=== PATIENT | female | born 1945 | race Caucasian/White ===

== ENCOUNTER 2017-09-23 11:38 | Emergency (ER) | payer MEDICARE, SELFPAY ==
[2017-09-23] MEDS ORDERED: Lisinopril 10 MG Tab PO ONE (14:01)
--- NOTE | 2017-09-23 14:01 | EDM.PDOC ---
ED HPI GENERAL MEDICAL PROBLEM - General Chief Complaint: Respiratory Problem Stated Complaint: POSSIBLE CARBON MONOXIDE POISIONING Time Seen by Provider: 09/23/17 13:54 Source of Information: Reports: Patient, Old Records History Limitations: Reports: No Limitations - History of Present Illness INITIAL COMMENTS - FREE TEXT/NARRATIVE: Not feeling well lately. Had her furnace tested and it was found to be faulty and putting out excess CO. Some leg swelling and orthopnea as well. Has a mild NOBLE and dizziness. No fever. No hx of CHF. Onset: Gradual Duration: Day(s):, Getting Worse Location: Reports: Chest Quality: Reports: Ache Severity: Mild Improves with: Reports: Rest Worsens with: Reports: Movement (or lying flat) Context: Reports: Other (? bad furnace) Associated Symptoms: Reports: Chest Pain, Headaches, Shortness of Breath. 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: Reports: Other (see below) (none) Other Treatments CLOTH CUTTING MACHINE OPERATOR: none - Related Data Allergies Allergy/AdvReac Type Severity Reaction Status Date / Time Penicillins Allergy Respiratory Verified 08/25/16 20:09 Depression Home Meds: Home Meds Furosemide [Lasix] 40 mg PO ASDIRECTED PRN 12/29/13 [History] Insulin Aspart [NovoLOG] 1 unit SQ ASDIRECTED 12/29/13 [History] Insulin Glarg,Human.Rec.Analog [Lantus] 14 units SQ BID 12/29/13 [History] Lisinopril 20 mg PO DAILY #30 tablet 09/23/17 [Rx] Past Medical History HEENT History: Reports: Impaired Vision, Other (See Below) Other HEENT History: diabetic retinopahy r ear pain Cardiovascular History: Reports: Hypertension Genitourinary History: Reports: UTI, Recurrent Musculoskeletal History: Reports: Fracture Other Musculoskeletal History: l shoulder fx l leg Endocrine/Metabolic History: Reports: Diabetes, Type II, Obesity/BMI 30+ Dermatologic History: Reports: Other (See Below) Other Dermatologic History: Skin rash - Infectious Disease History Infectious Disease History: Reports: Chicken Pox, Measles, Other (See Below) Other Infectious Disease History: polio - Past Surgical History HEENT Surgical History: Reports: Cataract Surgery Female Surgical History: Reports: Salpingo-Oophorectomy Musculoskeletal Surgical History: Reports: Other (See Below) Social & Family History - Tobacco Use Smoking Status *Q: Never Smoker Second Hand Smoke Exposure: No - Caffeine Use Caffeine Use: Reports: Soda - Recreational Drug Use Recreational Drug Use: No - Living Situation & Occupation Living situation: Reports: Occupation: Retired ED ROS GENERAL - Review of Systems Review Of Systems: See Below Constitutional: Reports: Malaise HEENT: Reports: No Symptoms Respiratory: Reports: Shortness of Breath. Denies: Wheezing, Pleuritic Chest Pain, Cough, Sputum, Hemoptysis Cardiovascular: Reports: Chest Pain (mild, intermittent) GI/Abdominal: Reports: No Symptoms : Reports: No Symptoms Musculoskeletal: Reports: No Symptoms Skin: Reports: No Symptoms Neurological: Reports: Dizziness, Headache. Denies: Numbness, Seizure, Syncope , Tingling Psychiatric: Reports: No Symptoms ED EXAM, GENERAL - Physical Exam Exam: See Below Exam Limited By: No Limitations General Appearance: Alert, WD/WN, No Apparent Distress, Obese Eye Exam: Bilateral Eye: Normal Inspection Ears: Normal External Exam, Normal Canal, Hearing Grossly Normal, Normal TMs Ear Exam: Bilateral Ear: Auricle Normal, Canal Normal, TM normal Nose: Normal Inspection, Normal Mucosa, No Blood Throat/Mouth: Normal Inspection, Normal Lips, Normal Teeth, Normal Oropharynx, Normal Voice, No Airway Compromise Head: Atraumatic, Normocephalic Neck: Normal Inspection, Supple Respiratory/Chest: No Respiratory Distress, Lungs Clear, No Accessory Muscle Use , Decreased Breath Sounds Cardiovascular: Regular Rate, Rhythm, No Edema GI/Abdominal: Soft Back Exam: Normal Inspection. No: CVA Tenderness (R), CVA Tenderness (L) Extremities: Normal Inspection, Non-Tender Neurological: Alert, Oriented, CN II-XII Intact, Normal Cognition, No Motor/ Sensory Deficits Psychiatric: Normal Affect, Normal Mood Skin Exam: Warm, Dry, Intact, Normal Color, No Rash Lymphatic: No Adenopathy Course - Vital Signs Text/Narrative:: Discussed dx and plan with patient. She preferred outpatient tx and preferred to wait until she gets home to start the diuretic. Last Recorded V/S: Last Vital Signs Temp 36.6 C 09/23/17 14:31 Pulse 100 09/23/17 14:53 Resp 18 09/23/17 14:53 BP 116/75 09/23/17 14:53 Pulse Ox 95 09/23/17 14:53 - Orders/Labs/Meds Orders: Active Orders 24 hr Category Date Time Status Oxygen Therapy Adult [Oxygen Therapy] [RC] ASDIRECTED Care 09/23/17 13:52 Active UA W/MICROSCOPIC [URIN] Stat Lab 09/23/17 14:39 Uncollected Saline Lock Insert [OM.PC] Routine Oth 09/23/17 15:08 Ordered Labs: Laboratory Tests 09/23/17 09/23/17 09/23/17 Range/Units 13:52 13:59 13:59 WBC 13.9 H (4.5-11.0) K/uL RBC 5.71 H (3.30-5.50) M/uL Hgb 14.7 (12.0-15.0) g/dL Hct 45.3 (36.0-48.0) % MCV 79 L (80-98) fL MCH 26 L (27-31) pg MCHC 33 (32-36) % Plt Count 265 (150-400) K/uL ABG Carboxyhemoglobin 2.4 H (0.0-1.6) % Sodium 140 (140-148) mmol/L Potassium 4.0 (3.6-5.2) mmol/L Chloride 104 (100-108) mmol/L Carbon Dioxide 30 (21-32) mmol/L Anion Gap 6.3 (5.0-14.0) mmol/L BUN 13 (7-18) mg/dL Creatinine 0.7 (0.6-1.0) mg/dL Est Cr Clr Drug Dosing 66.88 mL/min Estimated GFR (MDRD) > 60 (>60) Glucose 203 H (74-106) mg/dL Calcium 9.6 (8.5-10.1) mg/dL Troponin I < 0.017 (0.000-0.056) ng/mL NT-Pro-B Natriuret Pep 2195 H (5-125) pg/mL Meds: Medications Discontinued Medications Generic Name Dose Route Start Last Admin Trade Name Freq PRN Reason Stop Dose Admin Furosemide 40 mg 09/23/17 15:08 Lasix IVPUSH 09/23/17 15:09 ONETIME ONE Lisinopril 20 mg 09/23/17 14:01 09/23/17 14:12 Prinivil PO 09/23/17 14:02 20 mg ONETIME ONE Administration Sodium Chloride 10 ml 09/23/17 15:08 Saline Flush FLUSH ASDIRECTED PRN Keep Vein Open - Radiology Interpretation Free Text/Narrative:: CXR-R pleural effusion, bilat interstitial edema Departure - Departure Time of Disposition: 15:25 Disposition: Home, Self-Care 01 Condition: Fair Clinical Impression: Pleural effusion CHF (congestive heart failure) Qualifiers: Congestive heart failure type: systolic Congestive heart failure chronicity: acute on chronic Qualified Code(s): I50.23 - Acute on chronic systolic ( congestive) heart failure Clinical Impression: (Ruled Out): Pleural effusion associated with hepatic disorder - Discharge Information Prescriptions: Lisinopril 20 mg PO DAILY #30 tablet Referrals: Kiran Paul MD [Primary Care Provider] - Forms: ED Department Discharge Additional Instructions: Avoid salt. Take lisinopril 20 mg every morning starting tomorrow. Take furosemide 40 mg every morning through the time of your clinic appt. Call today to schedule clinic follow up for early next week. Return as needed. Return for outpatient Echocardiogram. - My Orders Last 24 Hours: My Active Orders 09/23/17 13:52 Oxygen Therapy Adult [Oxygen Therapy] [] ASDIRECTED 09/23/17 14:39 UA W/MICROSCOPIC [URIN] Stat 09/23/17 15:08 Saline Lock Insert [OM.PC] Routine - Assessment/Plan Last 24 Hours: My Active Orders 09/23/17 13:52 Oxygen Therapy Adult [Oxygen Therapy] [RC] ASDIRECTED 09/23/17 14:39 UA W/MICROSCOPIC [URIN] Stat 09/23/17 15:08 Saline Lock Insert [OM.PC] Routine
--- NOTE | 2017-09-23 14:46 | CR ---
Chest 2V INDICATION: orthopnea FINDINGS: Comparison 11/23/2010. Left central line has been removed. Interval enlargement of a now mode rate right pleural effusion. Atelectasis right lung base. Mild pulmonary venous hypertension. [place] of a lower thoracic vertebral body.
[2017-09-23 14:53] VITALS: BP 116/75
[2017-09-23] MEDS ORDERED: Sodium Chloride 0.9% 10 ML Syringe FLUSH PRN (15:08)
[2017-09-23] MEDS ORDERED: Furosemide 40 MG/4 ML VIAL IVPUSH ONE (15:08)
== END 2017-09-23 15:45 | disposition home or self-care (01) ==
LOC: JP.ED 11:38
DX: I11.0 Hypertensive heart disease with heart failure (principal); I50.23 Acute on chronic systolic (congestive) heart failure; J90 Pleural effusion, not elsewhere classified; E11.9 Type 2 diabetes mellitus without complications; Z79.4 Long term (current) use of insulin; Z88.0 Allergy status to penicillin
CPT/HCPCS: 36415; 71020; 80048; 82375; 83880; 84484; 85027; 99284; A9270

== ENCOUNTER 2017-10-01 15:11 | Emergency (ER) | payer MEDICARE, SELFPAY ==
[2017-10-01 15:24] VITALS: BP 165/80
--- NOTE | 2017-10-01 16:17 | EDM.PDOC ---
ED HPI GENERAL MEDICAL PROBLEM - General Chief Complaint: Diabetic Complaint Stated Complaint: WEAKNESS VIA [place] Time Seen by Provider: 10/01/17 16:07 Source of Information: Reports: Patient, RN Notes Reviewed History Limitations: Reports: No Limitations - History of Present Illness INITIAL COMMENTS - FREE TEXT/NARRATIVE: 71-year-old female presents emergency department day complaint of weakness arrived via EMS services she has had some difficulty over the last week or so with new onset congestive heart failure as well as carbon monoxide poisoning. She states over the last 24-48 hours she has been progressively more weak and unable to get up and move around also has had difficulty with her blood sugar - Related Data Allergies Allergy/AdvReac Type Severity Reaction Status Date / Time Penicillins Allergy Respiratory Verified 10/01/17 15:24 Depression Home Meds: Home Meds Furosemide [Lasix] 40 mg PO ASDIRECTED PRN 12/29/13 [History] Insulin Aspart [NovoLOG] 1 unit SQ ASDIRECTED 12/29/13 [History] Insulin Glarg,Human.Rec.Analog [Lantus] 14 units SQ BID 12/29/13 [History] Lisinopril 20 mg PO DAILY #30 tablet 09/23/17 [Rx] Aspirin [Halfprin] 81 mg PO DAILY 10/01/17 [History] Levofloxacin 750 mg PO DAILY 10/01/17 [History] Ondansetron [Zofran] 4 mg PO Q6H PRN 10/01/17 [History] Potassium Chloride [Klor-Con 10] 10 meq PO DAILY 10/01/17 [History] atorvaSTATin [Lipitor] 40 mg PO ONETIME 10/01/17 [History] tiZANidine HCl [Zanaflex] 4 mg PO Q8HR PRN 10/01/17 [History] Past Medical History HEENT History: Reports: Cataract, Impaired Vision, Other (See Below) Other HEENT History: diabetic retinopahy r ear pain Cardiovascular History: Reports: Hypertension Gastrointestinal History: Reports: Cholelithiasis Genitourinary History: Reports: UTI, Recurrent 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 Musculoskeletal History: Reports: Fracture Other Musculoskeletal History: l shoulder fx l leg Neurological History: Reports: Concussion Endocrine/Metabolic History: Reports: Diabetes, Type II, Obesity/BMI 30+ Dermatologic History: Reports: Other (See Below) Other Dermatologic History: Skin rash - Infectious Disease History Infectious Disease History: Reports: Chicken Pox, Measles Other Infectious Disease History: polio - Past Surgical History HEENT Surgical History: Reports: Cataract Surgery GI Surgical History: Reports: Cholecystectomy Female Surgical History: Reports: Salpingo-Oophorectomy Musculoskeletal Surgical History: Reports: Other (See Below) Social & Family History - Tobacco Use Smoking Status *Q: Never Smoker Second Hand Smoke Exposure: No - Caffeine Use Caffeine Use: Reports: Tea - Recreational Drug Use Recreational Drug Use: No - Living Situation & Occupation Living situation: Reports: Occupation: Retired ED ROS GENERAL - Review of Systems Review Of Systems: See Below Constitutional: Reports: Fever, Chills, Weakness HEENT: Reports: No Symptoms Respiratory: Reports: No Symptoms Cardiovascular: Reports: No Symptoms GI/Abdominal: Reports: No Symptoms : Reports: No Symptoms Musculoskeletal: Reports: No Symptoms Skin: Reports: No Symptoms Neurological: Reports: No Symptoms ED EXAM GENERAL NO PERIP PULSE - Physical Exam Exam: See Below Text/Narrative:: General: Female, not in any distress, alert and oriented x3 HEENT: head is atraumatic normocephalic, eyes pupils equal round reactive to light, sclera clear no conjunctivitis appreciated. Ears tympanic membranes clear and webber landmarks and light reflex are present bilaterally canals are clear. Nose no septal deviation, nares are clear, no blood present. Mouth mucosa is moist and pink no erythema or exudate noted in soft palate, tongue is midline uvula is midline, dentition is intact. Neck: Supple no thyromegaly no tracheal deviation. Nodes: Cervical nodes subclavicular nodes nontender no palpable lymphadenopathy noted. Lungs: clear to auscultation bilaterally with symmetrical respirations, no adventitious noise appreciated. CV: Regular rate and rhythm S1 and S2 appreciated grade 2/6 systolic ejection murmur, no rubs or gallops noted. Abdomen: Soft, obese, nontender, no palpable masses or organomegaly appreciated , no distention no guarding bowel sounds are present, . Neuro: Cranial nerves II through XII grossly intact Skin: Warm and dry, intact Extremities: +2 pitting edema bilaterally with chronic venous stasis dermatitis Course - Vital Signs Last Recorded V/S: Last Vital Signs Temp 98.4 F 10/01/17 15:19 Pulse 96 10/01/17 15:19 Resp 16 10/01/17 15:19 BP 165/80 H 11/11/17 15:19 Pulse Ox 98 10/01/17 15:19 - Orders/Labs/Meds Orders: Active Orders 24 hr Category Date Time Status CULTURE URINE [RM] Urgent Lab 10/01/17 17:00 Received Labs: Laboratory Tests 10/01/17 10/01/17 10/01/17 Range/Units 16:30 16:30 16:30 WBC 12.3 H (4.5-11.0) K/uL RBC 5.45 (3.30-5.50) M/uL Hgb 14.1 (12.0-15.0) g/dL Hct 43.5 (36.0-48.0) % MCV 80 (80-98) fL MCH 26 L (27-31) pg MCHC 32 (32-36) % Plt Count 248 (150-400) K/uL Neut % (Auto) 78 H (36-66) % Lymph % (Auto) 14 L (24-44) % [place] % (Auto) 7 H (2-6) % Eos % (Auto) 1 L (2-4) % Baso % (Auto) 0 (0-1) % Sodium 141 (140-148) mmol/L Potassium 3.4 L (3.6-5.2) mmol/L Chloride 102 (100-108) mmol/L Carbon Dioxide 31 (21-32) mmol/L Anion Gap 11.4 (5.0-14.0) mmol/L BUN 13 (7-18) mg/dL Creatinine 0.7 (0.6-1.0) mg/dL Est Cr Clr Drug Dosing 65.50 mL/min Estimated GFR (MDRD) > 60 (>60) Glucose 211 H (74-106) mg/dL Lactic Acid 1.3 (0.4-2.0) mmol/L Calcium 9.2 (8.5-10.1) mg/dL Total Bilirubin 0.6 (0.2-1.0) mg/dL AST 28 D (15-37) U/L ALT 26 (12-78) U/L Alkaline Phosphatase 76 (46-116) U/L Total Protein 7.3 (6.4-8.2) g/dL Albumin 3.2 L (3.4-5.0) g/dL Globulin 4.1 H (2.3-3.5) g/dL Albumin/Globulin Ratio 0.8 L (1.2-2.2) Urine Color Urine Appearance Urine pH (4.5-8.0) Ur Specific [place] (1.008-1.030) Urine Protein (NEGATIVE) mg/dL Urine Glucose (UA) (NEGATIVE) mg/dL Urine Ketones (NEGATIVE) mg/dL Urine Occult Blood (NEGATIVE) Urine Nitrite (NEGATIVE) Urine Bilirubin (NEGATIVE) Urine Urobilinogen (NORMAL) mg/dL Ur Leukocyte Esterase (NEGATIVE) Urine RBC (0-5) Urine WBC (0-5) Ur Epithelial Cells Amorphous Sediment Urine Bacteria Urine Mucus Urine Other 10/01/17 Range/Units 16:35 WBC (4.5-11.0) K/uL RBC (3.30-5.50) M/uL Hgb (12.0-15.0) g/dL Hct (36.0-48.0) % MCV (80-98) fL MCH (27-31) pg MCHC (32-36) % Plt Count (150-400) K/uL Neut % (Auto) (36-66) % Lymph % (Auto) (24-44) % [place] % (Auto) (2-6) % Eos % (Auto) (2-4) % Baso % (Auto) (0-1) % Sodium (140-148) mmol/L Potassium (3.6-5.2) mmol/L Chloride (100-108) mmol/L Carbon Dioxide (21-32) mmol/L Anion Gap (5.0-14.0) mmol/L BUN (7-18) mg/dL Creatinine (0.6-1.0) mg/dL Est Cr Clr Drug Dosing mL/min Estimated GFR (MDRD) (>60) Glucose (74-106) mg/dL Lactic Acid (0.4-2.0) mmol/L Calcium (8.5-10.1) mg/dL Total Bilirubin (0.2-1.0) mg/dL AST (15-37) U/L ALT (12-78) U/L Alkaline Phosphatase (46-116) U/L Total Protein (6.4-8.2) g/dL Albumin (3.4-5.0) g/dL Globulin (2.3-3.5) g/dL Albumin/Globulin Ratio (1.2-2.2) Urine Color Yellow Urine Appearance Clear Urine pH 6.5 (4.5-8.0) Ur Specific [place] 1.015 (1.008-1.030) Urine Protein 100 H (NEGATIVE) mg/dL Urine Glucose (UA) Normal (NEGATIVE) mg/dL Urine Ketones Negative (NEGATIVE) mg/dL Urine Occult Blood Large (NEGATIVE) Urine Nitrite Negative (NEGATIVE) Urine Bilirubin Negative (NEGATIVE) Urine Urobilinogen Normal (NORMAL) mg/dL Ur Leukocyte Esterase Negative (NEGATIVE) Urine RBC 20-30 H (0-5) Urine WBC 0-5 (0-5) Ur Epithelial Cells Few Amorphous Sediment Few Urine Bacteria Moderate Urine Mucus Few Urine Other Departure - Departure Time of Disposition: 17:40 Disposition: Home, Self-Care 01 Condition: Fair Clinical Impression: Weakness - Discharge Information Referrals: Kiran Paul MD [Primary Care Provider] - Forms: ED Department Discharge Additional Instructions: Continue your regular medications, Please followup with your primary care provider in [days] days if not better, please call return to the emergency department with worsening of symptoms. - My Orders Last 24 Hours: My Active Orders 10/01/17 17:00 CULTURE URINE [RM] Urgent - Assessment/Plan Last 24 Hours: My Active Orders 10/01/17 17:00 CULTURE URINE [RM] Urgent Plan: Assessment Acuity = acute Site and laterality = weakness, again the patient known history of diabetes mellitus type 2 as well as head injury and recent carbon monoxide poisoning Etiology = unclear etiology Manifestations = none Location of injury = Home Lab values = WBC elevated 12.3 consistent leukocytosis, potassium low at 3.4 consistent with hypokalemia glucose elevated at 211 consistent hyperglycemia lactic acid normal at 1.3 albumin low at 3.2 consistent hypoalbuminemia urinalysis reveals 20-30 WBCs consistent with pyuria EKG reveals a sinus rhythm with a right bundle branch block Plan I did talk to her about hospital admission which she declined she preferred to go home follow-up with her primary care in the next couple of days the only treatment provided was Zofran in route via EMS Patient was in agreement with the plan all questions were answered, they were instructed to return to the emergency department or call for worsening symptoms. This note was dictated using [employer] voice recognition software please call with any questions.
== END 2017-10-01 18:31 | disposition home or self-care (01) ==
LOC: JP.ED 15:11
DX: R53.1 Weakness (principal); Z88.0 Allergy status to penicillin; Z88.8 Allergy status to other drugs, medicaments and biological substances; Z79.82 Long term (current) use of aspirin; Z79.899 Other long term (current) drug therapy; E11.9 Type 2 diabetes mellitus without complications; I10 Essential (primary) hypertension; Z79.4 Long term (current) use of insulin
CPT/HCPCS: 36415; 80053; 81001; 83605; 85025; 87086; 99284; 99285

== ENCOUNTER 2018-02-27 22:34 | Emergency (ER) | payer MEDICARE, OTHER, SELFPAY ==
[2018-02-27] MEDS ORDERED: Sodium Chloride 0.9% 10 ML Syringe FLUSH PRN (22:52)
[2018-02-27] MEDS: Nitroglycerin 0.4 MG Tab.SL SL PRN (23:31)
--- NOTE | 2018-02-27 23:40 | EDM.PDOC ---
ED HPI GENERAL MEDICAL PROBLEM - General Chief Complaint: Chest Pain Stated Complaint: MEDICAL VIA TRI Time Seen by Provider: 02/27/18 23:34 Source of Information: Reports: Patient History Limitations: Reports: No Limitations - History of Present Illness INITIAL COMMENTS - FREE TEXT/NARRATIVE: pt was sitting and watching tv and he developed pain in the left chest and in the left arm. She was given asa in the ambulance and she was given nitro. She got 3 nitros which reduced the pain from a 9 to a 1. She states when she got the chest pain she did not get sweaty of vomit. She usually gets the pain wjhen she is active but tonight it was at rest. The pain was persistent so she did call 911. Onset: Today, Sudden, Other ( This occurred at rest. ) Duration: Minutes: Location: Reports: Chest Associated Symptoms: Reports: Chest Pain, Shortness of Breath Middle Back Pain Score (Numeric/FACES): 3 - Related Data Allergies Allergy/AdvReac Type Severity Reaction Status Date / Time chocolate flavor Allergy Itching Verified 02/27/18 22:52 Penicillins Allergy Respiratory Verified 02/27/18 23:30 Depression Home Meds: Home Meds Furosemide [Lasix] 40 mg PO ASDIRECTED PRN 12/29/13 [History] Insulin Aspart [NovoLOG] 1 unit SQ ASDIRECTED 12/29/13 [History] Insulin Glarg,Human.Rec.Analog [Lantus] 14 units SQ BID 12/29/13 [History] Lisinopril 20 mg PO DAILY #30 tablet 09/23/17 [Rx] Aspirin [Halfprin] 81 mg PO DAILY 10/01/17 [History] Levofloxacin 750 mg PO DAILY 10/01/17 [History] Ondansetron [Zofran] 4 mg PO Q6H PRN 10/01/17 [History] Potassium Chloride [Klor-Con 10] 10 meq PO DAILY 10/01/17 [History] atorvaSTATin [Lipitor] 40 mg PO ONETIME 10/01/17 [History] tiZANidine HCl [Zanaflex] 4 mg PO Q8HR PRN 10/01/17 [History] Past Medical History HEENT History: Reports: Cataract, Impaired Vision, Other (See Below) Other HEENT History: diabetic retinopahy r ear pain Cardiovascular History: Reports: Hypertension Gastrointestinal History: Reports: Cholelithiasis Genitourinary History: Reports: UTI, 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 Musculoskeletal History: Reports: Fracture Other Musculoskeletal History: l shoulder fx l leg Neurological History: Reports: Concussion Endocrine/Metabolic History: Reports: Diabetes, Type II, Obesity/BMI 30+ Dermatologic History: Reports: Other (See Below) Other Dermatologic History: Skin rash - Infectious Disease History Infectious Disease History: Reports: Chicken Pox, Measles Other Infectious Disease History: polio - Past Surgical History HEENT Surgical History: Reports: Cataract Surgery GI Surgical History: Reports: Cholecystectomy Female Surgical History: Reports: Salpingo-Oophorectomy Musculoskeletal Surgical History: Reports: Other (See Below) Social & Family History - Tobacco Use Smoking Status *Q: Never Smoker Second Hand Smoke Exposure: No - Caffeine Use Caffeine Use: Reports: Soda - Recreational Drug Use Recreational Drug Use: No - Living Situation & Occupation Living situation: Reports: Occupation: Retired ED ROS GENERAL - Review of Systems Review Of Systems: See Below Constitutional: Reports: No Symptoms HEENT: Reports: No Symptoms Respiratory: Reports: No Symptoms, Other (pt did not have marked sob with the chest pain. ) Cardiovascular: Reports: Chest Pain Endocrine: Reports: Other (bs has been all over the place. ) GI/Abdominal: Reports: No Symptoms, Other (pt was not nauseated. ) : Reports: No Symptoms Musculoskeletal: Reports: No Symptoms Skin: Reports: No Symptoms ED EXAM, GENERAL - Physical Exam Exam: See Below Free Text/Narrative:: pt arrived with a history of chest pain at rest and pain in the left arm. Exam Limited By: No Limitations General Appearance: Alert, Anxious, Mild Distress, Other (pt states after the nitro her pain is down to a 2. ) Ears: Normal TMs Nose: Normal Inspection Throat/Mouth: Normal Inspection Head: Atraumatic Neck: Normal Inspection Respiratory/Chest: No Respiratory Distress Cardiovascular: Regular Rate, Rhythm GI/Abdominal: Soft, Non-Tender (Female) Exam: Deferred Rectal (Female) Exam: Deferred Back Exam: Normal Inspection Extremities: Normal Inspection Neurological: Alert, Oriented, Normal Cognition Psychiatric: Normal Affect Course - Vital Signs Last Recorded V/S: Last Vital Signs Temp 36.7 C 02/27/18 23:10 Pulse 93 02/28/18 00:21 Resp 12 02/27/18 23:33 BP 176/63 H 02/28/18 00:21 Pulse Ox 97 02/27/18 23:33 - Orders/Labs/Meds Orders: Active Orders 24 hr Category Date Time Status EKG Documentation Completion [RC] ASDIRECTED Care 02/27/18 22:50 Active Chest 1V Frontal [CR] Stat Exams 02/27/18 23:23 Taken UA W/MICROSCOPIC [URIN] Urgent Lab 02/27/18 22:50 Ordered Heparin Sodium/D5W [Heparin 25,000 Units in D5W 500 ML] Med 02/28/18 00:07 Active 25,000 units in 500 ml IV TITRATE Nitroglycerin [Nitrostat] Med 02/27/18 22:52 Active 0.4 mg SL Q5M PRN Sodium Chloride 0.9% [Saline Flush] Med 02/27/18 22:52 Active 10 ml FLUSH ASDIRECTED PRN Saline Lock Insert [OM.PC] Routine Oth 02/27/18 22:52 Ordered EKG 12 Lead [EK] Routine Ther 02/27/18 22:50 Ordered Medication Orders Heparin Sodium/Dextrose (Heparin 25,000 Units In D5w 500 Ml) 25,000 units in 500 mls @ 20 mls/hr IV TITRATE BRITNEY Nitroglycerin (Nitrostat) 0.4 mg SL Q5M PRN PRN Reason: Chest Pain Last Admin: 02/27/18 23:31 Dose: 0.4 mg Sodium Chloride (Saline Flush) 10 ml FLUSH ASDIRECTED PRN PRN Reason: Keep Vein Open Labs: Laboratory Tests 02/27/18 02/27/18 02/27/18 Range/Units 22:50 22:50 22:50 WBC 14.0 H (4.5-11.0) K/uL RBC 4.64 (3.30-5.50) M/uL Hgb 12.8 (12.0-15.0) g/dL Hct 38.2 (36.0-48.0) % MCV 82 (80-98) fL MCH 28 (27-31) pg MCHC 34 (32-36) % Plt Count 267 (150-400) K/uL Neut % (Auto) 73 H (36-66) % Lymph % (Auto) 17 L (24-44) % [place] % (Auto) 8 H (2-6) % Eos % (Auto) 2 (2-4) % Baso % (Auto) 0 (0-1) % APTT (27.0-36.0) sec Sodium (140-148) mmol/L Potassium (3.6-5.2) mmol/L Chloride (100-108) mmol/L Carbon Dioxide (21-32) mmol/L Anion Gap (5.0-14.0) mmol/L BUN (7-18) mg/dL Creatinine (0.6-1.0) mg/dL Est Cr Clr Drug Dosing mL/min Estimated GFR (MDRD) (>60) Glucose (74-106) mg/dL Calcium (8.5-10.1) mg/dL Total Bilirubin (0.2-1.0) mg/dL AST (15-37) U/L ALT (12-78) U/L Alkaline Phosphatase (46-116) U/L Creatine Kinase (26-192) U/L Troponin I < 0.017 (0.000-0.056) ng/mL NT-Pro-B Natriuret Pep (5-125) pg/mL Total Protein (6.4-8.2) g/dL Albumin (3.4-5.0) g/dL Globulin (2.3-3.5) g/dL Albumin/Globulin Ratio (1.2-2.2) Urine Color Yellow Urine Appearance Clear Urine pH 5.0 (4.5-8.0) Ur Specific [place] 1.010 (1.008-1.030) Urine Protein Negative (NEGATIVE) mg/dL Urine Glucose (UA) 1000 H (NEGATIVE) mg/dL Urine Ketones Negative (NEGATIVE) mg/dL Urine Occult Blood Negative (NEGATIVE) Urine Nitrite Negative (NEGATIVE) Urine Bilirubin Negative (NEGATIVE) Urine Urobilinogen Normal (NORMAL) mg/dL Ur Leukocyte Esterase Negative (NEGATIVE) Urine RBC 0-5 (0-5) Urine WBC Not seen (0-5) Ur Epithelial Cells Few Amorphous Sediment Few Urine Bacteria Not seen Urine Mucus Not seen 02/27/18 02/27/18 02/28/18 Range/Units 22:50 23:00 00:02 WBC (4.5-11.0) K/uL RBC (3.30-5.50) M/uL Hgb (12.0-15.0) g/dL Hct (36.0-48.0) % MCV (80-98) fL MCH (27-31) pg MCHC (32-36) % Plt Count (150-400) K/uL Neut % (Auto) (36-66) % Lymph % (Auto) (24-44) % [place] % (Auto) (2-6) % Eos % (Auto) (2-4) % Baso % (Auto) (0-1) % APTT 25.0 L (27.0-36.0) sec Sodium 134 L (140-148) mmol/L Potassium 3.8 (3.6-5.2) mmol/L Chloride 95 L (100-108) mmol/L Carbon Dioxide 32 (21-32) mmol/L Anion Gap 10.8 (5.0-14.0) mmol/L BUN 29 H D (7-18) mg/dL Creatinine 1.2 H D (0.6-1.0) mg/dL Est Cr Clr Drug Dosing 39.25 mL/min Estimated GFR (MDRD) 44 L (>60) Glucose 361 H (74-106) mg/dL Calcium 9.0 (8.5-10.1) mg/dL Total Bilirubin 0.3 (0.2-1.0) mg/dL AST 19 (15-37) U/L ALT 26 (12-78) U/L Alkaline Phosphatase 179 H D (46-116) U/L Creatine Kinase 159 (26-192) U/L Troponin I (0.000-0.056) ng/mL NT-Pro-B Natriuret Pep 950 H (5-125) pg/mL Total Protein 7.3 (6.4-8.2) g/dL Albumin 3.3 L (3.4-5.0) g/dL Globulin 4.0 H (2.3-3.5) g/dL Albumin/Globulin Ratio 0.8 L (1.2-2.2) Urine Color Urine Appearance Urine pH (4.5-8.0) Ur Specific [place] (1.008-1.030) Urine Protein (NEGATIVE) mg/dL Urine Glucose (UA) (NEGATIVE) mg/dL Urine Ketones (NEGATIVE) mg/dL Urine Occult Blood (NEGATIVE) Urine Nitrite (NEGATIVE) Urine Bilirubin (NEGATIVE) Urine Urobilinogen (NORMAL) mg/dL Ur Leukocyte Esterase (NEGATIVE) Urine RBC (0-5) Urine WBC (0-5) Ur Epithelial Cells Amorphous Sediment Urine Bacteria Urine Mucus Meds: Medications Generic Name Dose Route Start Last Admin Trade Name Freq PRN Reason Stop Dose Admin Heparin Sodium/Dextrose 25,000 units in 500 mls @ 20 mls/hr 02/28/18 00:07 Heparin 25,000 Units In D5w 500 Ml IV TITRATE BRITNEY 1,000 UNITS/HR Nitroglycerin 0.4 mg 02/27/18 22:52 02/27/18 23:31 Nitrostat SL 0.4 mg Q5M PRN Administration Chest Pain Sodium Chloride 10 ml 02/27/18 22:52 Saline Flush FLUSH ASDIRECTED PRN Keep Vein Open Discontinued Medications Generic Name Dose Route Start Last Admin Trade Name Freq PRN Reason Stop Dose Admin Heparin Sodium (Porcine) 4,000 units 02/28/18 00:02 Heparin Sodium IVPUSH 02/28/18 00:03 ONETIME ONE Nitroglycerin/Dextrose 25 mg in 250 mls @ 6 mls/hr 02/27/18 23:45 Nitroglycerin 25 Mg/D5w 250 Ml IV TITRATE BRITNEY Protocol 10 MCG/MIN Metoprolol Tartrate 25 mg 02/27/18 23:59 02/28/18 00:21 Lopressor PO 02/28/18 00:00 25 mg ONETIME ONE Administration - Re-Assessments/Exams Free Text/Narrative Re-Assessment/Exam: 02/28/18 00:11 pt has a ejection fraction that is low. -- at 30 %. She has known valvular heart disease. Her trop was normal. She has a bs of 396. Her ekg shows a rt bundle which is not new. Departure - Departure Time of Disposition: 00:14 Disposition: DC/Tfer to Acute Hospital 02 Condition: Fair Clinical Impression: Unstable angina, Valvular heart disease Referrals: Kiran Paul MD [Primary Care Provider] - Forms: ED Department Discharge Care Plan Goals: transfer to [facility] - My Orders Last 24 Hours: My Active Orders 02/27/18 22:50 EKG Documentation Completion [RC] ASDIRECTED UA W/MICROSCOPIC [URIN] Urgent EKG 12 Lead [EK] Routine 02/27/18 22:52 Nitroglycerin [Nitrostat] 0.4 mg SL Q5M PRN Sodium Chloride 0.9% [Saline Flush] 10 ml FLUSH ASDIRECTED PRN Saline Lock Insert [OM.PC] Routine 02/27/18 23:23 Chest 1V Frontal [CR] Stat 02/28/18 00:07 Heparin Sodium/D5W [Heparin 25,000 Units in D5W 500 ML] 25,000 units in 500 ml IV TITRATE - Assessment/Plan Last 24 Hours: My Active Orders 02/27/18 22:50 EKG Documentation Completion [RC] ASDIRECTED UA W/MICROSCOPIC [URIN] Urgent EKG 12 Lead [EK] Routine 02/27/18 22:52 Nitroglycerin [Nitrostat] 0.4 mg SL Q5M PRN Sodium Chloride 0.9% [Saline Flush] 10 ml FLUSH ASDIRECTED PRN Saline Lock Insert [OM.PC] Routine 02/27/18 23:23 Chest 1V Frontal [CR] Stat 02/28/18 00:07 Heparin Sodium/D5W [Heparin 25,000 Units in D5W 500 ML] 25,000 units in 500 ml IV TITRATE
[2018-02-27] MEDS ORDERED: Nitroglycerin/D5W 25 MG/250 ML BOTTLE IV SCH (23:45)
[2018-02-27] MEDS ORDERED: Metoprolol Tartrate 25 MG Tab PO ONE (23:59)
[2018-02-28] MEDS ORDERED: Heparin Sodium 5,000 Units/ML Vial IVPUSH ONE (00:02)
[2018-02-28] MEDS ORDERED: Heparin Sodium/D5W 25,000 UNITS/500 ML BAG IV SCH (00:07)
[2018-02-28] MEDS: Nitroglycerin 0.4 MG Tab.SL SL PRN (00:55)
[2018-02-28 00:56] VITALS: BP 146/47
--- NOTE | 2018-02-28 08:42 | CR ---
Chest 1V Frontal INDICATION: sob FINDINGS: Comparison 09/23/2017. Interval resolution of the right pleural effusion. No focal consolida tion. Heart size within normal limits allowing for AP technique. Patient rotation to the right. Exam otherwise unremarkable.
== END 2018-02-28 01:15 ==
LOC: JP.ED 22:34
DX: I20.0 Unstable angina (principal); I38 Endocarditis, valve unspecified; I10 Essential (primary) hypertension; E11.319 Type 2 diabetes mellitus with unspecified diabetic retinopathy without macular edema; Z88.0 Allergy status to penicillin; Z91.018 Allergy to other foods; Z79.899 Other long term (current) drug therapy; Z79.4 Long term (current) use of insulin; Z79.82 Long term (current) use of aspirin
CPT/HCPCS: 36415; 71045; 80053; 81001; 82550; 82962; 83880; 84484; 85025; 85730; 93005; 96365; 96375; 96376; 99285; A9270; J1644; J7050

== ENCOUNTER 2018-04-27 15:05 | Emergency (ER) | payer MEDICARE ==
--- NOTE | 2018-04-27 15:20 | EDM.PDOC ---
ED HPI GENERAL MEDICAL PROBLEM - General Chief Complaint: Chest Pain Stated Complaint: CHEST PAIN FROM CLINIC Time Seen by Provider: 04/27/18 15:19 Source of Information: Reports: Patient, Old Records, RN History Limitations: Reports: No Limitations - History of Present Illness INITIAL COMMENTS - FREE TEXT/NARRATIVE: 72 yo female with known CAD, an EF of 30%, and valvular dz presents with chest pain. Normally walks and gets chest pain in her back that is relieved with rest. Today she was coming in to the hospital to see pulmonary rehab and in attempting to get there got a stabbing pain in her back that did not relent with rest. She has taken all her meds today. Her BP is usually well controlled. No nausea, radiation, diaphoresis or SOB. Has NTG at home, but did not take it or have it along with her. Recently saw cardiology regarding her valve and was told it could not be replaced until her foot ulcer was fully healed. Has AODM and her BS this morning was about 240. Pain almost gone shortly after arrival in the ED, duration from onset about 40 minutes. Did have her aspirin today. Plavix was stopped a few weeks ago for recurrent nose bleeds. Onset: Today Onset Date: 04/27/18 Onset Time: 14:50 Duration: Minutes:, Improving Location: Reports: Chest, Back Quality: Reports: Stabbing Severity: Moderate (at its worst, now nearly gone) Improves with: Reports: Rest Worsens with: Reports: Other (exertion.) Context: Reports: Other (known CAD) Associated Symptoms: Reports: No Other Symptoms Treatments PRODUCTION LINE: Reports: Other (see below) (none) Back Pain Score (Numeric/FACES): 5 - Related Data Allergies Allergy/AdvReac Type Severity Reaction Status Date / Time chocolate flavor Allergy Itching Verified 02/27/18 22:52 Penicillins Allergy Respiratory Verified 02/27/18 23:30 Depression sulfamethoxazole Allergy Hives Verified 04/27/18 15:47 [From Bactrim] trimethoprim [From Bactrim] Allergy Hives Verified 04/27/18 15:47 Home Meds: Home Meds Insulin Aspart [NovoLOG] 1 unit SQ ASDIRECTED 12/29/13 [History] Insulin Glarg,Human.Rec.Analog [Lantus] 15 units SQ BID 12/29/13 [History] Aspirin [Halfprin] 81 mg PO DAILY 11/11/17 [History] Ondansetron [Zofran] 4 mg PO Q6H PRN 10/01/17 [History] atorvaSTATin [Lipitor] 40 mg PO ONETIME 10/01/17 [History] tiZANidine HCl [Zanaflex] 4 mg PO Q8HR PRN 10/01/17 [History] Aspirin [Lo-Dose Aspirin EC] 81 mg PO DAILY 04/27/18 [History] B-Complex with Vitamin C [Super B Complex-Vitamin C] 1 each PO DAILY 04/27/18 [ History] Furosemide [Lasix] 60 mg PO DAILY 04/27/18 [History] Lisinopril 5 mg PO DAILY 04/27/18 [History] Metolazone [Zaroxolyn] 5 mg PO ASDIRECTED 04/27/18 [History] Metoprolol Succinate [Toprol XL] 25 mg PO DAILY 04/27/18 [History] Past Medical History HEENT History: Reports: Cataract, Impaired Vision, Other (See Below) Other HEENT History: diabetic retinopahy r ear pain Cardiovascular History: Reports: Hypertension Gastrointestinal History: Reports: Cholelithiasis Genitourinary History: Reports: UTI, Recurrent 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 Musculoskeletal History: Reports: Fracture Other Musculoskeletal History: l shoulder fx l leg Neurological History: Reports: Concussion Endocrine/Metabolic History: Reports: Diabetes, Type II, Obesity/BMI 30+ Dermatologic History: Reports: Other (See Below) Other Dermatologic History: Skin rash - Infectious Disease History Infectious Disease History: Reports: Chicken Pox, Measles Other Infectious Disease History: polio - Past Surgical History HEENT Surgical History: Reports: Cataract Surgery GI Surgical History: Reports: Cholecystectomy Female Surgical History: Reports: Salpingo-Oophorectomy Musculoskeletal Surgical History: Reports: Other (See Below) Social & Family History - Caffeine Use Caffeine Use: Reports: Soda - Living Situation & Occupation Living situation: Reports: Occupation: Retired ED ROS GENERAL - Review of Systems Review Of Systems: See Below Constitutional: Reports: No Symptoms HEENT: Reports: No Symptoms Respiratory: Reports: No Symptoms Cardiovascular: Reports: Chest Pain (mostly perceived in the mid back.) GI/Abdominal: Reports: No Symptoms : Reports: No Symptoms Musculoskeletal: Reports: No Symptoms Skin: Reports: No Symptoms Neurological: Reports: No Symptoms Psychiatric: Reports: No Symptoms ED EXAM, GENERAL - Physical Exam Exam: See Below Exam Limited By: No Limitations General Appearance: Alert, WD/WN, No Apparent Distress Eye Exam: Bilateral Eye: Normal Inspection Ears: Normal External Exam, Normal Canal, Hearing Grossly Normal Ear Exam: Bilateral Ear: Auricle Normal, Canal Normal Nose: Normal Inspection, Normal Mucosa, No Blood Throat/Mouth: Normal Inspection, Normal Lips, Normal Oropharynx, Normal Voice, No Airway Compromise Head: Atraumatic, Normocephalic Neck: Normal Inspection Respiratory/Chest: No Respiratory Distress, Lungs Clear, Normal Breath Sounds, No Accessory Muscle Use Cardiovascular: Regular Rate, Rhythm, Tachycardia GI/Abdominal: Normal Bowel Sounds, Soft, Non-Tender, No Distention Back Exam: Normal Inspection Extremities: Pedal Edema (Trace to both LE's below the knees.). No: Kai's Sign, Limited Range of Motion, Increased Warmth, Mottled, Pallor, Redness Neurological: Alert, Oriented, CN II-XII Intact, Normal Cognition, No Motor/ Sensory Deficits Psychiatric: Normal Affect, Normal Mood Skin Exam: Warm, Dry, Intact, Normal Color, No Rash Lymphatic: No Adenopathy EKG INTERPRETATION EKG Date: 04/27/18 Time: 15:10 Rhythm: NSR Rate (Beats/Min): 100 [place]: Normal P-Wave: Present QRS: RBBB ST-T: Depressed QT: Normal Comparison: Change From Previous EKG (slight increase in ST depression inf/ lateral leads.) Course - Vital Signs Text/Narrative:: NTG was ordered to be given sublingually, but resolved before it could be administered so the patient declined taking it. Case discussed with [facility] @ 1634h, Dr. Padilla declined admitting her here. Dr. Hassan, [facility] Hospitalist, accepts at 1610h. Last Recorded V/S: Last Vital Signs Temp 36.6 C 04/27/18 17:55 Pulse 73 04/27/18 17:55 Resp 14 04/27/18 17:55 BP 163/50 H 04/27/18 17:55 Pulse Ox 100 04/27/18 17:55 - Orders/Labs/Meds Orders: Active Orders 24 hr Category Date Time Status Cardiac Monitoring [RC] .As Directed Care 04/27/18 15:26 Active EKG Documentation Completion [RC] ASDIRECTED Care 04/27/18 15:26 Active Nitroglycerin [Nitrostat] Med 04/27/18 15:25 Active 0.4 mg SL Q5M PRN Sodium Chloride 0.9% [Saline Flush] Med 04/27/18 15:26 Active 10 ml FLUSH ASDIRECTED PRN Saline Lock Insert [OM.PC] Routine Oth 04/27/18 15:26 Ordered EKG 12 Lead [EK] Routine Ther 04/27/18 15:26 Ordered Medication Orders Nitroglycerin (Nitrostat) 0.4 mg SL Q5M PRN PRN Reason: Chest Pain Sodium Chloride (Saline Flush) 10 ml FLUSH ASDIRECTED PRN PRN Reason: Keep Vein Open Last Admin: 04/27/18 16:44 Dose: 10 ml Labs: Laboratory Tests 04/27/18 04/27/18 04/27/18 Range/Units 15:30 15:30 16:31 WBC 15.2 H (4.5-11.0) K/uL RBC 4.78 (3.30-5.50) M/uL Hgb 13.4 (12.0-15.0) g/dL Hct 39.4 (36.0-48.0) % MCV 82 (80-98) fL MCH 28 (27-31) pg MCHC 34 (32-36) % Plt Count 256 (150-400) K/uL D-Dimer, Quantitative 117 (0.0-400.0) ng/mL Sodium 133 L (140-148) mmol/L Potassium 3.7 (3.6-5.2) mmol/L Chloride 95 L (100-108) mmol/L Carbon Dioxide 30 (21-32) mmol/L Anion Gap 11.7 (5.0-14.0) mmol/L BUN 25 H (7-18) mg/dL Creatinine 1.0 (0.6-1.0) mg/dL Est Cr Clr Drug Dosing 47.10 mL/min Estimated GFR (MDRD) 55 L (>60) Glucose 267 H (74-106) mg/dL Calcium 8.8 (8.5-10.1) mg/dL Troponin I 0.047 (0.000-0.056) ng/mL 04/27/18 Range/Units 17:15 WBC (4.5-11.0) K/uL RBC (3.30-5.50) M/uL Hgb (12.0-15.0) g/dL Hct (36.0-48.0) % MCV (80-98) fL MCH (27-31) pg MCHC (32-36) % Plt Count (150-400) K/uL D-Dimer, Quantitative (0.0-400.0) ng/mL Sodium (140-148) mmol/L Potassium (3.6-5.2) mmol/L Chloride (100-108) mmol/L Carbon Dioxide (21-32) mmol/L Anion Gap (5.0-14.0) mmol/L BUN (7-18) mg/dL Creatinine (0.6-1.0) mg/dL Est Cr Clr Drug Dosing mL/min Estimated GFR (MDRD) (>60) Glucose (74-106) mg/dL Calcium (8.5-10.1) mg/dL Troponin I 0.070 H* (0.000-0.056) ng/mL Meds: Medications Generic Name Dose Route Start Last Admin Trade Name Freq PRN Reason Stop Dose Admin Nitroglycerin 0.4 mg 04/27/18 15:25 Nitrostat SL Q5M PRN Chest Pain Sodium Chloride 10 ml 04/27/18 15:26 04/27/18 16:44 Saline Flush FLUSH 10 ml ASDIRECTED PRN Administration Keep Vein Open Discontinued Medications Generic Name Dose Route Start Last Admin Trade Name Freq PRN Reason Stop Dose Admin Metoprolol Tartrate 25 mg 04/27/18 15:32 04/27/18 15:41 Lopressor PO 04/27/18 15:33 25 mg ONETIME ONE Administration Departure - Departure Time of Disposition: 18:30 Disposition: DC/Tfer to Acute Hospital 02 Reason for Transfer *Q: Other Condition: Fair Clinical Impression: Elevated troponin I level, Unstable angina Referrals: PCP,None [Primary Care Provider] - Forms: ED Department Discharge - My Orders Last 24 Hours: My Active Orders 04/27/18 15:25 Nitroglycerin [Nitrostat] 0.4 mg SL Q5M PRN 04/27/18 15:26 Cardiac Monitoring [RC] .As Directed EKG Documentation Completion [RC] ASDIRECTED Sodium Chloride 0.9% [Saline Flush] 10 ml FLUSH ASDIRECTED PRN Saline Lock Insert [OM.PC] Routine EKG 12 Lead [EK] Routine - Assessment/Plan Last 24 Hours: My Active Orders 04/27/18 15:25 Nitroglycerin [Nitrostat] 0.4 mg SL Q5M PRN 04/27/18 15:26 Cardiac Monitoring [RC] .As Directed EKG Documentation Completion [RC] ASDIRECTED Sodium Chloride 0.9% [Saline Flush] 10 ml FLUSH ASDIRECTED PRN Saline Lock Insert [OM.PC] Routine EKG 12 Lead [EK] Routine
[2018-04-27] MEDS ORDERED: Nitroglycerin 0.4 MG Tab.SL SL PRN (15:25)
[2018-04-27] MEDS ORDERED: Sodium Chloride 0.9% 10 ML Syringe FLUSH PRN (15:26)
[2018-04-27] MEDS ORDERED: Metoprolol Tartrate 25 MG Tab PO ONE (15:32)
[2018-04-27] MEDS ORDERED: Insulin Aspart 100 Units/ML 3 ML Pen SUBCUT ONE (18:36)
[2018-04-27] MEDS ORDERED: Insulin Regular, Human 100 Units/ML 10 ML Vial SUBCUT ONE (18:41)
[2018-04-27 19:03] VITALS: BP 153/34
== END 2018-04-27 19:11 ==
LOC: JP.ED 15:05
DX: I20.0 Unstable angina (principal); R79.89 Other specified abnormal findings of blood chemistry; E11.319 Type 2 diabetes mellitus with unspecified diabetic retinopathy without macular edema; E66.9 Obesity, unspecified; Z88.0 Allergy status to penicillin; Z88.2 Allergy status to sulfonamides; Z88.8 Allergy status to other drugs, medicaments and biological substances; Z91.018 Allergy to other foods; Z79.82 Long term (current) use of aspirin; Z79.899 Other long term (current) drug therapy
CPT/HCPCS: 36415; 80048; 82962; 84484; 85027; 85379; 93005; 99285; A9270; J7050

== ENCOUNTER 2018-05-16 12:12 | Emergency (ER) | payer MEDICARE ==
[2018-05-16] MEDS ORDERED: Sodium Chloride 0.9% 10 ML Syringe FLUSH PRN (12:36)
--- NOTE | 2018-05-16 12:44 | EDM.PDOC ---
ED HPI GENERAL MEDICAL PROBLEM - General Chief Complaint: Respiratory Problem Stated Complaint: [facility] Time Seen by Provider: 05/16/18 12:35 Source of Information: Reports: Patient, EMS, Old Records, RN History Limitations: Reports: No Limitations - History of Present Illness INITIAL COMMENTS - FREE TEXT/NARRATIVE: 72 yo female with recent CABG and valvular replacement presents with progressive SOB over the past day or so requiring oxygen initiation. Also legs more swollen than normal. No fever. Is more orthopneic than normal. Gradual progression of sx's. Has known CHF. No recent CP. Onset: Gradual Onset Date: 05/14/18 Duration: Day(s):, Getting Worse Location: Reports: Chest, Lower Extremity, Left, Lower Extremity, Right Quality: Reports: Other (no new pain) Severity: Moderate Improves with: Reports: Rest, Other (oxygen) Worsens with: Reports: Movement (lying flat, or taking oxygen away.) Context: Reports: Other (Recent CABG, known CHF) Associated Symptoms: Reports: Shortness of Breath. Denies: Chest Pain, Fever/ Chills Treatments FLOOR RENOVATOR: Reports: Oxygen Anterior Chest Pain Score (Numeric/FACES): 2 - Related Data Allergies Allergy/AdvReac Type Severity Reaction Status Date / Time chocolate flavor Allergy Itching Verified 05/16/18 12:48 Penicillins Allergy Respiratory Verified 05/16/18 12:48 Depression sulfamethoxazole Allergy Hives Verified 05/16/18 12:48 [From Bactrim] trimethoprim [From Bactrim] Allergy Hives Verified 05/16/18 12:48 Home Meds: Home Meds Insulin Aspart [NovoLOG] 1 unit SQ ASDIRECTED 12/29/13 [History] Insulin Glarg,Human.Rec.Analog [Lantus] 15 units SQ BID 12/29/13 [History] Aspirin [Halfprin] 81 mg PO DAILY 10/01/17 [History] Ondansetron [Zofran] 4 mg PO Q6H PRN 10/01/17 [History] atorvaSTATin [Lipitor] 40 mg PO ONETIME 10/01/17 [History] tiZANidine HCl [Zanaflex] 4 mg PO Q8HR PRN 10/01/17 [History] Aspirin [Lo-Dose Aspirin EC] 81 mg PO DAILY 04/27/18 [History] B-Complex with Vitamin C [Super B Complex-Vitamin C] 1 each PO DAILY 04/27/18 [ History] Furosemide [Lasix] 60 mg PO DAILY 04/27/18 [History] Lisinopril 5 mg PO DAILY 04/27/18 [History] Metolazone [Zaroxolyn] 5 mg PO ASDIRECTED 04/27/18 [History] Metoprolol Succinate [Toprol XL] 25 mg PO DAILY 04/27/18 [History] Past Medical History HEENT History: Reports: Cataract, Impaired Vision, Other (See Below) Other HEENT History: diabetic retinopahy r ear pain Cardiovascular History: Reports: Hypertension Gastrointestinal History: Reports: Cholelithiasis Genitourinary History: Reports: UTI, Recurrent [employer] History: Reports: None Musculoskeletal History: Reports: Fracture Other Musculoskeletal History: l shoulder fx l leg Neurological History: Reports: Concussion Endocrine/Metabolic History: Reports: Diabetes, Type II, Obesity/BMI 30+ Dermatologic History: Reports: Other (See Below) Other Dermatologic History: Skin rash - Infectious Disease History Infectious Disease History: Reports: Chicken Pox, Measles Other Infectious Disease History: polio - Past Surgical History HEENT Surgical History: Reports: Cataract Surgery GI Surgical History: Reports: Cholecystectomy Female Surgical History: Reports: Salpingo-Oophorectomy Musculoskeletal Surgical History: Reports: Other (See Below) Social & Family History - Caffeine Use Caffeine Use: Reports: Soda - Living Situation & Occupation Living situation: Reports: Occupation: Retired ED ROS GENERAL - Review of Systems Review Of Systems: See Below Constitutional: Reports: No Symptoms HEENT: Reports: No Symptoms Respiratory: Reports: Shortness of Breath. Denies: Wheezing, Pleuritic Chest Pain, Cough, Sputum, Hemoptysis Cardiovascular: Reports: Edema (legs bilat), Orthopnea GI/Abdominal: Reports: Constipation : Reports: No Symptoms Musculoskeletal: Reports: No Symptoms Skin: Reports: Other (legs weeping since yesterday.) Neurological: Reports: No Symptoms Psychiatric: Reports: No Symptoms ED EXAM, GENERAL - Physical Exam Exam: See Below Exam Limited By: No Limitations General Appearance: Alert, WD/WN, Mild Distress, Obese Eye Exam: Bilateral Eye: PERRL, Other (pale conjunctivas) Ears: Normal External Exam, Normal Canal, Hearing Grossly Normal Ear Exam: Bilateral Ear: Auricle Normal, Canal Normal Nose: Normal Inspection, Normal Mucosa, No Blood Throat/Mouth: Normal Inspection, Normal Lips, Normal Oropharynx, Normal Voice, No Airway Compromise Head: Atraumatic, Normocephalic Neck: Normal Inspection Respiratory/Chest: No Respiratory Distress, No Accessory Muscle Use, Decreased Breath Sounds (on left) Cardiovascular: Regular Rate, Rhythm, Other (3+ pitting edema of both LE's) GI/Abdominal: Normal Bowel Sounds, Soft, Non-Tender, No Distention Back Exam: Normal Inspection. No: CVA Tenderness (R), CVA Tenderness (L) Extremities: Non-Tender, Pedal Edema Neurological: Alert, Oriented, CN II-XII Intact, Normal Cognition, No Motor/ Sensory Deficits Psychiatric: Normal Affect, Normal Mood Skin Exam: Warm, Pallor Lymphatic: No Adenopathy EKG INTERPRETATION EKG Date: 05/16/18 Time: 12:35 Rhythm: NSR Rate (Beats/Min): 74 [place]: Normal P-Wave: Present QRS: Other (LAFB) ST-T: Normal QT: Normal Comparison: No Change Course - Vital Signs Last Recorded V/S: Last Vital Signs Temp 37.1 C 05/16/18 14:09 Pulse 70 05/16/18 14:09 Resp 13 05/16/18 14:09 BP 92/32 L 05/16/18 14:09 Pulse Ox 98 05/16/18 14:09 - Orders/Labs/Meds Orders: Active Orders 24 hr Category Date Time Status Cardiac Monitoring [RC] .As Directed Care 05/16/18 12:41 Active EKG Documentation Completion [RC] ASDIRECTED Care 05/16/18 12:41 Active Barber Catheter Insertion [Insert Urinary Catheter] [OM. Care 05/16/18 13:45 Ordered PC] Q24H Urinary Catheter Assessment [RC] ASDIRECTED Care 05/16/18 13:36 Active BASIC METABOLIC PANEL,BMP [CHEM] Stat Lab 05/16/18 12:35 Ordered CBC W/O DIFF,HEMOGRAM [HEME] Stat Lab 05/16/18 12:35 Ordered D Dimer [D-DIMER QUANTITATIVE] [COAG] Stat Lab 05/16/18 12:35 Ordered PRO B-TYPE NATRIUR PEPT,BNPPRO [CHEM] Stat Lab 05/16/18 12:35 Ordered TROPONIN I [CHEM] Stat Lab 05/16/18 12:35 Ordered Sodium Chloride 0.9% [Saline Flush] Med 05/16/18 12:36 Active 10 ml FLUSH ASDIRECTED PRN Saline Lock Insert [OM.PC] Routine Oth 05/16/18 12:36 Ordered EKG 12 Lead [EK] Routine Ther 05/16/18 12:41 Ordered Medication Orders Sodium Chloride (Saline Flush) 10 ml FLUSH ASDIRECTED PRN PRN Reason: Keep Vein Open Meds: Medications Generic Name Dose Route Start Last Admin Trade Name Freq PRN Reason Stop Dose Admin Sodium Chloride 10 ml 05/16/18 12:36 Saline Flush FLUSH ASDIRECTED PRN Keep Vein Open Discontinued Medications Generic Name Dose Route Start Last Admin Trade Name Freq PRN Reason Stop Dose Admin Furosemide 80 mg 05/16/18 12:57 05/16/18 13:57 Lasix IM 05/16/18 12:58 80 mg ONETIME ONE Administration Hydromorphone HCl 1 mg 05/16/18 13:41 05/16/18 13:58 Dilaudid IM 05/16/18 13:42 1 mg ONETIME ONE Administration Ondansetron HCl 4 mg 05/16/18 13:40 05/16/18 13:56 Zofran Odt PO 05/16/18 13:41 4 mg ONETIME ONE Administration - Radiology Interpretation Free Text/Narrative:: CXR-large L pleural effusion Departure - Departure Time of Disposition: 14:45 Disposition: DC/Tfer to Acute Hospital 02 Reason for Transfer *Q: Other Condition: Fair Clinical Impression: Pleural effusion on left, Hypoxemia Referrals: PCP,None [Primary Care Provider] - Forms: ED Department Discharge - My Orders Last 24 Hours: My Active Orders 05/16/18 12:35 BASIC METABOLIC PANEL,BMP [CHEM] Stat CBC W/O DIFF,HEMOGRAM [HEME] Stat D Dimer [D-DIMER QUANTITATIVE] [COAG] Stat PRO B-TYPE NATRIUR PEPT,BNPPRO [CHEM] Stat TROPONIN I [CHEM] Stat 05/16/18 12:36 Sodium Chloride 0.9% [Saline Flush] 10 ml FLUSH ASDIRECTED PRN Saline Lock Insert [OM.PC] Routine 05/16/18 12:41 Cardiac Monitoring [RC] .As Directed EKG Documentation Completion [RC] ASDIRECTED EKG 12 Lead [EK] Routine 05/16/18 13:36 Urinary Catheter Assessment [RC] ASDIRECTED 05/16/18 13:45 Barber Catheter Insertion [Insert Urinary Catheter] [OM.PC] Q24H - Assessment/Plan Last 24 Hours: My Active Orders 05/16/18 12:35 BASIC METABOLIC PANEL,BMP [CHEM] Stat CBC W/O DIFF,HEMOGRAM [HEME] Stat D Dimer [D-DIMER QUANTITATIVE] [COAG] Stat PRO B-TYPE NATRIUR PEPT,BNPPRO [CHEM] Stat TROPONIN I [CHEM] Stat 05/16/18 12:36 Sodium Chloride 0.9% [Saline Flush] 10 ml FLUSH ASDIRECTED PRN Saline Lock Insert [OM.PC] Routine 05/16/18 12:41 Cardiac Monitoring [RC] .As Directed EKG Documentation Completion [RC] ASDIRECTED EKG 12 Lead [EK] Routine 05/16/18 13:36 Urinary Catheter Assessment [RC] ASDIRECTED 05/16/18 13:45 Barber Catheter Insertion [Insert Urinary Catheter] [OM.PC] Q24H
[2018-05-16 12:46] VITALS: BP 92/32
[2018-05-16] MEDS ORDERED: Furosemide 40 MG/4 ML VIAL IM ONE (12:57)
[2018-05-16] MEDS ORDERED: Ondansetron 4 MG Tab.DIS PO ONE (13:40)
[2018-05-16] MEDS ORDERED: HYDROmorphone 1 MG/ML Syringe IM ONE (13:41)
--- NOTE | 2018-05-16 14:15 | CR ---
CHEST: Portable CLINICAL HISTORY:Hypoxia COMPARISON:02/27/2018 FINDINGS: Patient has significant opacification of the left lower hemithorax due to pleural effusion and underlying airspace disease. Patient has had the interval sternotomy since February. There is a per manent cardiac pacer in place. IMPRESSION: Large left pleural effusion with underlying airspace disease. Previous sternotomy Permanent cardiac pacer
== END 2018-05-16 15:45 ==
LOC: JP.ED 12:12
DX: J90 Pleural effusion, not elsewhere classified (principal); R09.02 Hypoxemia; I10 Essential (primary) hypertension; Z87.442 Personal history of urinary calculi; E11.9 Type 2 diabetes mellitus without complications; E66.9 Obesity, unspecified; Z88.0 Allergy status to penicillin; Z88.1 Allergy status to other antibiotic agents; Z79.82 Long term (current) use of aspirin; Z79.899 Other long term (current) drug therapy; Z68.41 Body mass index [BMI] 40.0-44.9, adult
CPT/HCPCS: 51702; 71045; 93005; 96372; 99284; 99285; A9270; J1170; J1940

== ENCOUNTER 2018-12-12 10:50 | Inpatient (IN) | payer MEDICARE ==
--- NOTE | 2018-12-12 12:00 | EDM.PDOC ---
<Karolyn Ann N - Last Filed: 12/12/18 12:16> ED HPI GENERAL MEDICAL PROBLEM - General Chief Complaint: Gastrointestinal Problem Stated Complaint: LOW HEMOGLOBIN Time Seen by Provider: 12/12/18 11:20 Source of Information: Reports: Patient History Limitations: Reports: No Limitations - History of Present Illness INITIAL COMMENTS - FREE TEXT/NARRATIVE: Morenita is a 73-year-old female who presents to the ER with complaints of a low hemoglobin. She reports that she has had two bloody stools in the past two days. Due to a left [id number] amputation, her mobility is severely limited and she uses the Ang lift and bedpan for toileting. Her bowel movements are unobserved and she is uncertain where the blood is coming from or what color it is. She has a past history of type 2 DM, pacemaker insertion, FL with stent placement x2, and valve replacement within the past year. She has had nosebleeds the past several mornings as well. She does report some burning with urination, and reports that she uses urinary catheters when going to [place] for appointments as toileting is too difficult during these rides. She reports tiredness and easy fatiguability, but denies weakness, dizziness, or other generalized symptoms. She denies any family history of colon cancer, or personal history of PUD. She has had no previous colonoscopies, but has had blood transfusions multiple times in the past. She does take Coumadin, with her INR 3.46 today. Onset: Gradual Onset Date: 12/10/18 - Related Data Allergies Allergy/AdvReac Type Severity Reaction Status Date / Time chocolate flavor Allergy Itching Verified 12/12/18 11:15 Penicillins Allergy Respiratory Verified 12/12/18 11:15 Depression sulfamethoxazole Allergy Hives Verified 12/12/18 11:15 [From Bactrim] trimethoprim [From Bactrim] Allergy Hives Verified 12/12/18 11:15 Home Meds: Home Meds Insulin Aspart [NovoLOG] 5 unit SQ TID 12/29/13 [History] Insulin Glarg,Human.Rec.Analog [Lantus] 25 units SQ DAILY 12/29/13 [History] Ondansetron [Zofran] 4 mg PO Q4H PRN 10/01/17 [History] atorvaSTATin [Lipitor] 40 mg PO BEDTIME 10/01/17 [History] Metoprolol Succinate [Toprol XL] 50 mg PO DAILY 04/27/18 [History] Clopidogrel Bisulfate [Plavix] 75 mg PO DAILY 05/16/18 [History] Potassium Chloride [Klor-Con M20] 20 meq PO BID 05/16/18 [History] ALPRAZolam [Alprazolam] 1 tab PO BID PRN 12/12/18 [History] ALPRAZolam [Alprazolam] 1 tab PO DAILY PRN 12/12/18 [History] Acetaminophen/HYDROcodone [Lincoln 325-5 MG] 1 tab PO Q4H PRN 12/12/18 [History] Albuterol/Ipratropium [DuoNeb 3.0-0.5 MG/3 ML] 1 dose INH Q4H PRN 12/12/18 [ History] Bisacodyl [Biscolax] 1 supp RECTAL Q24H PRN 12/12/18 [History] Bumetanide 1 mg PO DAILY 12/12/18 [History] Gabapentin [Neurontin] 900 mg PO TID 12/12/18 [History] Lisinopril [Prinivil] 10 mg PO DAILY 12/12/18 [History] Omeprazole 1 tab PO BID 12/12/18 [History] Pentoxifylline [TRENtal] 400 mg PO TID 12/12/18 [History] Sertraline [Zoloft] 75 mg PO DAILY 12/12/18 [History] Trolamine Salicylate/Aloe Vera [Aspercreme 10%] 1 applic TOP ASDIRECTED PRN [History] Warfarin [Coumadin] 5 mg PO BEDTIME 12/12/18 [History] Warfarin [Coumadin] 7.5 mg PO BEDTIME 12/12/18 [History] Past Medical History HEENT History: Reports: Cataract, Impaired Vision, Other (See Below) Other HEENT History: diabetic retinopahy r ear pain Cardiovascular History: Reports: Hypertension, FL, Pacemaker, Stents Respiratory History: Reports: Other (See Below) Other Respiratory History: CHF Gastrointestinal History: Reports: Cholelithiasis Genitourinary History: Reports: UTI, Recurrent [employer]ER History: Reports: None Musculoskeletal History: Reports: Amputation, Fracture Other Musculoskeletal History: l shoulder fx l leg, BKA left 2018, 1 toe amputated on right foot Neurological History: Reports: Concussion Psychiatric History: Reports: Anxiety, Depression Endocrine/Metabolic History: Reports: Diabetes, Type II, Obesity/BMI 30+ Hematologic History: Reports: Blood Transfusion(s) Dermatologic History: Reports: Other (See Below) Other Dermatologic History: Skin rash - Infectious Disease History Infectious Disease History: Reports: Chicken Pox, Other (See Below) Other Infectious Disease History: polio - Past Surgical History Head Surgeries/Procedures: Reports: None HEENT Surgical History: Reports: Cataract Surgery Cardiovascular Surgical History: Reports: Vascular Surgery Respiratory Surgical History: Reports: None GI Surgical History: Reports: Cholecystectomy Female Surgical History: Reports: Salpingo-Oophorectomy Endocrine Surgical History: Reports: None Neurological Surgical History: Reports: None Musculoskeletal Surgical History: Reports: Amputation, Other (See Below) Dermatological Surgical History: Reports: None Social & Family History - Tobacco Use Smoking Status *Q: Never Smoker - Caffeine Use Caffeine Use: Reports: Soda - Recreational Drug Use Recreational Drug Use: No - Living Situation & Occupation Living situation: Reports: Occupation: Retired ED ROS GENERAL - Review of Systems Review Of Systems: See Below Constitutional: Reports: Fatigue, Night Sweats, Decreased Appetite. Denies: Fever, Chills, Malaise, Weakness, Weight Loss HEENT: Reports: Glasses, Hearing Loss (Bilaterally), Nosebleed, Vision Change ( Right eye changes; follows with a retinologist). Denies: Ear Pain, Rhinitis, Throat Pain Respiratory: Reports: Cough, Sputum. Denies: Shortness of Breath, Pleuritic Chest Pain Cardiovascular: Reports: No Symptoms. Denies: Chest Pain, Dyspnea on Exertion, Lightheadedness, Palpitations Endocrine: Reports: Fatigue GI/Abdominal: Reports: Bloody Stool, Decreased Appetite. Denies: Abdominal Pain , Constipation, Diarrhea, Hematemesis, Nausea, Vomiting : Reports: Dysuria. Denies: Frequency, Irregular Menses, Urgency Musculoskeletal: Reports: No Symptoms Skin: Reports: Bruising Neurological: Reports: No Symptoms. Denies: Dizziness, Headache, Weakness Psychiatric: Reports: No Symptoms Hematologic/Lymphatic: Denies: Easy Bleeding Immunologic: Reports: No Symptoms ED EXAM, GI/ABD - Physical Exam Exam: See Below Exam Limited By: No Limitations General Appearance: Alert, WD/WN, No Apparent Distress Eyes: Bilateral: Normal Appearance, Abnormal EOM (Poor EOM in left visual musa ), Nystagmus Ears: Normal External Exam, Normal Canal, Hearing Grossly Normal, Normal TMs Nose: Normal Inspection, Normal Mucosa, No Blood Throat/Mouth: Normal Inspection, Normal Gums, Normal Oropharynx, Normal Voice, No Airway Compromise Head: Atraumatic, Normocephalic Neck: Normal Inspection, Supple, Non-Tender Respiratory/Chest: No Respiratory Distress, Lungs Clear, Normal Breath Sounds Cardiovascular: Regular Rate, Rhythm, No Edema, No Gallop, No Rub, Systolic Murmur GI/Abdominal Exam: Normal Bowel Sounds, Soft, Non-Tender, No Organomegaly, No Distention, No Mass Rectal (Female) Exam: Normal Rectal Tone, Black Stool, Tenderness. No: Hemorrhoids Extremities: Other (Dressing in place over stump of left BKA; Right lower extremity rubor) Neurological: Alert, Oriented, Normal Cognition, No Motor/Sensory Deficits Psychiatric: Normal Affect, Normal Mood Skin Exam: Warm, Dry, Intact, Ecchymosis (Scattered over both arms), Pallor Lymphatic: No Adenopathy Course - Vital Signs Last Recorded V/S: Last Vital Signs Temp 97.6 F 12/13/18 06:00 Pulse 69 12/12/18 19:42 Resp 11 L 12/13/18 06:00 BP 144/24 H 12/13/18 06:00 Pulse Ox 100 12/13/18 06:00 - Orders/Labs/Meds Orders: Active Orders 24 hr Category Date Time Status FRESH FROZEN PLASMA [BBK] Stat Lab 12/12/18 12:50 Results RED BLOOD CELLS LP [BBK] Stat Lab 12/12/18 12:50 Results TYPE AND SCREEN [BBK] Stat Lab 12/12/18 12:50 Results Medication Orders Acetaminophen (Tylenol) 650 mg PO Q4H PRN PRN Reason: Pain (Mild 1-3)/fever Hydrocodone Bitart/Acetaminophen (Lincoln 325-5 Mg) 1 tab PO Q4H PRN PRN Reason: Pain (moderate 4-6) Last Admin: 12/12/18 21:34 Dose: 1 tab Admin: 12/12/18 17:22 Dose: 1 tab Albuterol (Proventil Neb Soln) 2.5 mg NEB Q4H PRN PRN Reason: Shortness Of Breath/wheezing Albuterol/Ipratropium (Duoneb 3.0-0.5 Mg/3 Ml) 3 ml INH Q4H PRN PRN Reason: Wheezing Alprazolam (Xanax) 0.25 mg PO BID PRN PRN Reason: Anxiety Atorvastatin Calcium (Lipitor) 40 mg PO BEDTIME [facility] Clopidogrel Bisulfate (Plavix) 75 mg PO DAILY [facility] Dextrose (Glutose 15) 15 gm PO ONETIME PRN PRN Reason: Hypoglycemia Dextrose/Water (Dextrose 50% In Water) 50 ml IV ONETIME PRN PRN Reason: Hypoglycemia Gabapentin (Neurontin) 900 mg PO TID [facility] Last Admin: 12/12/18 21:34 Dose: 900 mg Admin: 12/12/18 16:32 Dose: 900 mg Pantoprazole Sodium 80 mg/ (Sodium Chloride) 100 mls @ 10 mls/hr IV .Q10H [facility] Last Admin: 12/13/18 01:01 Dose: 10 mls/hr Infusion: 12/13/18 01:01 Dose: 10 mls/hr Admin: 12/12/18 15:39 Dose: 10 mls/hr Sodium Chloride (Normal Saline) 1,000 mls @ 125 mls/hr IV ASDIRECTED [facility] Last Admin: 12/12/18 15:39 Dose: 125 mls/hr Insulin Glargine (Lantus Solostar) 25 units SUBCUT DAILY [facility] Insulin Human Lispro (Humalog) 0 unit SUBCUT QIDACANDBED [facility]; Protocol Last Admin: 12/12/18 21:57 Dose: Not Given Admin: 12/12/18 16:54 Dose: Not Given Lisinopril (Prinivil) 10 mg PO DAILY [facility] Metoprolol Succinate (Toprol Xl) 50 mg PO DAILY [facility] Ondansetron HCl (Zofran) 4 mg IV Q4H PRN PRN Reason: Nausea/Vomiting Potassium Chloride (Klor-Con M20) 20 meq PO BID [facility] Last Admin: 12/12/18 21:35 Dose: 20 meq Sertraline HCl (Zoloft) 75 mg PO DAILY [facility] Sodium Chloride (Saline Flush) 10 ml FLUSH ASDIRECTED PRN PRN Reason: Keep Vein Open Labs: Laboratory Tests 12/12/18 12/12/18 Range/Units 12:50 12:50 Sodium 140 (140-148) mmol/L Potassium 4.8 (3.6-5.2) mmol/L Chloride 104 (100-108) mmol/L Carbon Dioxide 29 (21-32) mmol/L Anion Gap 6.6 (5.0-14.0) mmol/L BUN 56 H D (7-18) mg/dL Creatinine 0.9 (0.6-1.0) mg/dL Est Cr Clr Drug Dosing 51.59 mL/min Estimated GFR (MDRD) > 60 (>60) Glucose 132 H (74-106) mg/dL Calcium 9.0 (8.5-10.1) mg/dL Total Bilirubin 0.1 L (0.2-1.0) mg/dL AST 13 L (15-37) U/L ALT 18 D (12-78) U/L Alkaline Phosphatase 88 (46-116) U/L Total Protein 6.1 L (6.4-8.2) g/dL Albumin 2.5 L (3.4-5.0) g/dL Globulin 3.6 H (2.3-3.5) g/dL Albumin/Globulin Ratio 0.7 L (1.2-2.2) Blood Type O POSITIVE Gel Antibody Screen Negative Crossmatch See Detail Meds: Medications Generic Name Dose Route Start Last Admin Trade Name Freq PRN Reason Stop Dose Admin Acetaminophen 650 mg 12/12/18 14:11 Tylenol PO Q4H PRN Pain (Mild 1-3)/fever Hydrocodone Bitart/Acetaminophen 1 tab 12/12/18 14:11 12/12/18 21:34 Lincoln 325-5 Mg PO 1 tab Q4H PRN Administration Pain (moderate 4-6) Albuterol 2.5 mg 12/12/18 14:11 Proventil Neb Soln NEB Q4H PRN Shortness Of Breath/wheezing Albuterol/Ipratropium 3 ml 12/12/18 14:11 Duoneb 3.0-0.5 Mg/3 Ml INH Q4H PRN Wheezing Alprazolam 0.25 mg 12/12/18 14:11 Xanax PO BID PRN Anxiety Atorvastatin Calcium 40 mg 12/13/18 21:00 Lipitor PO BEDTIME [facility] Clopidogrel Bisulfate 75 mg 12/13/18 09:00 Plavix PO DAILY [facility] Dextrose 15 gm 12/12/18 14:11 Glutose 15 PO ONETIME PRN Hypoglycemia Dextrose/Water 50 ml 12/12/18 14:11 Dextrose 50% In Water IV ONETIME PRN Hypoglycemia Gabapentin 900 mg 12/12/18 14:11 12/12/18 21:34 Neurontin PO 900 mg TID [facility] Administration Pantoprazole Sodium 80 mg/ 100 mls @ 10 mls/hr 12/12/18 15:00 12/13/18 01:01 Sodium Chloride IV 10 mls/hr .Q10H [facility] Administration Sodium Chloride 1,000 mls @ 125 mls/hr 12/12/18 14:11 12/12/18 15:39 Normal Saline IV 125 mls/hr ASDIRECTED [facility] Administration Insulin Glargine 25 units 12/13/18 09:00 Lantus Solostar SUBCUT DAILY [facility] Insulin Human Lispro 0 unit 12/12/18 17:00 12/12/18 21:57 Humalog SUBCUT Not Given QIDACANDBED [facility] Protocol Lisinopril 10 mg 12/13/18 09:00 Prinivil PO DAILY [facility] Metoprolol Succinate 50 mg 12/13/18 09:00 Toprol Xl PO DAILY [facility] Ondansetron HCl 4 mg 12/12/18 14:11 Zofran IV Q4H PRN Nausea/Vomiting Potassium Chloride 20 meq 12/12/18 21:00 12/12/18 21:35 Klor-Con M20 PO 20 meq BID [facility] Administration Sertraline HCl 75 mg 12/13/18 09:00 Zoloft PO DAILY [facility] Sodium Chloride 10 ml 12/12/18 14:11 Saline Flush FLUSH ASDIRECTED PRN Keep Vein Open Discontinued Medications Generic Name Dose Route Start Last Admin Trade Name Freq PRN Reason Stop Dose Admin Pantoprazole Sodium 80 mg/ 100 mls @ 10 mls/hr 12/12/18 12:45 12/12/18 22:03 Sodium Chloride IV Not Given .Q10H [facility] Pantoprazole Sodium 80 mg 12/12/18 12:45 Protonix Iv IVPUSH .BOLUS [facility] Warfarin Sodium 5 mg 12/12/18 21:00 Coumadin PO BEDTIME [facility] Departure - Departure Disposition: Admitted As Inpatient 68 Clinical Impression: Blood loss anemia GI bleed Qualifiers: GI bleed type/associated pathology: melena Qualified Code(s): K92.1 - Melena - Discharge Information - My Orders Last 24 Hours: My Active Orders 12/12/18 12:50 FRESH FROZEN PLASMA [BBK] Stat - Assessment/Plan Last 24 Hours: My Active Orders 12/12/18 12:50 FRESH FROZEN PLASMA [BBK] Stat <Cayden Askew - Last Filed: 12/13/18 07:05> ED HPI GENERAL MEDICAL PROBLEM Generalized Pain Score (Numeric/FACES): 2 Course - Orders/Labs/Meds Labs: Laboratory Tests 12/12/18 12/12/18 Range/Units 12:50 12:50 Sodium 140 (140-148) mmol/L Potassium 4.8 (3.6-5.2) mmol/L Chloride 104 (100-108) mmol/L Carbon Dioxide 29 (21-32) mmol/L Anion Gap 6.6 (5.0-14.0) mmol/L BUN 56 H D (7-18) mg/dL Creatinine 0.9 (0.6-1.0) mg/dL Est Cr Clr Drug Dosing 51.59 mL/min Estimated GFR (MDRD) > 60 (>60) Glucose 132 H (74-106) mg/dL Calcium 9.0 (8.5-10.1) mg/dL Total Bilirubin 0.1 L (0.2-1.0) mg/dL AST 13 L (15-37) U/L ALT 18 D (12-78) U/L Alkaline Phosphatase 88 (46-116) U/L Total Protein 6.1 L (6.4-8.2) g/dL Albumin 2.5 L (3.4-5.0) g/dL Globulin 3.6 H (2.3-3.5) g/dL Albumin/Globulin Ratio 0.7 L (1.2-2.2) Blood Type O POSITIVE Gel Antibody Screen Negative Crossmatch See Detail Meds: Medications Generic Name Dose Route Start Last Admin Trade Name Freq PRN Reason Stop Dose Admin Acetaminophen 650 mg 12/12/18 14:11 Tylenol PO Q4H PRN Pain (Mild 1-3)/fever Hydrocodone Bitart/Acetaminophen 1 tab 12/12/18 14:11 12/12/18 21:34 Lincoln 325-5 Mg PO 1 tab Q4H PRN Administration Pain (moderate 4-6) Albuterol 2.5 mg 12/12/18 14:11 Proventil Neb Soln NEB Q4H PRN Shortness Of Breath/wheezing Albuterol/Ipratropium 3 ml 12/12/18 14:11 Duoneb 3.0-0.5 Mg/3 Ml INH Q4H PRN Wheezing Alprazolam 0.25 mg 12/12/18 14:11 Xanax PO BID PRN Anxiety Atorvastatin Calcium 40 mg 12/13/18 21:00 Lipitor PO BEDTIME [facility] Clopidogrel Bisulfate 75 mg 12/13/18 09:00 Plavix PO DAILY [facility] Dextrose 15 gm 12/12/18 14:11 Glutose 15 PO ONETIME PRN Hypoglycemia Dextrose/Water 50 ml 12/12/18 14:11 Dextrose 50% In Water IV ONETIME PRN Hypoglycemia Gabapentin 900 mg 12/12/18 14:11 12/12/18 21:34 Neurontin PO 900 mg TID [facility] Administration Pantoprazole Sodium 80 mg/ 100 mls @ 10 mls/hr 12/12/18 15:00 12/13/18 01:01 Sodium Chloride IV 10 mls/hr .Q10H [facility] Administration Sodium Chloride 1,000 mls @ 125 mls/hr 12/12/18 14:11 12/12/18 15:39 Normal Saline IV 125 mls/hr ASDIRECTED [facility] Administration Insulin Glargine 25 units 12/13/18 09:00 Lantus Solostar SUBCUT DAILY [facility] Insulin Human Lispro 0 unit 12/12/18 17:00 12/12/18 21:57 Humalog SUBCUT Not Given QIDACANDBED [facility] Protocol Lisinopril 10 mg 12/13/18 09:00 Prinivil PO DAILY [facility] Metoprolol Succinate 50 mg 12/13/18 09:00 Toprol Xl PO DAILY [facility] Ondansetron HCl 4 mg 12/12/18 14:11 Zofran IV Q4H PRN Nausea/Vomiting Potassium Chloride 20 meq 12/12/18 21:00 12/12/18 21:35 Klor-Con M20 PO 20 meq BID [facility] Administration Sertraline HCl 75 mg 12/13/18 09:00 Zoloft PO DAILY [facility] Sodium Chloride 10 ml 12/12/18 14:11 Saline Flush FLUSH ASDIRECTED PRN Keep Vein Open Discontinued Medications Generic Name Dose Route Start Last Admin Trade Name Endy PRN Reason Stop Dose Admin Pantoprazole Sodium 80 mg/ 100 mls @ 10 mls/hr 12/12/18 12:45 12/12/18 22:03 Sodium Chloride IV Not Given .Q10H [facility] Pantoprazole Sodium 80 mg 12/12/18 12:45 Protonix Iv IVPUSH .BOLUS [facility] Warfarin Sodium 5 mg 12/12/18 21:00 Coumadin PO BEDTIME [facility] - Re-Assessments/Exams Free Text/Narrative Re-Assessment/Exam: 12/12/18 12:55 Rectal exam did confirm maroon bloody stool. Discussed with Leopoldo Leavitt of the hospitalist service, plan is to admit. She'll be given 1 unit of fresh frozen plasma, a bolus of 80 mg of Protonix and started on a Protonix drip. She'll be admitted to the hospitalist service for evaluation and treatment of a GI bleed. Departure - Departure Time of Disposition: 14:43 Condition: Fair
[2018-12-12] MEDS ORDERED: Sodium Chloride 0.9% 100 ML with Pantoprazole 80 MG IV SCH ×2 (12:45)
[2018-12-12] MEDS ORDERED: Pantoprazole 40 MG Vial IVPUSH SCH (12:45)
[2018-12-12] MEDS ORDERED: Sodium Chloride 0.9% 10 ML Syringe FLUSH PRN (14:11)
[2018-12-12] MEDS ORDERED: Ondansetron 4 MG/2 ML SDV IV PRN (14:11)
[2018-12-12] MEDS ORDERED: Glucose Gel 15 GM in 37.5 GM Tube PO PRN (14:11)
[2018-12-12] MEDS ORDERED: 50% Dextrose in Water 50 ML Syringe IV PRN (14:11)
[2018-12-12] MEDS ORDERED: ALPRAZolam 0.25 MG Tab PO PRN (14:11)
[2018-12-12] MEDS ORDERED: Acetaminophen 325 MG Tab PO PRN (14:11)
[2018-12-12] MEDS ORDERED: Albuterol 0.083% 2.5 MG/3 ML Neb Soln NEB PRN (14:11)
[2018-12-12] MEDS ORDERED: Albuterol/Ipratropium 3.0-0.5 MG/3 ML Neb Soln INH PRN (14:11)
[2018-12-12] MEDS: Sodium Chloride 0.9% 100 ML with Pantoprazole 80 MG IV SCH ×2 (15:39)
[2018-12-12] MEDS: Sodium Chloride 0.9% 1,000 ML IV SCH (15:39)
--- NOTE | 2018-12-12 15:50 | PCM.HP ---
H&P History of Present Illness - General Date of Service: 12/12/18 Admit Problem/Dx: Admission Diagnosis/Problem Admission Diagnosis/Problem Bleeding Source of Information: Patient, Provider, RN Notes Reviewed History Limitations: Reports: No Limitations - History of Present Illness Initial Comments - Free Text/Narative: Ms. Padilla is a 73-year-old woman who is admitted through the emergency department with symptoms of increased shortness of breath and weakness secondary to an acute GI bleed and acute blood loss anemia. She has had a fairly extensive medical history over the past 12 months. 9 months ago underwent cardiac angioplasty with stent placement. This was followed by aortic valve replacement surgery 6 months ago. 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 She had been at the group home to recover from her recent surgery and was doing well up until the past few days. Over the last 48 hours staff at the group home have noted melenic/maroon stool. During that period of time patient is noted increased shortness of breath with progressive weakness. Hemoglobins were monitored at the group home and today her hemoglobin was down to 7.3 so she was sent to the emergency department for further evaluation. She is on long-term oral anticoagulation with warfarin because of her prosthetic aortic valve and is currently taking Plavix because of the angioplasty performed last February. - Related Data Allergies/Adverse Reactions: Allergies Allergy/AdvReac Type Severity Reaction Status Date / Time chocolate flavor Allergy Itching Verified 12/12/18 11:15 Penicillins Allergy Respiratory Verified 12/12/18 11:15 Depression sulfamethoxazole Allergy Hives Verified 12/12/18 11:15 [From Bactrim] trimethoprim [From Bactrim] Allergy Hives Verified 12/12/18 11:15 Home Medications: Home Meds Insulin Aspart [NovoLOG] 5 unit SQ TID 12/29/13 [History] Insulin Glarg,Human.Rec.Analog [Lantus] 25 units SQ DAILY 12/29/13 [History] Ondansetron [Zofran] 4 mg PO Q4H PRN 10/01/17 [History] atorvaSTATin [Lipitor] 40 mg PO BEDTIME 10/01/17 [History] Metoprolol Succinate [Toprol XL] 50 mg PO DAILY 04/27/18 [History] Clopidogrel Bisulfate [Plavix] 75 mg PO DAILY 05/16/18 [History] Potassium Chloride [Klor-Con M20] 20 meq PO BID 05/16/18 [History] ALPRAZolam [Alprazolam] 1 tab PO BID PRN 12/12/18 [History] ALPRAZolam [Alprazolam] 1 tab PO DAILY PRN 12/12/18 [History] Acetaminophen/HYDROcodone [Pemberton 325-5 MG] 1 tab PO Q4H PRN 12/12/18 [History] Albuterol/Ipratropium [DuoNeb 3.0-0.5 MG/3 ML] 1 dose INH Q4H PRN 12/12/18 [ History] Bisacodyl [Biscolax] 1 supp RECTAL Q24H PRN 12/12/18 [History] Bumetanide 1 mg PO DAILY 12/12/18 [History] Gabapentin [Neurontin] 900 mg PO TID 12/12/18 [History] Lisinopril [Prinivil] 10 mg PO DAILY 12/12/18 [History] Omeprazole 1 tab PO BID 12/12/18 [History] Pentoxifylline [TRENtal] 400 mg PO TID 12/12/18 [History] Sertraline [Zoloft] 75 mg PO DAILY 12/12/18 [History] Trolamine Salicylate/Aloe Vera [Aspercreme 10%] 1 applic TOP ASDIRECTED PRN [History] Warfarin [Coumadin] 5 mg PO BEDTIME 12/12/18 [History] Warfarin [Coumadin] 7.5 mg PO BEDTIME 12/12/18 [History] Past Medical History HEENT History: Reports: Cataract, Impaired Vision, Other (See Below) Other HEENT History: diabetic retinopahy r ear pain Cardiovascular History: Reports: Hypertension, ND, Pacemaker, Stents Respiratory History: Reports: Other (See Below) Other Respiratory History: CHF Gastrointestinal History: Reports: Cholelithiasis, GI Bleed Genitourinary History: Reports: UTI, Recurrent [employer] History: Reports: None Musculoskeletal History: Reports: Amputation, Fracture Other Musculoskeletal History: l shoulder fx l leg, BKA left 2018, 1 toe amputated on right foot Neurological History: Reports: Concussion Psychiatric History: Reports: Anxiety, Depression Endocrine/Metabolic History: Reports: Diabetes, Type II, Obesity/BMI 30+ Hematologic History: Reports: Blood Transfusion(s) Dermatologic History: Reports: Other (See Below) Other Dermatologic History: Skin rash. wound on right foot - Infectious Disease History Infectious Disease History: Reports: Chicken Pox, Other (See Below) Other Infectious Disease History: polio - Past Surgical History HEENT Surgical History: Reports: Cataract Surgery Cardiovascular Surgical History: Reports: Vascular Surgery GI Surgical History: Reports: Cholecystectomy Female Surgical History: Reports: Salpingo-Oophorectomy Neurological Surgical History: Reports: None Musculoskeletal Surgical History: Reports: Amputation, Other (See Below) Social & Family History - Tobacco Use Smoking Status *Q: Never Smoker - Caffeine Use Caffeine Use: Reports: Soda - Recreational Drug Use Recreational Drug Use: No - Living Situation & Occupation Living situation: Reports: Occupation: Retired H&P Review of Systems - Review of Systems: Review Of Systems: See Below General: Reports: Malaise, Weakness. Denies: Fever, Chills HEENT: Reports: No Symptoms Pulmonary: Reports: No Symptoms Cardiovascular: Reports: No Symptoms Gastrointestinal: Reports: Melena. Denies: Abdominal Pain, Difficulty Swallowing, Distension, Nausea, Vomiting Genitourinary: Reports: No Symptoms Musculoskeletal: Reports: No Symptoms Skin: Reports: No Symptoms Psychiatric: Reports: No Symptoms Neurological: Reports: No Symptoms Hematologic/Lymphatic: Reports: No Symptoms Immunologic: Reports: No Symptoms Exam - Exam Exam: See Below - Vital Signs Vital Signs: Last Vital Signs Temp 99.5 F 12/12/18 14:52 Pulse 60 12/12/18 14:52 Resp 11 L 12/12/18 14:52 BP 153/20 H 12/12/18 14:52 Pulse Ox 98 12/12/18 14:52 Weight: 222 lb - Exam Quality Assessment: DVT Prophylaxis General: Alert, Oriented, Cooperative, Mild Distress HEENT: Conjunctiva Clear, Hearing Intact, Mucosa Moist & [place], Normal Nasal Septum, Posterior Pharynx Clear, Pupils Equal Neck: Supple, Trachea Midline, +2 Carotid Pulse wo Bruit Lungs: Clear to Auscultation, Normal Respiratory Effort Cardiovascular: Regular Rate, Regular Rhythm, Normal S1, Normal S2, Systolic Murmur. No: Diastolic Murmur GI/Abdominal Exam: Soft, Non-Tender, No Organomegaly, No Distention Extremities: Non-Tender, No Pedal Edema, Other (Status post left BKA) Skin: Warm, Dry Neurological: Cranial Nerves Intact, Strength Equal Bilateral, Normal Speech, Normal Tone, Sensation Intact. No: Focal Deficit Neuro Extensive - Mental Status: Alert, Oriented x3, Normal Mood/Affect, Normal Cognition, Memory Intact - Patient Data Lab Results Last 24 hrs: Laboratory Results - last 24 hr 12/12/18 12/12/18 Range/Units 12:50 12:50 Sodium 140 (140-148) mmol/L Potassium 4.8 (3.6-5.2) mmol/L Chloride 104 (100-108) mmol/L Carbon Dioxide 29 (21-32) mmol/L Anion Gap 6.6 (5.0-14.0) mmol/L BUN 56 H D (7-18) mg/dL Creatinine 0.9 (0.6-1.0) mg/dL Est Cr Clr Drug Dosing 51.59 mL/min Estimated GFR (MDRD) > 60 (>60) Glucose 132 H (74-106) mg/dL Calcium 9.0 (8.5-10.1) mg/dL Total Bilirubin 0.1 L (0.2-1.0) mg/dL AST 13 L (15-37) U/L ALT 18 D (12-78) U/L Alkaline Phosphatase 88 (46-116) U/L Total Protein 6.1 L (6.4-8.2) g/dL Albumin 2.5 L (3.4-5.0) g/dL Globulin 3.6 H (2.3-3.5) g/dL Albumin/Globulin Ratio 0.7 L (1.2-2.2) Blood Type O POSITIVE Gel Antibody Screen Negative Crossmatch See Detail Result Diagrams: 12/12/18 16:57 12/12/18 12:50 *Q Meaningful Use (ADM) - VTE *Q VTE Pharmacological Contraindications *Q: Active Hemorrhage - VTE Risk Assess *Q Each Risk Factor Represents 1 Point: Obesity ( BMI > 25 kg/m2) Total Score 1 Point Risk Factors: 1 Each Risk Factor Represents 2 Points: Age 60 - 74 Years Total Score 2 Point Risk Factors: 2 Each Risk Factor Represents 3 Points: None Total Score 3 Point Risk Factors: 0 Each Risk Factor Represents 5 Points: None Total Score 5 Point Risk Factors: 0 Venous Thromboembolism Risk Factor Score *Q: 3 Problem List Initiated/Reviewed/Updated: Yes Orders Last 24hrs: Active Orders 24 hr Category Date Time Status Patient Status [ADT] Routine ADT 12/12/18 14:11 Active Blood Glucose Check, Bedside [RC] QIDACANDBED Care 12/12/18 14:11 Active Cardiac Monitoring [RC] .As Directed Care 12/12/18 14:11 Active Communication Order [RC] STAT Care 12/12/18 14:11 Active Diabetes Education [RC] Click to Edit Care 12/12/18 14:11 Active Height and Weight [RC] DAILY Care 12/12/18 14:11 Active Intake and Output [RC] QSHIFT Care 12/12/18 14:11 Active Notify Provider Consults [RC] ASDIRECTED Care 12/12/18 14:11 Active Notify Provider Vital Signs [RC] ASDIRECTED Care 12/12/18 14:11 Active Notify Provider [RC] PRN Care 12/12/18 14:11 Active Oxygen Therapy [RC] PRN Care 12/12/18 14:11 Active Peripheral IV Care [RC] . DIRECTED Care 12/12/18 14:11 Active RT Aerosol Therapy [RC] ASDIRECTED Care 12/12/18 14:11 Active Up With Assistance [RC] ASDIRECTED Care 12/12/18 14:11 Active Up to Chair [RC] QID Care 12/12/18 14:11 Active VTE/DVT Education [RC] Per Unit Routine Care 12/12/18 14:11 Active Vital Signs [RC] Q2H Care 12/12/18 14:11 Active Consult to Physician [CONS] Routine Cons 12/12/18 14:11 Ordered Nothing per Oral Now Diet [DIET] Diet 12/12/18 Lunch Active BASIC METABOLIC PANEL,BMP [CHEM] AM Lab 12/13/18 05:11 Ordered CBC WITH AUTO DIFF [HEME] AM Lab 12/13/18 05:11 Ordered FRESH FROZEN PLASMA [BBK] Stat Lab 12/12/18 12:50 Results GLUCOSE POC LAB TO COLLECT [POC] QIDACANDBED Lab 12/13/18 07:30 Ordered GLUCOSE POC LAB TO COLLECT [POC] QIDACANDBED Lab 12/13/18 11:30 Ordered GLUCOSE POC LAB TO COLLECT [POC] QIDACANDBED Lab 12/13/18 16:30 Ordered GLUCOSE POC LAB TO COLLECT [POC] QIDACANDBED Lab 12/13/18 21:00 Ordered GLUCOSE POC LAB TO COLLECT [POC] QIDACANDBED Lab 12/14/18 07:30 Ordered GLUCOSE POC LAB TO COLLECT [POC] QIDACANDBED Lab 12/14/18 11:30 Ordered GLUCOSE POC LAB TO COLLECT [POC] QIDACANDBED Lab 12/14/18 16:30 Ordered GLUCOSE POC LAB TO COLLECT [POC] QIDACANDBED Lab 12/14/18 21:00 Ordered GLUCOSE POC LAB TO COLLECT [POC] QIDACANDBED Lab 12/15/18 07:30 Ordered GLUCOSE POC LAB TO COLLECT [POC] QIDACANDBED Lab 12/15/18 11:30 Ordered GLUCOSE POC LAB TO COLLECT [POC] QIDACANDBED Lab 12/15/18 16:30 Ordered GLUCOSE POC LAB TO COLLECT [POC] QIDACANDBED Lab 12/15/18 21:00 Ordered GLUCOSE POC LAB TO COLLECT [POC] QIDACANDBED Lab 12/16/18 07:30 Ordered GLUCOSE POC LAB TO COLLECT [POC] QIDACANDBED Lab 12/16/18 11:30 Ordered GLUCOSE POC LAB TO COLLECT [POC] QIDACANDBED Lab 12/16/18 16:30 Ordered GLUCOSE POC LAB TO COLLECT [POC] QIDACANDBED Lab 12/16/18 21:00 Ordered GLUCOSE POC LAB TO COLLECT [POC] QIDACANDBED Lab 12/17/18 07:30 Ordered GLUCOSE POC LAB TO COLLECT [POC] QIDACANDBED Lab 12/17/18 11:30 Ordered HGB [HEMOGLOBIN] [HEME] Stat Lab 12/12/18 17:00 Ordered HGB [HEMOGLOBIN] [HEME] Stat Lab 12/12/18 23:00 Ordered INR,PT,PROTHROMBIN TIME [COAG] AM Lab 12/13/18 05:11 Ordered RED BLOOD CELLS LP [BBK] Stat Lab 12/12/18 12:50 Results TYPE AND SCREEN [BBK] Stat Lab 12/12/18 12:50 Results ALPRAZolam [Xanax] Med 12/12/18 14:11 Active 0.25 mg PO BID PRN Acetaminophen [Tylenol] Med 12/12/18 14:11 Active 650 mg PO Q4H PRN Acetaminophen/HYDROcodone [Pemberton 325-5 MG] Med 12/12/18 14:11 Active 1 tab PO Q4H PRN Albuterol [Proventil Neb Soln] Med 12/12/18 14:11 Active 2.5 mg NEB Q4H PRN Albuterol/Ipratropium [DuoNeb 3.0-0.5 MG/3 ML] Med 12/12/18 14:11 Active 3 ml INH Q4H PRN Clopidogrel [Plavix] Med 12/13/18 09:00 Active 75 mg PO DAILY Dextrose 50% in Water Med 12/12/18 14:11 Active 50 ml IV ONETIME PRN Dextrose [Glutose 15] Med 12/12/18 14:11 Active 15 gm PO ONETIME PRN Gabapentin [Neurontin] Med 12/12/18 14:11 Active 900 mg PO TID Insulin Glarg,Human.Rec.Analog [LantUS Solostar] Med 12/13/18 09:00 Active 25 units SUBCUT DAILY Insulin Lispro [HumaLOG] Med 12/12/18 17:00 Active See Protocol SUBCUT QIDACANDBED Lisinopril [Prinivil] Med 12/13/18 09:00 Active 10 mg PO DAILY Metoprolol Succinate [Toprol XL] Med 12/13/18 09:00 Active 50 mg PO DAILY Ondansetron [Zofran] Med 12/12/18 14:11 Active 4 mg IV Q4H PRN Potassium Chloride [Klor-Con M20] Med 12/12/18 21:00 Active 20 meq PO BID Sertraline [Zoloft] Med 12/13/18 09:00 Active 75 mg PO DAILY Sodium Chloride 0.9% [Normal Saline] 1,000 ml Med 12/12/18 14:11 Active IV ASDIRECTED Sodium Chloride 0.9% [Normal Saline] 100 ml Med 12/12/18 15:00 Active Pantoprazole [ProTONIX IV] 80 mg IV 10 mls/hr Sodium Chloride 0.9% [Saline Flush] Med 12/12/18 14:11 Active 10 ml FLUSH ASDIRECTED PRN atorvaSTATin [Lipitor] Med 12/13/18 21:00 Active 40 mg PO BEDTIME Peripheral IV Insertion Adult [OM.PC] Routine Oth 12/12/18 14:11 Ordered Sequential Compression Device [OM.PC] Per Unit Routine Oth 12/12/18 14:11 Ordered VTE Pharmacological Contraindications [AST] Per Unit Oth 12/12/18 14:11 Ordered Routine Resuscitation Status Routine Resus Stat 12/12/18 13:38 Ordered Medication Orders Acetaminophen (Tylenol) 650 mg PO Q4H PRN PRN Reason: Pain (Mild 1-3)/fever Hydrocodone Bitart/Acetaminophen ([place] 325-5 Mg) 1 tab PO Q4H PRN PRN Reason: Pain (moderate 4-6) Albuterol (Proventil Neb Soln) 2.5 mg NEB Q4H PRN PRN Reason: Shortness Of Breath/wheezing Albuterol/Ipratropium (Duoneb 3.0-0.5 Mg/3 Ml) 3 ml INH Q4H PRN PRN Reason: Wheezing Alprazolam (Xanax) 0.25 mg PO BID PRN PRN Reason: Anxiety Atorvastatin Calcium (Lipitor) 40 mg PO BEDTIME [facility] Clopidogrel Bisulfate (Plavix) 75 mg PO DAILY [facility] Dextrose (Glutose 15) 15 gm PO ONETIME PRN PRN Reason: Hypoglycemia Dextrose/Water (Dextrose 50% In Water) 50 ml IV ONETIME PRN PRN Reason: Hypoglycemia Gabapentin (Neurontin) 900 mg PO TID [facility] Pantoprazole Sodium 80 mg/ (Sodium Chloride) 100 mls @ 10 mls/hr IV .Q10H [facility] Last Admin: 12/12/18 15:39 Dose: 10 mls/hr Sodium Chloride (Normal Saline) 1,000 mls @ 125 mls/hr IV ASDIRECTED [facility] Last Admin: 12/12/18 15:39 Dose: 125 mls/hr Insulin Glargine (Lantus Solostar) 25 units SUBCUT DAILY [facility] Insulin Human Lispro (Humalog) 0 unit SUBCUT QIDACANDBED [facility]; Protocol Lisinopril (Prinivil) 10 mg PO DAILY [facility] Metoprolol Succinate (Toprol Xl) 50 mg PO DAILY [facility] Ondansetron HCl (Zofran) 4 mg IV Q4H PRN PRN Reason: Nausea/Vomiting Potassium Chloride (Klor-Con M20) 20 meq PO BID [facility] Sertraline HCl (Zoloft) 75 mg PO DAILY [facility] Sodium Chloride (Saline Flush) 10 ml FLUSH ASDIRECTED PRN PRN Reason: Keep Vein Open Assessment/Plan Comment:: ASSESSMENT AND PLAN ACUTE GI BLEED-symptoms of weakness with drop in hemoglobin noted over the past 48 hours, associated with melenic/maroon stool. No previous history of GI bleeding or ulcer disease. -Nothing by mouth -Maintain 2 IV sites -2 units of red blood cells on hold -Transfuse one unit of red blood cells -Serial hemoglobin levels -IV fluids for hydration -Protonix 80 mg IV given in emergency department -Continuous infusion of Protonix at 8 mg per hour -Consult Dr. Zheng for EGD in a.m. ACUTE BLOOD LOSS ANEMIA-secondary to current GI bleed TYPE 2 DIABETES MELLITUS -4 times a day glucometers -Continue usual dose of long-acting insulin -Low-dose sliding scale Humalog CORONARY ARTERY DISEASE-early asymptomatic, status post stent placement 9 months ago -Continue Plavix -Continue other outpatient cardiac medications STATUS POST AORTIC VALVE REPLACEMENT -Continue anticoagulation MAINTENANCE ISSUES -DVT prophylaxis; current therapy with warfarin should provide adequate DVT prophylaxis -GI prophylaxis; Protonix as above -Barber catheter; not indicated -Nutrition; nothing by mouth -Nicotine dependence; not required CODE STATUS-FULL CODE ADMISSION STATUS-patient will be admitted to inpatient status, expect at least a 2 night hospital stay for evaluation and management of problems as outlined above. At the time of this admission I do not reasonably expected evaluation and management of this problem will require more than a 96 hour hospital stay. DISPOSITION-anticipate discharge to home after the hospital stay. PRIMARY CARE PROVIDER-Dr. [email or web address]
[2018-12-12] MEDS: Gabapentin 300 MG Cap PO SCH ×2 (16:32→21:34)
[2018-12-12] MEDS: Insulin Lispro 100 Unit/ML 3 ML KwikPen SUBCUT SCH ×2 (16:54→21:57)
[2018-12-12] MEDS: Acetaminophen/HYDROcodone 325-5 MG Tab PO PRN ×2 (17:22→21:34)
[2018-12-12] MEDS ORDERED: Warfarin 5 MG Tab PO SCH (21:00)
[2018-12-12] MEDS: Potassium Chloride 20 MEQ Tab.ER PO SCH (21:35)
[2018-12-13] MEDS: Sodium Chloride 0.9% 100 ML with Pantoprazole 80 MG IV SCH ×2 (01:01)
[2018-12-13] MEDS ORDERED: Propofol 200 MG/20 ML SDV ONE (06:59)
[2018-12-13] MEDS ORDERED: fentaNYL 100 MCG/2 ML SDV ONE (06:59)
[2018-12-13] MEDS: Insulin Lispro 100 Unit/ML 3 ML KwikPen SUBCUT SCH ×4 (08:14→20:32)
[2018-12-13] MEDS: Potassium Chloride 20 MEQ Tab.ER PO SCH ×2 (08:23→20:30)
[2018-12-13] MEDS: Gabapentin 300 MG Cap PO SCH ×3 (08:23→20:30)
[2018-12-13] MEDS: Metoprolol Succinate 50 MG Tab.ER PO SCH (08:24)
[2018-12-13] MEDS: Lisinopril 10 MG Tab PO SCH (08:24)
[2018-12-13] MEDS: Sertraline 25 MG Tab PO SCH (08:24)
[2018-12-13] MEDS: Clopidogrel 75 MG Tab PO SCH (08:24)
[2018-12-13] MEDS: Insulin Glargine,Human Rec. Analog 100 Units/ML 3 ML Pen SUBCUT SCH (08:25)
[2018-12-13] MEDS: Sodium Chloride 0.9% 1,000 ML IV SCH (08:46)
[2018-12-13] MEDS ORDERED: Bisacodyl 5 MG Tab PO ONE ×2 (09:00→20:00)
[2018-12-13] MEDS: Enoxaparin 100 MG/1 ML Syringe SUBCUT SCH ×2 (10:31→22:45)
--- NOTE | 2018-12-13 10:43 | PCM.PN ---
- General Info Date of Service: 12/13/18 Subjective Update: Ms. Padilla has remained stable since admission, status post transfusion of 2 units of red blood cells. Denies significant abdominal pain, energy level seems to be modestly improved. EGD performed this morning by Dr. Zheng showed no obvious source of bleeding. Functional Status: Reports: Tolerating Diet, Urinating - Review of Systems General: Reports: Weakness. Denies: Fever, Chills Pulmonary: Reports: No Symptoms Cardiovascular: Reports: No Symptoms Gastrointestinal: Reports: No Symptoms - Patient Data Vitals - Most Recent: Last Vital Signs Temp 98.7 F 12/13/18 08:00 Pulse 69 12/13/18 08:24 Resp 13 12/13/18 08:00 BP 143/32 H 12/13/18 08:24 Pulse Ox 100 12/13/18 08:00 Weight - Most Recent: 226 lb 10.163 oz I&O - Last 24 Hours: Intake & Output 12/12/18 12/13/18 12/13/18 22:59 06:59 14:59 Intake Total 692 1507 Output Total 200 Balance 492 1507 Lab Results Last 24 Hours: Laboratory Results - last 24 hr 12/12/18 12/12/18 12/12/18 Range/Units 12:50 12:50 16:57 WBC (4.5-11.0) K/uL RBC (3.30-5.50) M/uL Hgb 7.2 L (12.0-15.0) g/dL Hct (36.0-48.0) % MCV (80-98) fL MCH (27-31) pg MCHC (32-36) % Plt Count (150-400) K/uL Neut % (Auto) (36-66) % Lymph % (Auto) (24-44) % [place] % (Auto) (2-6) % Eos % (Auto) (2-4) % Baso % (Auto) (0-1) % PT (9.5-12.0) sec INR (0.80-1.20) Sodium 140 (140-148) mmol/L Potassium 4.8 (3.6-5.2) mmol/L Chloride 104 (100-108) mmol/L Carbon Dioxide 29 (21-32) mmol/L Anion Gap 6.6 (5.0-14.0) mmol/L BUN 56 H D (7-18) mg/dL Creatinine 0.9 (0.6-1.0) mg/dL Est Cr Clr Drug Dosing 51.59 mL/min Estimated GFR (MDRD) > 60 (>60) Glucose 132 H (74-106) mg/dL Calcium 9.0 (8.5-10.1) mg/dL Total Bilirubin 0.1 L (0.2-1.0) mg/dL AST 13 L (15-37) U/L ALT 18 D (12-78) U/L Alkaline Phosphatase 88 (46-116) U/L Total Protein 6.1 L (6.4-8.2) g/dL Albumin 2.5 L (3.4-5.0) g/dL Globulin 3.6 H (2.3-3.5) g/dL Albumin/Globulin Ratio 0.7 L (1.2-2.2) Blood Type O POSITIVE Gel Antibody Screen Negative Crossmatch See Detail 12/12/18 12/13/18 12/13/18 Range/Units 23:00 05:52 05:52 WBC 9.7 (4.5-11.0) K/uL RBC 3.18 L (3.30-5.50) M/uL Hgb 7.5 L 8.8 L (12.0-15.0) g/dL Hct 27.6 L (36.0-48.0) % MCV 87 (80-98) fL MCH 28 (27-31) pg MCHC 32 (32-36) % Plt Count 211 (150-400) K/uL Neut % (Auto) 66 (36-66) % Lymph % (Auto) 18 L (24-44) % [place] % (Auto) 10 H (2-6) % Eos % (Auto) 6 H (2-4) % Baso % (Auto) 0 (0-1) % PT 20.1 H (9.5-12.0) sec INR 1.89 H (0.80-1.20) Sodium (140-148) mmol/L Potassium (3.6-5.2) mmol/L Chloride (100-108) mmol/L Carbon Dioxide (21-32) mmol/L Anion Gap (5.0-14.0) mmol/L BUN (7-18) mg/dL Creatinine (0.6-1.0) mg/dL Est Cr Clr Drug Dosing mL/min Estimated GFR (MDRD) (>60) Glucose (74-106) mg/dL Calcium (8.5-10.1) mg/dL Total Bilirubin (0.2-1.0) mg/dL AST (15-37) U/L ALT (12-78) U/L Alkaline Phosphatase (46-116) U/L Total Protein (6.4-8.2) g/dL Albumin (3.4-5.0) g/dL Globulin (2.3-3.5) g/dL Albumin/Globulin Ratio (1.2-2.2) Blood Type Gel Antibody Screen Crossmatch 12/13/18 Range/Units 05:52 WBC (4.5-11.0) K/uL RBC (3.30-5.50) M/uL Hgb (12.0-15.0) g/dL Hct (36.0-48.0) % MCV (80-98) fL MCH (27-31) pg MCHC (32-36) % Plt Count (150-400) K/uL Neut % (Auto) (36-66) % Lymph % (Auto) (24-44) % [place] % (Auto) (2-6) % Eos % (Auto) (2-4) % Baso % (Auto) (0-1) % PT (9.5-12.0) sec INR (0.80-1.20) Sodium 144 (140-148) mmol/L Potassium 4.4 (3.6-5.2) mmol/L Chloride 109 H (100-108) mmol/L Carbon Dioxide 27 (21-32) mmol/L Anion Gap 12.4 (5.0-14.0) mmol/L BUN 49 H (7-18) mg/dL Creatinine 0.8 (0.6-1.0) mg/dL Est Cr Clr Drug Dosing TNP mL/min Estimated GFR (MDRD) > 60 (>60) Glucose 92 (74-106) mg/dL Calcium 9.1 (8.5-10.1) mg/dL Total Bilirubin (0.2-1.0) mg/dL AST (15-37) U/L ALT (12-78) U/L Alkaline Phosphatase (46-116) U/L Total Protein (6.4-8.2) g/dL Albumin (3.4-5.0) g/dL Globulin (2.3-3.5) g/dL Albumin/Globulin Ratio (1.2-2.2) Blood Type Gel Antibody Screen Crossmatch Med Orders - Current: Current Medications Acetaminophen (Tylenol) 650 mg PO Q4H PRN PRN Reason: Pain (Mild 1-3)/fever Hydrocodone Bitart/Acetaminophen ([place] 325-5 Mg) 1 tab PO Q4H PRN PRN Reason: Pain (moderate 4-6) Last Admin: 12/12/18 21:34 Dose: 1 tab Albuterol (Proventil Neb Soln) 2.5 mg NEB Q4H PRN PRN Reason: Shortness Of Breath/wheezing Albuterol/Ipratropium (Duoneb 3.0-0.5 Mg/3 Ml) 3 ml INH Q4H PRN PRN Reason: Wheezing Alprazolam (Xanax) 0.25 mg PO BID PRN PRN Reason: Anxiety Atorvastatin Calcium (Lipitor) 40 mg PO BEDTIME BRITNEY Bisacodyl (Dulcolax) 10 mg PO ONETIME ONE Stop: 12/13/18 20:01 Clopidogrel Bisulfate (Plavix) 75 mg PO DAILY [facility] Last Admin: 12/13/18 08:24 Dose: 75 mg Dextrose (Glutose 15) 15 gm PO ONETIME PRN PRN Reason: Hypoglycemia Dextrose/Water (Dextrose 50% In Water) 50 ml IV ONETIME PRN PRN Reason: Hypoglycemia Enoxaparin Sodium (Lovenox) 100 mg SUBCUT Q12H [facility] Stop: 12/13/18 22:31 Gabapentin (Neurontin) 900 mg PO TID [facility] Last Admin: 12/13/18 08:23 Dose: 900 mg Pantoprazole Sodium 80 mg/ (Sodium Chloride) 100 mls @ 10 mls/hr IV .Q10H [facility] Last Admin: 12/13/18 01:01 Dose: 10 mls/hr Sodium Chloride (Normal Saline) 1,000 mls @ 125 mls/hr IV ASDIRECTED [facility] Last Admin: 12/13/18 08:46 Dose: 125 mls/hr Phytonadione 5 mg/ Sodium (Chloride) 50.5 mls @ 100 mls/hr IV NOW ONE Stop: 12/13/18 10:53 Insulin Glargine (Lantus Solostar) 25 units SUBCUT DAILY [facility] Last Admin: 12/13/18 08:25 Dose: 25 units Insulin Human Lispro (Humalog) 0 unit SUBCUT QIDACANDBED [facility]; Protocol Last Admin: 12/13/18 08:14 Dose: Not Given Lisinopril (Prinivil) 10 mg PO DAILY [facility] Last Admin: 12/13/18 08:24 Dose: 10 mg Metoprolol Succinate (Toprol Xl) 50 mg PO DAILY [facility] Last Admin: 12/13/18 08:24 Dose: 50 mg Ondansetron HCl (Zofran) 4 mg IV Q4H PRN PRN Reason: Nausea/Vomiting Polyethylene Glycol (Miralax) 238 gm PO ONETIME ONE Stop: 12/13/18 17:01 Potassium Chloride (Klor-Con M20) 20 meq PO BID [facility] Last Admin: 12/13/18 08:23 Dose: 20 meq Sertraline HCl (Zoloft) 75 mg PO DAILY [facility] Last Admin: 12/13/18 08:24 Dose: 75 mg Sodium Chloride (Saline Flush) 10 ml FLUSH ASDIRECTED PRN PRN Reason: Keep Vein Open Discontinued Medications Bisacodyl (Dulcolax) 10 mg PO ONETIME ONE Stop: 12/13/18 09:01 Fentanyl (Sublimaze) Confirm Administered Dose 100 mcg .ROUTE .STK-MED ONE Stop: 12/13/18 07:00 Pantoprazole Sodium 80 mg/ (Sodium Chloride) 100 mls @ 10 mls/hr IV .Q10H [facility] Last Admin: 12/12/18 22:03 Dose: Not Given Pantoprazole Sodium (Protonix Iv) 80 mg IVPUSH .BOLUS [facility] Propofol (Diprivan 20 Ml) Confirm Administered Dose 200 mg .ROUTE .STK-MED ONE Stop: 12/13/18 07:00 Warfarin Sodium (Coumadin) 5 mg PO BEDTIME [facility] - Exam Quality Assessment: DVT Prophylaxis General: Alert, Oriented, Cooperative, No Acute Distress Lungs: Clear to Auscultation, Normal Respiratory Effort Cardiovascular: Regular Rate, Regular Rhythm, No Murmurs GI/Abdominal Exam: Soft, Non-Tender, No Organomegaly, No Distention Extremities: Non-Tender, No Pedal Edema Skin: Warm, Dry - Problem List Review Problem List Initiated/Reviewed/Updated: Yes - My Orders Last 24 Hours: My Active Orders 12/12/18 13:38 Resuscitation Status Routine 12/12/18 14:11 Patient Status [ADT] Routine Blood Glucose Check, Bedside [RC] QIDACANDBED Cardiac Monitoring [RC] Q6H Communication Order [RC] STAT Diabetes Education [RC] Click to Edit Height and Weight [RC] DAILY Intake and Output [RC] QSHIFT Notify Provider Consults [RC] ASDIRECTED Notify Provider Vital Signs [RC] ASDIRECTED Notify Provider [RC] PRN Oxygen Therapy [RC] PRN Peripheral IV Care [RC] . DIRECTED RT Aerosol Therapy [RC] ASDIRECTED Up With Assistance [RC] ASDIRECTED Up to Chair [RC] QID VTE/DVT Education [RC] Per Unit Routine Vital Signs [RC] Q2H Consult to Physician [CONS] Routine ALPRAZolam [Xanax] 0.25 mg PO BID PRN Acetaminophen [Tylenol] 650 mg PO Q4H PRN Acetaminophen/HYDROcodone [[place] 325-5 MG] 1 tab PO Q4H PRN Albuterol [Proventil Neb Soln] 2.5 mg NEB Q4H PRN Albuterol/Ipratropium [DuoNeb 3.0-0.5 MG/3 ML] 3 ml INH Q4H PRN Dextrose 50% in Water 50 ml IV ONETIME PRN Dextrose [Glutose 15] 15 gm PO ONETIME PRN Gabapentin [Neurontin] 900 mg PO TID Ondansetron [Zofran] 4 mg IV Q4H PRN Sodium Chloride 0.9% [Normal Saline] 1,000 ml IV ASDIRECTED Sodium Chloride 0.9% [Saline Flush] 10 ml FLUSH ASDIRECTED PRN Peripheral IV Insertion Adult [OM.PC] Routine Sequential Compression Device [OM.PC] Per Unit Routine VTE Pharmacological Contraindications [AST] Per Unit Routine 12/12/18 15:00 Sodium Chloride 0.9% [Normal Saline] 100 ml Pantoprazole [ProTONIX IV] 80 mg IV 10 mls/hr 12/12/18 17:00 Insulin Lispro [HumaLOG] See Protocol SUBCUT QIDACANDBED 12/12/18 21:00 Potassium Chloride [Klor-Con M20] 20 meq PO BID 12/12/18 23:38 Transfuse Red Blood Cells [COMM] Routine 12/13/18 09:00 Clopidogrel [Plavix] 75 mg PO DAILY Insulin Glarg,Human.Rec.Analog [LantUS Solostar] 25 units SUBCUT DAILY Lisinopril [Prinivil] 10 mg PO DAILY Metoprolol Succinate [Toprol XL] 50 mg PO DAILY Sertraline [Zoloft] 75 mg PO DAILY 12/13/18 10:23 Phytonadione [AquaMephyton] 5 mg Sodium Chloride 0.9% [Normal Saline] 50 ml IV NOW 12/13/18 10:30 Enoxaparin [Lovenox] 100 mg SUBCUT Q12H 12/13/18 11:00 HGB [HEMOGLOBIN] [HEME] Stat 12/13/18 17:00 HGB [HEMOGLOBIN] [HEME] Stat 12/13/18 21:00 atorvaSTATin [Lipitor] 40 mg PO BEDTIME 12/13/18 23:00 HGB [HEMOGLOBIN] [HEME] Stat 12/14/18 05:00 BASIC METABOLIC PANEL,BMP [CHEM] Timed CBC WITH AUTO DIFF [HEME] Timed INR,PT,PROTHROMBIN TIME [COAG] Timed 12/14/18 07:30 GLUCOSE POC LAB TO COLLECT [POC] QIDACANDBED 12/14/18 11:30 GLUCOSE POC LAB TO COLLECT [POC] QIDACANDBED 12/14/18 16:30 GLUCOSE POC LAB TO COLLECT [POC] QIDACANDBED 12/14/18 21:00 GLUCOSE POC LAB TO COLLECT [POC] QIDACANDBED 12/15/18 07:30 GLUCOSE POC LAB TO COLLECT [POC] QIDACANDBED 12/15/18 11:30 GLUCOSE POC LAB TO COLLECT [POC] QIDACANDBED 12/15/18 16:30 GLUCOSE POC LAB TO COLLECT [POC] QIDACANDBED 12/15/18 21:00 GLUCOSE POC LAB TO COLLECT [POC] QIDACANDBED 12/16/18 07:30 GLUCOSE POC LAB TO COLLECT [POC] QIDACANDBED 12/16/18 11:30 GLUCOSE POC LAB TO COLLECT [POC] QIDACANDBED 12/16/18 16:30 GLUCOSE POC LAB TO COLLECT [POC] QIDACANDBED 12/16/18 21:00 GLUCOSE POC LAB TO COLLECT [POC] QIDACANDBED 12/17/18 07:30 GLUCOSE POC LAB TO COLLECT [POC] QIDACANDBED 12/17/18 11:30 GLUCOSE POC LAB TO COLLECT [POC] QIDACANDBED - Plan Plan:: ASSESSMENT AND PLAN ACUTE GI BLEED-stable since admission, hemoglobin now 8.8 following transfusion of 2 units of red blood cells. No obvious source of bleeding identified on EGD today -Clear liquid diet, nothing by mouth after midnight -Maintain 2 IV sites -2 units of red blood cells on hold -Serial hemoglobin levels -saline lock, resume fluids at midnight -Protonix 40 mg IV daily -Surgical follow-up per Dr. Zheng, colonoscopy in the a.m. ACUTE BLOOD LOSS ANEMIA-secondary to current GI bleed TYPE 2 DIABETES MELLITUS -4 times a day glucometers -Continue usual dose of long-acting insulin -Low-dose sliding scale Humalog CORONARY ARTERY DISEASE-currently asymptomatic, status post stent placement 9 months ago -Continue Plavix -Continue other outpatient cardiac medications STATUS POST AORTIC VALVE REPLACEMENT -Continue anticoagulation MAINTENANCE ISSUES -DVT prophylaxis; current therapy with warfarin should provide adequate DVT prophylaxis -GI prophylaxis; Protonix as above -Barber catheter; not indicated -Nutrition; nothing by mouth -Nicotine dependence; not required CODE STATUS-FULL CODE ADMISSION STATUS-patient will be admitted to inpatient status, expect at least a 2 night hospital stay for evaluation and management of problems as outlined above. At the time of this admission I do not reasonably expected evaluation and management of this problem will require more than a 96 hour hospital stay. DISPOSITION-anticipate discharge to home after the hospital stay. PRIMARY CARE PROVIDER-Dr. Randall
[2018-12-13] MEDS ORDERED: Phytonadione 5 MG in Sodium Chloride 0.9% 50 ML IV ONE (10:45)
--- NOTE | 2018-12-13 11:37 | OR ---
DATE OF PROCEDURE: 12/13/2018 PREOPERATIVE DIAGNOSIS: Gastrointestinal bleeding. POSTOPERATIVE DIAGNOSIS: Upper gastrointestinal endoscopy showing mild patchy antral gastritis (no other gastrointestinal bleeding source identified). OPERATIVE PROCEDURES: Esophagogastroduodenoscopy with antral biopsies for CLOtest. ANESTHESIA: IV sedation. INDICATION FOR PROCEDURE: This is a 73-year-old presenting with some rectal bleeding. The patient had significantly elevated prothrombin time and given this, at this point we will proceed with upper GI endoscopy. Potential risks of the procedure including bleeding, infection, perforation, and such were reviewed, and the patient wishes to proceed. DETAILS OF PROCEDURE: The patient was taken to the operating room and placed in a left lateral decubitus position. IV sedation was administered after which the upper GI endoscope was passed orally through the length of the esophagus and into the stomach with retroflexion view of the fundus and from there through the pyloric channel and into the junction of the third and fourth portions of the duodenum. FINDINGS: Included normal hypopharynx, larynx, upper esophageal sphincter, and esophageal body. At the EG junction, there was slight hiatal hernia, but without significant inflammation or stricturing. Within the stomach, there was a small amount of retained bile. Proximal stomach was entirely unremarkable. There were some patchy streaks of gastritis in the antrum, but without erosions or ulcers. The pyloric channel and duodenum were unremarkable. Biopsies were then obtained from the antrum and sent for CLOtest for H. pylori. Minimal bleeding from the biopsy site was seen. The scope was withdrawn and the procedure then concluded. There were no evident complications. The plan will be to proceed with a bowel prep today and a colonoscopy tomorrow. We will ask Dr. Leavitt to manage the anticoagulation issue. She will likely need to be corrected somewhat further from prothrombin time status and likely receive bridging IV heparin while her prothrombin time is subtherapeutic given the recent cardiac valve replacement. Oscar Zheng MD Job #: [id number]
[2018-12-13] MEDS: Trolamine Salicylate/Aloe Vera 10% Crm 85 GM Tube TOP PRN (16:37)
[2018-12-13] MEDS ORDERED: Polyethylene Glycol 3350 Powder 238 GM Bot PO ONE (17:00)
[2018-12-13] MEDS: Acetaminophen/HYDROcodone 325-5 MG Tab PO PRN (19:27)
[2018-12-13] MEDS: atorvaSTATin 20 MG Tab PO SCH (20:31)
[2018-12-14] MEDS: Sodium Chloride 0.9% 1,000 ML IV SCH (00:30)
[2018-12-14] MEDS: Potassium Chloride 20 MEQ Tab.ER PO SCH ×3 (08:30→21:29)
[2018-12-14] MEDS: Insulin Lispro 100 Unit/ML 3 ML KwikPen SUBCUT SCH ×4 (08:30→21:24)
[2018-12-14] MEDS: Gabapentin 300 MG Cap PO SCH ×4 (08:31→21:30)
[2018-12-14] MEDS: Clopidogrel 75 MG Tab PO SCH ×2 (08:32→13:57)
[2018-12-14] MEDS: Lisinopril 10 MG Tab PO SCH ×2 (08:33→13:57)
[2018-12-14] MEDS: Metoprolol Succinate 50 MG Tab.ER PO SCH ×2 (08:35→13:58)
[2018-12-14] MEDS: Sertraline 25 MG Tab PO SCH ×2 (08:36→13:58)
[2018-12-14] MEDS: Pantoprazole 40 MG Vial IVPUSH SCH (09:00)
--- NOTE | 2018-12-14 10:56 | PCM.PN ---
- General Info Date of Service: 12/14/18 Subjective Update: Ms. Padilla is completed a bowel prep and is awaiting colonoscopy this morning. Hemoglobin levels have been relatively stable following transfusion of 2 units of red blood cells. She otherwise denies significant discomfort other than her long-standing leg pain. Functional Status: Reports: Urinating - Review of Systems General: Denies: Fever, Chills Pulmonary: Reports: No Symptoms Cardiovascular: Reports: No Symptoms Gastrointestinal: Reports: Hematochezia, Melena. Denies: Abdominal Pain, Difficulty Swallowing, Nausea, Vomiting - Patient Data Vitals - Most Recent: Last Vital Signs Temp 97.4 F 12/14/18 02:20 Pulse 71 12/14/18 06:00 Resp 7 L 12/14/18 06:00 BP 140/27 L 12/14/18 06:00 Pulse Ox 97 12/14/18 06:00 Weight - Most Recent: 226 lb 10.163 oz I&O - Last 24 Hours: Intake & Output 12/13/18 12/14/18 12/14/18 22:59 06:59 14:59 Intake Total 731 Balance 731 Lab Results Last 24 Hours: Laboratory Results - last 24 hr 12/12/18 12/13/18 12/13/18 Range/Units 12:50 11:00 17:00 WBC (4.5-11.0) K/uL RBC (3.30-5.50) M/uL Hgb 9.1 L 8.9 L (12.0-15.0) g/dL Hct (36.0-48.0) % MCV (80-98) fL MCH (27-31) pg MCHC (32-36) % Plt Count (150-400) K/uL Neut % (Auto) (36-66) % Lymph % (Auto) (24-44) % [place] % (Auto) (2-6) % Eos % (Auto) (2-4) % Baso % (Auto) (0-1) % PT (9.5-12.0) sec INR (0.80-1.20) Sodium (140-148) mmol/L Potassium (3.6-5.2) mmol/L Chloride (100-108) mmol/L Carbon Dioxide (21-32) mmol/L Anion Gap (5.0-14.0) mmol/L BUN (7-18) mg/dL Creatinine (0.6-1.0) mg/dL Est Cr Clr Drug Dosing mL/min Estimated GFR (MDRD) (>60) Glucose (74-106) mg/dL Calcium (8.5-10.1) mg/dL Blood Type O POSITIVE Gel Antibody Screen Negative Crossmatch See Detail 12/13/18 12/14/18 12/14/18 Range/Units 23:00 04:50 04:50 WBC 11.1 H (4.5-11.0) K/uL RBC 3.34 (3.30-5.50) M/uL Hgb 8.3 L 9.4 L (12.0-15.0) g/dL Hct 29.0 L (36.0-48.0) % MCV 87 (80-98) fL MCH 28 (27-31) pg MCHC 32 (32-36) % Plt Count 212 (150-400) K/uL Neut % (Auto) 64 (36-66) % Lymph % (Auto) 20 L (24-44) % [place] % (Auto) 11 H (2-6) % Eos % (Auto) 5 H (2-4) % Baso % (Auto) 0 (0-1) % PT 12.6 H (9.5-12.0) sec INR 1.15 (0.80-1.20) Sodium (140-148) mmol/L Potassium (3.6-5.2) mmol/L Chloride (100-108) mmol/L Carbon Dioxide (21-32) mmol/L Anion Gap (5.0-14.0) mmol/L BUN (7-18) mg/dL Creatinine (0.6-1.0) mg/dL Est Cr Clr Drug Dosing mL/min Estimated GFR (MDRD) (>60) Glucose (74-106) mg/dL Calcium (8.5-10.1) mg/dL Blood Type Gel Antibody Screen Crossmatch 12/14/18 Range/Units 04:50 WBC (4.5-11.0) K/uL RBC (3.30-5.50) M/uL Hgb (12.0-15.0) g/dL Hct (36.0-48.0) % MCV (80-98) fL MCH (27-31) pg MCHC (32-36) % Plt Count (150-400) K/uL Neut % (Auto) (36-66) % Lymph % (Auto) (24-44) % [place] % (Auto) (2-6) % Eos % (Auto) (2-4) % Baso % (Auto) (0-1) % PT (9.5-12.0) sec INR (0.80-1.20) Sodium 143 (140-148) mmol/L Potassium 3.6 (3.6-5.2) mmol/L Chloride 109 H (100-108) mmol/L Carbon Dioxide 24 (21-32) mmol/L Anion Gap 13.6 (5.0-14.0) mmol/L BUN 32 H (7-18) mg/dL Creatinine 0.7 (0.6-1.0) mg/dL Est Cr Clr Drug Dosing 66.22 mL/min Estimated GFR (MDRD) > 60 (>60) Glucose 99 (74-106) mg/dL Calcium 8.7 (8.5-10.1) mg/dL Blood Type Gel Antibody Screen Crossmatch [place]o Results Last 24 Hours: Microbiology 12/13/18 12:01 CLOtest - Final Stomach NEGATIVE CLOTEST Med Orders - Current: Current Medications Acetaminophen (Tylenol) 650 mg PO Q4H PRN PRN Reason: Pain (Mild 1-3)/fever Hydrocodone Bitart/Acetaminophen ([place] 325-5 Mg) 1 tab PO Q4H PRN PRN Reason: Pain (moderate 4-6) Last Admin: 12/13/18 19:27 Dose: 1 tab Albuterol (Proventil Neb Soln) 2.5 mg NEB Q4H PRN PRN Reason: Shortness Of Breath/wheezing Albuterol/Ipratropium (Duoneb 3.0-0.5 Mg/3 Ml) 3 ml INH Q4H PRN PRN Reason: Wheezing Alprazolam (Xanax) 0.25 mg PO BID PRN PRN Reason: Anxiety Atorvastatin Calcium (Lipitor) 40 mg PO BEDTIME [facility] Last Admin: 12/13/18 20:31 Dose: 40 mg Clopidogrel Bisulfate (Plavix) 75 mg PO DAILY [facility] Last Admin: 12/13/18 08:24 Dose: 75 mg Dextrose (Glutose 15) 15 gm PO ONETIME PRN PRN Reason: Hypoglycemia Dextrose/Water (Dextrose 50% In Water) 50 ml IV ONETIME PRN PRN Reason: Hypoglycemia Gabapentin (Neurontin) 900 mg PO TID [facility] Last Admin: 12/13/18 20:30 Dose: 900 mg Sodium Chloride (Normal Saline) 1,000 mls @ 75 mls/hr IV ASDIRECTED [facility] Last Admin: 12/14/18 00:30 Dose: 75 mls/hr Insulin Glargine (Lantus Solostar) 25 units SUBCUT DAILY [facility] Last Admin: 12/13/18 08:25 Dose: 25 units Insulin Human Lispro (Humalog) 0 unit SUBCUT QIDACANDBED [facility]; Protocol Last Admin: 12/14/18 08:30 Dose: Not Given Lisinopril (Prinivil) 10 mg PO DAILY [facility] Last Admin: 12/13/18 08:24 Dose: 10 mg Metoprolol Succinate (Toprol Xl) 50 mg PO DAILY [facility] Last Admin: 12/13/18 08:24 Dose: 50 mg Ondansetron HCl (Zofran) 4 mg IV Q4H PRN PRN Reason: Nausea/Vomiting Last Admin: 12/13/18 20:20 Dose: 4 mg Pantoprazole Sodium (Protonix Iv) 40 mg IVPUSH DAILY [facility] Potassium Chloride (Klor-Con M20) 20 meq PO BID [facility] Last Admin: 12/13/18 20:30 Dose: 20 meq Sertraline HCl (Zoloft) 75 mg PO DAILY [facility] Last Admin: 12/13/18 08:24 Dose: 75 mg Sodium Chloride (Saline Flush) 10 ml FLUSH ASDIRECTED PRN PRN Reason: Keep Vein Open Last Admin: 12/13/18 20:21 Dose: 10 ml Trolamine Salicylate (Aspercreme 10%) 0 gm TOP Q1H PRN PRN Reason: Pain (mild 1-3) Last Admin: 12/13/18 16:37 Dose: 1 applic Discontinued Medications Bisacodyl (Dulcolax) 10 mg PO ONETIME ONE Stop: 12/13/18 09:01 Last Admin: 12/13/18 10:34 Dose: 10 mg Bisacodyl (Dulcolax) 10 mg PO ONETIME ONE Stop: 12/13/18 20:01 Last Admin: 12/13/18 20:31 Dose: 10 mg Enoxaparin Sodium (Lovenox) 100 mg SUBCUT Q12H [facility] Stop: 12/13/18 22:31 Last Admin: 12/13/18 22:45 Dose: 100 mg Fentanyl (Sublimaze) Confirm Administered Dose 100 mcg .ROUTE .STK-MED ONE Stop: 12/13/18 07:00 Pantoprazole Sodium 80 mg/ (Sodium Chloride) 100 mls @ 10 mls/hr IV .Q10H [facility] Last Admin: 12/12/18 22:03 Dose: Not Given Pantoprazole Sodium 80 mg/ (Sodium Chloride) 100 mls @ 10 mls/hr IV .Q10H [facility] Last Admin: 12/13/18 01:01 Dose: 10 mls/hr Sodium Chloride (Normal Saline) 1,000 mls @ 125 mls/hr IV ASDIRECTED [facility] Last Admin: 12/13/18 08:46 Dose: 125 mls/hr Phytonadione 5 mg/ Sodium (Chloride) 50.5 mls @ 100 mls/hr IV ONETIME ONE Stop: 12/13/18 11:15 Last Admin: 12/13/18 11:04 Dose: 100 mls/hr Pantoprazole Sodium (Protonix Iv) 80 mg IVPUSH .BOLUS [facility] Polyethylene Glycol (Miralax) 238 gm PO ONETIME ONE Stop: 12/13/18 17:01 Last Admin: 12/13/18 17:12 Dose: 238 gm Propofol (Diprivan 20 Ml) Confirm Administered Dose 200 mg .ROUTE .STK-MED ONE Stop: 12/13/18 07:00 Warfarin Sodium (Coumadin) 5 mg PO BEDTIME [facility] - Exam Quality Assessment: DVT Prophylaxis General: Alert, Oriented, Cooperative, Mild Distress Lungs: Clear to Auscultation, Normal Respiratory Effort Cardiovascular: Regular Rate, Regular Rhythm, No Murmurs GI/Abdominal Exam: Soft, Non-Tender, No Organomegaly, No Distention Extremities: No Pedal Edema - Problem List Review Problem List Initiated/Reviewed/Updated: Yes - My Orders Last 24 Hours: My Active Orders 12/13/18 10:44 Convert IV to Saline Lock [OM.PC] Routine 12/13/18 16:30 Trolamine Salicylate/Aloe Vera [Aspercreme 10%] 0 gm TOP Q1H PRN 12/13/18 21:00 atorvaSTATin [Lipitor] 40 mg PO BEDTIME 12/14/18 00:01 Sodium Chloride 0.9% [Normal Saline] 1,000 ml IV ASDIRECTED 12/14/18 00:02 Transfuse Red Blood Cells [COMM] Routine 12/14/18 09:00 Pantoprazole [ProTONIX IV] 40 mg IVPUSH DAILY 12/14/18 17:00 HGB [HEMOGLOBIN] [HEME] Stat 12/15/18 05:00 BASIC METABOLIC PANEL,BMP [CHEM] Timed CBC WITH AUTO DIFF [HEME] Timed MAGNESIUM [CHEM] Timed 12/15/18 07:30 GLUCOSE POC LAB TO COLLECT [POC] QIDACANDBED 12/15/18 11:30 GLUCOSE POC LAB TO COLLECT [POC] QIDACANDBED 12/15/18 16:30 GLUCOSE POC LAB TO COLLECT [POC] QIDACANDBED 12/15/18 21:00 GLUCOSE POC LAB TO COLLECT [POC] QIDACANDBED 12/16/18 07:30 GLUCOSE POC LAB TO COLLECT [POC] QIDACANDBED 12/16/18 11:30 GLUCOSE POC LAB TO COLLECT [POC] QIDACANDBED 12/16/18 16:30 GLUCOSE POC LAB TO COLLECT [POC] QIDACANDBED 12/16/18 21:00 GLUCOSE POC LAB TO COLLECT [POC] QIDACANDBED 12/17/18 07:30 GLUCOSE POC LAB TO COLLECT [POC] QIDACANDBED 12/17/18 11:30 GLUCOSE POC LAB TO COLLECT [POC] QIDACANDBED - Plan Plan:: ASSESSMENT AND PLAN ACUTE GI BLEED-stable since admission, hemoglobin stable over the past 24 hours. -nothing by mouth pending colonoscopy -Maintain 2 IV sites -2 units of red blood cells on hold -Serial hemoglobin levels -saline lock, resume fluids at midnight -Protonix 40 mg IV daily -Surgical follow-up per Dr. Zheng, colonoscopy today -Warfarin on hold -Resume therapeutic Lovenox following colonoscopy ACUTE BLOOD LOSS ANEMIA-secondary to current GI bleed TYPE 2 DIABETES MELLITUS -4 times a day glucometers -Continue usual dose of long-acting insulin -Low-dose sliding scale Humalog CORONARY ARTERY DISEASE-currently asymptomatic, status post stent placement 9 months ago -Continue Plavix -Continue other outpatient cardiac medications STATUS POST AORTIC VALVE REPLACEMENT -Anticoagulation management as above MAINTENANCE ISSUES -DVT prophylaxis; current therapy with warfarin should provide adequate DVT prophylaxis -GI prophylaxis; Protonix as above -Barber catheter; not indicated -Nutrition; nothing by mouth -Nicotine dependence; not required CODE STATUS-FULL CODE ADMISSION STATUS-patient will be admitted to inpatient status, expect at least a 2 night hospital stay for evaluation and management of problems as outlined above. At the time of this admission I do not reasonably expected evaluation and management of this problem will require more than a 96 hour hospital stay. DISPOSITION-anticipate discharge to home after the hospital stay. PRIMARY CARE PROVIDER-Dr. Randall
[2018-12-14] MEDS ORDERED: Propofol 200 MG/20 ML SDV ONE (12:41)
[2018-12-14] MEDS ORDERED: fentaNYL 100 MCG/2 ML SDV ONE (12:41)
[2018-12-14] MEDS ORDERED: Lactated Ringers 1,000 ML ONE (12:53)
[2018-12-14] MEDS: Insulin Glargine,Human Rec. Analog 100 Units/ML 3 ML Pen SUBCUT SCH (13:50)
[2018-12-14] MEDS: Enoxaparin 100 MG/1 ML Syringe SUBCUT SCH (16:51)
[2018-12-14] MEDS: atorvaSTATin 20 MG Tab PO SCH (21:30)
[2018-12-14] MEDS: Acetaminophen/HYDROcodone 325-5 MG Tab PO PRN (21:34)
[2018-12-14] MEDS ORDERED: ALPRAZolam 0.5 MG Tab ONE (22:38)
[2018-12-15] MEDS: Sodium Chloride 0.9% 1,000 ML IV SCH (00:07)
[2018-12-15] MEDS: Enoxaparin 100 MG/1 ML Syringe SUBCUT SCH ×2 (05:03→16:11)
[2018-12-15] MEDS: Insulin Lispro 100 Unit/ML 3 ML KwikPen SUBCUT SCH ×4 (08:44→23:59)
[2018-12-15] MEDS: Potassium Chloride 20 MEQ Tab.ER PO SCH ×2 (08:45→20:52)
[2018-12-15] MEDS: Metoprolol Succinate 50 MG Tab.ER PO SCH (08:46)
[2018-12-15] MEDS: Lisinopril 10 MG Tab PO SCH (08:47)
[2018-12-15] MEDS: Sertraline 25 MG Tab PO SCH (08:48)
[2018-12-15] MEDS: Gabapentin 300 MG Cap PO SCH ×3 (08:48→20:52)
[2018-12-15] MEDS: Clopidogrel 75 MG Tab PO SCH (08:49)
[2018-12-15] MEDS: Pantoprazole 40 MG Vial IVPUSH SCH (08:50)
[2018-12-15] MEDS: Insulin Glargine,Human Rec. Analog 100 Units/ML 3 ML Pen SUBCUT SCH (08:51)
[2018-12-15] MEDS ORDERED: Magnesium Sulfate/Water 2 GM in Premix Bag 1 BAG IV ONE (10:00)
--- NOTE | 2018-12-15 12:47 | PCM.PN ---
- General Info Date of Service: 12/15/18 Subjective Update: Ms. Padilla has been fairly stable with no further hematochezia or melena. Hemoglobin did drop on a.m. lab and she is been transfused one additional unit of red blood cells. She has some chest wall pain in her right upper chest this morning it is easily reproduced with palpation. She otherwise has been hemodynamically stable and has remained afebrile. Functional Status: Reports: Tolerating Diet, Urinating - Review of Systems General: Reports: Weakness. Denies: Fever, Chills Pulmonary: Reports: No Symptoms Cardiovascular: Reports: No Symptoms Gastrointestinal: Denies: Abdominal Pain, Diarrhea, Difficulty Swallowing, Hematochezia, Melena, Nausea, Vomiting - Patient Data Vitals - Most Recent: Last Vital Signs Temp 98.2 F 12/15/18 09:15 Pulse 65 12/15/18 09:15 Resp 15 12/15/18 09:15 BP 157/43 H 12/15/18 09:15 Pulse Ox 95 12/15/18 09:00 Weight - Most Recent: 226 lb 10.163 oz I&O - Last 24 Hours: Intake & Output 12/14/18 12/15/18 12/15/18 22:59 06:59 14:59 Intake Total 720 1188 40 Output Total 125 Balance 720 1063 40 Lab Results Last 24 Hours: Laboratory Results - last 24 hr 12/12/18 12/14/18 12/15/18 Range/Units 12:50 17:00 05:00 WBC 9.8 (4.5-11.0) K/uL RBC 3.11 L (3.30-5.50) M/uL Hgb 9.8 L 8.8 L (12.0-15.0) g/dL Hct 27.5 L (36.0-48.0) % MCV 88 (80-98) fL MCH 28 (27-31) pg MCHC 32 (32-36) % Plt Count 196 (150-400) K/uL Neut % (Auto) 61 (36-66) % Lymph % (Auto) 23 L (24-44) % [place] % (Auto) 12 H (2-6) % Eos % (Auto) 5 H (2-4) % Baso % (Auto) 0 (0-1) % Sodium (140-148) mmol/L Potassium (3.6-5.2) mmol/L Chloride (100-108) mmol/L Carbon Dioxide (21-32) mmol/L Anion Gap (5.0-14.0) mmol/L BUN (7-18) mg/dL Creatinine (0.6-1.0) mg/dL Est Cr Clr Drug Dosing mL/min Estimated GFR (MDRD) (>60) Glucose (74-106) mg/dL Calcium (8.5-10.1) mg/dL Magnesium (1.8-2.4) mg/dL Blood Type O POSITIVE Gel Antibody Screen Negative Crossmatch See Detail 12/15/18 Range/Units 05:00 WBC (4.5-11.0) K/uL RBC (3.30-5.50) M/uL Hgb (12.0-15.0) g/dL Hct (36.0-48.0) % MCV (80-98) fL MCH (27-31) pg MCHC (32-36) % Plt Count (150-400) K/uL Neut % (Auto) (36-66) % Lymph % (Auto) (24-44) % [place] % (Auto) (2-6) % Eos % (Auto) (2-4) % Baso % (Auto) (0-1) % Sodium 143 (140-148) mmol/L Potassium 3.9 (3.6-5.2) mmol/L Chloride 110 H (100-108) mmol/L Carbon Dioxide 24 (21-32) mmol/L Anion Gap 12.9 (5.0-14.0) mmol/L BUN 21 H (7-18) mg/dL Creatinine 0.7 (0.6-1.0) mg/dL Est Cr Clr Drug Dosing 66.22 mL/min Estimated GFR (MDRD) > 60 (>60) Glucose 106 (74-106) mg/dL Calcium 8.6 (8.5-10.1) mg/dL Magnesium 1.6 L (1.8-2.4) mg/dL Blood Type Gel Antibody Screen Crossmatch [facility] Results Last 24 Hours: Microbiology 12/13/18 12:01 CLOtest - Final Stomach NEGATIVE CLOTEST Med Orders - Current: Current Medications Acetaminophen (Tylenol) 650 mg PO Q4H PRN PRN Reason: Pain (Mild 1-3)/fever Hydrocodone Bitart/Acetaminophen ([place] 325-5 Mg) 1 tab PO Q4H PRN PRN Reason: Pain (moderate 4-6) Last Admin: 12/14/18 21:34 Dose: 1 tab Albuterol (Proventil Neb Soln) 2.5 mg NEB Q4H PRN PRN Reason: Shortness Of Breath/wheezing Albuterol/Ipratropium (Duoneb 3.0-0.5 Mg/3 Ml) 3 ml INH Q4H PRN PRN Reason: Wheezing Alprazolam (Xanax) 0.25 mg PO BID PRN PRN Reason: Anxiety Last Admin: 12/14/18 22:42 Dose: 0.25 mg Atorvastatin Calcium (Lipitor) 40 mg PO BEDTIME [facility] Last Admin: 12/14/18 21:30 Dose: 40 mg Clopidogrel Bisulfate (Plavix) 75 mg PO DAILY [facility] Last Admin: 12/15/18 08:49 Dose: 75 mg Dextrose (Glutose 15) 15 gm PO ONETIME PRN PRN Reason: Hypoglycemia Dextrose/Water (Dextrose 50% In Water) 50 ml IV ONETIME PRN PRN Reason: Hypoglycemia Enoxaparin Sodium (Lovenox) 100 mg SUBCUT Q12H [facility] Last Admin: 12/15/18 05:03 Dose: 100 mg Gabapentin (Neurontin) 900 mg PO TID [facility] Last Admin: 12/15/18 08:48 Dose: 900 mg Insulin Glargine (Lantus Solostar) 25 units SUBCUT DAILY [facility] Last Admin: 12/15/18 08:51 Dose: 25 units Insulin Human Lispro (Humalog) 0 unit SUBCUT QIDACANDBED [facility]; Protocol Last Admin: 12/15/18 08:44 Dose: Not Given Lisinopril (Prinivil) 10 mg PO DAILY [facility] Last Admin: 12/15/18 08:47 Dose: 10 mg Metoprolol Succinate (Toprol Xl) 50 mg PO DAILY [facility] Last Admin: 12/15/18 08:46 Dose: 50 mg Ondansetron HCl (Zofran) 4 mg IV Q4H PRN PRN Reason: Nausea/Vomiting Last Admin: 12/13/18 20:20 Dose: 4 mg Pantoprazole Sodium (Protonix Iv) 40 mg IVPUSH DAILY [facility] Last Admin: 12/15/18 08:50 Dose: 40 mg Potassium Chloride (Klor-Con M20) 20 meq PO BID [facility] Last Admin: 12/15/18 08:45 Dose: 20 meq Sertraline HCl (Zoloft) 75 mg PO DAILY [facility] Last Admin: 12/15/18 08:48 Dose: 75 mg Sodium Chloride (Saline Flush) 10 ml FLUSH ASDIRECTED PRN PRN Reason: Keep Vein Open Last Admin: 12/13/18 20:21 Dose: 10 ml Trolamine Salicylate (Aspercreme 10%) 0 gm TOP Q1H PRN PRN Reason: Pain (mild 1-3) Last Admin: 12/13/18 16:37 Dose: 1 applic Discontinued Medications Alprazolam (Xanax) Confirm Administered Dose 0.5 mg .ROUTE .STK-MED ONE Stop: 12/14/18 22:39 Bisacodyl (Dulcolax) 10 mg PO ONETIME ONE Stop: 12/13/18 09:01 Last Admin: 12/13/18 10:34 Dose: 10 mg Bisacodyl (Dulcolax) 10 mg PO ONETIME ONE Stop: 12/13/18 20:01 Last Admin: 12/13/18 20:31 Dose: 10 mg Enoxaparin Sodium (Lovenox) 100 mg SUBCUT Q12H [facility] Stop: 12/13/18 22:31 Last Admin: 12/13/18 22:45 Dose: 100 mg Fentanyl (Sublimaze) Confirm Administered Dose 100 mcg .ROUTE .STK-MED ONE Stop: 12/13/18 07:00 Fentanyl (Sublimaze) Confirm Administered Dose 100 mcg .ROUTE .STK-MED ONE Stop: 12/14/18 12:42 Pantoprazole Sodium 80 mg/ (Sodium Chloride) 100 mls @ 10 mls/hr IV .Q10H [facility] Last Admin: 12/12/18 22:03 Dose: Not Given Pantoprazole Sodium 80 mg/ (Sodium Chloride) 100 mls @ 10 mls/hr IV .Q10H [facility] Last Admin: 12/13/18 01:01 Dose: 10 mls/hr Sodium Chloride (Normal Saline) 1,000 mls @ 125 mls/hr IV ASDIRECTED [facility] Last Admin: 12/13/18 08:46 Dose: 125 mls/hr Phytonadione 5 mg/ Sodium (Chloride) 50.5 mls @ 100 mls/hr IV ONETIME ONE Stop: 12/13/18 11:15 Last Admin: 12/13/18 11:04 Dose: 100 mls/hr Sodium Chloride (Normal Saline) 1,000 mls @ 75 mls/hr IV ASDIRECTED [facility] Last Admin: 12/15/18 00:07 Dose: 75 mls/hr Lactated Ringer's (Ringers, Lactated) Confirm Administered Dose 1,000 mls @ as directed .ROUTE .STK-MED ONE Stop: 12/14/18 12:54 Magnesium Sulfate 2 gm/ Premix 50 mls @ 25 mls/hr IV ONETIME ONE Stop: 12/15/18 11:59 Last Admin: 12/15/18 11:07 Dose: 25 mls/hr Pantoprazole Sodium (Protonix Iv) 80 mg IVPUSH .BOLUS [facility] Polyethylene Glycol (Miralax) 238 gm PO ONETIME ONE Stop: 12/13/18 17:01 Last Admin: 12/13/18 17:12 Dose: 238 gm Propofol (Diprivan 20 Ml) Confirm Administered Dose 200 mg .ROUTE .STK-MED ONE Stop: 12/13/18 07:00 Propofol (Diprivan 20 Ml) Confirm Administered Dose 200 mg .ROUTE .STK-MED ONE Stop: 12/14/18 12:42 Warfarin Sodium (Coumadin) 5 mg PO BEDTIME [facility] - Exam Quality Assessment: DVT Prophylaxis General: Alert, Oriented, Cooperative, No Acute Distress Lungs: Clear to Auscultation, Normal Respiratory Effort Cardiovascular: Regular Rate, Regular Rhythm, No Murmurs GI/Abdominal Exam: Soft, Non-Tender, No Organomegaly, No Distention Extremities: Non-Tender, No Pedal Edema - Problem List Review Problem List Initiated/Reviewed/Updated: Yes - My Orders Last 24 Hours: My Active Orders 12/14/18 16:00 Enoxaparin [Lovenox] 100 mg SUBCUT Q12H 12/15/18 06:07 Transfuse Red Blood Cells [COMM] Routine 12/15/18 12:04 Convert IV to Saline Lock [OM.PC] Routine 12/15/18 17:00 HGB [HEMOGLOBIN] [HEME] Stat 12/15/18 Lunch GI Soft Low Fiber [Soft Diet] [DIET] 12/16/18 05:00 BASIC METABOLIC PANEL,BMP [CHEM] Timed CBC WITH AUTO DIFF [HEME] Timed INR,PT,PROTHROMBIN TIME [COAG] Timed MAGNESIUM [CHEM] Timed 12/16/18 07:30 GLUCOSE POC LAB TO COLLECT [POC] QIDACANDBED 12/16/18 11:30 GLUCOSE POC LAB TO COLLECT [POC] QIDACANDBED 12/16/18 16:30 GLUCOSE POC LAB TO COLLECT [POC] QIDACANDBED 12/16/18 21:00 GLUCOSE POC LAB TO COLLECT [POC] QIDACANDBED 12/17/18 07:30 GLUCOSE POC LAB TO COLLECT [POC] QIDACANDBED 12/17/18 11:30 GLUCOSE POC LAB TO COLLECT [POC] QIDACANDBED - Plan Plan:: ASSESSMENT AND PLAN ACUTE GI BLEED-stable since admission, hemoglobin did drop this morning and because of her underlying significant cardiac disease we did transfuse one additional unit of red blood cells. Otherwise there has been no evidence of active bleeding, no melena or hematochezia. -Soft low residue diet -Maintain 2 IV sites -2 units of red blood cells on hold -Serial hemoglobin levels -saline lock, resume fluids at midnight -Protonix 40 mg IV daily -Surgical follow-up per Dr. Zheng -Warfarin on hold, plan to restart tomorrow if stable -Continue therapeutic Lovenox ACUTE BLOOD LOSS ANEMIA-secondary to current GI bleed TYPE 2 DIABETES MELLITUS -4 times a day glucometers -Continue usual dose of long-acting insulin -Low-dose sliding scale Humalog CORONARY ARTERY DISEASE-currently asymptomatic, status post stent placement 9 months ago -Continue Plavix -Continue other outpatient cardiac medications STATUS POST AORTIC VALVE REPLACEMENT -Anticoagulation management as above MAINTENANCE ISSUES -DVT prophylaxis; current therapy with warfarin should provide adequate DVT prophylaxis -GI prophylaxis; Protonix as above -Barber catheter; not indicated -Nutrition; soft low residue diet -Nicotine dependence; not required CODE STATUS-FULL CODE ADMISSION STATUS-patient will be admitted to inpatient status, expect at least a 2 night hospital stay for evaluation and management of problems as outlined above. At the time of this admission I do not reasonably expected evaluation and management of this problem will require more than a 96 hour hospital stay. DISPOSITION-anticipate discharge to home after the hospital stay. PRIMARY CARE PROVIDER-Dr. Randall
[2018-12-15] MEDS: Acetaminophen/HYDROcodone 325-5 MG Tab PO PRN ×2 (16:11→20:59)
[2018-12-15] MEDS: atorvaSTATin 20 MG Tab PO SCH (20:52)
[2018-12-15] MEDS: Trolamine Salicylate/Aloe Vera 10% Crm 85 GM Tube TOP PRN (21:00)
[2018-12-16] MEDS: Enoxaparin 100 MG/1 ML Syringe SUBCUT SCH ×2 (04:17→15:30)
[2018-12-16] MEDS: Acetaminophen/HYDROcodone 325-5 MG Tab PO PRN ×4 (04:20→23:56)
[2018-12-16] MEDS: Insulin Lispro 100 Unit/ML 3 ML KwikPen SUBCUT SCH ×4 (07:00→22:06)
[2018-12-16] MEDS ORDERED: Magnesium Sulfate/Water 2 GM in Premix Bag 1 BAG IV ONE (09:00)
[2018-12-16] MEDS: Sertraline 25 MG Tab PO SCH (09:29)
[2018-12-16] MEDS: Gabapentin 300 MG Cap PO SCH ×3 (09:30→20:02)
[2018-12-16] MEDS: Clopidogrel 75 MG Tab PO SCH (09:31)
[2018-12-16] MEDS: Magnesium Oxide 400 MG Tab PO SCH ×2 (09:31→20:01)
[2018-12-16] MEDS: Metoprolol Succinate 50 MG Tab.ER PO SCH (09:33)
[2018-12-16] MEDS: Lisinopril 10 MG Tab PO SCH ×2 (09:34→20:03)
--- NOTE | 2018-12-16 09:38 | PCM.PN ---
- General Info Date of Service: 12/16/18 Subjective Update: Ms. Padilla has been stable over the last 24 hours with no further evidence of active bleeding. She is experiencing some chest wall pain but denies any other discomfort and has been tolerating a soft diet - Review of Systems General: Reports: Weakness. Denies: Fever, Chills Pulmonary: Reports: No Symptoms Cardiovascular: Reports: No Symptoms Gastrointestinal: Reports: No Symptoms - Patient Data Vitals - Most Recent: Last Vital Signs Temp 98.4 F 12/16/18 07:41 Pulse 69 12/16/18 07:41 Resp 15 12/16/18 07:41 BP 194/36 H 12/16/18 07:41 Pulse Ox 95 12/16/18 07:41 Weight - Most Recent: 226 lb 10.163 oz I&O - Last 24 Hours: Intake & Output 12/15/18 12/16/18 12/16/18 22:59 06:59 14:59 Intake Total 360 360 Output Total 100 Balance 260 360 Lab Results Last 24 Hours: Laboratory Results - last 24 hr 12/12/18 12/15/18 12/16/18 Range/Units 12:50 17:00 06:29 WBC 11.6 H (4.5-11.0) K/uL RBC 3.72 (3.30-5.50) M/uL Hgb 10.6 L 10.5 L (12.0-15.0) g/dL Hct 32.5 L (36.0-48.0) % MCV 87 (80-98) fL MCH 28 (27-31) pg MCHC 32 (32-36) % Plt Count 210 (150-400) K/uL Neut % (Auto) 70 H (36-66) % Lymph % (Auto) 16 L (24-44) % Dare % (Auto) 9 H (2-6) % Eos % (Auto) 5 H (2-4) % Baso % (Auto) 0 (0-1) % PT (9.5-12.0) sec INR (0.80-1.20) Sodium (140-148) mmol/L Potassium (3.6-5.2) mmol/L Chloride (100-108) mmol/L Carbon Dioxide (21-32) mmol/L Anion Gap (5.0-14.0) mmol/L BUN (7-18) mg/dL Creatinine (0.6-1.0) mg/dL Est Cr Clr Drug Dosing mL/min Estimated GFR (MDRD) (>60) Glucose (74-106) mg/dL Calcium (8.5-10.1) mg/dL Magnesium (1.8-2.4) mg/dL Blood Type O POSITIVE Gel Antibody Screen Negative Crossmatch See Detail 12/16/18 12/16/18 Range/Units 06:29 06:29 WBC (4.5-11.0) K/uL RBC (3.30-5.50) M/uL Hgb (12.0-15.0) g/dL Hct (36.0-48.0) % MCV (80-98) fL MCH (27-31) pg MCHC (32-36) % Plt Count (150-400) K/uL Neut % (Auto) (36-66) % Lymph % (Auto) (24-44) % Dare % (Auto) (2-6) % Eos % (Auto) (2-4) % Baso % (Auto) (0-1) % PT 12.1 H (9.5-12.0) sec INR 1.11 (0.80-1.20) Sodium 141 (140-148) mmol/L Potassium 4.1 (3.6-5.2) mmol/L Chloride 108 (100-108) mmol/L Carbon Dioxide 24 (21-32) mmol/L Anion Gap 9.3 (5.0-14.0) mmol/L BUN 15 (7-18) mg/dL Creatinine 0.7 (0.6-1.0) mg/dL Est Cr Clr Drug Dosing 66.22 mL/min Estimated GFR (MDRD) > 60 (>60) Glucose 125 H (74-106) mg/dL Calcium 8.5 (8.5-10.1) mg/dL Magnesium 1.7 L (1.8-2.4) mg/dL Blood Type Gel Antibody Screen Crossmatch Med Orders - Current: Current Medications Acetaminophen (Tylenol) 650 mg PO Q4H PRN PRN Reason: Pain (Mild 1-3)/fever Hydrocodone Bitart/Acetaminophen ([place] 325-5 Mg) 1 tab PO Q4H PRN PRN Reason: Pain (moderate 4-6) Last Admin: 12/16/18 04:20 Dose: 1 tab Albuterol (Proventil Neb Soln) 2.5 mg NEB Q4H PRN PRN Reason: Shortness Of Breath/wheezing Albuterol/Ipratropium (Duoneb 3.0-0.5 Mg/3 Ml) 3 ml INH Q4H PRN PRN Reason: Wheezing Alprazolam (Xanax) 0.25 mg PO BID PRN PRN Reason: Anxiety Last Admin: 12/14/18 22:42 Dose: 0.25 mg Atorvastatin Calcium (Lipitor) 40 mg PO BEDTIME [facility] Last Admin: 12/15/18 20:52 Dose: 40 mg Clopidogrel Bisulfate (Plavix) 75 mg PO DAILY [facility] Last Admin: 12/15/18 08:49 Dose: 75 mg Dextrose (Glutose 15) 15 gm PO ONETIME PRN PRN Reason: Hypoglycemia Dextrose/Water (Dextrose 50% In Water) 50 ml IV ONETIME PRN PRN Reason: Hypoglycemia Enoxaparin Sodium (Lovenox) 100 mg SUBCUT Q12H [facility] Last Admin: 12/16/18 04:17 Dose: 100 mg Gabapentin (Neurontin) 900 mg PO TID [facility] Last Admin: 12/15/18 20:52 Dose: 900 mg Magnesium Sulfate 2 gm/ Premix 50 mls @ 25 mls/hr IV ONETIME ONE Stop: 12/16/18 10:59 Insulin Glargine (Lantus Solostar) 25 units SUBCUT DAILY [facility] Last Admin: 12/15/18 08:51 Dose: 25 units Insulin Human Lispro (Humalog) 0 unit SUBCUT QIDACANDBED [facility]; Protocol Last Admin: 12/15/18 23:59 Dose: Not Given Lisinopril (Prinivil) 10 mg PO BID [facility] Magnesium Oxide (Magnesium Oxide) 400 mg PO BID [facility] Metoprolol Succinate (Toprol Xl) 50 mg PO DAILY [facility] Last Admin: 12/15/18 08:46 Dose: 50 mg Ondansetron HCl (Zofran) 4 mg IV Q4H PRN PRN Reason: Nausea/Vomiting Last Admin: 12/13/18 20:20 Dose: 4 mg [facility] Potassium Chloride (Klor-Con M20) 20 meq PO BID [facility] Last Admin: 12/15/18 20:52 Dose: 20 meq Sertraline HCl (Zoloft) 75 mg PO DAILY [facility] Last Admin: 12/15/18 08:48 Dose: 75 mg Sodium Chloride (Saline Flush) 10 ml FLUSH ASDIRECTED PRN PRN Reason: Keep Vein Open Last Admin: 12/13/18 20:21 Dose: 10 ml Trolamine Salicylate (Aspercreme 10%) 0 gm TOP Q1H PRN PRN Reason: Pain (mild 1-3) Last Admin: 12/15/18 21:00 Dose: 1 applic Discontinued Medications Alprazolam (Xanax) Confirm Administered Dose 0.5 mg .ROUTE .[facility] ONE Stop: 12/14/18 22:39 Last Admin: 12/15/18 23:59 Dose: Not Given Bisacodyl (Dulcolax) 10 mg PO ONETIME ONE Stop: 12/13/18 09:01 Last Admin: 12/13/18 10:34 Dose: 10 mg Bisacodyl (Dulcolax) 10 mg PO ONETIME ONE Stop: 12/13/18 20:01 Last Admin: 12/13/18 20:31 Dose: 10 mg Enoxaparin Sodium (Lovenox) 100 mg SUBCUT Q12H [facility] Stop: 12/13/18 22:31 Last Admin: 12/13/18 22:45 Dose: 100 mg Fentanyl (Sublimaze) Confirm Administered Dose 100 mcg .ROUTE .STK-MED ONE Stop: 12/13/18 07:00 Fentanyl (Sublimaze) Confirm Administered Dose 100 mcg .ROUTE .K-MED ONE Stop: 12/14/18 12:42 Pantoprazole Sodium 80 mg/ (Sodium Chloride) 100 mls @ 10 mls/hr IV .Q10H [facility] Last Admin: 12/12/18 22:03 Dose: Not Given Pantoprazole Sodium 80 mg/ (Sodium Chloride) 100 mls @ 10 mls/hr IV .Q10H [facility] Last Admin: 12/13/18 01:01 Dose: 10 mls/hr Sodium Chloride (Normal Saline) 1,000 mls @ 125 mls/hr IV ASDIRECTED [facility] Last Admin: 12/13/18 08:46 Dose: 125 mls/hr Phytonadione 5 mg/ Sodium (Chloride) 50.5 mls @ 100 mls/hr IV ONETIME ONE Stop: 12/13/18 11:15 Last Admin: 12/13/18 11:04 Dose: 100 mls/hr Sodium Chloride (Normal Saline) 1,000 mls @ 75 mls/hr IV ASDIRECTED [facility] Last Admin: 12/15/18 00:07 Dose: 75 mls/hr Lactated Ringer's (Ringers, Lactated) Confirm Administered Dose 1,000 mls @ as directed .ROUTE .STK-MED ONE Stop: 12/14/18 12:54 Magnesium Sulfate 2 gm/ Premix 50 mls @ 25 mls/hr IV ONETIME ONE Stop: 12/15/18 11:59 Last Admin: 12/15/18 11:07 Dose: 25 mls/hr Lisinopril (Prinivil) 10 mg PO DAILY [facility] Last Admin: 12/15/18 08:47 Dose: 10 mg Pantoprazole Sodium (Protonix Iv) 80 mg IVPUSH .BOLUS [facility] Pantoprazole Sodium (Protonix Iv) 40 mg IVPUSH DAILY [facility] Last Admin: 12/15/18 08:50 Dose: 40 mg Polyethylene Glycol (Miralax) 238 gm PO ONETIME ONE Stop: 12/13/18 17:01 Last Admin: 12/13/18 17:12 Dose: 238 gm Propofol (Diprivan 20 Ml) Confirm Administered Dose 200 mg .ROUTE .STK-MED ONE Stop: 12/13/18 07:00 Propofol (Diprivan 20 Ml) Confirm Administered Dose 200 mg .ROUTE .[facility] ONE Stop: 12/14/18 12:42 Warfarin Sodium (Coumadin) 5 mg PO BEDTIME [facility] - Exam Quality Assessment: DVT Prophylaxis General: Alert, Oriented, Cooperative, No Acute Distress Lungs: Clear to Auscultation, Normal Respiratory Effort Cardiovascular: Regular Rate, Regular Rhythm, No Murmurs GI/Abdominal Exam: Soft, Non-Tender, No Organomegaly, No Distention - Problem List Review Problem List Initiated/Reviewed/Updated: Yes - My Orders Last 24 Hours: My Active Orders 12/15/18 12:04 Convert IV to Saline Lock [OM.PC] Routine 12/15/18 Lunch GI Soft Low Fiber [Soft Diet] [DIET] 12/16/18 09:00 Magnesium Oxide 400 mg PO BID Magnesium Sulfate/Water [Magnesium Sulfate 2 GM in Water 50 ML] 2 gm Premix Bag 1 bag IV ONETIME 12/16/18 09:31 Patient Status [ADT] Routine 12/16/18 09:33 Discontinue Telemetry Monitoring [Cardiac Monitoring Discontinue] [RC] Click to Edit 12/16/18 16:30 Pantoprazole [ProTONIX] 40 mg PO BIDAC 12/16/18 17:00 HGB [HEMOGLOBIN] [HEME] Stat 12/16/18 21:00 Lisinopril [Prinivil] 10 mg PO BID 12/17/18 05:00 MAGNESIUM [CHEM] Timed 12/17/18 05:11 HGB [HEMOGLOBIN] [HEME] AM 12/17/18 07:30 GLUCOSE POC LAB TO COLLECT [POC] QIDACANDBED 12/17/18 11:30 GLUCOSE POC LAB TO COLLECT [POC] QIDACANDBED - Plan Plan:: ASSESSMENT AND PLAN ACUTE GI BLEED-no evidence of active bleeding over the last 24 hours -Soft low residue diet -Maintain 2 IV sites -2 units of red blood cells on hold -Serial hemoglobin levels -saline lock, resume fluids at midnight -Protonix 40 mg IV daily -Surgical follow-up per Dr. Zheng -Resume warfarin today -Continue therapeutic Lovenox ACUTE BLOOD LOSS ANEMIA-secondary to current GI bleed TYPE 2 DIABETES MELLITUS -4 times a day glucometers -Continue usual dose of long-acting insulin -Low-dose sliding scale Humalog HYPERTENSION-blood pressure elevated over the last 24 hours -Increase lisinopril to 10 mg twice daily CORONARY ARTERY DISEASE-currently asymptomatic, status post stent placement 9 months ago -Continue Plavix -Continue other outpatient cardiac medications STATUS POST AORTIC VALVE REPLACEMENT -Anticoagulation management as above MAINTENANCE ISSUES -DVT prophylaxis; current therapy with warfarin should provide adequate DVT prophylaxis -GI prophylaxis; Protonix as above -Barber catheter; not indicated -Nutrition; soft low residue diet -Nicotine dependence; not required CODE STATUS-FULL CODE ADMISSION STATUS-patient will be admitted to inpatient status, expect at least a 2 night hospital stay for evaluation and management of problems as outlined above. At the time of this admission I do not reasonably expected evaluation and management of this problem will require more than a 96 hour hospital stay. DISPOSITION-anticipate discharge to home after the hospital stay. PRIMARY CARE PROVIDER-Dr. Randall
[2018-12-16] MEDS: Insulin Glargine,Human Rec. Analog 100 Units/ML 3 ML Pen SUBCUT SCH (09:43)
[2018-12-16] MEDS: Potassium Chloride 20 MEQ Tab.ER PO SCH ×2 (09:50→20:03)
[2018-12-16] MEDS ORDERED: Warfarin 5 MG Tab PO ONE (10:00)
[2018-12-16] MEDS: Pantoprazole 40 MG Tab.CR PO SCH ×2 (10:28→15:30)
[2018-12-16] MEDS: Pantoprazole 40 MG Vial IVPUSH SCH (10:29)
[2018-12-16] MEDS: atorvaSTATin 20 MG Tab PO SCH (20:02)
[2018-12-16] MEDS: Trolamine Salicylate/Aloe Vera 10% Crm 85 GM Tube TOP PRN (20:11)
[2018-12-17] MEDS: Enoxaparin 100 MG/1 ML Syringe SUBCUT SCH (04:24)
[2018-12-17] MEDS: Insulin Lispro 100 Unit/ML 3 ML KwikPen SUBCUT SCH (07:31)
[2018-12-17 07:34] VITALS: BP 153/53
[2018-12-17] MEDS: Pantoprazole 40 MG Tab.CR PO SCH (07:37)
[2018-12-17] MEDS: Metoprolol Succinate 50 MG Tab.ER PO SCH (10:06)
[2018-12-17] MEDS: Clopidogrel 75 MG Tab PO SCH (10:06)
[2018-12-17] MEDS: Magnesium Oxide 400 MG Tab PO SCH (10:06)
[2018-12-17] MEDS: Potassium Chloride 20 MEQ Tab.ER PO SCH (10:07)
[2018-12-17] MEDS: Sertraline 25 MG Tab PO SCH (10:07)
[2018-12-17] MEDS: Gabapentin 300 MG Cap PO SCH (10:08)
[2018-12-17] MEDS: Lisinopril 10 MG Tab PO SCH (10:08)
[2018-12-17] MEDS: Insulin Glargine,Human Rec. Analog 100 Units/ML 3 ML Pen SUBCUT SCH (10:12)
--- NOTE | 2018-12-17 11:05 | PCM.DCSUM1 ---
Discharge Summary - Hospital Course Brief History: Ms. Padilla is a 73-year-old woman who was admitted through the emergency department with a 2 day history of melenic/maroon stools and symptoms of progressive weakness, lightheadedness, and shortness of breath. - Discharge Data Discharge Date: 12/17/18 Discharge Disposition: DC/Tfer to SNF 03 Condition: Fair - Discharge Diagnosis/Problem(s) (1) GI bleed SNOMED Code(s): 44310209 ICD Code: K92.2 - GASTROINTESTINAL HEMORRHAGE, UNSPECIFIED Status: Acute Current Visit: Yes Qualifiers: GI bleed type/associated pathology: melena Qualified Code(s): K92.1 - Melena (2) Acute blood loss anemia SNOMED Code(s): 299400622 ICD Code: D62 - ACUTE POSTHEMORRHAGIC ANEMIA Status: Acute Current Visit : Yes (3) Type 2 diabetes mellitus SNOMED Code(s): 18565973 ICD Code: E11.9 - TYPE 2 DIABETES MELLITUS WITHOUT COMPLICATIONS Status: Acute Current Visit: Yes (4) Hypertension SNOMED Code(s): 20999299 ICD Code: I10 - ESSENTIAL (PRIMARY) HYPERTENSION Status: Acute Current Visit: Yes (5) Coronary artery disease SNOMED Code(s): 85510390 ICD Code: I25.10 - ATHSCL HEART DISEASE OF [place] CORONARY ARTERY W/O ANG PCTRS Status: Acute Current Visit: Yes - Patient Summary/Data Consults: Consultations 12/12/18 14:11 Consult to Physician [CONS] Routine Consulting Provider: Oscar Zheng Courtesy Call Completed to Consulting Physician: Yes Reason for Consult: GI bleed Hospital Course: Ms. Padilla is a 73-year-old woman who is admitted through the emergency department with symptoms of increased shortness of breath and weakness secondary to an acute GI bleed and acute blood loss anemia. She has had a fairly extensive medical history over the past 12 months. Nine months ago underwent cardiac angioplasty with stent placement. This was followed by aortic valve replacement surgery 6 months ago. 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 [facility] her [facility] and was doing well up until the past few days. Over the last 48 hours staff at the prison have noted melenic/maroon stool. During that period of time patient has noted increased shortness of breath with progressive weakness. Hemoglobins were monitored at the prison and today her hemoglobin was down to 7.3 so she was sent to the emergency department for further evaluation. She is on long-term oral anticoagulation with warfarin because of her prosthetic aortic valve and is currently taking Plavix because of the angioplasty performed last February. On admission she was given IV fluids for hydration and serial hemoglobin levels were obtained. Initially did show some evidence of ongoing bleeding with melenic -appearing stools and drop in hemoglobin despite transfusions. Through the hospital course she was transfused a total of 4 units of red blood cells. On the day after admission she was seen and evaluated by Dr. Zheng and an EGD was performed which showed no obvious source of leading or blood loss. Warfarin was discontinued and INR was reversed with vitamin K. INR at the time of admission was mildly supratherapeutic and she did receive 1 unit of fresh frozen plasma as well. After warfarin was discontinued and INR reversed she was started on subcutaneous Lovenox. The day following the EGD Lovenox was held in the morning and she underwent colonoscopy performed by Dr. Zheng. Colonoscopy also showed no obvious source of recent bleed or active bleeding. Over the last 2 days of hospital stay there was no further evidence of active bleeding and she was restarted on oral anticoagulation with warfarin. On the day of discharge INR remains subtherapeutic. Will be discharged to prison on Lovenox 160 mg subcutaneous daily and also will be on warfarin 7.5 mg by mouth daily. INR will be obtained on December 18 and a follow-up hemoglobin level in one week. She should remain on Lovenox therapy for at least an additional 3 days, or 2 days after INR has become therapeutic, which ever is longer. Follow-up will be with primary care at the prison as needed. Activity will be as tolerated and she will be on a diabetic soft low residue diet. - Patient Instructions Diet: Low Sodium, Diabetic Diet, GI Soft/Low Residue/Low Fiber Activity: As Tolerated Other/Special Instructions: Take Lovenox daily for at least an additional 3 days , and at least 2 days after INR becomes therapeutic, whichever is longer. Obtain INR on December 18. Obtain a follow-up hemoglobin level in one week. - Discharge Plan *PRESCRIPTION DRUG MONITORING PROGRAM REVIEWED*: Not Applicable *COPY OF PRESCRIPTION DRUG MONITORING REPORT IN PATIENT AXEL: Not Applicable Prescriptions/Med Rec: Enoxaparin [Lovenox] 160 mg SUBCUT Q24H #5 syringe Pantoprazole [ProTONIX] 40 mg PO DAILY #30 tab.cr Home Medications: Home Meds Insulin Aspart [NovoLOG] 5 unit SQ TID 12/29/13 [History] Insulin Glarg,Human.Rec.Analog [Lantus] 25 units SQ DAILY 12/29/13 [History] Ondansetron [Zofran] 4 mg PO Q4H PRN 10/01/17 [History] atorvaSTATin [Lipitor] 40 mg PO BEDTIME 10/01/17 [History] Metoprolol Succinate [Toprol XL] 50 mg PO DAILY 04/27/18 [History] Clopidogrel Bisulfate [Plavix] 75 mg PO DAILY 05/16/18 [History] Potassium Chloride [Klor-Con M20] 20 meq PO BID 05/16/18 [History] ALPRAZolam [Alprazolam] 1 tab PO BID PRN 12/12/18 [History] ALPRAZolam [Alprazolam] 1 tab PO DAILY PRN 12/12/18 [History] Acetaminophen/HYDROcodone [[place] 325-5 MG] 1 tab PO Q4H PRN 12/12/18 [History] Albuterol/Ipratropium [DuoNeb 3.0-0.5 MG/3 ML] 1 dose INH Q4H PRN 12/12/18 [ History] Bisacodyl [Biscolax] 1 supp RECTAL Q24H PRN 12/12/18 [History] Bumetanide 1 mg PO DAILY 12/12/18 [History] Gabapentin [Neurontin] 900 mg PO TID 12/12/18 [History] Lisinopril [Prinivil] 10 mg PO DAILY 12/12/18 [History] Pentoxifylline [TRENtal] 400 mg PO TID 12/12/18 [History] Sertraline [Zoloft] 75 mg PO DAILY 12/12/18 [History] Trolamine Salicylate/Aloe Vera [Aspercreme 10%] 1 applic TOP ASDIRECTED PRN [History] Warfarin [Coumadin] 7.5 mg PO BEDTIME 12/12/18 [History] Enoxaparin [Lovenox] 160 mg SUBCUT Q24H #5 syringe 12/17/18 [Rx] Pantoprazole [ProTONIX] 40 mg PO DAILY #30 tab.cr 12/17/18 [Rx] Referrals: Cayden Randall MD [Primary Care Provider] - - Discharge Summary/Plan Comment DC Time >30 min.: No - Patient Data Vitals - Most Recent: Last Vital Signs Temp 98.1 F 12/17/18 07:32 Pulse 63 12/17/18 10:06 Resp 16 12/17/18 07:32 BP 153/53 H 12/17/18 10:08 Pulse Ox 94 L 12/17/18 07:32 Weight - Most Recent: 232 lb 14.4 oz I&O - Last 24 hours: Intake & Output 12/16/18 12/17/18 12/17/18 22:59 06:59 14:59 Intake Total 450 360 Output Total 301 Balance -301 450 360 Lab Results - Last 24 hrs: Laboratory Results - last 24 hr 12/12/18 12/16/18 12/17/18 Range/Units 12:50 17:32 05:52 Hgb 11.2 L (12.0-15.0) g/dL PT (9.5-12.0) sec INR (0.80-1.20) Magnesium 1.8 (1.8-2.4) mg/dL Crossmatch See Detail 12/17/18 12/17/18 Range/Units 05:52 05:52 Hgb 10.4 L (12.0-15.0) g/dL PT 13.4 H (9.5-12.0) sec INR 1.23 H (0.80-1.20) Magnesium (1.8-2.4) mg/dL Crossmatch Med Orders - Current: Current Medications Acetaminophen (Tylenol) 650 mg PO Q4H PRN PRN Reason: Pain (Mild 1-3)/fever Hydrocodone Bitart/Acetaminophen ([place] 325-5 Mg) 1 tab PO Q4H PRN PRN Reason: Pain (moderate 4-6) Last Admin: 12/16/18 23:56 Dose: 1 tab Albuterol (Proventil Neb Soln) 2.5 mg NEB Q4H PRN PRN Reason: Shortness Of Breath/wheezing Albuterol/Ipratropium (Duoneb 3.0-0.5 Mg/3 Ml) 3 ml INH Q4H PRN PRN Reason: Wheezing Alprazolam (Xanax) 0.25 mg PO BID PRN PRN Reason: Anxiety Last Admin: 12/14/18 22:42 Dose: 0.25 mg Atorvastatin Calcium (Lipitor) 40 mg PO BEDTIME [facility] Last Admin: 12/16/18 20:02 Dose: 40 mg Clopidogrel Bisulfate (Plavix) 75 mg PO DAILY [facility] Last Admin: 12/17/18 10:06 Dose: 75 mg Dextrose (Glutose 15) 15 gm PO ONETIME PRN PRN Reason: Hypoglycemia Dextrose/Water (Dextrose 50% In Water) 50 ml IV ONETIME PRN PRN Reason: Hypoglycemia Enoxaparin Sodium (Lovenox) 100 mg SUBCUT Q12H [facility] Last Admin: 12/17/18 04:24 Dose: 100 mg Enoxaparin Sodium (Lovenox) 60 mg SUBCUT ONETIME ONE Stop: 12/17/18 10:46 Gabapentin (Neurontin) 900 mg PO TID [facility] Last Admin: 12/17/18 10:08 Dose: 900 mg Insulin Glargine (Lantus Solostar) 25 units SUBCUT DAILY [facility] Last Admin: 12/17/18 10:12 Dose: 25 units Insulin Human Lispro (Humalog) 0 unit SUBCUT QIDACANDBED [facility]; Protocol Last Admin: 12/17/18 07:31 Dose: Not Given Lisinopril (Prinivil) 10 mg PO BID [facility] Last Admin: 12/17/18 10:08 Dose: 10 mg Magnesium Oxide (Magnesium Oxide) 400 mg PO BID [facility] Last Admin: 12/17/18 10:06 Dose: 400 mg Metoprolol Succinate (Toprol Xl) 50 mg PO DAILY [facility] Last Admin: 12/17/18 10:06 Dose: 50 mg Ondansetron HCl (Zofran) 4 mg IV Q4H PRN PRN Reason: Nausea/Vomiting Last Admin: 12/13/18 20:20 Dose: 4 mg [facility] Last Admin: 12/17/18 07:37 Dose: 40 mg Potassium Chloride (Klor-Con M20) 20 meq PO BID [facility] Last Admin: 12/17/18 10:07 Dose: 20 meq Sertraline HCl (Zoloft) 75 mg PO DAILY [facility] Last Admin: 12/17/18 10:07 Dose: 75 mg Sodium Chloride (Saline Flush) 10 ml FLUSH ASDIRECTED PRN PRN Reason: Keep Vein Open Last Admin: 12/13/18 20:21 Dose: 10 ml Trolamine Salicylate (Aspercreme 10%) 0 gm TOP Q1H PRN PRN Reason: Pain (mild 1-3) Last Admin: 12/16/18 20:11 Dose: 1 applic Warfarin Sodium (Coumadin) 7.5 mg PO ONETIME ONE Stop: 12/17/18 10:43 Discontinued Medications Alprazolam (Xanax) Confirm Administered Dose 0.5 mg .ROUTE .STK-MED ONE Stop: 12/14/18 22:39 Last Admin: 12/15/18 23:59 Dose: Not Given Bisacodyl (Dulcolax) 10 mg PO ONETIME ONE Stop: 12/13/18 09:01 Last Admin: 12/13/18 10:34 Dose: 10 mg Bisacodyl (Dulcolax) 10 mg PO ONETIME ONE Stop: 12/13/18 20:01 Last Admin: 12/13/18 20:31 Dose: 10 mg Enoxaparin Sodium (Lovenox) 100 mg SUBCUT Q12H [facility] Stop: 12/13/18 22:31 Last Admin: 12/13/18 22:45 Dose: 100 mg Fentanyl (Sublimaze) Confirm Administered Dose 100 mcg .ROUTE .STK-MED ONE Stop: 12/13/18 07:00 Fentanyl (Sublimaze) Confirm Administered Dose 100 mcg .ROUTE .STK-MED ONE Stop: 12/14/18 12:42 Pantoprazole Sodium 80 mg/ (Sodium Chloride) 100 mls @ 10 mls/hr IV .Q10H [facility] Last Admin: 12/12/18 22:03 Dose: Not Given Pantoprazole Sodium 80 mg/ (Sodium Chloride) 100 mls @ 10 mls/hr IV .Q10H [facility] Last Admin: 12/13/18 01:01 Dose: 10 mls/hr Sodium Chloride (Normal Saline) 1,000 mls @ 125 mls/hr IV ASDIRECTED [facility] Last Admin: 12/13/18 08:46 Dose: 125 mls/hr Phytonadione 5 mg/ Sodium (Chloride) 50.5 mls @ 100 mls/hr IV ONETIME ONE Stop: 12/13/18 11:15 Last Admin: 12/13/18 11:04 Dose: 100 mls/hr Sodium Chloride (Normal Saline) 1,000 mls @ 75 mls/hr IV ASDIRECTED [facility] Last Admin: 12/15/18 00:07 Dose: 75 mls/hr Lactated Ringer's (Ringers, Lactated) Confirm Administered Dose 1,000 mls @ as directed .ROUTE .STK-MED ONE Stop: 12/14/18 12:54 Magnesium Sulfate 2 gm/ Premix 50 mls @ 25 mls/hr IV ONETIME ONE Stop: 12/15/18 11:59 Last Admin: 12/15/18 11:07 Dose: 25 mls/hr Magnesium Sulfate 2 gm/ Premix 50 mls @ 25 mls/hr IV ONETIME ONE Stop: 12/16/18 10:59 Last Admin: 12/16/18 09:36 Dose: 25 mls/hr Lisinopril (Prinivil) 10 mg PO DAILY [facility] Last Admin: 12/16/18 09:34 Dose: 10 mg Pantoprazole Sodium (Protonix Iv) 80 mg IVPUSH .BOLUS [facility] Pantoprazole Sodium (Protonix Iv) 40 mg IVPUSH DAILY [facility] Last Admin: 12/16/18 10:29 Dose: Not Given Polyethylene Glycol (Miralax) 238 gm PO ONETIME ONE Stop: 12/13/18 17:01 Last Admin: 12/13/18 17:12 Dose: 238 gm Propofol (Diprivan 20 Ml) Confirm Administered Dose 200 mg .ROUTE .STK-MED ONE Stop: 12/13/18 07:00 Propofol (Diprivan 20 Ml) Confirm Administered Dose 200 mg .ROUTE .STK-MED ONE Stop: 12/14/18 12:42 Warfarin Sodium (Coumadin) 5 mg PO BEDTIME [facility] Warfarin Sodium (Coumadin) 10 mg PO ONETIME ONE Stop: 12/16/18 10:01 Last Admin: 12/16/18 10:28 Dose: 10 mg - Exam Quality Assessment: Reports: DVT Prophylaxis General: Reports: Alert, Oriented, Cooperative, No Acute Distress Lungs: Reports: Clear to Auscultation, Normal Respiratory Effort Cardiovascular: Reports: Regular Rate, Regular Rhythm, Murmurs GI/Abdominal Exam: Soft, Non-Tender, No Organomegaly, No Distention *Q Meaningful Use (DIS) - VTE *Q VTE Pharmacological Contraindications *Q: Active Hemorrhage
[2018-12-17] MEDS ORDERED: Warfarin 2.5 MG Tab PO ONE (12:00)
[2018-12-17] MEDS ORDERED: Enoxaparin 60 MG/0.6 ML Syringe SUBCUT ONE (12:00)
--- NOTE | 2018-12-17 13:11 | OR ---
DATE OF PROCEDURE: 12/14/2018 PREOPERATIVE DIAGNOSIS: History of rectal bleeding. POSTOPERATIVE DIAGNOSIS: Normal colonoscopic examination. PROCEDURE: Flexible colonoscopy. ANESTHESIA: IV sedation. INDICATIONS FOR PROCEDURE: This is a 73-year-old, presenting with some GI bleeding. Over the last 24 hours, she was noted to have some additional rectal bleeding per ICU nursing staff, and the plan is to proceed with a flexible colonoscopy with biopsies and/or polypectomy as indicated. Potential risks including bleeding and perforation were discussed, and the patient wishes to proceed. DETAILS OF PROCEDURE: The patient was taken to the operating room, placed in a left lateral decubitus position. IV sedation was administered, after which the initial digital rectal exam was performed, it was unremarkable. Colonoscope was then passed to the level of the rectum with retroflexion revealing uncomplicated hemorrhoidal columns. The scope was eventually passed to the level of the cecum. The prep in this case was only fair as there was still quite a bit in the way of dark green liquid stool. There was, however, no evidence of blood or bleeding at any point and no pathology identifiable that might be accountable for the bleeding. The scope was then withdrawn, the above findings reconfirmed, and the procedure concluded. The patient was taken to the recovery room in satisfactory condition. Oscar Zheng MD Job #: [id number]
== END 2018-12-17 12:10 | DRG 378 ==
LOC: JP.ED 10:50 → JP.ICU 13:35 → JP.MS 12-16 18:58
PROVIDERS: ADMIT Hospitalist; ATTEND Hospitalist
PROC: 30233K1 Transfusion of Nonautologous Frozen Plasma into Peripheral Vein, Percutaneous Approach (ICD-10-PCS; 2018-12-12)
PROC: 30233N1 Transfusion of Nonautologous Red Blood Cells into Peripheral Vein, Percutaneous Approach (ICD-10-PCS; 2018-12-12)
PROC: 0DB78ZX Excision of Stomach, Pylorus, Via Natural or Artificial Opening Endoscopic, Diagnostic (ICD-10-PCS; principal; 2018-12-13)
PROC: 30233N1 Transfusion of Nonautologous Red Blood Cells into Peripheral Vein, Percutaneous Approach (ICD-10-PCS; 2018-12-13)
PROC: 30233N1 Transfusion of Nonautologous Red Blood Cells into Peripheral Vein, Percutaneous Approach (ICD-10-PCS; 2018-12-14)
PROC: 0DJD8ZZ Inspection of Lower Intestinal Tract, Via Natural or Artificial Opening Endoscopic (ICD-10-PCS; 2018-12-14)
PROC: 30233N1 Transfusion of Nonautologous Red Blood Cells into Peripheral Vein, Percutaneous Approach (ICD-10-PCS; 2018-12-15)
DX: K92.2 Gastrointestinal hemorrhage, unspecified (principal); D62 Acute posthemorrhagic anemia; I25.10 Atherosclerotic heart disease of native coronary artery without angina pectoris; K92.1 Melena; I11.0 Hypertensive heart disease with heart failure; I50.9 Heart failure, unspecified; E11.319 Type 2 diabetes mellitus with unspecified diabetic retinopathy without macular edema; Z79.4 Long term (current) use of insulin; Z89.512 Acquired absence of left leg below knee; R79.1 Abnormal coagulation profile; I25.2 Old myocardial infarction; Z95.0 Presence of cardiac pacemaker; Z95.5 Presence of coronary angioplasty implant and graft; Z95.2 Presence of prosthetic heart valve; F32.9 Major depressive disorder, single episode, unspecified; F41.9 Anxiety disorder, unspecified; Z87.440 Personal history of urinary (tract) infections; H54.7 Unspecified visual loss; Z79.01 Long term (current) use of anticoagulants; Z88.1 Allergy status to other antibiotic agents; Z88.0 Allergy status to penicillin; Z89.421 Acquired absence of other right toe(s); E66.9 Obesity, unspecified; Z68.36 Body mass index [BMI] 36.0-36.9, adult
CPT/HCPCS: 36415; 36430; 80048; 80053; 82962; 83735; 85018; 85025; 85610; 86850; 86900; 86901; 86920; 86922; 87081; 99285; 99285-25; A9270-GY; C9113; J1650; J1815; J1815-GY; J2405; J2704; J3010; J3430; J3475; J7030; J7050; J7120; P9016; P9017

== ENCOUNTER 2018-12-25 19:26 | Emergency (ER) | payer MEDICARE ==
[2018-12-25 19:41] VITALS: BP 140/37
--- NOTE | 2018-12-25 21:08 | EDM.PDOC ---
ED HPI GENERAL MEDICAL PROBLEM - General Chief Complaint: Gastrointestinal Problem Stated Complaint: ILLNESS Time Seen by Provider: 12/25/18 19:50 Source of Information: Reports: Patient, EMS History Limitations: Reports: No Limitations - History of Present Illness INITIAL COMMENTS - FREE TEXT/NARRATIVE: 73-year-old female who had several episodes of rectal bleeding today. 2 weeks ago she had a similar episode cost blood loss anemia. She was hospitalized, and EGD and colonoscopy were both negative. She responded to blood transfusions and anticoagulation adjustments. She denies any pain, nausea or vomiting or shortness of breath. Associated Symptoms: Reports: No Other Symptoms Bilateral Leg Pain Score (Numeric/FACES): 4 - Related Data Allergies Allergy/AdvReac Type Severity Reaction Status Date / Time Penicillins Allergy Severe Respiratory Verified 12/25/18 19:32 Depression chocolate flavor Allergy Itching Verified 12/25/18 19:32 sulfamethoxazole Allergy Hives Verified 12/25/18 19:32 [From Bactrim] trimethoprim [From Bactrim] Allergy Hives Verified 12/25/18 19:32 Home Meds: Home Meds Insulin Aspart [NovoLOG] 5 unit SQ TID 12/29/13 [History] Insulin Glarg,Human.Rec.Analog [Lantus] 15 units SQ DAILY 12/29/13 [History] Ondansetron [Zofran] 4 mg PO Q4H PRN 10/01/17 [History] atorvaSTATin [Lipitor] 40 mg PO BEDTIME 10/01/17 [History] Metoprolol Succinate [Toprol XL] 50 mg PO DAILY 04/27/18 [History] Clopidogrel Bisulfate [Plavix] 75 mg PO DAILY 05/16/18 [History] Potassium Chloride [Klor-Con M20] 20 meq PO BID 05/16/18 [History] ALPRAZolam [Alprazolam] 1 tab PO BID PRN 12/12/18 [History] ALPRAZolam [Alprazolam] 1 tab PO DAILY PRN 12/12/18 [History] Acetaminophen/HYDROcodone [[place] 325-5 MG] 1 tab PO Q4H PRN 12/12/18 [History] Albuterol/Ipratropium [DuoNeb 3.0-0.5 MG/3 ML] 1 dose NEB Q4H PRN 12/12/18 [ History] Bisacodyl [Biscolax] 1 supp RECTAL Q24H PRN 12/12/18 [History] Bumetanide 1 mg PO DAILY 12/12/18 [History] Gabapentin [Neurontin] 900 mg PO TID 12/12/18 [History] Lisinopril [Prinivil] 10 mg PO DAILY 12/12/18 [History] Pentoxifylline [TRENtal] 400 mg PO TID 12/12/18 [History] Sertraline [Zoloft] 75 mg PO DAILY 12/12/18 [History] Warfarin [Coumadin] 7.5 mg PO BEDTIME 12/12/18 [History] Enoxaparin [Lovenox] 160 mg SUBCUT Q24H #5 syringe 12/17/18 [Rx] Pantoprazole [ProTONIX] 40 mg PO DAILY #30 tab.cr 12/17/18 [Rx] Warfarin [Coumadin] 5 mg PO ASDIRECTED 12/25/18 [History] Past Medical History HEENT History: Reports: Cataract, Impaired Vision, Other (See Below) Other HEENT History: diabetic retinopahy r ear pain Cardiovascular History: Reports: Hypertension, [place], Pacemaker, Stents Respiratory History: Reports: Other (See Below) Other Respiratory History: CHF Gastrointestinal History: Reports: Cholelithiasis, GI Bleed Genitourinary History: Reports: UTI, 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 toes debrided right foot tuesday12/22/2018 Neurological History: Reports: Concussion Psychiatric History: Reports: Anxiety, Depression Endocrine/Metabolic History: Reports: Diabetes, Type II, Obesity/BMI 30+ Hematologic History: Reports: Blood Transfusion(s) Dermatologic History: Reports: Other (See Below) Other Dermatologic History: Skin rash. wound on right foot - Infectious Disease History Infectious Disease History: Reports: Chicken Pox, Other (See Below) Other Infectious Disease History: polio - Past Surgical History HEENT Surgical History: Reports: Cataract Surgery Cardiovascular Surgical History: Reports: Vascular Surgery GI Surgical History: Reports: Cholecystectomy Female Surgical History: Reports: Salpingo-Oophorectomy Neurological Surgical History: Reports: None Musculoskeletal Surgical History: Reports: Amputation, Other (See Below) Social & Family History - Tobacco Use Smoking Status *Q: Never Smoker - Caffeine Use Caffeine Use: Reports: Soda - Recreational Drug Use Recreational Drug Use: No - Living Situation & Occupation Living situation: Reports: Occupation: Retired ED ROS GENERAL - Review of Systems Review Of Systems: See Below Constitutional: Denies: Fever, Chills HEENT: Reports: No Symptoms Respiratory: Denies: Shortness of Breath Cardiovascular: Denies: Chest Pain GI/Abdominal: Reports: Hematochezia. Denies: Abdominal Pain : Reports: No Symptoms ED EXAM, GI/ABD - Physical Exam Exam: See Below Exam Limited By: No Limitations General Appearance: Alert, No Apparent Distress Eyes: Bilateral: Normal Appearance Respiratory/Chest: No Respiratory Distress, Lungs Clear Cardiovascular: Regular Rate, Rhythm. No: Tachycardia GI/Abdominal Exam: Soft, Non-Tender Neurological: Alert, Oriented Course - Vital Signs Last Recorded V/S: Last Vital Signs Temp 96.9 F 12/25/18 19:44 Pulse 65 12/25/18 19:44 Resp 14 12/25/18 19:44 BP 140/37 L 12/25/18 19:44 Pulse Ox 96 12/25/18 19:44 - Orders/Labs/Meds Labs: Laboratory Tests 12/25/18 12/25/18 12/25/18 Range/Units 19:58 20:13 20:13 WBC 12.1 H (4.5-11.0) K/uL RBC 3.84 (3.30-5.50) M/uL Hgb 11.0 L (12.0-15.0) g/dL Hct 34.1 L (36.0-48.0) % MCV 89 (80-98) fL MCH 29 (27-31) pg MCHC 32 (32-36) % Plt Count 286 (150-400) K/uL Neut % (Auto) 70 H (36-66) % Lymph % (Auto) 16 L (24-44) % Frontier % (Auto) 10 H (2-6) % Eos % (Auto) 4 (2-4) % Baso % (Auto) 0 (0-1) % PT 33.5 H (9.5-12.0) sec INR 3.26 H (0.80-1.20) Sodium 136 L (140-148) mmol/L Potassium 4.5 (3.6-5.2) mmol/L Chloride 104 (100-108) mmol/L Carbon Dioxide 24 (21-32) mmol/L Anion Gap 12.5 (5.0-14.0) mmol/L BUN 37 H D (7-18) mg/dL Creatinine 0.8 (0.6-1.0) mg/dL Est Cr Clr Drug Dosing 58.04 mL/min Estimated GFR (MDRD) > 60 (>60) Glucose 132 H (74-106) mg/dL Calcium 9.2 (8.5-10.1) mg/dL - Re-Assessments/Exams Free Text/Narrative Re-Assessment/Exam: 12/25/18 21:06 CBC BMP and INR were obtained. Patient was in the ER for almost 2 hours and had no further rectal bleeding. INR was elevated at 3.26, hemoglobin 11.0 which is slightly higher than her discharge level. I discussed her condition with Dr. Leavitt, he recommended if further treatment is necessary she needs to go to [place] for additional testing and the patient does not want to go unless it is absolutely necessary. Because the bleeding stopped spontaneously previously when her INR was normalize, I'm going to recommend holding the Coumadin for the next 2 days until it can be discussed with Coumadin clinic and she can return if bleeding persists. Departure - Departure Time of Disposition: 22:11 Disposition: DC/[facility] to [facility] Condition: Good Clinical Impression: Rectal bleeding, Supratherapeutic INR - Discharge Information Instructions: Rectal Bleeding Referrals: Cayden Randall MD [Primary Care Provider] - Forms: ED Department Discharge Care Plan Goals: Hold any further Coumadin doses until discussing her level with the Coumadin clinic understanding that she is having some recurring rectal bleeding. The bleeding persists and she becomes more symptomatic a hemoglobin recheck is recommended.
== END 2018-12-25 22:05 ==
LOC: JP.ED 19:26
DX: K62.5 Hemorrhage of anus and rectum (principal); R79.1 Abnormal coagulation profile; I10 Essential (primary) hypertension; I25.2 Old myocardial infarction; Z79.4 Long term (current) use of insulin; Z79.01 Long term (current) use of anticoagulants; Z79.899 Other long term (current) drug therapy
CPT/HCPCS: 36415; 80048; 85025; 85610; 99284

== ENCOUNTER 2019-08-23 09:54 | Inpatient (IN) | payer MEDICARE ==
[2019-08-23] MEDS ORDERED: fentaNYL 100 MCG/2 ML SDV IVPUSH ONE (10:24)
--- NOTE | 2019-08-23 10:26 | EDM.PDOC ---
ED HPI GENERAL MEDICAL PROBLEM - General Chief Complaint: Lower Extremity Injury/Pain Stated Complaint: MEDICAL VIA TRI Time Seen by Provider: 08/23/19 10:20 Source of Information: Reports: Patient, RN Notes Reviewed History Limitations: Reports: No Limitations - History of Present Illness INITIAL COMMENTS - FREE TEXT/NARRATIVE: 73-year-old female presents to the emergency department today complaint of right hip pain, she injured herself at this morning when she fell now has difficulty moving that hip. Right Hip Pain Score (Numeric/FACES): 8 - Related Data Allergies Allergy/AdvReac Type Severity Reaction Status Date / Time Penicillins Allergy Severe Respiratory Verified 08/23/19 10:04 Depression chocolate flavor Allergy Itching Verified 08/23/19 10:04 sulfamethoxazole Allergy Hives Verified 08/23/19 10:04 [From Bactrim] trimethoprim [From Bactrim] Allergy Hives Verified 08/23/19 10:04 Home Meds: Home Meds Insulin Aspart [NovoLOG] 5 unit SQ TID 12/29/13 [History] Insulin Glarg,Human.Rec.Analog [Lantus] 15 units SQ ACBREAKFAST 12/29/13 [ History] Ondansetron [Zofran] 4 mg PO Q4H PRN 10/01/17 [History] atorvaSTATin [Lipitor] 40 mg PO BEDTIME 10/01/17 [History] Metoprolol Succinate [Toprol XL] 50 mg PO DAILY 04/27/18 [History] Clopidogrel Bisulfate [Plavix] 75 mg PO DAILY 05/16/18 [History] Potassium Chloride [Klor-Con M20] 20 meq PO BID 05/16/18 [History] ALPRAZolam [Alprazolam] 1 tab PO BID PRN 12/12/18 [History] ALPRAZolam [Alprazolam] 1 tab PO DAILY PRN 12/12/18 [History] Acetaminophen/HYDROcodone [[place] 325-5 MG] 1 tab PO Q4H PRN 12/12/18 [History] Albuterol/Ipratropium [DuoNeb 3.0-0.5 MG/3 ML] 1 dose NEB Q4H PRN 12/12/18 [ History] Bisacodyl [Biscolax] 1 supp RECTAL Q24H PRN 12/12/18 [History] Bumetanide 1 mg PO DAILY 12/12/18 [History] Gabapentin [Neurontin] 900 mg PO TID 12/12/18 [History] Lisinopril [Prinivil] 10 mg PO DAILY 12/12/18 [History] Pentoxifylline [TRENtal] 400 mg PO TID 12/12/18 [History] Warfarin [Coumadin] 7.5 mg PO BEDTIME 12/12/18 [History] Warfarin [Coumadin] 5 mg PO ASDIRECTED 12/25/18 [History] Escitalopram [Lexapro] 10 mg PO DAILY 08/23/19 [History] Pentoxifylline 400 mg PO TID 08/23/19 [History] Past Medical History HEENT History: Reports: Cataract, Impaired Vision, Other (See Below) Other HEENT History: diabetic retinopahy r ear pain Cardiovascular History: Reports: CAD, Hypertension, [place], Pacemaker, Stents Respiratory History: Reports: Other (See Below) Other Respiratory History: CHF Gastrointestinal History: Reports: Cholelithiasis, GI Bleed Genitourinary History: Reports: UTI, Recurrent TILE INSPECTOR History: Reports: None Musculoskeletal History: Reports: Amputation, Fracture, Other (See Below) Other Musculoskeletal History: l shoulder fx l leg, BKA left 2017, 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 toes debrided right foot tuesday12/22/2018 Neurological History: Reports: Concussion Psychiatric History: Reports: Anxiety, Depression Endocrine/Metabolic History: Reports: Diabetes, Type II, Obesity/BMI 30+ Hematologic History: Reports: Blood Transfusion(s) Dermatologic History: Reports: Other (See Below) Other Dermatologic History: Skin rash. wound on right foot - Infectious Disease History Infectious Disease History: Reports: Chicken Pox, Other (See Below) Other Infectious Disease History: polio - Past Surgical History Head Surgeries/Procedures: Reports: None HEENT Surgical History: Reports: Cataract Surgery Cardiovascular Surgical History: Reports: Vascular Surgery Respiratory Surgical History: Reports: None GI Surgical History: Reports: Appendectomy, Cholecystectomy Female Surgical History: Reports: Salpingo-Oophorectomy Endocrine Surgical History: Reports: None Neurological Surgical History: Reports: None Musculoskeletal Surgical History: Reports: Amputation, Other (See Below) Dermatological Surgical History: Reports: None Social & Family History - Tobacco Use Smoking Status *Q: Never Smoker Second Hand Smoke Exposure: No - Caffeine Use Caffeine Use: Reports: Soda - Recreational Drug Use Recreational Drug Use: No - Living Situation & Occupation Living situation: Reports: Occupation: Retired Review of Systems - Review of Systems Review Of Systems: See Below Constitutional: Reports: No Symptoms Musculoskeletal: Reports: Joint Pain (Right hip pain) ED EXAM, GENERAL - Physical Exam Exam: See Below Free Text/Narrative:: Examination of the right hip she is point tender over the greater trochanter will not tolerate much with exam with flexion extension or rotation it is rotated outward Exam Limited By: No Limitations General Appearance: Alert, WD/WN, No Apparent Distress Course - Vital Signs Last Recorded V/S: Last Vital Signs Temp 97.1 F 08/23/19 10:02 Pulse 91 08/23/19 10:02 Resp 16 08/23/19 10:02 BP 193/54 H 08/23/19 10:02 Pulse Ox 94 L 08/23/19 10:02 - Orders/Labs/Meds Meds: Medications Discontinued Medications Generic Name Dose Route Start Last Admin Trade Name Endy PRN Reason Stop Dose Admin Fentanyl 50 mcg 08/23/19 10:24 08/23/19 10:28 Sublimaze IVPUSH 08/23/19 10:25 50 mcg ONETIME ONE Administration Hydromorphone HCl 1 mg 08/23/19 11:38 08/23/19 11:46 Dilaudid IVPUSH 08/23/19 11:39 1 mg ONETIME ONE Administration Hydromorphone HCl 0.5 mg 08/23/19 13:12 08/23/19 13:27 Dilaudid IVPUSH 08/23/19 13:13 0.5 mg ONETIME ONE Administration Ketamine HCl 10 mg 08/23/19 13:30 08/23/19 13:28 Ketalar IV 08/23/19 13:31 10 mg ONETIME ONE Administration Departure - Departure Time of Disposition: 14:55 Disposition: Admitted As Inpatient 68 Condition: Fair Clinical Impression: Fracture of greater trochanter Qualifiers: Encounter type: initial encounter Fracture type: closed Fracture alignment: displaced Laterality: right Qualified Code(s): S72.111A - Displaced fracture of greater trochanter of right femur, initial encounter for closed fracture - Discharge Information Referrals: PCP,None [Primary Care Provider] - Forms: ED Department Discharge - Assessment/Plan Plan: Assessment Acuity = acute Site and laterality = fracture right greater trochanter 4 mm displacement Etiology = secondary to fall Manifestations = pain Location of injury = Home Lab values = CT scan describes fracture above Plan called discussed case with hospitalist at 1330 he kindly agreed to come in and eye at the patient in the hospital for admission, discussed case with orthopedics on-call at 1300 recommended nonsurgical intervention at this time, pain control PT OT evaluation and treatment long-term rehabilitation This note was dictated using EGEN voice recognition software please call with any questions on syntax or grammar.
--- NOTE | 2019-08-23 11:08 | CRLCR ---
3 VIEWS right hip INDICATION: Injury. IMPRESSION: Suspected linear nondisplaced fracture through the greater trochanter the right femur. This should be evaluated with additional views or possibly a CT scan pelvis including proximal femurs. FINDINGS: The images are under penetrated. There is a cortical step-off at the base of the greater trochanter and linear lucency. The intertrochanteric line is intact. Severe joint space narrowing. Unable to evaluate the cross-table lateral due to under penetrated technique. Multiple injection granulomas with calcifications in the gluteal regions. Dictated by Celso Vicente MD @ Aug 23 2019 11:05AM Signed by Dr. Celso Vicente @ Aug 23 2019 11:07AM
[2019-08-23] MEDS ORDERED: HYDROmorphone 1 MG/ML Syringe IVPUSH ONE (11:38)
--- NOTE | 2019-08-23 12:34 | CRLCT ---
HISTORY: Abnormal right hip radiographs suspicious for fracture. TECHNIQUE: Noncontrast CT of the right hip with axial reconstructed and sagittal and coronal reformatted images created. COMPARISON: Radiographs 08/23/2019. FINDINGS: There is an acute right proximal femoral fracture involving the base of the greater trochanter and lateral to posterior intertrochanteric regions. Fracture demonstrates approximately 4 mm of displacement along its posterior margin and is best appreciated on the coronal images of series 6. It is oriented orthogonal to greater trochanteric-lesser trochanteric axis. No significant extension into the lesser trochanter itself. No significant extension into the femoral neck. No right acetabular fracture. Mild right hip joint degenerative changes. The bones appear osteopenic. IMPRESSION: Acute fracture involving the base of the right greater trochanter extending to the lateral and posterior intertrochanteric regions. Fracture demonstrates 4 mm displacement posteriorly. No extension into the lesser trochanter or femoral neck. Note that the fracture is oriented orthogonal to greater trochanteric-lesser trochanteric axis. Dictated by Manuel Fountain MD @ 08/23/2019 12:30:37 PM Please note that all CT scans at this facility use dose modulation, iterative reconstruction, and/or weight-based dosing when appropriate to reduce radiation dose to as low as reasonably achievable. Dictated by: Manuel Fountain MD @ 08/23/2019 12:33:05 (Electronically Signed)
[2019-08-23] MEDS ORDERED: Ketamine 500 MG/5 ML MDV IV ONE ×2 (13:12→13:30)
[2019-08-23] MEDS ORDERED: HYDROmorphone 0.5 MG/0.5 ML Syringe IVPUSH ONE (13:12)
[2019-08-23] MEDS ORDERED: Sodium Chloride 0.9% 10 ML Syringe FLUSH PRN (14:57)
[2019-08-23] MEDS ORDERED: ALPRAZolam 0.25 MG Tab PO PRN ×2 (14:59)
[2019-08-23] MEDS ORDERED: Bisacodyl 10 MG Supp RECTAL PRN (14:59)
[2019-08-23] MEDS ORDERED: Albuterol/Ipratropium 3.0-0.5 MG/3 ML Neb Soln NEB PRN (14:59)
[2019-08-23] MEDS ORDERED: Ondansetron 4 MG Tab.DIS PO PRN (14:59)
[2019-08-23] MEDS ORDERED: Warfarin 2.5 MG Tab PO SCH (16:00)
[2019-08-23] MEDS: Insulin Lispro 100 Unit/ML 3 ML KwikPen SUBCUT SCH ×3 (17:43→20:14)
[2019-08-23] MEDS: Acetaminophen/HYDROcodone 325-5 MG Tab PO PRN ×2 (17:49→21:35)
[2019-08-23] MEDS ORDERED: 50% Dextrose in Water 50 ML Syringe IV PRN (18:48)
[2019-08-23] MEDS ORDERED: Glucose Gel 15 GM in 37.5 GM Tube PO PRN (18:48)
--- NOTE | 2019-08-23 18:51 | PCM.HP.2 ---
H&P History of Present Illness - General Date of Service: 08/23/19 Admit Problem/Dx: Admission Diagnosis/Problem Admission Diagnosis/Problem Fracture of greater trochanter Source of Information: Patient, Old Records, Provider, RN Notes Reviewed History Limitations: Reports: No Limitations - History of Present Illness Initial Comments - Free Text/Narative: Ms. Padilla is a 73-year-old woman who was admitted through the emergency department with severe right hip pain secondary to a right hip fracture. She is status post left below the knee amputation and does wear a prosthesis. She was transferring off of her commode today when she fell and immediately experienced pain in her right hip. She was brought into the emergency department by EMS, x- ray shows evidence of a greater trochanteric fracture. This has been reviewed and is felt to be nonsurgical. Right Hip Pain Score (Numeric/FACES): 4 - Related Data Allergies/Adverse Reactions: Allergies Allergy/AdvReac Type Severity Reaction Status Date / Time Penicillins Allergy Severe Respiratory Verified 08/23/19 10:04 Depression chocolate flavor Allergy Itching Verified 08/23/19 10:04 sulfamethoxazole Allergy Hives Verified 08/23/19 10:04 [From Bactrim] trimethoprim [From Bactrim] Allergy Hives Verified 08/23/19 10:04 Home Medications: Home Meds Insulin Aspart [NovoLOG] 5 unit SQ TID 12/29/13 [History] Insulin Glarg,Human.Rec.Analog [Lantus] 15 units SQ ACBREAKFAST 12/29/13 [ History] Ondansetron [Zofran] 4 mg PO Q4H PRN 10/01/17 [History] atorvaSTATin [Lipitor] 40 mg PO BEDTIME 10/01/17 [History] Metoprolol Succinate [Toprol XL] 50 mg PO DAILY 04/27/18 [History] Clopidogrel Bisulfate [Plavix] 75 mg PO DAILY 05/16/18 [History] Potassium Chloride [Klor-Con M20] 20 meq PO BID 05/16/18 [History] ALPRAZolam [Alprazolam] 1 tab PO BID PRN 12/12/18 [History] ALPRAZolam [Alprazolam] 1 tab PO DAILY PRN 12/12/18 [History] Acetaminophen/HYDROcodone [[place] 325-5 MG] 1 tab PO Q4H PRN 12/12/18 [History] Albuterol/Ipratropium [DuoNeb 3.0-0.5 MG/3 ML] 1 dose NEB Q4H PRN 12/12/18 [ History] Bisacodyl [Biscolax] 1 supp RECTAL Q24H PRN 12/12/18 [History] Bumetanide 1 mg PO DAILY 12/12/18 [History] Gabapentin [Neurontin] 900 mg PO TID 12/12/18 [History] Lisinopril [Prinivil] 10 mg PO DAILY 12/12/18 [History] Pentoxifylline [TRENtal] 400 mg PO TID 12/12/18 [History] Escitalopram [Lexapro] 10 mg PO DAILY 08/23/19 [History] Past Medical History HEENT History: Reports: Cataract, Impaired Vision, Other (See Below) Other HEENT History: diabetic retinopahy r ear pain Cardiovascular History: Reports: CAD, Hypertension, [place], Pacemaker, Stents Respiratory History: Reports: Other (See Below) Other Respiratory History: CHF Gastrointestinal History: Reports: Cholelithiasis, GI Bleed Genitourinary History: Reports: UTI, Recurrent BAR[place] TURNER History: Reports: None Musculoskeletal History: Reports: Amputation, Fracture, Other (See Below) Other Musculoskeletal History: l shoulder fx l leg, BKA left 2017, 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 toes debrided right foot tuesday12/22/2018 Neurological History: Reports: Concussion Psychiatric History: Reports: Anxiety, Depression Endocrine/Metabolic History: Reports: Diabetes, Type II, Obesity/BMI 30+ Hematologic History: Reports: Blood Transfusion(s) Dermatologic History: Reports: Other (See Below) Other Dermatologic History: Skin rash. wound on right foot - Infectious Disease History Infectious Disease History: Reports: Chicken Pox, Other (See Below) Other Infectious Disease History: polio - Past Surgical History Head Surgeries/Procedures: Reports: None HEENT Surgical History: Reports: Cataract Surgery Cardiovascular Surgical History: Reports: Vascular Surgery Respiratory Surgical History: Reports: None GI Surgical History: Reports: Appendectomy, Cholecystectomy Female Surgical History: Reports: Salpingo-Oophorectomy Endocrine Surgical History: Reports: None Neurological Surgical History: Reports: None Musculoskeletal Surgical History: Reports: Amputation, Other (See Below) Dermatological Surgical History: Reports: None Social & Family History - Tobacco Use Smoking Status *Q: Never Smoker Second Hand Smoke Exposure: No - Caffeine Use Caffeine Use: Reports: Soda - Recreational Drug Use Recreational Drug Use: No - Living Situation & Occupation Living situation: Reports: Occupation: Retired H&P Review of Systems - Review of Systems: Review Of Systems: See Below General: Reports: No Symptoms HEENT: Reports: No Symptoms Pulmonary: Reports: No Symptoms Cardiovascular: Reports: No Symptoms Gastrointestinal: Reports: No Symptoms Genitourinary: Reports: No Symptoms Musculoskeletal: Reports: Joint Pain (Right hip pain) Skin: Reports: No Symptoms Psychiatric: Reports: No Symptoms Neurological: Reports: No Symptoms Hematologic/Lymphatic: Reports: No Symptoms Immunologic: Reports: No Symptoms Exam - Exam Exam: See Below - Vital Signs Vital Signs: Last Vital Signs Temp 97.1 F 08/23/19 10:02 Pulse 96 08/23/19 15:22 Resp 18 08/23/19 15:22 BP 149/45 H 08/23/19 15:22 Pulse Ox 93 L 08/23/19 15:22 Weight: 248 lb 14.43 oz - Exam Quality Assessment: DVT Prophylaxis General: Alert, Oriented, Cooperative, Moderate Distress HEENT: Conjunctiva Clear, Hearing Intact, Mucosa Moist & [place], Normal Nasal Septum, Posterior Pharynx Clear, Pupils Equal Neck: Supple, Trachea Midline, +2 Carotid Pulse wo Bruit Lungs: Clear to Auscultation, Normal Respiratory Effort Cardiovascular: Regular Rate, Regular Rhythm, Normal S1, Normal S2 GI/Abdominal Exam: Soft, Non-Tender, No Organomegaly, No Distention Extremities: No Pedal Edema, Other (Right hip pain, status post left below the knee amputation, small ulcer left leg stump present on admission) Skin: Warm, Dry, Intact Neurological: Reflexes Equal Bilateral, Strength Equal Bilateral, Normal Speech , Normal Tone, Sensation Intact. No: Focal Deficit Neuro Extensive - Mental Status: Alert, Oriented x3, Normal Mood/Affect, Normal Cognition, Memory Intact *Q Meaningful Use (ADM) - VTE Risk Assess *Q Each Risk Factor Represents 1 Point: Obesity ( BMI > 25 kg/m2) Total Score 1 Point Risk Factors: 1 Each Risk Factor Represents 2 Points: Age 60 - 74 Years Total Score 2 Point Risk Factors: 2 Each Risk Factor Represents 3 Points: None Total Score 3 Point Risk Factors: 0 Each Risk Factor Represents 5 Points: None Total Score 5 Point Risk Factors: 0 Venous Thromboembolism Risk Factor Score *Q: 3 Problem List Initiated/Reviewed/Updated: Yes Orders Last 24hrs: Active Orders 24 hr Category Date Time Status Patient Status [ADT] Routine ADT 08/23/19 14:57 Active Bedrest Bedside Commode [RC] ASDIRECTED Care 08/23/19 14:57 Active Blood Glucose Check, Bedside [RC] QIDACANDBED Care 08/23/19 18:48 Ordered Communication Order [RC] STAT Care 08/23/19 18:48 Ordered Diabetes Education [RC] Click to Edit Care 08/23/19 18:48 Ordered Intake and Output [RC] QSHIFT Care 08/23/19 14:58 Active Notify Provider [RC] PRN Care 08/23/19 18:48 Ordered Oxygen Therapy [RC] PRN Care 08/23/19 14:57 Active Vital Signs [RC] Q4H Care 08/23/19 14:57 Active Consistent Carbohydrate Diet [DIET] Diet 08/23/19 Dinner Active BASIC METABOLIC PANEL,BMP [CHEM] AM Lab 08/24/19 05:11 Ordered CBC WITH AUTO DIFF [HEME] AM Lab 08/24/19 05:11 Ordered GLUCOSE POC LAB TO COLLECT [POC] QIDACANDBED Lab 08/23/19 21:00 Ordered GLUCOSE POC LAB TO COLLECT [POC] QIDACANDBED Lab 08/24/19 07:30 Ordered GLUCOSE POC LAB TO COLLECT [POC] QIDACANDBED Lab 08/24/19 11:30 Ordered GLUCOSE POC LAB TO COLLECT [POC] QIDACANDBED Lab 08/24/19 16:30 Ordered GLUCOSE POC LAB TO COLLECT [POC] QIDACANDBED Lab 08/24/19 21:00 Ordered GLUCOSE POC LAB TO COLLECT [POC] QIDACANDBED Lab 08/25/19 07:30 Ordered GLUCOSE POC LAB TO COLLECT [POC] QIDACANDBED Lab 08/25/19 11:30 Ordered GLUCOSE POC LAB TO COLLECT [POC] QIDACANDBED Lab 08/25/19 16:30 Ordered GLUCOSE POC LAB TO COLLECT [POC] QIDACANDBED Lab 08/25/19 21:00 Ordered GLUCOSE POC LAB TO COLLECT [POC] QIDACANDBED Lab 08/26/19 07:30 Ordered GLUCOSE POC LAB TO COLLECT [POC] QIDACANDBED Lab 08/26/19 11:30 Ordered GLUCOSE POC LAB TO COLLECT [POC] QIDACANDBED Lab 08/26/19 16:30 Ordered GLUCOSE POC LAB TO COLLECT [POC] QIDACANDBED Lab 08/26/19 21:00 Ordered GLUCOSE POC LAB TO COLLECT [POC] QIDACANDBED Lab 08/27/19 07:30 Ordered GLUCOSE POC LAB TO COLLECT [POC] QIDACANDBED Lab 08/27/19 11:30 Ordered GLUCOSE POC LAB TO COLLECT [POC] QIDACANDBED Lab 08/27/19 16:30 Ordered GLUCOSE POC LAB TO COLLECT [POC] QIDACANDBED Lab 08/27/19 21:00 Ordered GLUCOSE POC LAB TO COLLECT [POC] QIDACANDBED Lab 08/28/19 07:30 Ordered GLUCOSE POC LAB TO COLLECT [POC] QIDACANDBED Lab 08/28/19 11:30 Ordered GLUCOSE POC LAB TO COLLECT [POC] QIDACANDBED Lab 08/28/19 16:30 Ordered ALPRAZolam [Xanax] Med 08/23/19 14:59 Active 0.25 mg PO BID PRN ALPRAZolam [Xanax] Med 08/23/19 14:59 Active 0.25 mg PO DAILY PRN Acetaminophen/HYDROcodone [[place] 325-5 MG] Med 08/23/19 14:59 Active 1 tab PO Q4H PRN Albuterol/Ipratropium [DuoNeb 3.0-0.5 MG/3 ML] Med 08/23/19 14:59 Active 3 ml NEB Q4H PRN Bisacodyl [Dulcolax] Med 08/23/19 14:59 Active 10 mg RECTAL Q24H PRN Bumetanide [Bumex] Med 08/24/19 09:00 Active 1 mg PO DAILY Clopidogrel [Plavix] Med 08/24/19 09:00 Active 75 mg PO DAILY Dextrose 50% in Water Med 08/23/19 18:48 Ordered 50 ml IV ONETIME PRN Dextrose [Glutose 15] Med 08/23/19 18:48 Ordered 15 gm PO ONETIME PRN Escitalopram [Lexapro] Med 08/24/19 09:00 Active 10 mg PO DAILY Gabapentin [Neurontin] Med 08/23/19 21:00 Active 900 mg PO TID HYDROmorphone [Dilaudid] Med 08/23/19 18:45 Ordered 0.5 mg IVPUSH Q2H PRN Insulin Glarg,Human.Rec.Analog [LantUS Solostar] Med 08/24/19 07:30 Active 15 units SUBCUT ACBREAKFAST Insulin Lispro [HumaLOG] Med 08/23/19 17:00 Active 5 unit SUBCUT TIDMEALS Insulin Lispro [HumaLOG] Med 08/23/19 17:00 Active See Protocol SUBCUT QIDACANDBED Lisinopril [Prinivil] Med 08/24/19 09:00 Active 10 mg PO DAILY Metoprolol Succinate [Toprol XL] Med 08/24/19 09:00 Active 50 mg PO DAILY Ondansetron [Zofran ODT] Med 08/23/19 14:59 Active 4 mg PO Q4H PRN Pentoxifylline [TRENtal] Med 08/23/19 21:00 Active 400 mg PO TID Potassium Chloride [Klor-Con M20] Med 08/23/19 21:00 Active 20 meq PO BID Sodium Chloride 0.9% @ 100 MLS/HR(1000ml) Med 08/23/19 19:00 Ordered Sodium Chloride 0.9% [Normal Saline] 1,000 ml IV ASDIRECTED Sodium Chloride 0.9% [Saline Flush] Med 08/23/19 14:57 Active 10 ml FLUSH ASDIRECTED PRN atorvaSTATin [Lipitor] Med 08/23/19 21:00 Active 40 mg PO BEDTIME Saline Lock Insert [OM.PC] Routine Oth 08/23/19 14:57 Ordered Resuscitation Status Routine Resus Stat 08/23/19 14:57 Ordered Medication Orders Hydrocodone Bitart/Acetaminophen ([place] 325-5 Mg) 1 tab PO Q4H PRN PRN Reason: Pain (moderate 4-6) Last Admin: 08/23/19 17:49 Dose: 1 tab Albuterol/Ipratropium (Duoneb 3.0-0.5 Mg/3 Ml) 3 ml NEB Q4H PRN PRN Reason: Wheezing Alprazolam (Xanax) 0.25 mg PO BID PRN PRN Reason: Anxiety Alprazolam (Xanax) 0.25 mg PO DAILY PRN PRN Reason: dressing changes Atorvastatin Calcium (Lipitor) 40 mg PO BEDTIME [facility] Bisacodyl (Dulcolax) 10 mg RECTAL Q24H PRN PRN Reason: Constipation Bumetanide (Bumex) 1 mg PO DAILY [facility] Clopidogrel Bisulfate (Plavix) 75 mg PO DAILY [facility] Dextrose (Glutose 15) 15 gm PO ONETIME PRN PRN Reason: Hypoglycemia Dextrose/Water (Dextrose 50% In Water) 50 ml IV ONETIME PRN PRN Reason: Hypoglycemia Escitalopram Oxalate (Lexapro) 10 mg PO DAILY [facility] Gabapentin (Neurontin) 900 mg PO TID [facility] Hydromorphone HCl (Dilaudid) 0.5 mg IVPUSH Q2H PRN PRN Reason: Pain (severe 7-10) Sodium Chloride (Normal Saline) 1,000 mls @ 100 mls/hr IV ASDIRECTED [facility] Insulin Glargine (Lantus Solostar) 15 units SUBCUT ACBREAKFAST [facility] Insulin Human Lispro (Humalog) 5 unit SUBCUT TIDMEALS [facility] Last Admin: 08/23/19 17:43 Dose: 5 units Insulin Human Lispro (Humalog) 0 unit SUBCUT QIDACANDBED [facility]; Protocol Last Admin: 08/23/19 18:23 Dose: 3 units Lisinopril (Prinivil) 10 mg PO DAILY [facility] Metoprolol Succinate (Toprol Xl) 50 mg PO DAILY [facility] Ondansetron HCl (Zofran Odt) 4 mg PO Q4H PRN PRN Reason: Nausea Pentoxifylline (Trental) 400 mg PO TID [facility] Potassium Chloride (Klor-Con M20) 20 meq PO BID [facility] Sodium Chloride (Saline Flush) 10 ml FLUSH ASDIRECTED PRN PRN Reason: Keep Vein Open Assessment/Plan Comment:: ASSESSMENT AND PLAN RIGHT HIP FRACTURE-as a result of a fall earlier today -No weight bearing right leg -IV fluids for hydration -Outpatient follow-up with orthopedic surgery -long-term placement SMALL ULCER LEFT LEG STUMP/PRESENT ON ADMISSION-appears to be healing -Local care as needed TYPE 2 DIABETES MELLITUS -Continue usual dose of long acting and short acting insulin -4 times a day glucometers -Moderate dose sliding scale Humalog MAINTENANCE ISSUES -DVT prophylaxis; Lovenox 40 mg subcutaneous daily -GI prophylaxis; not indicated -Barber catheter; not indicated -Nutrition; consistent carb diet -Nicotine dependence; not required CODE STATUS-FULL CODE ADMISSION STATUS-patient will be admitted to inpatient status, expect at least a 2 night hospital stay for evaluation and management of problems as outlined above. At the time of this admission I do not reasonably expected evaluation and management of this problem will require more than a 96 hour hospital stay. DISPOSITION-anticipate discharge to home after the hospital stay. PRIMARY CARE PROVIDER-Dr. Paul - Mortality Measure Prognosis:: Good
[2019-08-23] MEDS ORDERED: Sodium Chloride 0.9% 1,000 ML IV SCH (19:00)
[2019-08-23] MEDS: HYDROmorphone 0.5 MG/0.5 ML Syringe IVPUSH PRN ×2 (19:56→23:15)
[2019-08-23] MEDS: Potassium Chloride 20 MEQ Tab.ER PO SCH (20:10)
[2019-08-23] MEDS: Gabapentin 300 MG Cap PO SCH (20:10)
[2019-08-23] MEDS: Pentoxifylline 400 MG Tab.ER PO SCH (20:11)
[2019-08-23] MEDS: atorvaSTATin 20 MG Tab PO SCH (20:12)
[2019-08-23] MEDS: Insulin Glargine,Human Rec. Analog 100 Units/ML 3 ML Pen SUBCUT SCH (20:44)
[2019-08-23] MEDS ORDERED: Pentoxifylline 400 MG Tab.ER PO SCH (21:00)
[2019-08-23] MEDS: Enoxaparin 40 MG/0.4 ML Syringe SUBCUT SCH (21:27)
[2019-08-24] MEDS: HYDROmorphone 0.5 MG/0.5 ML Syringe IVPUSH PRN ×3 (04:31→19:58)
[2019-08-24] MEDS: Insulin Lispro 100 Unit/ML 3 ML KwikPen SUBCUT SCH ×7 (07:57→21:53)
[2019-08-24] MEDS: Insulin Glargine,Human Rec. Analog 100 Units/ML 3 ML Pen SUBCUT SCH ×2 (08:05→21:51)
[2019-08-24] MEDS: Acetaminophen/HYDROcodone 325-5 MG Tab PO PRN ×3 (08:13→19:58)
[2019-08-24] MEDS: Bumetanide 1 MG Tab PO SCH (08:34)
[2019-08-24] MEDS: Gabapentin 300 MG Cap PO SCH ×3 (08:36→21:46)
[2019-08-24] MEDS: Potassium Chloride 20 MEQ Tab.ER PO SCH ×2 (08:36→21:45)
[2019-08-24] MEDS: Escitalopram 10 MG Tab PO SCH (08:36)
[2019-08-24] MEDS: Lisinopril 10 MG Tab PO SCH (08:37)
[2019-08-24] MEDS: Clopidogrel 75 MG Tab PO SCH (08:37)
[2019-08-24] MEDS: Metoprolol Succinate 50 MG Tab.ER PO SCH (08:37)
[2019-08-24] MEDS: Enoxaparin 40 MG/0.4 ML Syringe SUBCUT SCH (08:39)
[2019-08-24] MEDS: Pentoxifylline 400 MG Tab.ER PO SCH ×3 (08:39→21:46)
[2019-08-24] MEDS ORDERED: Dimethicone 20%/Zinc Oxide 25% 56 GM Spray Bottle TOP PRN (12:37)
[2019-08-24] MEDS ORDERED: Warfarin 5 MG Tab PO SCH (13:00)
--- NOTE | 2019-08-24 13:46 | PCM.PN ---
- General Info Date of Service: 08/24/19 Subjective Update: Ms. Padilla has been stable since admission yesterday with a right hip fracture. Reports that her pain control has been adequate. Vital signs have been stable and she has remained afebrile. - Review of Systems General: Reports: No Symptoms, Fever Pulmonary: Reports: No Symptoms Cardiovascular: Reports: No Symptoms Gastrointestinal: Reports: No Symptoms Musculoskeletal: Reports: Joint Pain (Right hip pain) - Patient Data Vitals - Most Recent: Last Vital Signs Temp 98.5 F 08/24/19 11:00 Pulse 76 08/24/19 11:00 Resp 16 08/24/19 11:00 BP 130/58 L 08/24/19 08:37 Pulse Ox 96 08/24/19 11:00 Weight - Most Recent: 248 lb 14.43 oz I&O - Last 24 Hours: Intake & Output 08/23/19 08/24/19 08/24/19 22:59 06:59 14:59 Intake Total 560 200 180 Balance 560 200 180 Lab Results Last 24 Hours: Laboratory Results - last 24 hr 08/24/19 08/24/19 Range/Units 05:50 05:50 WBC 12.0 H (4.5-11.0) K/uL RBC 4.06 (3.30-5.50) M/uL Hgb 10.3 L (12.0-15.0) g/dL Hct 34.0 L (36.0-48.0) % MCV 84 (80-98) fL MCH 25 L (27-31) pg MCHC 30 L (32-36) % Plt Count 216 (150-400) K/uL Neut % (Auto) 77 H (36-66) % Lymph % (Auto) 11 L (24-44) % [place] % (Auto) 7 H (2-6) % Eos % (Auto) 5 H (2-4) % Baso % (Auto) 0 (0-1) % Sodium 141 (140-148) mmol/L Potassium 4.7 (3.6-5.2) mmol/L Chloride 107 (100-108) mmol/L Carbon Dioxide 26 (21-32) mmol/L Anion Gap 7.8 (5.0-14.0) mmol/L BUN 30 H (7-18) mg/dL Creatinine 0.8 (0.6-1.0) mg/dL Est Cr Clr Drug Dosing 57.95 mL/min Estimated GFR (MDRD) > 60 (>60) Glucose 168 H (74-106) mg/dL Calcium 8.4 L (8.5-10.1) mg/dL Med Orders - Current: Current Medications Hydrocodone Bitart/Acetaminophen ([place] 325-5 Mg) 1 tab PO Q4H PRN PRN Reason: Pain (moderate 4-6) Last Admin: 08/24/19 08:13 Dose: 1 tab Albuterol/Ipratropium (Duoneb 3.0-0.5 Mg/3 Ml) 3 ml NEB Q4H PRN PRN Reason: Wheezing Alprazolam (Xanax) 0.25 mg PO BID PRN PRN Reason: Anxiety Alprazolam (Xanax) 0.25 mg PO DAILY PRN PRN Reason: dressing changes Atorvastatin Calcium (Lipitor) 40 mg PO BEDTIME [facility] Last Admin: 08/23/19 20:12 Dose: 40 mg Bisacodyl (Dulcolax) 10 mg RECTAL Q24H PRN PRN Reason: Constipation Bumetanide (Bumex) 1 mg PO DAILY [facility] Last Admin: 08/24/19 08:34 Dose: 1 mg Clopidogrel Bisulfate (Plavix) 75 mg PO DAILY [facility] Last Admin: 08/24/19 08:37 Dose: 75 mg Dextrose (Glutose 15) 15 gm PO ONETIME PRN PRN Reason: Hypoglycemia Dextrose/Water (Dextrose 50% In Water) 50 ml IV ONETIME PRN PRN Reason: Hypoglycemia Dimethicone/Zinc Oxide (Rash Relief-Zinc Oxide [place]) 0 gm TOP ASDIRECTED PRN PRN Reason: Other Enoxaparin Sodium (Lovenox) 40 mg SUBCUT DAILY [facility] Last Admin: 08/24/19 08:39 Dose: Not Given Escitalopram Oxalate (Lexapro) 10 mg PO DAILY [facility] Last Admin: 08/24/19 08:36 Dose: 10 mg Gabapentin (Neurontin) 900 mg PO TID [facility] Last Admin: 08/24/19 08:36 Dose: 900 mg Hydromorphone HCl (Dilaudid) 0.5 mg IVPUSH Q2H PRN PRN Reason: Pain (severe 7-10) Last Admin: 08/24/19 04:31 Dose: 0.5 mg Sodium Chloride (Normal Saline) 1,000 mls @ 100 mls/hr IV ASDIRECTED [facility] Insulin Glargine (Lantus Solostar) 15 units SUBCUT ACBREAKFAST [facility] Last Admin: 08/24/19 08:05 Dose: 15 units Insulin Glargine (Lantus Solostar) 10 units SUBCUT BEDTIME [facility] Last Admin: 08/23/19 20:44 Dose: 10 units Insulin Human Lispro (Humalog) 5 unit SUBCUT TIDMEALS [facility] Last Admin: 08/24/19 11:30 Dose: 5 units Insulin Human Lispro (Humalog) 0 unit SUBCUT QIDACANDBED [facility]; Protocol Last Admin: 08/24/19 11:31 Dose: 2 units Lisinopril (Prinivil) 10 mg PO DAILY [facility] Last Admin: 08/24/19 08:37 Dose: 10 mg Metoprolol Succinate (Toprol Xl) 50 mg PO DAILY [facility] Last Admin: 08/24/19 08:37 Dose: 50 mg Ondansetron HCl (Zofran Odt) 4 mg PO Q4H PRN PRN Reason: Nausea Pentoxifylline (Trental) 400 mg PO TID [facility] Last Admin: 08/24/19 08:39 Dose: 400 mg Potassium Chloride (Klor-Con M20) 20 meq PO BID [facility] Last Admin: 08/24/19 08:36 Dose: 20 meq Sodium Chloride (Saline Flush) 10 ml FLUSH ASDIRECTED PRN PRN Reason: Keep Vein Open Discontinued Medications Fentanyl (Sublimaze) 50 mcg IVPUSH ONETIME ONE Stop: 08/23/19 10:25 Last Admin: 08/23/19 10:28 Dose: 50 mcg Hydromorphone HCl (Dilaudid) 1 mg IVPUSH ONETIME ONE Stop: 08/23/19 11:39 Last Admin: 08/23/19 11:46 Dose: 1 mg Hydromorphone HCl (Dilaudid) 0.5 mg IVPUSH ONETIME ONE Stop: 08/23/19 13:13 Last Admin: 08/23/19 13:27 Dose: 0.5 mg Ketamine HCl (Ketalar) 10 mg IV ONETIME ONE Stop: 08/23/19 13:31 Last Admin: 08/23/19 13:28 Dose: 10 mg Warfarin Sodium (Coumadin) 5 mg PO MoWeFr@1300 [place] - Exam General: Alert, Oriented, Cooperative, Mild Distress Lungs: Clear to Auscultation, Normal Respiratory Effort Cardiovascular: Regular Rate, Regular Rhythm, No Murmurs GI/Abdominal Exam: Soft, Non-Tender, No Organomegaly, No Distention Extremities: Non-Tender, No Pedal Edema - Problem List Review Problem List Initiated/Reviewed/Updated: Yes - My Orders Last 24 Hours: My Active Orders 08/23/19 17:00 Insulin Lispro [HumaLOG] See Protocol SUBCUT QIDACANDBED 08/23/19 18:45 HYDROmorphone [Dilaudid] 0.5 mg IVPUSH Q2H PRN 08/23/19 18:48 Blood Glucose Check, Bedside [RC] QIDACANDBED Diabetes Education [RC] Click to Edit Notify Provider [RC] PRN Dextrose 50% in Water 50 ml IV ONETIME PRN Dextrose [Glutose 15] 15 gm PO ONETIME PRN 08/23/19 19:00 Sodium Chloride 0.9% [Normal Saline] 1,000 ml IV ASDIRECTED 08/23/19 20:45 Enoxaparin [Lovenox] 40 mg SUBCUT DAILY 08/23/19 21:00 Insulin Glarg,Human.Rec.Analog [LantUS Solostar] 10 units SUBCUT BEDTIME 08/24/19 12:37 Dimethicone/Zinc Oxide [Rash Relief-Zinc Oxide [place]] 0 gm TOP ASDIRECTED PRN 08/24/19 16:30 GLUCOSE POC LAB TO COLLECT [POC] QIDACANDBED 08/24/19 21:00 GLUCOSE POC LAB TO COLLECT [POC] QIDACANDBED 08/25/19 07:30 GLUCOSE POC LAB TO COLLECT [POC] QIDACANDBED 08/25/19 11:30 GLUCOSE POC LAB TO COLLECT [POC] QIDACANDBED 08/25/19 16:30 GLUCOSE POC LAB TO COLLECT [POC] QIDACANDBED 08/25/19 21:00 GLUCOSE POC LAB TO COLLECT [POC] QIDACANDBED 08/26/19 07:30 GLUCOSE POC LAB TO COLLECT [POC] QIDACANDBED 08/26/19 11:30 GLUCOSE POC LAB TO COLLECT [POC] QIDACANDBED 08/26/19 16:30 GLUCOSE POC LAB TO COLLECT [POC] QIDACANDBED 08/26/19 21:00 GLUCOSE POC LAB TO COLLECT [POC] QIDACANDBED 08/27/19 07:30 GLUCOSE POC LAB TO COLLECT [POC] QIDACANDBED 08/27/19 11:30 GLUCOSE POC LAB TO COLLECT [POC] QIDACANDBED 08/27/19 16:30 GLUCOSE POC LAB TO COLLECT [POC] QIDACANDBED 08/27/19 21:00 GLUCOSE POC LAB TO COLLECT [POC] QIDACANDBED 08/28/19 07:30 GLUCOSE POC LAB TO COLLECT [POC] QIDACANDBED 08/28/19 11:30 GLUCOSE POC LAB TO COLLECT [POC] QIDACANDBED 08/28/19 16:30 GLUCOSE POC LAB TO COLLECT [POC] QIDACANDBED - Plan Plan:: ASSESSMENT AND PLAN RIGHT HIP FRACTURE-as a result of a fall yesterday -No weight bearing right leg -Saline lock IV -Outpatient follow-up with orthopedic surgery -long-term placement SMALL ULCER LEFT LEG STUMP/PRESENT ON ADMISSION-appears to be healing -Local care as needed TYPE 2 DIABETES MELLITUS -Continue usual dose of long acting and short acting insulin -4 times a day glucometers -Moderate dose sliding scale Humalog MAINTENANCE ISSUES -DVT prophylaxis; Lovenox 40 mg subcutaneous daily -GI prophylaxis; not indicated -Barber catheter; not indicated -Nutrition; consistent carb diet -Nicotine dependence; not required CODE STATUS-FULL CODE ADMISSION STATUS-patient will be admitted to inpatient status, expect at least a 2 night hospital stay for evaluation and management of problems as outlined above. At the time of this admission I do not reasonably expected evaluation and management of this problem will require more than a 96 hour hospital stay. DISPOSITION-anticipate discharge to home after the hospital stay. PRIMARY CARE PROVIDER-Dr. Paul
[2019-08-24] MEDS: atorvaSTATin 20 MG Tab PO SCH (21:45)
[2019-08-25] MEDS: HYDROmorphone 1 MG/ML Syringe IVPUSH PRN ×5 (02:55→19:17)
[2019-08-25] MEDS: Acetaminophen/HYDROcodone 325-5 MG Tab PO PRN ×2 (02:57→10:28)
[2019-08-25] MEDS: Insulin Lispro 100 Unit/ML 3 ML KwikPen SUBCUT SCH ×7 (08:14→21:54)
[2019-08-25] MEDS: Insulin Glargine,Human Rec. Analog 100 Units/ML 3 ML Pen SUBCUT SCH ×2 (08:18→21:54)
[2019-08-25] MEDS: Bumetanide 1 MG Tab PO SCH (10:23)
[2019-08-25] MEDS: Gabapentin 300 MG Cap PO SCH ×3 (10:24→21:52)
[2019-08-25] MEDS: Potassium Chloride 20 MEQ Tab.ER PO SCH ×2 (10:24→21:51)
[2019-08-25] MEDS: Escitalopram 10 MG Tab PO SCH (10:24)
[2019-08-25] MEDS: Clopidogrel 75 MG Tab PO SCH (10:25)
[2019-08-25] MEDS: Lisinopril 10 MG Tab PO SCH ×2 (10:25→13:37)
[2019-08-25] MEDS: Metoprolol Succinate 50 MG Tab.ER PO SCH ×2 (10:26→13:36)
[2019-08-25] MEDS: Pentoxifylline 400 MG Tab.ER PO SCH ×3 (10:27→21:53)
[2019-08-25] MEDS: Enoxaparin 40 MG/0.4 ML Syringe SUBCUT SCH (11:06)
--- NOTE | 2019-08-25 12:52 | PCM.PN ---
- General Info Date of Service: 08/25/19 Subjective Update: Ms. Padilla has been stable since yesterday. Continues to experience significant pain especially with movement. Vital signs have remained stable and she has been afebrile. Functional Status: Reports: Tolerating Diet, Ambulating, Urinating - Review of Systems General: Reports: No Symptoms Pulmonary: Reports: No Symptoms Cardiovascular: Reports: No Symptoms Gastrointestinal: Reports: Constipation. Denies: Abdominal Pain, Difficulty Swallowing, Nausea, Vomiting - Patient Data Vitals - Most Recent: Last Vital Signs Temp 98.5 F 08/25/19 11:46 Pulse 72 08/25/19 11:46 Resp 16 08/25/19 11:46 BP 127/23 L 08/25/19 11:46 Pulse Ox 94 L 08/25/19 11:46 Weight - Most Recent: 248 lb 14.43 oz I&O - Last 24 Hours: Intake & Output 08/24/19 08/25/19 08/25/19 22:59 06:59 14:59 Output Total 200 Balance -200 Med Orders - Current: Current Medications Hydrocodone Bitart/Acetaminophen ([place] 325-5 Mg) 1 tab PO Q4H PRN PRN Reason: Pain (moderate 4-6) Last Admin: 08/25/19 10:28 Dose: 1 tab Albuterol/Ipratropium (Duoneb 3.0-0.5 Mg/3 Ml) 3 ml NEB Q4H PRN PRN Reason: Wheezing Alprazolam (Xanax) 0.25 mg PO BID PRN PRN Reason: Anxiety Alprazolam (Xanax) 0.25 mg PO DAILY PRN PRN Reason: dressing changes Atorvastatin Calcium (Lipitor) 40 mg PO BEDTIME [facility] Last Admin: 08/24/19 21:45 Dose: 40 mg Bisacodyl (Dulcolax) 10 mg RECTAL Q24H PRN PRN Reason: Constipation Bumetanide (Bumex) 1 mg PO DAILY [facility] Last Admin: 08/25/19 10:23 Dose: 1 mg Clopidogrel Bisulfate (Plavix) 75 mg PO DAILY [facility] Last Admin: 08/25/19 10:25 Dose: 75 mg Dextrose (Glutose 15) 15 gm PO ONETIME PRN PRN Reason: Hypoglycemia Dextrose/Water (Dextrose 50% In Water) 50 ml IV ONETIME PRN PRN Reason: Hypoglycemia Dimethicone/Zinc Oxide (Rash Relief-Zinc Oxide [place]) 0 gm TOP ASDIRECTED PRN PRN Reason: Other Enoxaparin Sodium (Lovenox) 40 mg SUBCUT DAILY [facility] Last Admin: 08/25/19 11:06 Dose: Not Given Escitalopram Oxalate (Lexapro) 10 mg PO DAILY [facility] Last Admin: 08/25/19 10:24 Dose: 10 mg Gabapentin (Neurontin) 900 mg PO TID [facility] Last Admin: 08/25/19 10:24 Dose: 900 mg Hydromorphone HCl (Dilaudid) 1 mg IVPUSH Q1H PRN PRN Reason: Pain Last Admin: 08/25/19 08:18 Dose: 1 mg Insulin Glargine (Lantus Solostar) 15 units SUBCUT ACBREAKFAST [facility] Last Admin: 08/25/19 08:18 Dose: 15 units Insulin Glargine (Lantus Solostar) 10 units SUBCUT BEDTIME [facility] Last Admin: 08/24/19 21:51 Dose: 10 units Insulin Human Lispro (Humalog) 5 unit SUBCUT TIDMEALS [facility] Last Admin: 08/25/19 12:05 Dose: 5 units Insulin Human Lispro (Humalog) 0 unit SUBCUT QIDACANDBED [facility]; Protocol Last Admin: 08/25/19 12:06 Dose: 7 units Lisinopril (Prinivil) 10 mg PO DAILY [facility] Last Admin: 08/25/19 10:25 Dose: Not Given Metoprolol Succinate (Toprol Xl) 50 mg PO DAILY [facility] Last Admin: 08/25/19 10:26 Dose: Not Given Nystatin (Nystop) 0 gm TOP QID [facility] Ondansetron HCl (Zofran Odt) 4 mg PO Q4H PRN PRN Reason: Nausea Pentoxifylline (Trental) 400 mg PO TID [facility] Last Admin: 08/25/19 10:27 Dose: 400 mg Potassium Chloride (Klor-Con M20) 20 meq PO BID [facility] Last Admin: 08/25/19 10:24 Dose: 20 meq Sodium Chloride (Saline Flush) 10 ml FLUSH ASDIRECTED PRN PRN Reason: Keep Vein Open Discontinued Medications Fentanyl (Sublimaze) 50 mcg IVPUSH ONETIME ONE Stop: 08/23/19 10:25 Last Admin: 08/23/19 10:28 Dose: 50 mcg Hydromorphone HCl (Dilaudid) 1 mg IVPUSH ONETIME ONE Stop: 08/23/19 11:39 Last Admin: 08/23/19 11:46 Dose: 1 mg Hydromorphone HCl (Dilaudid) 0.5 mg IVPUSH ONETIME ONE Stop: 08/23/19 13:13 Last Admin: 08/23/19 13:27 Dose: 0.5 mg Hydromorphone HCl (Dilaudid) 0.5 mg IVPUSH Q2H PRN PRN Reason: Pain (severe 7-10) Last Admin: 08/24/19 19:58 Dose: 0.5 mg Sodium Chloride (Normal Saline) 1,000 mls @ 100 mls/hr IV ASDIRECTED [facility] Ketamine HCl (Ketalar) 10 mg IV ONETIME ONE Stop: 08/23/19 13:31 Last Admin: 08/23/19 13:28 Dose: 10 mg Warfarin Sodium (Coumadin) 5 mg PO MoWeFr@1300 [facility] - Exam Quality Assessment: DVT Prophylaxis General: Alert, Oriented, Cooperative, Moderate Distress Lungs: Clear to Auscultation, Normal Respiratory Effort Cardiovascular: Regular Rate, Regular Rhythm GI/Abdominal Exam: Soft, Non-Tender, No Organomegaly, No Distention Extremities: Non-Tender, No Pedal Edema - Problem List Review Problem List Initiated/Reviewed/Updated: Yes - My Orders Last 24 Hours: My Active Orders 08/24/19 12:37 Dimethicone/Zinc Oxide [Rash Relief-Zinc Oxide [place]] 0 gm TOP ASDIRECTED PRN 08/24/19 13:46 Up to Chair [RC] QID 08/24/19 13:47 Communication Order [RC] ROUTINE 08/24/19 15:09 Convert IV to Saline Lock [OM.PC] Routine 08/24/19 15:17 Consult to Physical Therapy [PT Evaluation and Treatment] [CONS] Routine 08/24/19 21:08 HYDROmorphone [Dilaudid] 1 mg IVPUSH Q1H PRN 08/25/19 16:00 Nystatin [Nystop] See Dose Instructions TOP QID 08/25/19 16:30 GLUCOSE POC LAB TO COLLECT [POC] QIDACANDBED 08/25/19 21:00 GLUCOSE POC LAB TO COLLECT [POC] QIDACANDBED 08/26/19 07:30 GLUCOSE POC LAB TO COLLECT [POC] QIDACANDBED 08/26/19 11:30 GLUCOSE POC LAB TO COLLECT [POC] QIDACANDBED 08/26/19 16:30 GLUCOSE POC LAB TO COLLECT [POC] QIDACANDBED 08/26/19 21:00 GLUCOSE POC LAB TO COLLECT [POC] QIDACANDBED 08/27/19 07:30 GLUCOSE POC LAB TO COLLECT [POC] QIDACANDBED 08/27/19 11:30 GLUCOSE POC LAB TO COLLECT [POC] QIDACANDBED 08/27/19 16:30 GLUCOSE POC LAB TO COLLECT [POC] QIDACANDBED 08/27/19 21:00 GLUCOSE POC LAB TO COLLECT [POC] QIDACANDBED 08/28/19 07:30 GLUCOSE POC LAB TO COLLECT [POC] QIDACANDBED 08/28/19 11:30 GLUCOSE POC LAB TO COLLECT [POC] QIDACANDBED 08/28/19 16:30 GLUCOSE POC LAB TO COLLECT [POC] QIDACANDBED - Plan Plan:: ASSESSMENT AND PLAN RIGHT HIP FRACTURE -No weight bearing right leg -Saline lock IV -Outpatient follow-up with orthopedic surgery -USP placement SMALL ULCER LEFT LEG STUMP/PRESENT ON ADMISSION-appears to be healing -Local care as needed TYPE 2 DIABETES MELLITUS -Continue usual dose of long acting and short acting insulin -4 times a day glucometers -Moderate dose sliding scale Humalog CONSTIPATION -Senna S twice daily MAINTENANCE ISSUES -DVT prophylaxis; Lovenox 40 mg subcutaneous daily, she has consistently refused active management for DVT prophylaxis -GI prophylaxis; not indicated -Barber catheter; not indicated -Nutrition; consistent carb diet -Nicotine dependence; not required CODE STATUS-FULL CODE ADMISSION STATUS-patient will be admitted to inpatient status, expect at least a 2 night hospital stay for evaluation and management of problems as outlined above. At the time of this admission I do not reasonably expected evaluation and management of this problem will require more than a 96 hour hospital stay. DISPOSITION-anticipate discharge to home after the hospital stay. PRIMARY CARE PROVIDER-Dr. Paul
[2019-08-25] MEDS: Docusate Sodium 100 MG Cap PO SCH ×2 (13:27→21:50)
[2019-08-25] MEDS: Nystatin Topical Powder 15 GM Bottle TOP SCH ×2 (16:33→21:52)
[2019-08-25] MEDS: atorvaSTATin 20 MG Tab PO SCH (21:51)
[2019-08-26] MEDS: HYDROmorphone 1 MG/ML Syringe IVPUSH PRN ×4 (00:40→11:01)
[2019-08-26] MEDS: Nystatin Topical Powder 15 GM Bottle TOP SCH ×4 (06:02→21:50)
[2019-08-26] MEDS: Pentoxifylline 400 MG Tab.ER PO SCH ×3 (08:16→20:45)
[2019-08-26] MEDS: Gabapentin 300 MG Cap PO SCH ×3 (08:16→20:43)
[2019-08-26] MEDS: Lisinopril 10 MG Tab PO SCH (08:16)
[2019-08-26] MEDS: Potassium Chloride 20 MEQ Tab.ER PO SCH ×2 (08:16→20:43)
[2019-08-26] MEDS: Metoprolol Succinate 50 MG Tab.ER PO SCH (08:17)
[2019-08-26] MEDS: Docusate Sodium 100 MG Cap PO SCH ×2 (08:17→20:43)
[2019-08-26] MEDS: Bumetanide 1 MG Tab PO SCH (08:17)
[2019-08-26] MEDS: Escitalopram 10 MG Tab PO SCH (08:17)
[2019-08-26] MEDS: Enoxaparin 40 MG/0.4 ML Syringe SUBCUT SCH (08:17)
[2019-08-26] MEDS: Insulin Glargine,Human Rec. Analog 100 Units/ML 3 ML Pen SUBCUT SCH ×2 (08:25→20:46)
[2019-08-26] MEDS: Insulin Lispro 100 Unit/ML 3 ML KwikPen SUBCUT SCH ×7 (08:26→20:48)
[2019-08-26] MEDS: Clopidogrel 75 MG Tab PO SCH (08:28)
[2019-08-26] MEDS: Acetaminophen/HYDROcodone 325-5 MG Tab PO PRN ×2 (10:18→14:15)
--- NOTE | 2019-08-26 14:28 | PCM.PN ---
- General Info Date of Service: 08/26/19 Subjective Update: Ms. Padilla has been stable since yesterday, continues to experience significant pain with movement or change in position. Functional Status: Reports: Tolerating Diet, Urinating. Denies: Ambulating - Review of Systems General: Reports: No Symptoms Pulmonary: Reports: No Symptoms Cardiovascular: Reports: No Symptoms Gastrointestinal: Reports: No Symptoms Musculoskeletal: Reports: Joint Pain (Right hip) - Patient Data Vitals - Most Recent: Last Vital Signs Temp 97.6 F 08/26/19 11:17 Pulse 79 08/26/19 11:17 Resp 18 08/26/19 11:17 BP 135/52 L 08/26/19 11:17 Pulse Ox 96 08/26/19 11:17 Weight - Most Recent: 248 lb 14.43 oz I&O - Last 24 Hours: Intake & Output 08/25/19 08/26/19 08/26/19 22:59 06:59 14:59 Intake Total 240 240 Output Total 200 250 Balance -200 -10 240 Med Orders - Current: Current Medications Hydrocodone Bitart/Acetaminophen ([place] 325-5 Mg) 1 tab PO Q4H PRN PRN Reason: Pain (moderate 4-6) Last Admin: 08/26/19 14:15 Dose: 1 tab Albuterol/Ipratropium (Duoneb 3.0-0.5 Mg/3 Ml) 3 ml NEB Q4H PRN PRN Reason: Wheezing Alprazolam (Xanax) 0.25 mg PO BID PRN PRN Reason: Anxiety Alprazolam (Xanax) 0.25 mg PO DAILY PRN PRN Reason: dressing changes Atorvastatin Calcium (Lipitor) 40 mg PO BEDTIME [facility] Last Admin: 08/25/19 21:51 Dose: 40 mg Bisacodyl (Dulcolax) 10 mg RECTAL Q24H PRN PRN Reason: Constipation Bumetanide (Bumex) 1 mg PO DAILY [facility] Last Admin: 08/26/19 08:17 Dose: 1 mg Clopidogrel Bisulfate (Plavix) 75 mg PO DAILY [facility] Last Admin: 08/26/19 08:28 Dose: 75 mg Dextrose (Glutose 15) 15 gm PO ONETIME PRN PRN Reason: Hypoglycemia Dextrose/Water (Dextrose 50% In Water) 50 ml IV ONETIME PRN PRN Reason: Hypoglycemia Dimethicone/Zinc Oxide (Rash Relief-Zinc Oxide [place]) 0 gm TOP ASDIRECTED PRN PRN Reason: Other Docusate Sodium (Colace) 100 mg PO BID [facility] Last Admin: 08/26/19 08:17 Dose: 100 mg Enoxaparin Sodium (Lovenox) 40 mg SUBCUT DAILY [facility] Last Admin: 08/26/19 08:17 Dose: 40 mg Escitalopram Oxalate (Lexapro) 10 mg PO DAILY [facility] Last Admin: 08/26/19 08:17 Dose: 10 mg Gabapentin (Neurontin) 900 mg PO TID [facility] Last Admin: 08/26/19 14:10 Dose: 900 mg Hydromorphone HCl (Dilaudid) 4 mg PO Q3H PRN PRN Reason: Pain (severe 7-10) Insulin Glargine (Lantus Solostar) 10 units SUBCUT BEDTIME [facility] Last Admin: 08/25/19 21:54 Dose: 10 units Insulin Human Lispro (Humalog) 5 unit SUBCUT TIDMEALS [facility] Last Admin: 08/26/19 14:07 Dose: 5 units Insulin Human Lispro (Humalog) 0 unit SUBCUT QIDACANDBED [facility]; Protocol Last Admin: 08/26/19 14:07 Dose: 3 units Lisinopril (Prinivil) 10 mg PO DAILY [facility] Last Admin: 08/26/19 08:16 Dose: 10 mg Metoprolol Succinate (Toprol Xl) 50 mg PO DAILY [facility] Last Admin: 08/26/19 08:17 Dose: 50 mg Nystatin (Nystop) 0 gm TOP QID [facility] Last Admin: 08/26/19 10:18 Dose: 1 applic Ondansetron HCl (Zofran Odt) 4 mg PO Q4H PRN PRN Reason: Nausea Pentoxifylline (Trental) 400 mg PO TID [facility] Last Admin: 08/26/19 14:10 Dose: 400 mg Potassium Chloride (Klor-Con M20) 20 meq PO BID [facility] Last Admin: 08/26/19 08:16 Dose: 20 meq Senna/Docusate Sodium (Senna Plus) 2 tab PO BID [facility] Last Admin: 08/26/19 08:23 Dose: 2 tab Sodium Chloride (Saline Flush) 10 ml FLUSH ASDIRECTED PRN PRN Reason: Keep Vein Open Discontinued Medications Fentanyl (Sublimaze) 50 mcg IVPUSH ONETIME ONE Stop: 08/23/19 10:25 Last Admin: 08/23/19 10:28 Dose: 50 mcg Hydromorphone HCl (Dilaudid) 1 mg IVPUSH ONETIME ONE Stop: 08/23/19 11:39 Last Admin: 08/23/19 11:46 Dose: 1 mg Hydromorphone HCl (Dilaudid) 0.5 mg IVPUSH ONETIME ONE Stop: 08/23/19 13:13 Last Admin: 08/23/19 13:27 Dose: 0.5 mg Hydromorphone HCl (Dilaudid) 0.5 mg IVPUSH Q2H PRN PRN Reason: Pain (severe 7-10) Last Admin: 08/24/19 19:58 Dose: 0.5 mg Hydromorphone HCl (Dilaudid) 1 mg IVPUSH Q1H PRN PRN Reason: Pain Last Admin: 08/26/19 11:01 Dose: 1 mg Sodium Chloride (Normal Saline) 1,000 mls @ 100 mls/hr IV ASDIRECTED [facility] Insulin Glargine (Lantus Solostar) 15 units SUBCUT ACBREAKFAST [facility] Last Admin: 08/26/19 08:25 Dose: 15 units Ketamine HCl (Ketalar) 10 mg IV ONETIME ONE Stop: 08/23/19 13:31 Last Admin: 08/23/19 13:28 Dose: 10 mg Warfarin Sodium (Coumadin) 5 mg PO MoWeFr@1300 [facility] - Exam Quality Assessment: DVT Prophylaxis General: Alert, Oriented, Cooperative, Moderate Distress Lungs: Clear to Auscultation, Normal Respiratory Effort Cardiovascular: Regular Rate, Regular Rhythm, No Murmurs GI/Abdominal Exam: Soft, Non-Tender, No Organomegaly, No Distention Extremities: No Pedal Edema, Other (Pain right hip) - Problem List Review Problem List Initiated/Reviewed/Updated: Yes - My Orders Last 24 Hours: My Active Orders 08/25/19 16:00 Nystatin [Nystop] See Dose Instructions TOP QID 08/26/19 14:21 HYDROmorphone [Dilaudid] 4 mg PO Q3H PRN 08/26/19 16:30 GLUCOSE POC LAB TO COLLECT [POC] QIDACANDBED 08/26/19 21:00 GLUCOSE POC LAB TO COLLECT [POC] QIDACANDBED 08/27/19 07:30 GLUCOSE POC LAB TO COLLECT [POC] QIDACANDBED Insulin Glarg,Human.Rec.Analog [LantUS Solostar] 20 units SUBCUT ACBREAKFAST 08/27/19 11:30 GLUCOSE POC LAB TO COLLECT [POC] QIDACANDBED 08/27/19 16:30 GLUCOSE POC LAB TO COLLECT [POC] QIDACANDBED 08/27/19 21:00 GLUCOSE POC LAB TO COLLECT [POC] QIDACANDBED 08/28/19 07:30 GLUCOSE POC LAB TO COLLECT [POC] QIDACANDBED 08/28/19 11:30 GLUCOSE POC LAB TO COLLECT [POC] QIDACANDBED 08/28/19 16:30 GLUCOSE POC LAB TO COLLECT [POC] QIDACANDBED - Plan Plan:: ASSESSMENT AND PLAN RIGHT HIP FRACTURE -No weight bearing right leg -Saline lock IV -Outpatient follow-up with orthopedic surgery in 2 weeks -half-way placement SMALL ULCER LEFT LEG STUMP/PRESENT ON ADMISSION-appears to be healing -Local care as needed TYPE 2 DIABETES MELLITUS -Continue usual dose of long acting and short acting insulin -4 times a day glucometers -Moderate dose sliding scale Humalog CONSTIPATION -Senna S twice daily -Colace twice daily MAINTENANCE ISSUES -DVT prophylaxis; Lovenox 40 mg subcutaneous daily, she has consistently refused active management for DVT prophylaxis -GI prophylaxis; not indicated -Barber catheter; not indicated -Nutrition; consistent carb diet -Nicotine dependence; not required CODE STATUS-FULL CODE ADMISSION STATUS-patient will be admitted to inpatient status, expect at least a 2 night hospital stay for evaluation and management of problems as outlined above. At the time of this admission I do not reasonably expected evaluation and management of this problem will require more than a 96 hour hospital stay. DISPOSITION-anticipate discharge to residential, possibly tomorrow PRIMARY CARE PROVIDER-Dr. Paul
[2019-08-26] MEDS: HYDROmorphone 2 MG Tab PO PRN ×2 (17:32→20:38)
[2019-08-26] MEDS: atorvaSTATin 20 MG Tab PO SCH (20:44)
[2019-08-27] MEDS: HYDROmorphone 2 MG Tab PO PRN ×3 (04:31→11:16)
[2019-08-27] MEDS: Nystatin Topical Powder 15 GM Bottle TOP SCH ×4 (06:20→21:32)
[2019-08-27] MEDS ORDERED: Insulin Glargine,Human Rec. Analog 100 Units/ML 3 ML Pen SUBCUT SCH ×2 (07:30→21:00)
[2019-08-27] MEDS: Insulin Lispro 100 Unit/ML 3 ML KwikPen SUBCUT SCH ×7 (08:04→21:34)
[2019-08-27] MEDS: Docusate Sodium 100 MG Cap PO SCH ×2 (08:11→21:32)
[2019-08-27] MEDS: Bumetanide 1 MG Tab PO SCH (08:11)
[2019-08-27] MEDS: Potassium Chloride 20 MEQ Tab.ER PO SCH ×2 (08:12→21:33)
[2019-08-27] MEDS: Escitalopram 10 MG Tab PO SCH (08:12)
[2019-08-27] MEDS: Enoxaparin 40 MG/0.4 ML Syringe SUBCUT SCH (08:13)
[2019-08-27] MEDS: Gabapentin 300 MG Cap PO SCH ×3 (08:13→21:31)
[2019-08-27] MEDS: Clopidogrel 75 MG Tab PO SCH (08:13)
[2019-08-27] MEDS: Pentoxifylline 400 MG Tab.ER PO SCH ×3 (08:14→21:33)
[2019-08-27] MEDS: Metoprolol Succinate 50 MG Tab.ER PO SCH (08:15)
[2019-08-27] MEDS: Lisinopril 10 MG Tab PO SCH (08:15)
[2019-08-27] MEDS: Acetaminophen 500 MG Tab PO SCH ×2 (13:24→21:32)
--- NOTE | 2019-08-27 14:01 | PCM.PN ---
- General Info Date of Service: 08/27/19 Subjective Update: No acute events overnight. Patient reports that her pain is not well-controlled , especially with any sort of movement. She reports severe pain both in the right hip area as well as both lower legs. The pain in the legs she thinks is because of her neuropathy and is worse with any sort of pressure or touching. No complaints of nausea or vomiting. Vital signs have been otherwise stable. Functional Status: Reports: Tolerating Diet. Denies: Pain Controlled - Review of Systems General: Denies: Fever Musculoskeletal: Reports: Leg Pain - Patient Data Vitals - Most Recent: Last Vital Signs Temp 36.6 C 08/27/19 10:54 Pulse 75 08/27/19 10:54 Resp 18 08/27/19 10:54 BP 120/42 L 08/27/19 11:12 Pulse Ox 92 L 08/27/19 10:54 Weight - Most Recent: 112.9 kg I&O - Last 24 Hours: Intake & Output 08/26/19 08/27/19 08/27/19 22:59 06:59 14:59 Intake Total 360 520 Output Total 600 Balance -240 520 Med Orders - Current: Current Medications Acetaminophen (Tylenol Extra Strength) 1,000 mg PO TID [facility] Last Admin: 08/27/19 13:24 Dose: 1,000 mg Albuterol/Ipratropium (Duoneb 3.0-0.5 Mg/3 Ml) 3 ml NEB Q4H PRN PRN Reason: Wheezing Alprazolam (Xanax) 0.25 mg PO BID PRN PRN Reason: Anxiety Last Admin: 08/26/19 20:42 Dose: 0.25 mg Alprazolam (Xanax) 0.25 mg PO DAILY PRN PRN Reason: dressing changes Atorvastatin Calcium (Lipitor) 40 mg PO BEDTIME [facility] Last Admin: 08/26/19 20:44 Dose: 40 mg Bisacodyl (Dulcolax) 10 mg RECTAL Q24H PRN PRN Reason: Constipation Bumetanide (Bumex) 1 mg PO DAILY [facility] Last Admin: 08/27/19 08:11 Dose: 1 mg Clopidogrel Bisulfate (Plavix) 75 mg PO DAILY [facility] Last Admin: 08/27/19 08:13 Dose: 75 mg Dextrose (Glutose 15) 15 gm PO ONETIME PRN PRN Reason: Hypoglycemia Dextrose/Water (Dextrose 50% In Water) 50 ml IV ONETIME PRN PRN Reason: Hypoglycemia Dimethicone/Zinc Oxide (Rash Relief-Zinc Oxide [place]) 0 gm TOP ASDIRECTED PRN PRN Reason: Other Docusate Sodium (Colace) 100 mg PO BID [facility] Last Admin: 08/27/19 08:11 Dose: 100 mg Enoxaparin Sodium (Lovenox) 40 mg SUBCUT DAILY [facility] Last Admin: 08/27/19 08:13 Dose: 40 mg Escitalopram Oxalate (Lexapro) 10 mg PO DAILY [facility] Last Admin: 08/27/19 08:12 Dose: 10 mg Gabapentin (Neurontin) 900 mg PO TID [facility] Last Admin: 08/27/19 13:25 Dose: 900 mg Hydromorphone HCl (Dilaudid) 4 mg PO Q3H PRN PRN Reason: Pain (severe 7-10) Last Admin: 08/27/19 11:16 Dose: 4 mg Insulin Glargine (Lantus Solostar) 12 units SUBCUT BEDTIME [facility] Insulin Glargine (Lantus Solostar) 22 units SUBCUT ACBREAKFAST [facility] Insulin Human Lispro (Humalog) 0 unit SUBCUT QIDACANDBED [facility]; Protocol Insulin Human Lispro (Humalog) 7 unit SUBCUT TIDMEALS [facility] Lisinopril (Prinivil) 10 mg PO DAILY [facility] Last Admin: 08/27/19 08:15 Dose: 10 mg Metoprolol Succinate (Toprol Xl) 50 mg PO DAILY [facility] Last Admin: 08/27/19 08:15 Dose: 50 mg Nystatin (Nystop) 0 gm TOP QID [facility] Last Admin: 08/27/19 09:37 Dose: 1 applic Ondansetron HCl (Zofran Odt) 4 mg PO Q4H PRN PRN Reason: Nausea Oxycodone HCl (Oxycodone) 10 mg PO Q4H PRN PRN Reason: Pain (moderate 4-6) Pentoxifylline (Trental) 400 mg PO TID [facility] Last Admin: 08/27/19 13:25 Dose: 400 mg Potassium Chloride (Klor-Con M20) 20 meq PO BID [facility] Last Admin: 08/27/19 08:12 Dose: 20 meq Senna/Docusate Sodium (Senna Plus) 2 tab PO BID [facility] Last Admin: 08/27/19 08:13 Dose: 2 tab Sodium Chloride (Saline Flush) 10 ml FLUSH ASDIRECTED PRN PRN Reason: Keep Vein Open Discontinued Medications Hydrocodone Bitart/Acetaminophen ([place] 325-5 Mg) 1 tab PO Q4H PRN PRN Reason: Pain (moderate 4-6) Last Admin: 08/26/19 14:15 Dose: 1 tab Fentanyl (Sublimaze) 50 mcg IVPUSH ONETIME ONE Stop: 08/23/19 10:25 Last Admin: 08/23/19 10:28 Dose: 50 mcg Hydromorphone HCl (Dilaudid) 1 mg IVPUSH ONETIME ONE Stop: 08/23/19 11:39 Last Admin: 08/23/19 11:46 Dose: 1 mg Hydromorphone HCl (Dilaudid) 0.5 mg IVPUSH ONETIME ONE Stop: 08/23/19 13:13 Last Admin: 08/23/19 13:27 Dose: 0.5 mg Hydromorphone HCl (Dilaudid) 0.5 mg IVPUSH Q2H PRN PRN Reason: Pain (severe 7-10) Last Admin: 08/24/19 19:58 Dose: 0.5 mg Hydromorphone HCl (Dilaudid) 1 mg IVPUSH Q1H PRN PRN Reason: Pain Last Admin: 08/26/19 11:01 Dose: 1 mg Sodium Chloride (Normal Saline) 1,000 mls @ 100 mls/hr IV ASDIRECTED [facility] Insulin Glargine (Lantus Solostar) 15 units SUBCUT ACBREAKFAST [facility] Last Admin: 08/26/19 08:25 Dose: 15 units Insulin Glargine (Lantus Solostar) 10 units SUBCUT BEDTIME [facility] Last Admin: 08/26/19 20:46 Dose: 10 units Insulin Glargine (Lantus Solostar) 20 units SUBCUT ACBREAKFAST [facility] Last Admin: 08/27/19 08:06 Dose: 20 units Insulin Human Lispro (Humalog) 5 unit SUBCUT TIDMEALS [facility] Last Admin: 08/27/19 11:41 Dose: 5 units Insulin Human Lispro (Humalog) 0 unit SUBCUT QIDACANDBED [facility]; Protocol Last Admin: 08/27/19 11:41 Dose: 3 units Ketamine HCl (Ketalar) 10 mg IV ONETIME ONE Stop: 08/23/19 13:31 Last Admin: 08/23/19 13:28 Dose: 10 mg Warfarin Sodium (Coumadin) 5 mg PO MoWeFr@1300 [facility] - Exam Quality Assessment: No: Supplemental Oxygen General: Alert, Oriented, Cooperative, No Acute Distress Lungs: Normal Respiratory Effort GI/Abdominal Exam: Soft, No Distention Extremities: No Pedal Edema, Other (left BKA) Psy/Mental Status: Alert, Normal Affect - Problem List Review Problem List Initiated/Reviewed/Updated: Yes - My Orders Last 24 Hours: My Active Orders 08/27/19 11:33 oxyCODONE 10 mg PO Q4H PRN 08/27/19 14:00 Acetaminophen [Tylenol Extra Strength] 1,000 mg PO TID 08/27/19 17:00 Insulin Lispro [HumaLOG] 7 unit SUBCUT TIDMEALS Insulin Lispro [HumaLOG] See Protocol SUBCUT QIDACANDBED 08/27/19 21:00 Insulin Glarg,Human.Rec.Analog [LantUS Solostar] 12 units SUBCUT BEDTIME 08/28/19 07:30 Insulin Glarg,Human.Rec.Analog [LantUS Solostar] 22 units SUBCUT ACBREAKFAST - Plan Plan:: ASSESSMENT AND PLAN RIGHT HIP FRACTURE - secondary to fall. -No weight bearing right leg -Saline lock IV -Outpatient follow-up with orthopedic surgery in 2 weeks -custodial placement SMALL ULCER LEFT LEG STUMP/PRESENT ON ADMISSION - likely secondary to prosthetic device. appears to be healing. -Local care as needed TYPE 2 DIABETES MELLITUS - mild elevation of blood sugars -Increase long-acting and mealtime insulin slightly -4 times a day glucometers -low dose sliding scale Humalog CONSTIPATION -Senna S twice daily -Colace twice daily MAINTENANCE ISSUES -DVT prophylaxis; Lovenox 40 mg subcutaneous daily, she has consistently refused active management for DVT prophylaxis -GI prophylaxis; not indicated -Barber catheter; not indicated -Nutrition; consistent carb diet DISPOSITION - anticipate discharge to half-way, still waiting for bed Augustine Padilla M.D.
[2019-08-27] MEDS: oxyCODONE 5 MG Tab PO PRN ×2 (14:54→19:19)
[2019-08-27] MEDS: atorvaSTATin 20 MG Tab PO SCH (21:32)
[2019-08-28] MEDS: oxyCODONE 5 MG Tab PO PRN ×3 (02:48→13:49)
[2019-08-28] MEDS: Nystatin Topical Powder 15 GM Bottle TOP SCH ×2 (05:41→14:01)
[2019-08-28] MEDS ORDERED: Insulin Glargine,Human Rec. Analog 100 Units/ML 3 ML Pen SUBCUT SCH (07:30)
[2019-08-28] MEDS: Insulin Lispro 100 Unit/ML 3 ML KwikPen SUBCUT SCH ×4 (08:27→13:50)
[2019-08-28] MEDS: Gabapentin 300 MG Cap PO SCH ×2 (08:31→13:50)
[2019-08-28] MEDS: Clopidogrel 75 MG Tab PO SCH (08:32)
[2019-08-28] MEDS: Acetaminophen 500 MG Tab PO SCH ×2 (08:32→13:50)
[2019-08-28] MEDS: Pentoxifylline 400 MG Tab.ER PO SCH ×2 (08:32→13:50)
[2019-08-28] MEDS: Enoxaparin 40 MG/0.4 ML Syringe SUBCUT SCH (08:32)
[2019-08-28] MEDS: Metoprolol Succinate 50 MG Tab.ER PO SCH (08:32)
[2019-08-28] MEDS: Potassium Chloride 20 MEQ Tab.ER PO SCH (08:32)
[2019-08-28] MEDS: Escitalopram 10 MG Tab PO SCH (08:33)
[2019-08-28] MEDS: Lisinopril 10 MG Tab PO SCH (08:33)
[2019-08-28] MEDS: Bumetanide 1 MG Tab PO SCH (08:33)
[2019-08-28] MEDS: Docusate Sodium 100 MG Cap PO SCH (08:34)
[2019-08-28] MEDS: HYDROmorphone 2 MG Tab PO PRN (11:30)
[2019-08-28 12:08] VITALS: BP 125/54; PULSE 63
--- NOTE | 2019-08-28 13:49 | PCM.DCSUM1 ---
Discharge Summary - Hospital Course Brief History: 73-year-old female with history of obesity, compensated congestive heart failure, insulin-dependent diabetes and previous left below-the -knee amputation who presented with right hip pain after a fall. She was admitted for pain control and physical therapy with a mildly displaced fracture of the right hip/greater trochanter. Diagnosis: Stroke: No - Discharge Data Discharge Date: 08/28/19 Discharge Disposition: DC/Tfer to SNF 03 Condition: Fair - Referral to Home Health Primary Care Physician: PCP None - Discharge Diagnosis/Problem(s) (1) Fracture of greater trochanter SNOMED Code(s): 774525420 ICD Code: S72.113A - DISP FX OF GREATER TROCHANTER OF UNSP FEMUR, INIT Status: Acute Current Visit: Yes Qualifiers: Encounter type: initial encounter Fracture type: closed Fracture alignment: displaced Laterality: right Qualified Code(s): S72.111A - Displaced fracture of greater trochanter of right femur, initial encounter for closed fracture (2) Type 2 diabetes mellitus SNOMED Code(s): 58941763 ICD Code: E11.9 - TYPE 2 DIABETES MELLITUS WITHOUT COMPLICATIONS Status: Chronic Current Visit: No Qualifiers: Diabetes mellitus custodial insulin use: with oysterman use Diabetes mellitus complication status: with other specified complication Qualified Code (s): E11.69 - Type 2 diabetes mellitus with other specified complication; Z79.4 - FPC (current) use of insulin (3) Chronic systolic (congestive) heart failure SNOMED Code(s): 636986531, 222124712 ICD Code: I50.22 - CHRONIC SYSTOLIC (CONGESTIVE) HEART FAILURE Status: Chronic Current Visit: No - Patient Summary/Data Consults: Consultations 08/24/19 15:17 Consult to Physical Therapy [PT Evaluation and Treatment] [CONS] Routine Please Evaluate and Treat. PT Reason for Consult: Right hip fracture This query below is only for informational purposes and is not editable. Admission Diagnosis/Problem: Fracture of greater trochanter Hospital Course: Morenita presented to the emergency room with right hip pain after a fall and trauma to the right hip. In the emergency room an x-ray was concerning for fracture of the right hip and did not definitively identify this so a CT scan was obtained. This showed a mildly displaced fracture of the right hip in the greater trochanter area. Orthopedics was consult and felt that this was not a surgical injury. They recommended admission for an control, physical therapy and nonweightbearing status. Her injury was complicated by the fact that she has a left [id number] amputation and this is currently further complicated by an ulceration on the stump of the left extremity caused by her prosthetic device. She was admitted to the hospital and a variety of medications were utilized for pain control. Over the next couple of days medications were titrated and further adjusted without good relief of her pain. Eventually pain medications were transitioned to oxycodone with better relief. She was also on scheduled acetaminophen. She has been working with physical therapy. She continues to be nonweightbearing on the right lower extremity and this will be the case until her follow-up with orthopedics. She would benefit from subacute rehabilitation because of her nonweightbearing status. Pain control is acceptable at this time and she is stable and safe for discharge. A detention bed has been located finally. Patient will be transported there for subacute rehabilitation. She will need outpatient follow-up with orthopedics in 2 weeks. During the hospital stay we did make some minor adjustments to her insulin regimen and increased her long-acting to 22 units in the morning and 12 units at night. Mealtime insulin was also increased from 5 up to7 units. Her heart failure has been well compensated. - Patient Instructions Diet: Diabetic Diet (1800 ana ADA) Activity: Non Weight Bearing (right leg ) Showering/Bathing: May Shower Notify Provider of: Fever, Increased Pain Other/Special Instructions: 1. You were in the hospital for management of a nondisplaced fracture of the right greater trochanter. This fracture did not require surgical intervention and will heal on its own over time. You should not bear any weight on your right leg until cleared by orthopedics. You will need follow up in two weeks. 2. Referral to PT and OT for strengthening after an acute fracture. 3. Non weight bearing right leg. 4. Code status - FULL CODE. 5. Accu-checks TID with meals - Discharge Plan *PRESCRIPTION DRUG MONITORING PROGRAM REVIEWED*: Not Applicable *COPY OF PRESCRIPTION DRUG MONITORING REPORT IN PATIENT AXEL: Not Applicable Prescriptions/Med Rec: Acetaminophen [Tylenol Extra Strength] 1,000 mg PO TID #180 tablet ALPRAZolam [Alprazolam] 1 tab PO TID #30 tablet Insulin Aspart [NovoLOG] 7 unit SQ TIDAC #1 pen Insulin Glarg,Human.Rec.Analog [Lantus Solostar] 22 units SUBCUT ACBREAKFAST #1 pen Insulin Glarg,Human.Rec.Analog [Lantus Solostar] 12 unit SUBCUT BEDTIME #1 pen oxyCODONE 10 mg PO Q3H PRN #60 tablet PRN Reason: Pain Sennosides/Docusate Sodium [Senna Plus Tablet] 1 each PO BID #30 tablet Home Medications: Home Meds atorvaSTATin [Lipitor] 40 mg PO BEDTIME 10/01/17 [History] Metoprolol Succinate [Toprol XL] 50 mg PO DAILY 04/27/18 [History] Clopidogrel Bisulfate [Plavix] 75 mg PO DAILY 05/16/18 [History] Potassium Chloride [Klor-Con M20] 20 meq PO BID 05/16/18 [History] Albuterol/Ipratropium [DuoNeb 3.0-0.5 MG/3 ML] 1 dose NEB Q4H PRN 12/12/18 [ History] Bisacodyl [Biscolax] 1 supp RECTAL Q24H PRN 12/12/18 [History] Bumetanide 1 mg PO DAILY 12/12/18 [History] Gabapentin [Neurontin] 900 mg PO TID 12/12/18 [History] Lisinopril [Prinivil] 10 mg PO DAILY 12/12/18 [History] Pentoxifylline [TRENtal] 400 mg PO TID 12/12/18 [History] Escitalopram [Lexapro] 10 mg PO DAILY 08/23/19 [History] ALPRAZolam [Alprazolam] 1 tab PO TID #30 tablet 08/28/19 [Rx] Acetaminophen [Tylenol Extra Strength] 1,000 mg PO TID #180 tablet 08/28/19 [Rx] Insulin Aspart [NovoLOG] 7 unit SQ TIDAC #1 pen 08/28/19 [Rx] Insulin Glarg,Human.Rec.Analog [Lantus Solostar] 12 unit SUBCUT BEDTIME #1 pen 08/28/19 [Rx] Insulin Glarg,Human.Rec.Analog [Lantus Solostar] 22 units SUBCUT ACBREAKFAST #1 pen 08/28/19 [Rx] Sennosides/Docusate Sodium [Senna Plus Tablet] 1 each PO BID #30 tablet [Rx] oxyCODONE 10 mg PO Q3H PRN #60 tablet 08/28/19 [Rx] Oxygen Therapy Mode: Room Air Patient Handouts: Hip Fracture Referrals: Trev Dudley MD [Physician] - (2 weeks - f/u hospital stay for right femur fracture) - Discharge Summary/Plan Comment DC Time >30 min.: Yes (40 - new [facility] discharge ) - Patient Data Vitals - Most Recent: Last Vital Signs Temp 36.2 C 08/28/19 11:00 Pulse 63 08/28/19 11:00 Resp 18 08/28/19 11:00 BP 125/54 L 08/28/19 11:00 Pulse Ox 95 08/28/19 11:00 Weight - Most Recent: 112.9 kg I&O - Last 24 hours: Intake & Output 08/27/19 08/28/19 08/28/19 22:59 06:59 14:59 Intake Total 955 760 Balance 955 760 Med Orders - Current: Current Medications Acetaminophen (Tylenol Extra Strength) 1,000 mg PO TID [facility] Last Admin: 08/28/19 08:32 Dose: 1,000 mg Albuterol/Ipratropium (Duoneb 3.0-0.5 Mg/3 Ml) 3 ml NEB Q4H PRN PRN Reason: Wheezing Alprazolam (Xanax) 0.25 mg PO BID PRN PRN Reason: Anxiety Last Admin: 08/26/19 20:42 Dose: 0.25 mg Alprazolam (Xanax) 0.25 mg PO DAILY PRN PRN Reason: dressing changes Atorvastatin Calcium (Lipitor) 40 mg PO BEDTIME [facility] Last Admin: 08/27/19 21:32 Dose: 40 mg Bisacodyl (Dulcolax) 10 mg RECTAL Q24H PRN PRN Reason: Constipation Bumetanide (Bumex) 1 mg PO DAILY [facility] Last Admin: 08/28/19 08:33 Dose: 1 mg Clopidogrel Bisulfate (Plavix) 75 mg PO DAILY [facility] Last Admin: 08/28/19 08:32 Dose: 75 mg Dextrose (Glutose 15) 15 gm PO ONETIME PRN PRN Reason: Hypoglycemia Dextrose/Water (Dextrose 50% In Water) 50 ml IV ONETIME PRN PRN Reason: Hypoglycemia Dimethicone/Zinc Oxide (Rash Relief-Zinc Oxide [place]) 0 gm TOP ASDIRECTED PRN PRN Reason: Other Docusate Sodium (Colace) 100 mg PO BID [facility] Last Admin: 08/28/19 08:34 Dose: 100 mg Enoxaparin Sodium (Lovenox) 40 mg SUBCUT DAILY [facility] Last Admin: 08/28/19 08:32 Dose: 40 mg Escitalopram Oxalate (Lexapro) 10 mg PO DAILY [facility] Last Admin: 08/28/19 08:33 Dose: 10 mg Gabapentin (Neurontin) 900 mg PO TID [facility] Last Admin: 08/28/19 08:31 Dose: 900 mg Hydromorphone HCl (Dilaudid) 4 mg PO Q3H PRN PRN Reason: Pain (severe 7-10) Last Admin: 08/28/19 11:30 Dose: 4 mg Insulin Glargine (Lantus Solostar) 12 units SUBCUT BEDTIME [facility] Last Admin: 08/27/19 21:35 Dose: 12 units Insulin Glargine (Lantus Solostar) 22 units SUBCUT ACBREAKFAST [facility] Last Admin: 08/28/19 08:30 Dose: 22 unit Insulin Human Lispro (Humalog) 0 unit SUBCUT QIDACANDBED [facility]; Protocol Last Admin: 08/28/19 08:27 Dose: Not Given Insulin Human Lispro (Humalog) 7 unit SUBCUT TIDMEALS [facility] Last Admin: 08/28/19 08:31 Dose: 7 units Lisinopril (Prinivil) 10 mg PO DAILY [facility] Last Admin: 08/28/19 08:33 Dose: 10 mg Metoprolol Succinate (Toprol Xl) 50 mg PO DAILY [facility] Last Admin: 08/28/19 08:32 Dose: 50 mg Nystatin (Nystop) 0 gm TOP QID [facility] Last Admin: 08/28/19 05:41 Dose: 1 applic Ondansetron HCl (Zofran Odt) 4 mg PO Q4H PRN PRN Reason: Nausea Oxycodone HCl (Oxycodone) 10 mg PO Q4H PRN PRN Reason: Pain (moderate 4-6) Last Admin: 08/28/19 07:56 Dose: 10 mg Pentoxifylline (Trental) 400 mg PO TID [facility] Last Admin: 08/28/19 08:32 Dose: 400 mg Potassium Chloride (Klor-Con M20) 20 meq PO BID [facility] Last Admin: 08/28/19 08:32 Dose: 20 meq Senna/Docusate Sodium (Senna Plus) 2 tab PO BID [facility] Last Admin: 08/28/19 08:32 Dose: 2 tab Sodium Chloride (Saline Flush) 10 ml FLUSH ASDIRECTED PRN PRN Reason: Keep Vein Open Discontinued Medications Hydrocodone Bitart/Acetaminophen (Tyrone 325-5 Mg) 1 tab PO Q4H PRN PRN Reason: Pain (moderate 4-6) Last Admin: 08/26/19 14:15 Dose: 1 tab Fentanyl (Sublimaze) 50 mcg IVPUSH ONETIME ONE Stop: 08/23/19 10:25 Last Admin: 08/23/19 10:28 Dose: 50 mcg Hydromorphone HCl (Dilaudid) 1 mg IVPUSH ONETIME ONE Stop: 08/23/19 11:39 Last Admin: 08/23/19 11:46 Dose: 1 mg Hydromorphone HCl (Dilaudid) 0.5 mg IVPUSH ONETIME ONE Stop: 08/23/19 13:13 Last Admin: 08/23/19 13:27 Dose: 0.5 mg Hydromorphone HCl (Dilaudid) 0.5 mg IVPUSH Q2H PRN PRN Reason: Pain (severe 7-10) Last Admin: 08/24/19 19:58 Dose: 0.5 mg Hydromorphone HCl (Dilaudid) 1 mg IVPUSH Q1H PRN PRN Reason: Pain Last Admin: 08/26/19 11:01 Dose: 1 mg Sodium Chloride (Normal Saline) 1,000 mls @ 100 mls/hr IV ASDIRECTED [facility] Insulin Glargine (Lantus Solostar) 15 units SUBCUT ACBREAKFAST [facility] Last Admin: 08/26/19 08:25 Dose: 15 units Insulin Glargine (Lantus Solostar) 10 units SUBCUT BEDTIME [facility] Last Admin: 08/26/19 20:46 Dose: 10 units Insulin Glargine (Lantus Solostar) 20 units SUBCUT ACBREAKFAST [facility] Last Admin: 08/27/19 08:06 Dose: 20 units Insulin Human Lispro (Humalog) 5 unit SUBCUT TIDMEALS [facility] Last Admin: 08/27/19 11:41 Dose: 5 units Insulin Human Lispro (Humalog) 0 unit SUBCUT QIDACANDBED [facility]; Protocol Last Admin: 08/27/19 11:41 Dose: 3 units Ketamine HCl (Ketalar) 10 mg IV ONETIME ONE Stop: 08/23/19 13:31 Last Admin: 08/23/19 13:28 Dose: 10 mg Warfarin Sodium (Coumadin) 5 mg PO MoWeFr@1300 [facility] - Exam Quality Assessment: Denies: Supplemental Oxygen General: Reports: Alert, Oriented, Cooperative, No Acute Distress Lungs: Reports: Normal Respiratory Effort GI/Abdominal Exam: Soft, No Distention Skin: Reports: Warm, Dry Psy/Mental Status: Reports: Alert, Normal Affect
== END 2019-08-28 15:15 | DRG 564 ==
LOC: JP.ED 09:54 → JP.MS 14:57
PROVIDERS: ADMIT Hospitalist; ATTEND Internal Medicine
DX: T87.89 Other complications of amputation stump (principal); I10 Essential (primary) hypertension; S72.111A Displaced fracture of greater trochanter of right femur, initial encounter for closed fracture; I50.22 Chronic systolic (congestive) heart failure; K59.00 Constipation, unspecified; E11.319 Type 2 diabetes mellitus with unspecified diabetic retinopathy without macular edema; Z79.01 Long term (current) use of anticoagulants; I25.10 Atherosclerotic heart disease of native coronary artery without angina pectoris; I11.0 Hypertensive heart disease with heart failure; F41.9 Anxiety disorder, unspecified; F32.9 Major depressive disorder, single episode, unspecified; E66.9 Obesity, unspecified; W19.XXXA Unspecified fall, initial encounter; Z95.0 Presence of cardiac pacemaker; Z95.5 Presence of coronary angioplasty implant and graft; Z87.440 Personal history of urinary (tract) infections; Z68.30 Body mass index [BMI] 30.0-30.9, adult; Z89.512 Acquired absence of left leg below knee; I25.2 Old myocardial infarction; Z98.49 Cataract extraction status, unspecified eye; Z90.49 Acquired absence of other specified parts of digestive tract; Z79.4 Long term (current) use of insulin; Z79.899 Other long term (current) drug therapy; Z88.0 Allergy status to penicillin; Z88.2 Allergy status to sulfonamides; Z88.1 Allergy status to other antibiotic agents; Z91.018 Allergy to other foods
CPT/HCPCS: 73502; 73700; 82962; 96374; 96375; 96376; 99283; 99285; J1170 ×2; J3010; 36415; 80048; 85025; 97110-GP; 97162-GP; 97530-GP; 97535-GP; A9270-GY; J1650; J1815; J1815-GY

== ENCOUNTER 2020-04-07 11:00 | Inpatient (IN) | payer MEDICARE, OTHER ==
[2020-04-07] MEDS ORDERED: Sodium Chloride 0.9% 1,000 ML IV ONE (11:14)
[2020-04-07] MEDS ORDERED: HYDROmorphone 0.5 MG/0.5 ML Syringe IVPUSH ONE (11:14)
--- NOTE | 2020-04-07 11:33 | EDM.PDOC ---
ED HPI GENERAL MEDICAL PROBLEM - General Chief Complaint: Lower Extremity Injury/Pain Stated Complaint: FELL Time Seen by Provider: 04/07/20 11:10 Source of Information: Reports: Patient, EMS History Limitations: Reports: No Limitations - History of Present Illness Onset Date: 04/06/20 Onset Time: 07:00 Duration: Hour(s): (26) Location: Reports: Pelvis (Planes of bilateral knee pain. States that she fell on both knees even though she has a left sided below-knee amputation. Also complaining of excruciating pain in her right foot and both sides of her pelvis. ), Lower Extremity, Left, Lower Extremity, Right Quality: Reports: Sharp Associated Symptoms: Denies: Confusion, Chest Pain, Fever/Chills, Headaches Bilateral Hip Pain Score (Numeric/FACES): 5 - Related Data Allergies Allergy/AdvReac Type Severity Reaction Status Date / Time Penicillins Allergy Severe Respiratory Verified 04/07/20 11:19 Depression chocolate flavor Allergy Itching Verified 04/07/20 11:19 sulfamethoxazole Allergy Hives Verified 04/07/20 11:19 [From Bactrim] trimethoprim [From Bactrim] Allergy Hives Verified 04/07/20 11:19 Home Meds: Home Meds atorvaSTATin [Lipitor] 40 mg PO BEDTIME 10/01/17 [History] Clopidogrel Bisulfate [Plavix] 75 mg PO DAILY 05/16/18 [History] Potassium Chloride [Klor-Con M20] 20 meq PO BID 05/16/18 [History] Albuterol/Ipratropium [DuoNeb 3.0-0.5 MG/3 ML] 1 dose NEB Q4H PRN 12/12/18 [ History] Gabapentin [Neurontin] 900 mg PO TID 12/12/18 [History] Pentoxifylline [TRENtal] 400 mg PO TID 12/12/18 [History] Escitalopram [Lexapro] 10 mg PO DAILY 08/23/19 [History] oxyCODONE 10 mg PO Q4H PRN #30 tablet 08/28/19 [Rx] Metoprolol Succinate [Toprol Xl] 50 mg PO DAILY 09/13/19 [History] Acetaminophen [Tylenol Extra Strength] 1,000 mg PO TID PRN 04/07/20 [History] Furosemide 40 mg PO DAILY 04/07/20 [History] Insulin Aspart [NovoLOG] 5 unit SQ TIDAC 04/07/20 [History] Insulin Glarg,Human.Rec.Analog [Lantus Solostar] 10 unit SUBCUT BEDTIME [History] Insulin Glarg,Human.Rec.Analog [Lantus Solostar] 15 units SUBCUT ACBREAKFAST [History] Lidocaine 1 applic TOP BID PRN 04/07/20 [History] ondansetron HCL [Zofran] 4 mg PO Q8H PRN 04/07/20 [History] tiZANidine 2 mg PO Q8H 04/07/20 [History] Past Medical History HEENT History: Reports: Cataract, Impaired Vision, Other (See Below) Other HEENT History: diabetic retinopahy r ear pain Cardiovascular History: Reports: CAD, Hypertension, [place], Pacemaker, Stents Respiratory History: Reports: Other (See Below) Other Respiratory History: CHF Gastrointestinal History: Reports: Cholelithiasis, GI Bleed Genitourinary History: Reports: UTI, Recurrent NUT GRINDER History: Reports: None Musculoskeletal History: Reports: Amputation, Fracture, Other (See Below) Other Musculoskeletal History: l shoulder fx l leg, BKA left 2017, 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 toes debrided right foot tuesday12/22/2018. R hip Fx 08/23/19 Neurological History: Reports: Concussion Psychiatric History: Reports: Anxiety, Depression Endocrine/Metabolic History: Reports: Diabetes, Type II, Obesity/BMI 30+ Hematologic History: Reports: Blood Transfusion(s) Dermatologic History: Reports: Other (See Below) Other Dermatologic History: Skin rash. wound on right foot - Infectious Disease History Infectious Disease History: Reports: Chicken Pox, Other (See Below) Other Infectious Disease History: polio - Past Surgical History Head Surgeries/Procedures: Reports: None HEENT Surgical History: Reports: Cataract Surgery Cardiovascular Surgical History: Reports: Vascular Surgery Respiratory Surgical History: Reports: None GI Surgical History: Reports: Appendectomy, Cholecystectomy Female Surgical History: Reports: Salpingo-Oophorectomy Endocrine Surgical History: Reports: None Neurological Surgical History: Reports: None Musculoskeletal Surgical History: Reports: Amputation, Other (See Below) Dermatological Surgical History: Reports: None Social & Family History - Tobacco Use Smoking Status *Q: Never Smoker - Caffeine Use Caffeine Use: Reports: Soda - Recreational Drug Use Recreational Drug Use: No - Living Situation & Occupation Living situation: Reports: Occupation: Retired Review of Systems - Review of Systems Review Of Systems: See Below Constitutional: Denies: Chills, Fever Eyes: Reports: No Symptoms Ears: Reports: No Symptoms Respiratory: Denies: Shortness of Breath, Wheezing Musculoskeletal: Reports: Leg Pain (Lateral knee pain and right sided foot pain. Bilateral pelvic pain) Neurological: Reports: No Symptoms ED EXAM, GENERAL - Physical Exam Exam: See Below Exam Limited By: No Limitations General Appearance: Alert, Obese (Rapidly) Throat/Mouth: Normal Inspection Head: Atraumatic, Normocephalic Neck: Normal Inspection, Supple Respiratory/Chest: No Respiratory Distress, Lungs Clear GI/Abdominal: Non-Tender Back Exam: Other (Pain on palpation both sides of her pelvis) Extremities: Leg Pain (Pain on palpation anywhere around her knees and her right foot. No obvious deformity is seen. No open wound.) EKG INTERPRETATION EKG Date: 04/07/20 Time: 11:35 Rhythm: NSR Rate (Beats/Min): 83 QRS: RBBB QT: Prolonged (QTc .532) Course - Vital Signs Text/Narrative:: Elevated white count and presence of white cells and bacteria in the urine warrant treatment with IV antibiotic. Patient blood cultures were drawn and patient is started on IV Levaquin as she is allergic to penicillins and sulfa. Last Recorded V/S: Last Vital Signs Temp 36.4 C 04/07/20 11:24 Pulse 82 04/07/20 11:24 Resp 20 04/07/20 11:24 BP 139/48 L 04/07/20 11:24 Pulse Ox 99 04/07/20 11:24 - Orders/Labs/Meds Orders: Active Orders 24 hr Category Date Time Status EKG Documentation Completion [RC] ASDIRECTED Care 04/07/20 11:11 Active Insert Urinary Catheter [OM.PC] Q24H Care 04/07/20 11:30 Ordered Urinary Catheter Assessment [RC] ASDIRECTED Care 04/07/20 11:29 Active CULTURE BLOOD [BC] Urgent Lab 04/07/20 12:25 Received CULTURE BLOOD [BC] Urgent Lab 04/07/20 12:35 Received CULTURE URINE [RM] Stat Lab 04/07/20 12:36 Received Levofloxacin/Dextrose 5%-Water [Levaquin in D5W 750 MG/ Med 04/07/20 12:16 Active 150 ML] 750 mg Premix Bag 1 bag IV ONETIME Blood Culture x2 Reflex Set [OM.PC] Urgent Oth 04/07/20 12:14 Ordered EKG 12 Lead [EK] Stat Ther 04/07/20 11:10 Ordered Medication Orders Levofloxacin/Dextrose 750 mg/ (Premix) 150 mls @ 100 mls/hr IV ONETIME ONE Stop: 04/07/20 13:45 Last Admin: 04/07/20 12:28 Dose: 100 mls/hr Labs: Laboratory Tests 04/07/20 04/07/20 04/07/20 Range/Units 11:28 11:29 11:29 WBC 21.0 H (4.5-11.0) K/uL RBC 4.47 (3.30-5.50) M/uL Hgb 11.8 L (12.0-15.0) g/dL Hct 37.8 (36.0-48.0) % MCV 85 (80-98) fL MCH 26 L (27-31) pg MCHC 31 L (32-36) % Plt Count 309 (150-400) K/uL PT 11.3 (9.5-12.0) sec INR 1.05 (0.80-1.20) Sodium (140-148) mmol/L Potassium (3.6-5.2) mmol/L Chloride (100-108) mmol/L Carbon Dioxide (21-32) mmol/L Anion Gap (5.0-14.0) mmol/L BUN (7-18) mg/dL Creatinine (0.6-1.0) mg/dL Est Cr Clr Drug Dosing mL/min Estimated GFR (MDRD) (>60) Glucose (74-106) mg/dL Lactic Acid (0.4-2.0) mmol/L Calcium (8.5-10.1) mg/dL Total Bilirubin (0.2-1.0) mg/dL AST (15-37) U/L ALT (12-78) U/L Alkaline Phosphatase (46-116) U/L Creatine Kinase 1917 H (26-192) U/L Troponin I (0.000-0.056) ng/mL NT-Pro-B Natriuret Pep (5-125) pg/mL Total Protein (6.4-8.2) g/dL Albumin (3.4-5.0) g/dL Globulin (2.3-3.5) g/dL Albumin/Globulin Ratio (1.2-2.2) Urine Color (YELLOW) Urine Appearance (CLEAR) Urine pH (5.0-8.0) Ur Specific [place] (1.008-1.030) Urine Protein (NEGATIVE) mg/dL Urine Glucose (UA) (NEGATIVE) mg/dL Urine Ketones (NEGATIVE) mg/dL Urine Occult Blood (NEGATIVE) Urine Nitrite (NEGATIVE) Urine Bilirubin (NEGATIVE) Urine Urobilinogen (0.2-1.0) EU/dL Ur Leukocyte Esterase (NEGATIVE) Urine RBC (0-5) Urine WBC (0-5) Ur Epithelial Cells Amorphous Sediment Urine Bacteria Urine Mucus 04/07/20 04/07/20 04/07/20 Range/Units 11:29 11:29 11:29 WBC (4.5-11.0) K/uL RBC (3.30-5.50) M/uL Hgb (12.0-15.0) g/dL Hct (36.0-48.0) % MCV (80-98) fL MCH (27-31) pg MCHC (32-36) % Plt Count (150-400) K/uL PT (9.5-12.0) sec INR (0.80-1.20) Sodium 140 (140-148) mmol/L Potassium 4.1 (3.6-5.2) mmol/L Chloride 106 (100-108) mmol/L Carbon Dioxide 23 (21-32) mmol/L Anion Gap 10.8 (5.0-14.0) mmol/L BUN 27 H (7-18) mg/dL Creatinine 1.1 H (0.6-1.0) mg/dL Est Cr Clr Drug Dosing 44.95 mL/min Estimated GFR (MDRD) 49 L (>60) Glucose 317 H (74-106) mg/dL Lactic Acid 1.9 (0.4-2.0) mmol/L Calcium 8.8 (8.5-10.1) mg/dL Total Bilirubin 0.6 D (0.2-1.0) mg/dL AST 49 H D (15-37) U/L ALT 36 D (12-78) U/L Alkaline Phosphatase 87 (46-116) U/L Creatine Kinase (26-192) U/L Troponin I < 0.017 (0.000-0.056) ng/mL NT-Pro-B Natriuret Pep 4480 H (5-125) pg/mL Total Protein 7.1 (6.4-8.2) g/dL Albumin 3.2 L (3.4-5.0) g/dL Globulin 3.9 H (2.3-3.5) g/dL Albumin/Globulin Ratio 0.8 L (1.2-2.2) Urine Color (YELLOW) Urine Appearance (CLEAR) Urine pH (5.0-8.0) Ur Specific [place] (1.008-1.030) Urine Protein (NEGATIVE) mg/dL Urine Glucose (UA) (NEGATIVE) mg/dL Urine Ketones (NEGATIVE) mg/dL Urine Occult Blood (NEGATIVE) Urine Nitrite (NEGATIVE) Urine Bilirubin (NEGATIVE) Urine Urobilinogen (0.2-1.0) EU/dL Ur Leukocyte Esterase (NEGATIVE) Urine RBC (0-5) Urine WBC (0-5) Ur Epithelial Cells Amorphous Sediment Urine Bacteria Urine Mucus 04/07/20 Range/Units 11:51 WBC (4.5-11.0) K/uL RBC (3.30-5.50) M/uL Hgb (12.0-15.0) g/dL Hct (36.0-48.0) % MCV (80-98) fL MCH (27-31) pg MCHC (32-36) % Plt Count (150-400) K/uL PT (9.5-12.0) sec INR (0.80-1.20) Sodium (140-148) mmol/L Potassium (3.6-5.2) mmol/L Chloride (100-108) mmol/L Carbon Dioxide (21-32) mmol/L Anion Gap (5.0-14.0) mmol/L BUN (7-18) mg/dL Creatinine (0.6-1.0) mg/dL Est Cr Clr Drug Dosing mL/min Estimated GFR (MDRD) (>60) Glucose (74-106) mg/dL Lactic Acid (0.4-2.0) mmol/L Calcium (8.5-10.1) mg/dL Total Bilirubin (0.2-1.0) mg/dL AST (15-37) U/L ALT (12-78) U/L Alkaline Phosphatase (46-116) U/L Creatine Kinase (26-192) U/L Troponin I (0.000-0.056) ng/mL NT-Pro-B Natriuret Pep (5-125) pg/mL Total Protein (6.4-8.2) g/dL Albumin (3.4-5.0) g/dL Globulin (2.3-3.5) g/dL Albumin/Globulin Ratio (1.2-2.2) Urine Color Yellow (YELLOW) Urine Appearance Cloudy A (CLEAR) Urine pH 6.5 (5.0-8.0) Ur Specific [place] >= 1.030 (1.008-1.030) Urine Protein >=300 H (NEGATIVE) mg/dL Urine Glucose (UA) Negative (NEGATIVE) mg/dL Urine Ketones Trace H (NEGATIVE) mg/dL Urine Occult Blood Large H (NEGATIVE) Urine Nitrite Negative (NEGATIVE) Urine Bilirubin Negative (NEGATIVE) Urine Urobilinogen 0.2 (0.2-1.0) EU/dL Ur Leukocyte Esterase Small H (NEGATIVE) Urine RBC 20-30 H (0-5) Urine WBC 75-100 H (0-5) Ur Epithelial Cells Not seen Amorphous Sediment Not seen Urine Bacteria Many Urine Mucus Few Meds: Medications Generic Name Dose Route Start Last Admin Trade Name Freq PRN Reason Stop Dose Admin Levofloxacin/Dextrose 750 mg/ 150 mls @ 100 mls/hr 04/07/20 12:16 04/07/20 12 :28 Premix IV 04/07/20 13:45 100 mls/hr ONETIME ONE Administration Discontinued Medications Generic Name Dose Route Start Last Admin Trade Name Freq PRN Reason Stop Dose Admin Hydromorphone HCl 0.5 mg 04/07/20 11:14 04/07/20 11:44 Dilaudid IVPUSH 04/07/20 11:15 0.5 mg ONETIME ONE Administration Sodium Chloride 1,000 mls @ 1,000 mls/hr 04/07/20 11:14 04/07/20 11:20 Normal Saline IV 04/07/20 12:13 1,000 mls/hr .BOLUS ONE Administration - Radiology Interpretation Free Text/Narrative:: [id number] Both knees and pelvic x-rays are negative for fracture or dislocation. There is a questionable nondisplaced fracture of her third right metatarsal. Per lab evaluation the patient has a urinary tract infection and rhabdomyolysis. Unfortunately we are 10 to give fluid bolus as her beta [employer] is very high. Consult with hospitalist. Departure - Departure Disposition: Admitted As Inpatient 68 Clinical Impression: Accidental fall Qualifiers: Encounter type: initial encounter Qualified Code(s): W19.XXXA - Unspecified fall, initial encounter Urinary tract infection Qualifiers: Urinary tract infection type: acute cystitis Hematuria presence: without hematuria Qualified Code(s): N30.00 - Acute cystitis without hematuria - Discharge Information Referrals: PCP,None [Primary Care Provider] - Forms: ED Department Discharge Sepsis Event Note - Evaluation Sepsis Screening Result: No Definite Risk - Focused Exam Vital Signs: Vital Signs Temp Pulse Resp BP Pulse Ox 04/07/20 11:24 36.4 C 82 20 139/48 L 99 Date Exam was Performed: 04/07/20 Time Exam was Performed: 12:57 - My Orders Last 24 Hours: My Active Orders 04/07/20 11:10 EKG 12 Lead [EK] Stat 04/07/20 11:11 EKG Documentation Completion [RC] ASDIRECTED 04/07/20 11:29 Urinary Catheter Assessment [RC] ASDIRECTED 04/07/20 11:30 Insert Urinary Catheter [OM.PC] Q24H 04/07/20 12:14 Blood Culture x2 Reflex Set [OM.PC] Urgent 04/07/20 12:16 Levofloxacin/Dextrose 5%-Water [Levaquin in D5W 750 MG/150 ML] 750 mg Premix Bag 1 bag IV ONETIME 04/07/20 12:25 CULTURE BLOOD [BC] Urgent 04/07/20 12:35 CULTURE BLOOD [BC] Urgent 04/07/20 12:36 CULTURE URINE [RM] Stat - Assessment/Plan Last 24 Hours: My Active Orders 04/07/20 11:10 EKG 12 Lead [EK] Stat 04/07/20 11:11 EKG Documentation Completion [RC] ASDIRECTED 04/07/20 11:29 Urinary Catheter Assessment [RC] ASDIRECTED 04/07/20 11:30 Insert Urinary Catheter [OM.PC] Q24H 04/07/20 12:14 Blood Culture x2 Reflex Set [OM.PC] Urgent 04/07/20 12:16 Levofloxacin/Dextrose 5%-Water [Levaquin in D5W 750 MG/150 ML] 750 mg Premix Bag 1 bag IV ONETIME 04/07/20 12:25 CULTURE BLOOD [BC] Urgent 04/07/20 12:35 CULTURE BLOOD [BC] Urgent 04/07/20 12:36 CULTURE URINE [RM] Stat
[2020-04-07] MEDS ORDERED: Levofloxacin/Dextrose 5%-Water 750 MG in Premix Bag 1 BAG IV ONE (12:16)
--- NOTE | 2020-04-07 12:44 | CRLCR ---
Indication: Injury and pain Technique: Pelvis 2 views Comparison: None Findings: Bones: Alignment is normal. No fractures or bone lesions. Joint spaces: Bilateral hip joint osteoarthritis present. Soft tissues: Atherosclerosis present in the femoral arteries. Impression: No sign of acute injury. Dictated by Homero Stevens MD @ 04/07/2020 12:42:41 PM Dictated by: Homeor Stevens MD @ 04/07/2020 12:42:46 (Electronically Signed)
--- NOTE | 2020-04-07 12:46 | CRLCR ---
INDICATION: Pain following fall TECHNIQUE: Two views right knee COMPARISON: None FINDINGS: Bones: Alignment is normal. No fractures or bone lesions. Joint spaces: Unremarkable. Soft tissues: Unremarkable. IMPRESSION: No evidence of acute trauma. Dictated by Jigar Swift MD @ 04/07/2020 12:43:50 PM Dictated by: Jigar Swift MD @ 04/07/2020 12:43:57 (Electronically Signed)
--- NOTE | 2020-04-07 12:46 | CRLCR ---
Indication: Injury and pain Technique: Left knee 2 views Comparison: None Findings: Bones: There are postoperative changes from a below the knee amputation. Bone alignment otherwise normal. No fracture evident. No suspicious bone lesion. Joint spaces: No significant degenerative changes. No joint effusion. Atherosclerosis present. Soft tissues: Unremarkable. Impression: No sign of acute injury. Dictated by Homero Stevens MD @ Apr 07 2020 12:42PM Signed by Dr. Homero Stevens @ Apr 07 2020 12:44PM
--- NOTE | 2020-04-07 12:50 | CRLCR ---
Indication: Injury and pain Technique: Right foot 2 views Comparison: None Findings/Impression: Bones: Questionable acute nondisplaced fractures in the distal head of the 3rd metatarsal and base of the proximal phalanx in the 3rd digit. Remainder of the phalanges in the 3rd digit has been amputated. No other osseous abnormality. Joint spaces: Moderate diffuse arthritic changes. Soft tissues: Generalized atherosclerosis. Dictated by Homero Stevens MD @ Apr 07 2020 12:44PM Signed by Dr. Homero Stevens @ Apr 07 2020 12:48PM
[2020-04-07] MEDS: Sodium Chloride 0.9% 1,000 ML IV SCH ×2 (13:55→22:20)
--- NOTE | 2020-04-07 14:09 | PCM.HP.2 ---
H&P History of Present Illness - General Date of Service: 04/07/20 Admit Problem/Dx: Admission Diagnosis/Problem Admission Diagnosis/Problem Rhabdomyolysis Source of Information: Patient, Provider History Limitations: Reports: No Limitations - History of Present Illness Initial Comments - Free Text/Narative: CC: I fell down HPI: Morenita presents to the emergency room today after being down on the floor for about 24 hours. She reports that she lost her balance going from the wheelchair to her commode and fell down to her knees before falling to her right side. She was too weak to get up when she was down on the floor and laid there until her therapist came to do physical therapy this morning. She is complaining of moderately severe pain in the right hip as well as her right foot. She also has some pain in her knees. She was not able to take anything because she could not get to her pills. She has not had anything to eat or drink in 24 hours. Pain is worse whenever she moves around. Pain has been essentially constant since her fall yesterday. She did note some dysuria over the past 48 hours but has not had any abdominal pain or nausea. Her appetite had been good prior to her fall yesterday. She does not feel short of breath. She does note occasional heartburn which has been worse the past few months. She is not aware of any fevers or chills. She reports good blood sugar control at home. She was released from the senior living about a week ago and had diarrhea for a few days but this resolved. Work-up in the emergency room was suggestive of a urinary tract infection as well as acute rhabdomyolysis. She is too weak to get around at this time. Her kidney function is reduced from baseline but does not meet criteria for acute kidney injury. She will be admitted for management of infection and rhabdomyolysis. Bilateral Hip Pain Score (Numeric/FACES): 5 - Related Data Allergies/Adverse Reactions: Allergies Allergy/AdvReac Type Severity Reaction Status Date / Time Penicillins Allergy Severe Respiratory Verified 04/07/20 11:19 Depression chocolate flavor Allergy Itching Verified 04/07/20 11:19 sulfamethoxazole Allergy Hives Verified 04/07/20 11:19 [From Bactrim] trimethoprim [From Bactrim] Allergy Hives Verified 04/07/20 11:19 Home Medications: Home Meds atorvaSTATin [Lipitor] 40 mg PO BEDTIME 10/01/17 [History] Clopidogrel Bisulfate [Plavix] 75 mg PO DAILY 05/16/18 [History] Potassium Chloride [Klor-Con M20] 20 meq PO BID 05/16/18 [History] Albuterol/Ipratropium [DuoNeb 3.0-0.5 MG/3 ML] 1 dose NEB Q4H PRN 12/12/18 [ History] Gabapentin [Neurontin] 900 mg PO TID 12/12/18 [History] Pentoxifylline [TRENtal] 400 mg PO TID 12/12/18 [History] Escitalopram [Lexapro] 10 mg PO DAILY 08/23/19 [History] oxyCODONE 10 mg PO Q4H PRN #30 tablet 08/28/19 [Rx] Metoprolol Succinate [Toprol Xl] 50 mg PO DAILY 09/13/19 [History] Acetaminophen [Tylenol Extra Strength] 1,000 mg PO TID PRN 04/07/20 [History] Furosemide 40 mg PO DAILY 04/07/20 [History] Insulin Aspart [NovoLOG] 5 unit SQ TIDAC 04/07/20 [History] Insulin Glarg,Human.Rec.Analog [Lantus Solostar] 10 unit SUBCUT BEDTIME [History] Insulin Glarg,Human.Rec.Analog [Lantus Solostar] 15 units SUBCUT ACBREAKFAST [History] Lidocaine 1 applic TOP BID PRN 04/07/20 [History] ondansetron HCL [Zofran] 4 mg PO Q8H PRN 04/07/20 [History] tiZANidine 2 mg PO Q8H 04/07/20 [History] Past Medical History HEENT History: Reports: Cataract, Impaired Vision, Other (See Below) Other HEENT History: diabetic retinopahy r ear pain Cardiovascular History: Reports: CAD, Hypertension, NC, Pacemaker, Stents Respiratory History: Reports: Other (See Below) Other Respiratory History: CHF Gastrointestinal History: Reports: Cholelithiasis, GI Bleed Genitourinary History: Reports: UTI, Recurrent [employer] TEACHER History: Reports: None Musculoskeletal History: Reports: Amputation, Fracture, Other (See Below) Other Musculoskeletal History: l shoulder fx l leg, BKA left 2018, 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 toes debrided right foot tuesday12/22/2018. R hip Fx 08/23/19 Neurological History: Reports: Concussion Psychiatric History: Reports: Anxiety, Depression Endocrine/Metabolic History: Reports: Diabetes, Type II, Obesity/BMI 30+ Hematologic History: Reports: Blood Transfusion(s) Dermatologic History: Reports: Other (See Below) Other Dermatologic History: Skin rash. wound on right foot - Infectious Disease History Infectious Disease History: Reports: Chicken Pox, Other (See Below) Other Infectious Disease History: polio - Past Surgical History Head Surgeries/Procedures: Reports: None HEENT Surgical History: Reports: Cataract Surgery Cardiovascular Surgical History: Reports: Vascular Surgery Respiratory Surgical History: Reports: None GI Surgical History: Reports: Appendectomy, Cholecystectomy Female Surgical History: Reports: Salpingo-Oophorectomy Endocrine Surgical History: Reports: None Neurological Surgical History: Reports: None Musculoskeletal Surgical History: Reports: Amputation, Other (See Below) Dermatological Surgical History: Reports: None Social & Family History - Family History Endocrine/Metabolic: Denies: Diabetes, type II - Tobacco Use Smoking Status *Q: Never Smoker - Caffeine Use Caffeine Use: Reports: Soda - Recreational Drug Use Recreational Drug Use: No - Living Situation & Occupation Living situation: Reports: Occupation: Retired H&P Review of Systems - Review of Systems: Review Of Systems: See Below Free Text/Narrative: A complete 12 point review of systems was obtained. Pertinent positives and negatives are noted in the history of present illness. All other systems were reviewed and were negative except as noted. Exam - Exam Exam: See Below - Vital Signs Vital Signs: Last Vital Signs Temp 36.4 C 04/07/20 11:24 Pulse 82 04/07/20 11:24 Resp 20 04/07/20 11:24 BP 139/48 L 04/07/20 11:24 Pulse Ox 99 04/07/20 11:24 Weight: 125.645 kg - Exam Quality Assessment: No: Supplemental Oxygen General: Alert, Oriented, Cooperative. No: Mild Distress HEENT: Conjunctiva Clear. No: Mucosa Moist & [place] (dry), Scleral Icterus Neck: Supple, Trachea Midline Lungs: Clear to Auscultation, Normal Respiratory Effort Cardiovascular: Regular Rate, Regular Rhythm, Systolic Murmur GI/Abdominal Exam: Normal Bowel Sounds, Soft, Non-Tender, No Distention Extremities: No Pedal Edema, Other (left leg with BKD. Stump looks normal. Right third toe is amputated ) Peripheral Pulses: 1+: Dorsalis Pedis (R) Skin: Warm, Dry Neuro Extensive - Mental Status: Alert, Oriented x3, Nl Response to Commands Neuro Extensive - Motor, Sensory, Reflexes: No: Dysarthria, Abnormal Motor Psychiatric: Alert, Normal Affect - Patient Data Lab Results Last 24 hrs: Laboratory Results - last 24 hr 04/07/20 04/07/20 04/07/20 Range/Units 11:28 11:29 11:29 WBC 21.0 H (4.5-11.0) K/uL RBC 4.47 (3.30-5.50) M/uL Hgb 11.8 L (12.0-15.0) g/dL Hct 37.8 (36.0-48.0) % MCV 85 (80-98) fL MCH 26 L (27-31) pg MCHC 31 L (32-36) % Plt Count 309 (150-400) K/uL PT 11.3 (9.5-12.0) sec INR 1.05 (0.80-1.20) Sodium (140-148) mmol/L Potassium (3.6-5.2) mmol/L Chloride (100-108) mmol/L Carbon Dioxide (21-32) mmol/L Anion Gap (5.0-14.0) mmol/L BUN (7-18) mg/dL Creatinine (0.6-1.0) mg/dL Est Cr Clr Drug Dosing mL/min Estimated GFR (MDRD) (>60) Glucose (74-106) mg/dL Lactic Acid (0.4-2.0) mmol/L Calcium (8.5-10.1) mg/dL Total Bilirubin (0.2-1.0) mg/dL AST (15-37) U/L ALT (12-78) U/L Alkaline Phosphatase (46-116) U/L Creatine Kinase 1917 H (26-192) U/L Troponin I (0.000-0.056) ng/mL NT-Pro-B Natriuret Pep (5-125) pg/mL Total Protein (6.4-8.2) g/dL Albumin (3.4-5.0) g/dL Globulin (2.3-3.5) g/dL Albumin/Globulin Ratio (1.2-2.2) Urine Color (YELLOW) Urine Appearance (CLEAR) Urine pH (5.0-8.0) Ur Specific [place] (1.008-1.030) Urine Protein (NEGATIVE) mg/dL Urine Glucose (UA) (NEGATIVE) mg/dL Urine Ketones (NEGATIVE) mg/dL Urine Occult Blood (NEGATIVE) Urine Nitrite (NEGATIVE) Urine Bilirubin (NEGATIVE) Urine Urobilinogen (0.2-1.0) EU/dL Ur Leukocyte Esterase (NEGATIVE) Urine RBC (0-5) Urine WBC (0-5) Ur Epithelial Cells Amorphous Sediment Urine Bacteria Urine Mucus 04/07/20 04/07/20 04/07/20 Range/Units 11:29 11:29 11:29 WBC (4.5-11.0) K/uL RBC (3.30-5.50) M/uL Hgb (12.0-15.0) g/dL Hct (36.0-48.0) % MCV (80-98) fL MCH (27-31) pg MCHC (32-36) % Plt Count (150-400) K/uL PT (9.5-12.0) sec INR (0.80-1.20) Sodium 140 (140-148) mmol/L Potassium 4.1 (3.6-5.2) mmol/L Chloride 106 (100-108) mmol/L Carbon Dioxide 23 (21-32) mmol/L Anion Gap 10.8 (5.0-14.0) mmol/L BUN 27 H (7-18) mg/dL Creatinine 1.1 H (0.6-1.0) mg/dL Est Cr Clr Drug Dosing 44.95 mL/min Estimated GFR (MDRD) 49 L (>60) Glucose 317 H (74-106) mg/dL Lactic Acid 1.9 (0.4-2.0) mmol/L Calcium 8.8 (8.5-10.1) mg/dL Total Bilirubin 0.6 D (0.2-1.0) mg/dL AST 49 H D (15-37) U/L ALT 36 D (12-78) U/L Alkaline Phosphatase 87 (46-116) U/L Creatine Kinase (26-192) U/L Troponin I < 0.017 (0.000-0.056) ng/mL NT-Pro-B Natriuret Pep 4480 H (5-125) pg/mL Total Protein 7.1 (6.4-8.2) g/dL Albumin 3.2 L (3.4-5.0) g/dL Globulin 3.9 H (2.3-3.5) g/dL Albumin/Globulin Ratio 0.8 L (1.2-2.2) Urine Color (YELLOW) Urine Appearance (CLEAR) Urine pH (5.0-8.0) Ur Specific [place] (1.008-1.030) Urine Protein (NEGATIVE) mg/dL Urine Glucose (UA) (NEGATIVE) mg/dL Urine Ketones (NEGATIVE) mg/dL Urine Occult Blood (NEGATIVE) Urine Nitrite (NEGATIVE) Urine Bilirubin (NEGATIVE) Urine Urobilinogen (0.2-1.0) EU/dL Ur Leukocyte Esterase (NEGATIVE) Urine RBC (0-5) Urine WBC (0-5) Ur Epithelial Cells Amorphous Sediment Urine Bacteria Urine Mucus 04/07/20 Range/Units 11:51 WBC (4.5-11.0) K/uL RBC (3.30-5.50) M/uL Hgb (12.0-15.0) g/dL Hct (36.0-48.0) % MCV (80-98) fL MCH (27-31) pg MCHC (32-36) % Plt Count (150-400) K/uL PT (9.5-12.0) sec INR (0.80-1.20) Sodium (140-148) mmol/L Potassium (3.6-5.2) mmol/L Chloride (100-108) mmol/L Carbon Dioxide (21-32) mmol/L Anion Gap (5.0-14.0) mmol/L BUN (7-18) mg/dL Creatinine (0.6-1.0) mg/dL Est Cr Clr Drug Dosing mL/min Estimated GFR (MDRD) (>60) Glucose (74-106) mg/dL Lactic Acid (0.4-2.0) mmol/L Calcium (8.5-10.1) mg/dL Total Bilirubin (0.2-1.0) mg/dL AST (15-37) U/L ALT (12-78) U/L Alkaline Phosphatase (46-116) U/L Creatine Kinase (26-192) U/L Troponin I (0.000-0.056) ng/mL NT-Pro-B Natriuret Pep (5-125) pg/mL Total Protein (6.4-8.2) g/dL Albumin (3.4-5.0) g/dL Globulin (2.3-3.5) g/dL Albumin/Globulin Ratio (1.2-2.2) Urine Color Yellow (YELLOW) Urine Appearance Cloudy A (CLEAR) Urine pH 6.5 (5.0-8.0) Ur Specific [place] >= 1.030 (1.008-1.030) Urine Protein >=300 H (NEGATIVE) mg/dL Urine Glucose (UA) Negative (NEGATIVE) mg/dL Urine Ketones Trace H (NEGATIVE) mg/dL Urine Occult Blood Large H (NEGATIVE) Urine Nitrite Negative (NEGATIVE) Urine Bilirubin Negative (NEGATIVE) Urine Urobilinogen 0.2 (0.2-1.0) EU/dL Ur Leukocyte Esterase Small H (NEGATIVE) Urine RBC 20-30 H (0-5) Urine WBC 75-100 H (0-5) Ur Epithelial Cells Not seen Amorphous Sediment Not seen Urine Bacteria Many Urine Mucus Few Result Diagrams: 04/07/20 11:29 04/07/20 11:29 Imaging Impressions Last 24 hrs: Pelvis XR-images personally reviewed- no acute fracture or dislocation bilateral knee XR-no acute fractures right foot XR-3rd toe amputated. No obvious acute fractures. EKG INTERPRETATION EKG Date: 04/07/20 Rhythm: NSR Rate (Beats/Min): 83 [place]: LAD-Left [place] Deviation P-Wave: Present QRS: RBBB ST-T: Normal QT: Normal EKG Interpretation Comments: RBBB and LAFB. No acute ischemia. Image personally reviewed. Sepsis Event Note - Evaluation Sepsis Screening Result: No Definite Risk - Focused Exam Vital Signs: Vital Signs Temp Pulse Resp BP Pulse Ox 04/07/20 11:24 36.4 C 82 20 139/48 L 99 Date Exam was Performed: 04/07/20 Time Exam was Performed: 15:26 *Q Meaningful Use (ADM) - VTE Risk Assess *Q Each Risk Factor Represents 1 Point: Obesity ( BMI > 25 kg/m2), Congestive heart failure (CHF) Total Score 1 Point Risk Factors: 2 Each Risk Factor Represents 2 Points: Age 60 - 74 Years Total Score 2 Point Risk Factors: 2 Each Risk Factor Represents 3 Points: None Total Score 3 Point Risk Factors: 0 Each Risk Factor Represents 5 Points: None Total Score 5 Point Risk Factors: 0 Venous Thromboembolism Risk Factor Score *Q: 4 - Problem List (1) Rhabdomyolysis SNOMED Code(s): 620085998 ICD Code: M62.82 - RHABDOMYOLYSIS Status: Acute Current Visit: Yes Qualifiers: Rhabdomyolysis type: traumatic Encounter type: initial encounter Qualified Code(s): T79.6XXA - Traumatic ischemia of muscle, initial encounter (2) Acute cystitis without hematuria SNOMED Code(s): 74252747 ICD Code: N30.00 - ACUTE CYSTITIS WITHOUT HEMATURIA Status: Acute Current Visit: Yes (3) Type 2 diabetes mellitus SNOMED Code(s): 56485878 ICD Code: E11.9 - TYPE 2 DIABETES MELLITUS WITHOUT COMPLICATIONS Status: Chronic Current Visit: No Qualifiers: Diabetes mellitus 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 Diabetes mellitus complication status: with other specified complication Qualified Code (s): E11.69 - Type 2 diabetes mellitus with other specified complication; Z79.4 - roasterman (current) use of insulin (4) CHF (congestive heart failure) SNOMED Code(s): 77978677 ICD Code: I50.9 - HEART FAILURE, UNSPECIFIED Status: Chronic Current Visit: Yes Qualifiers: Heart failure type: diastolic Heart failure chronicity: chronic Qualified Code(s): I50.32 - Chronic diastolic (congestive) heart failure (5) Below knee amputation SNOMED Code(s): 183795438 ICD Code: S88.119A - COMPLETE TRAUM AMP AT LEV BETW KN & ANKL, UNSP LOW LEG, INIT Status: Chronic Current Visit: No Problem List Initiated/Reviewed/Updated: Yes Orders Last 24hrs: Active Orders 24 hr Category Date Time Status Patient Status Manage Transfer [TRANSFER] Routine ADT 04/07/20 13:56 Ordered EKG Documentation Completion [RC] ASDIRECTED Care 04/07/20 11:11 Active Insert Urinary Catheter [OM.PC] Q24H Care 04/07/20 11:30 Ordered Urinary Catheter Assessment [RC] ASDIRECTED Care 05/18/20 11:29 Active CULTURE BLOOD [BC] Urgent Lab 04/07/20 12:25 Received CULTURE BLOOD [BC] Urgent Lab 04/07/20 12:35 Received CULTURE URINE [RM] Stat Lab 04/07/20 12:36 Received Sodium Chloride 0.9% [Normal Saline] 1,000 ml Med 04/07/20 13:30 Active IV ASDIRECTED Blood Culture x2 Reflex Set [OM.PC] Urgent Oth 04/07/20 12:14 Ordered Resuscitation Status Routine Resus Stat 04/07/20 14:00 Ordered EKG 12 Lead [EK] Stat Ther 04/07/20 11:10 Ordered Medication Orders Sodium Chloride (Normal Saline) 1,000 mls @ 125 mls/hr IV ASDIRECTED BRITNEY Last Admin: 04/07/20 13:55 Dose: 125 mls/hr Assessment/Plan Comment:: ASSESSMENT AND PLAN - Acute rhabdomyolysis-secondary to fall and spending about 24 hours on the ground. I would not be surprised if her CK level rises before it goes down. She has a variety of aches and pains but x-rays have all been negative for fracture. She did have a recent hip fracture which was treated nonoperatively but had been improving and was able to go home from the senior living just over a week ago. -IV fluids -Pain control -Repeat CK level in the morning Acute cystitis without hematuria-symptoms of dysuria. No fevers. White blood cell count is mildly elevated. No evidence for sepsis. She did receive levofloxacin in the emergency room. -Start ceftriaxone tomorrow -Follow-up urine culture -IV fluids as above Insulin-dependent diabetes mellitus-she reports good control of blood sugars at home. -Continue home regimen of long-acting and mealtime insulin Recent right hip fracture-treated nonoperatively and had been making improvements. -Pain control -Physical therapy tomorrow History of below the knee amputation on the left Maintenance issues - - DVT prophylaxis -enoxaparin - GI prophylaxis -PPI - Nutrition -diabetic - Barber catheter -placed in the emergency room for strict intake and output control with acute rhabdomyolysis CODE STATUS -full code Admission justification -this patient will be admitted for inpatient services and is medically appropriate meeting medical necessity for inpatient admission as outlined in my documentation. I reasonably expect the patient will require inpatient services that span a period time over 2 midnights. I reasonably expect this patient to be discharged or transferred within 96 hours after admission to the [facility]. Disposition -I would anticipate discharge home with home care Primary care physician -Dr Humberto Padilla M.D. - Mortality Measure Prognosis:: Good
[2020-04-07] MEDS ORDERED: Albuterol 0.083% 2.5 MG/3 ML Neb Soln NEB PRN (14:27)
[2020-04-07] MEDS ORDERED: LORazepam 2 MG/ML SDV IVPUSH PRN (14:27)
[2020-04-07] MEDS ORDERED: Ondansetron 4 MG Tab.DIS PO PRN (14:27)
[2020-04-07] MEDS ORDERED: Ondansetron 4 MG/2 ML SDV IV PRN (14:27)
[2020-04-07] MEDS ORDERED: Magnesium Hydroxide 400 MG/5 ML Susp 30 ML Cup PO PRN (14:27)
[2020-04-07] MEDS: Gabapentin 300 MG Cap PO SCH ×2 (15:23→21:22)
[2020-04-07] MEDS: Pentoxifylline 400 MG Tab.ER PO SCH ×2 (15:23→21:23)
[2020-04-07] MEDS: HYDROmorphone 1 MG/ML Syringe IVPUSH PRN ×2 (15:23→19:41)
[2020-04-07] MEDS: Acetaminophen 500 MG Tab PO PRN (15:57)
[2020-04-07] MEDS: Insulin Lispro 100 Unit/ML 3 ML KwikPen SUBCUT SCH (16:53)
[2020-04-07] MEDS: Lactobacillus Rhamnosus GG (Probiotic) Cap PO SCH (21:17)
[2020-04-07] MEDS: Potassium Chloride 20 MEQ Tab.ER PO SCH (21:18)
[2020-04-07] MEDS: Melatonin 3 MG Tab PO SCH (21:19)
[2020-04-07] MEDS: atorvaSTATin 20 MG Tab PO SCH (21:20)
[2020-04-07] MEDS: Insulin Glargine,Human Rec. Analog 100 Units/ML 3 ML Pen SUBCUT SCH (21:21)
[2020-04-07] MEDS: Nystatin Crm 15 GM Tube TOP SCH (23:33)
[2020-04-08] MEDS ORDERED: Sodium Chloride 0.9% 500 ML IV ONE (03:11)
[2020-04-08] MEDS: HYDROmorphone 1 MG/ML Syringe IVPUSH PRN ×2 (03:26→05:44)
[2020-04-08] MEDS: oxyCODONE 5 MG Tab PO PRN ×4 (04:48→19:37)
[2020-04-08] MEDS: Pantoprazole 40 MG Tab.CR PO SCH (07:33)
[2020-04-08] MEDS: Insulin Glargine,Human Rec. Analog 100 Units/ML 3 ML Pen SUBCUT SCH ×2 (07:35→21:21)
[2020-04-08] MEDS: Insulin Lispro 100 Unit/ML 3 ML KwikPen SUBCUT SCH ×3 (07:35→16:36)
[2020-04-08] MEDS: Lactobacillus Rhamnosus GG (Probiotic) Cap PO SCH ×2 (09:42→21:19)
[2020-04-08] MEDS: Enoxaparin 40 MG/0.4 ML Syringe SUBCUT SCH (09:43)
[2020-04-08] MEDS: Gabapentin 300 MG Cap PO SCH ×3 (09:43→21:20)
[2020-04-08] MEDS: Furosemide 40 MG Tab PO SCH (09:43)
[2020-04-08] MEDS: Potassium Chloride 20 MEQ Tab.ER PO SCH ×2 (09:43→21:18)
[2020-04-08] MEDS: Escitalopram 10 MG Tab PO SCH (09:43)
[2020-04-08] MEDS: Metoprolol Succinate 50 MG Tab.ER PO SCH (09:44)
[2020-04-08] MEDS: Nystatin Crm 15 GM Tube TOP SCH ×2 (09:44→21:21)
[2020-04-08] MEDS: Pentoxifylline 400 MG Tab.ER PO SCH ×3 (09:45→21:19)
[2020-04-08] MEDS: Clopidogrel 75 MG Tab PO SCH (09:45)
--- NOTE | 2020-04-08 11:55 | PCM.PN ---
- General Info Date of Service: 04/08/20 Subjective Update: No acute events overnight. Right hip pain is better but still moderate. Still having some pain in the middle of her right foot. No nausea or vomiting. No fevers. White blood cell count has improved. CK level has improved. Urine culture is growing a gram-negative jaki. Blood sugars have been well controlled. Functional Status: Reports: Pain Controlled, Tolerating Diet - Review of Systems General: Reports: Weakness Musculoskeletal: Reports: Leg Pain - Patient Data Vitals - Most Recent: Last Vital Signs Temp 36.9 C 04/08/20 07:21 Pulse 88 04/08/20 09:44 Resp 16 04/08/20 07:21 BP 138/33 L 04/08/20 09:44 Pulse Ox 92 L 04/08/20 07:21 Weight - Most Recent: 125.645 kg I&O - Last 24 Hours: Intake & Output 04/07/20 04/08/20 04/08/20 22:59 06:59 14:59 Intake Total 226 1763 480 Output Total 400 275 Balance -174 1488 480 Lab Results Last 24 Hours: Laboratory Results - last 24 hr 04/07/20 04/07/20 04/07/20 Range/Units 11:28 11:29 11:29 WBC (4.5-11.0) K/uL RBC (3.30-5.50) M/uL Hgb (12.0-15.0) g/dL Hct (36.0-48.0) % MCV (80-98) fL MCH (27-31) pg MCHC (32-36) % Plt Count (150-400) K/uL Sodium 140 (140-148) mmol/L Potassium 4.1 (3.6-5.2) mmol/L Chloride 106 (100-108) mmol/L Carbon Dioxide 23 (21-32) mmol/L Anion Gap 10.8 (5.0-14.0) mmol/L BUN 27 H (7-18) mg/dL Creatinine 1.1 H (0.6-1.0) mg/dL Est Cr Clr Drug Dosing 44.95 mL/min Estimated GFR (MDRD) 49 L (>60) Glucose 317 H (74-106) mg/dL Lactic Acid 1.9 (0.4-2.0) mmol/L Calcium 8.8 (8.5-10.1) mg/dL Magnesium (1.8-2.4) mg/dL Total Bilirubin 0.6 D (0.2-1.0) mg/dL AST 49 H D (15-37) U/L ALT 36 D (12-78) U/L Alkaline Phosphatase 87 (46-116) U/L Creatine Kinase 1917 H (26-192) U/L Troponin I (0.000-0.056) ng/mL NT-Pro-B Natriuret Pep 4480 H (5-125) pg/mL Total Protein 7.1 (6.4-8.2) g/dL Albumin 3.2 L (3.4-5.0) g/dL Globulin 3.9 H (2.3-3.5) g/dL Albumin/Globulin Ratio 0.8 L (1.2-2.2) Urine Color (YELLOW) Urine Appearance (CLEAR) Urine pH (5.0-8.0) Ur Specific Henderson (1.008-1.030) Urine Protein (NEGATIVE) mg/dL Urine Glucose (UA) (NEGATIVE) mg/dL Urine Ketones (NEGATIVE) mg/dL Urine Occult Blood (NEGATIVE) Urine Nitrite (NEGATIVE) Urine Bilirubin (NEGATIVE) Urine Urobilinogen (0.2-1.0) EU/dL Ur Leukocyte Esterase (NEGATIVE) Urine RBC (0-5) Urine WBC (0-5) Ur Epithelial Cells Amorphous Sediment Urine Bacteria Urine Mucus 04/07/20 04/07/20 04/08/20 Range/Units 11:29 11:51 05:30 WBC 15.8 H (4.5-11.0) K/uL RBC 3.65 (3.30-5.50) M/uL Hgb 9.4 L D (12.0-15.0) g/dL Hct 31.6 L (36.0-48.0) % MCV 87 (80-98) fL MCH 26 L (27-31) pg MCHC 30 L (32-36) % Plt Count 255 (150-400) K/uL Sodium (140-148) mmol/L Potassium (3.6-5.2) mmol/L Chloride (100-108) mmol/L Carbon Dioxide (21-32) mmol/L Anion Gap (5.0-14.0) mmol/L BUN (7-18) mg/dL Creatinine (0.6-1.0) mg/dL Est Cr Clr Drug Dosing mL/min Estimated GFR (MDRD) (>60) Glucose (74-106) mg/dL Lactic Acid (0.4-2.0) mmol/L Calcium (8.5-10.1) mg/dL Magnesium (1.8-2.4) mg/dL Total Bilirubin (0.2-1.0) mg/dL AST (15-37) U/L ALT (12-78) U/L Alkaline Phosphatase (46-116) U/L Creatine Kinase (26-192) U/L Troponin I < 0.017 (0.000-0.056) ng/mL NT-Pro-B Natriuret Pep (5-125) pg/mL Total Protein (6.4-8.2) g/dL Albumin (3.4-5.0) g/dL Globulin (2.3-3.5) g/dL Albumin/Globulin Ratio (1.2-2.2) Urine Color Yellow (YELLOW) Urine Appearance Cloudy A (CLEAR) Urine pH 6.5 (5.0-8.0) Ur Specific Henderson >= 1.030 (1.008-1.030) Urine Protein >=300 H (NEGATIVE) mg/dL Urine Glucose (UA) Negative (NEGATIVE) mg/dL Urine Ketones Trace H (NEGATIVE) mg/dL Urine Occult Blood Large H (NEGATIVE) Urine Nitrite Negative (NEGATIVE) Urine Bilirubin Negative (NEGATIVE) Urine Urobilinogen 0.2 (0.2-1.0) EU/dL Ur Leukocyte Esterase Small H (NEGATIVE) Urine RBC 20-30 H (0-5) Urine WBC 75-100 H (0-5) Ur Epithelial Cells Not seen Amorphous Sediment Not seen Urine Bacteria Many Urine Mucus Few 04/08/20 Range/Units 05:30 WBC (4.5-11.0) K/uL RBC (3.30-5.50) M/uL Hgb (12.0-15.0) g/dL Hct (36.0-48.0) % MCV (80-98) fL MCH (27-31) pg MCHC (32-36) % Plt Count (150-400) K/uL Sodium 141 (140-148) mmol/L Potassium 4.5 (3.6-5.2) mmol/L Chloride 110 H (100-108) mmol/L Carbon Dioxide 22 (21-32) mmol/L Anion Gap 13.5 (5.0-14.0) mmol/L BUN 32 H (7-18) mg/dL Creatinine 1.0 (0.6-1.0) mg/dL Est Cr Clr Drug Dosing 49.45 mL/min Estimated GFR (MDRD) 55 L (>60) Glucose 188 H (74-106) mg/dL Lactic Acid (0.4-2.0) mmol/L Calcium 8.0 L (8.5-10.1) mg/dL Magnesium 2.0 (1.8-2.4) mg/dL Total Bilirubin (0.2-1.0) mg/dL AST (15-37) U/L ALT (12-78) U/L Alkaline Phosphatase (46-116) U/L Creatine Kinase 776 H (26-192) U/L Troponin I (0.000-0.056) ng/mL NT-Pro-B Natriuret Pep (5-125) pg/mL Total Protein (6.4-8.2) g/dL Albumin (3.4-5.0) g/dL Globulin (2.3-3.5) g/dL Albumin/Globulin Ratio (1.2-2.2) Urine Color (YELLOW) Urine Appearance (CLEAR) Urine pH (5.0-8.0) Ur Specific Henderson (1.008-1.030) Urine Protein (NEGATIVE) mg/dL Urine Glucose (UA) (NEGATIVE) mg/dL Urine Ketones (NEGATIVE) mg/dL Urine Occult Blood (NEGATIVE) Urine Nitrite (NEGATIVE) Urine Bilirubin (NEGATIVE) Urine Urobilinogen (0.2-1.0) EU/dL Ur Leukocyte Esterase (NEGATIVE) Urine RBC (0-5) Urine WBC (0-5) Ur Epithelial Cells Amorphous Sediment Urine Bacteria Urine Mucus Dangelo Results Last 24 Hours: Microbiology 04/07/20 12:36 Urine Culture - Preliminary Urine, Catheterized Med Orders - Current: Current Medications Acetaminophen (Tylenol Extra Strength) 1,000 mg PO TID PRN PRN Reason: Pain Last Admin: 04/07/20 15:57 Dose: 1,000 mg Albuterol (Proventil Neb Soln) 2.5 mg NEB Q4H PRN PRN Reason: Shortness Of Breath/wheezing Atorvastatin Calcium (Lipitor) 40 mg PO BEDTIME [facility] Last Admin: 04/07/20 21:20 Dose: 40 mg Clopidogrel Bisulfate (Plavix) 75 mg PO DAILY [facility] Last Admin: 04/08/20 09:45 Dose: 75 mg Enoxaparin Sodium (Lovenox) 40 mg SUBCUT DAILY [facility] Last Admin: 04/08/20 09:43 Dose: 40 mg Escitalopram Oxalate (Lexapro) 10 mg PO DAILY [facility] Last Admin: 04/08/20 09:43 Dose: 10 mg Furosemide (Lasix) 40 mg PO DAILY [facility] Last Admin: 04/08/20 09:43 Dose: 40 mg Gabapentin (Neurontin) 900 mg PO TID [facility] Last Admin: 04/08/20 09:43 Dose: 900 mg Hydromorphone HCl (Dilaudid) 1 mg IVPUSH Q2H PRN PRN Reason: Pain (severe 7-10) Last Admin: 04/08/20 05:44 Dose: 1 mg Sodium Chloride (Normal Saline) 1,000 mls @ 125 mls/hr IV ASDIRECTED [facility] Last Admin: 04/07/20 22:20 Dose: 125 mls/hr Ceftriaxone Sodium 1 gm/ (Sodium Chloride) 50 mls @ 100 mls/hr IV Q24H [facility] Insulin Glargine (Lantus Solostar) 10 units SUBCUT BEDTIME [facility] Last Admin: 04/07/20 21:21 Dose: 10 unit Insulin Glargine (Lantus Solostar) 15 units SUBCUT ACBREAKFAST [facility] Last Admin: 04/08/20 07:35 Dose: 15 units Insulin Human Lispro (Humalog) 5 unit SUBCUT TIDMEALS [facility] Last Admin: 04/08/20 07:35 Dose: 5 units Lactobacillus Rhamnosus (Culturelle) 1 cap PO BID [facility] Last Admin: 04/08/20 09:42 Dose: 1 cap Lorazepam (Ativan) 0.5 mg IVPUSH Q4H PRN PRN Reason: Nausea/Vomiting Magnesium Hydroxide (Milk Of Magnesia) 30 ml PO Q12H PRN PRN Reason: Constipation Melatonin (Melatonin) 9 mg PO BEDTIME [facility] Last Admin: 04/07/20 21:19 Dose: 9 mg Metoprolol Succinate (Toprol Xl) 50 mg PO DAILY [facility] Last Admin: 04/08/20 09:44 Dose: 50 mg Nystatin (Nystatin Crm) 0 gm TOP BID [facility] Last Admin: 04/08/20 09:44 Dose: 1 applic Ondansetron HCl (Zofran Odt) 4 mg PO Q6H PRN PRN Reason: Nausea able to take PO Ondansetron HCl (Zofran) 4 mg IV Q6H PRN PRN Reason: Nausea/Vomiting Oxycodone HCl (Oxycodone) 10 mg PO Q4H PRN PRN Reason: Pain (moderate 4-6) Last Admin: 04/08/20 08:33 Dose: 10 mg Pantoprazole Sodium (Protonix) 40 mg PO ACBREAKFAST [facility] Last Admin: 04/08/20 07:33 Dose: 40 mg Pentoxifylline (Trental) 400 mg PO TID [facility] Last Admin: 04/08/20 09:45 Dose: 400 mg Potassium Chloride (Klor-Con M20) 20 meq PO BID [facility] Last Admin: 04/08/20 09:43 Dose: 20 meq Senna/Docusate Sodium (Senna Plus) 1 tab PO BID PRN PRN Reason: Constipation Tizanidine HCl (Zanaflex) 2 mg PO Q8H PRN PRN Reason: muscle spasms Discontinued Medications Hydromorphone HCl (Dilaudid) 0.5 mg IVPUSH ONETIME ONE Stop: 04/07/20 11:15 Last Admin: 04/07/20 11:44 Dose: 0.5 mg Sodium Chloride (Normal Saline) 1,000 mls @ 1,000 mls/hr IV .BOLUS ONE Stop: 04/07/20 12:13 Last Admin: 04/07/20 11:20 Dose: 1,000 mls/hr Levofloxacin/Dextrose 750 mg/ (Premix) 150 mls @ 100 mls/hr IV ONETIME ONE Stop: 04/07/20 13:45 Last Admin: 04/07/20 12:28 Dose: 100 mls/hr Sodium Chloride (Normal Saline) 500 mls @ 500 mls/hr IV .BOLUS ONE Stop: 04/08/20 04:10 Last Admin: 04/08/20 03:27 Dose: 500 mls/hr - Exam Quality Assessment: No: Supplemental Oxygen General: Alert, Oriented, Cooperative, No Acute Distress Lungs: Normal Respiratory Effort Cardiovascular: Regular Rate, Regular Rhythm GI/Abdominal Exam: Soft, No Distention Extremities: No Pedal Edema (right ), Other (left BKA) Psy/Mental Status: Alert, Normal Affect Sepsis Event Note - Evaluation Sepsis Screening Result: No Definite Risk - Focused Exam Vital Signs: Vital Signs Temp Pulse Pulse Resp BP BP BP 04/08/20 09:44 88 138/33 L 04/08/20 07:21 36.9 C 88 16 138/33 L 04/08/20 02:54 36.5 C 70 20 122/27 L 136/31 L Pulse Ox 04/08/20 09:44 04/08/20 07:21 92 L 04/08/20 02:54 94 L Date Exam was Performed: 04/08/20 Time Exam was Performed: 13:10 - Problem List & Annotations (1) Rhabdomyolysis SNOMED Code(s): 699335058 Code(s): M62.82 - RHABDOMYOLYSIS Status: Acute Current Visit: Yes Qualifiers: Rhabdomyolysis type: traumatic Encounter type: initial encounter Qualified Code(s): T79.6XXA - Traumatic ischemia of muscle, initial encounter (2) Acute cystitis without hematuria SNOMED Code(s): 90500831 Code(s): N30.00 - ACUTE CYSTITIS WITHOUT HEMATURIA Status: Acute Current Visit: Yes (3) Type 2 diabetes mellitus SNOMED Code(s): 55400443 Code(s): E11.9 - TYPE 2 DIABETES MELLITUS WITHOUT COMPLICATIONS Status: Chronic Current Visit: No Qualifiers: 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 Diabetes mellitus complication status: with other specified complication Qualified Code (s): E11.69 - Type 2 diabetes mellitus with other specified complication; 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 (4) CHF (congestive heart failure) SNOMED Code(s): 51624819 Code(s): I50.9 - HEART FAILURE, UNSPECIFIED Status: Chronic Current Visit : Yes Qualifiers: Heart failure type: diastolic Heart failure chronicity: chronic Qualified Code(s): I50.32 - Chronic diastolic (congestive) heart failure (5) Below knee amputation SNOMED Code(s): 266062464 Code(s): S88.119A - COMPLETE TRAUM AMP AT LEV BETW KN & ANKL, UNSP LOW LEG, INIT Status: Chronic Current Visit: No - Problem List Review Problem List Initiated/Reviewed/Updated: Yes - My Orders Last 24 Hours: My Active Orders 04/07/20 13:30 Sodium Chloride 0.9% [Normal Saline] 1,000 ml IV ASDIRECTED 04/07/20 14:00 Resuscitation Status Routine 04/07/20 14:27 Patient Status [ADT] Routine Communication Order [RC] PRN Communication Order [RC] PRN Diabetes Education [RC] Click to Edit Intake and Output [RC] QSHIFT Notify Provider Vital Signs [RC] ASDIRECTED Notify Provider [RC] PRN Oxygen Therapy [RC] PRN RT Aerosol Therapy [RC] ASDIRECTED Up With Assistance [RC] ASDIRECTED VTE/DVT Education [RC] Per Unit Routine Vital Signs [RC] Q4H Acetaminophen [Tylenol Extra Strength] 1,000 mg PO TID PRN Albuterol [Proventil Neb Soln] 2.5 mg NEB Q4H PRN Docusate Sodium/Sennosides [Senna Plus] 1 tab PO BID PRN Gabapentin [Neurontin] 900 mg PO TID HYDROmorphone [Dilaudid] 1 mg IVPUSH Q2H PRN LORazepam [Ativan] 0.5 mg IVPUSH Q4H PRN Magnesium Hydroxide [Milk of Magnesia] 30 ml PO Q12H PRN Ondansetron [Zofran ODT] 4 mg PO Q6H PRN Ondansetron [Zofran] 4 mg IV Q6H PRN Pentoxifylline [TRENtal] 400 mg PO TID oxyCODONE 10 mg PO Q4H PRN tiZANidine [Zanaflex] 2 mg PO Q8H PRN 04/07/20 17:00 Insulin Lispro [HumaLOG] 5 unit SUBCUT TIDMEALS 04/07/20 21:00 Insulin Glarg,Human.Rec.Analog [LantUS Solostar] 10 units SUBCUT BEDTIME Lactobacillus Rhamnosus GG [Culturelle] 1 cap PO BID Melatonin 9 mg PO BEDTIME Nystatin [Nystatin Crm] 0 gm TOP BID Potassium Chloride [Klor-Con M20] 20 meq PO BID atorvaSTATin [Lipitor] 40 mg PO BEDTIME 04/07/20 Dinner Consistent Carbohydrate Diet [DIET] 04/08/20 07:00 PT Evaluation and Treatment [CONS] Routine 04/08/20 07:30 Insulin Glarg,Human.Rec.Analog [LantUS Solostar] 15 units SUBCUT ACBREAKFAST Pantoprazole [ProTONIX] 40 mg PO ACBREAKFAST 04/08/20 09:00 Clopidogrel [Plavix] 75 mg PO DAILY Enoxaparin [Lovenox] 40 mg SUBCUT DAILY Escitalopram [Lexapro] 10 mg PO DAILY Furosemide [Lasix] 40 mg PO DAILY Metoprolol Succinate [Toprol XL] 50 mg PO DAILY 04/08/20 11:30 GLUCOSE POC LAB TO COLLECT [POC] QIDACANDBED 04/08/20 13:00 cefTRIAXone [Rocephin] 1 gm Sodium Chloride 0.9% [Normal Saline] 50 ml IV Q24H 04/08/20 16:30 GLUCOSE POC LAB TO COLLECT [POC] QIDACANDBED 04/08/20 21:00 GLUCOSE POC LAB TO COLLECT [POC] QIDACANDBED 04/09/20 05:00 BASIC METABOLIC PANEL,BMP [CHEM] Timed CBC W/O DIFF,HEMOGRAM [HEME] Timed (1) CREATINE KINASE,CK [CHEM] Timed 04/09/20 07:30 GLUCOSE POC LAB TO COLLECT [POC] QIDACANDBED 04/09/20 11:30 GLUCOSE POC LAB TO COLLECT [POC] QIDACANDBED 04/09/20 16:30 GLUCOSE POC LAB TO COLLECT [POC] QIDACANDBED 04/09/20 21:00 GLUCOSE POC LAB TO COLLECT [POC] QIDACANDBED 04/10/20 07:30 GLUCOSE POC LAB TO COLLECT [POC] QIDACANDBED 04/10/20 11:30 GLUCOSE POC LAB TO COLLECT [POC] QIDACANDBED 04/10/20 16:30 GLUCOSE POC LAB TO COLLECT [POC] QIDACANDBED 04/10/20 21:00 GLUCOSE POC LAB TO COLLECT [POC] QIDACANDBED 04/11/20 07:30 GLUCOSE POC LAB TO COLLECT [POC] QIDACANDBED 04/11/20 11:30 GLUCOSE POC LAB TO COLLECT [POC] QIDACANDBED 04/11/20 16:30 GLUCOSE POC LAB TO COLLECT [POC] QIDACANDBED 04/11/20 21:00 GLUCOSE POC LAB TO COLLECT [POC] QIDACANDBED 04/12/20 07:30 GLUCOSE POC LAB TO COLLECT [POC] QIDACANDBED 04/12/20 11:30 GLUCOSE POC LAB TO COLLECT [POC] QIDACANDBED 04/12/20 16:30 GLUCOSE POC LAB TO COLLECT [POC] QIDACANDBED 04/12/20 21:00 GLUCOSE POC LAB TO COLLECT [POC] QIDACANDBED - Plan Plan:: ASSESSMENT AND PLAN - Acute rhabdomyolysis-secondary to fall and spending about 24 hours on the ground. CK level has improved since admission. Still having some muscle pain but this seems to be a little better today. Kidney function has improved but is not quite back to normal. -Continue IV fluids -Pain control -Repeat CK level in the morning Acute cystitis without hematuria-symptoms of dysuria. No fevers. White blood cell count has improved. Urine culture is growing a gram-negative jaki. -Start ceftriaxone today, transition to oral medications tomorrow -Follow-up urine culture -IV fluids as above Insulin-dependent diabetes mellitus-good blood sugar control so far. -Continue home regimen of long-acting and mealtime insulin Recent right hip fracture-treated nonoperatively and had been making improvements. -Pain control -Physical therapy History of below the knee amputation on the left Maintenance issues - - DVT prophylaxis -enoxaparin - GI prophylaxis -PPI - Nutrition -diabetic - Barber catheter -placed in the emergency room for strict intake and output control with acute rhabdomyolysis, anticipate removal tomorrow Disposition -I would anticipate discharge home with home care after the hospital stay Primary care physician -Dr Humberto Padilla M.D.
[2020-04-08] MEDS ORDERED: cefTRIAXone 1 GM in Sodium Chloride 0.9% 50 ML IV SCH (13:00)
[2020-04-08] MEDS: atorvaSTATin 20 MG Tab PO SCH (21:00)
[2020-04-08] MEDS: Sodium Chloride 0.9% 1,000 ML IV SCH (21:17)
[2020-04-08] MEDS: Melatonin 3 MG Tab PO SCH (21:20)
[2020-04-09] MEDS: oxyCODONE 5 MG Tab PO PRN ×2 (02:43→17:22)
[2020-04-09] MEDS: Sodium Chloride 0.9% 1,000 ML IV SCH (05:18)
[2020-04-09] MEDS: Pantoprazole 40 MG Tab.CR PO SCH (07:52)
[2020-04-09] MEDS: Insulin Glargine,Human Rec. Analog 100 Units/ML 3 ML Pen SUBCUT SCH ×2 (07:52→21:11)
[2020-04-09] MEDS: Insulin Lispro 100 Unit/ML 3 ML KwikPen SUBCUT SCH ×3 (07:53→17:28)
[2020-04-09] MEDS: HYDROmorphone 1 MG/ML Syringe IVPUSH PRN (09:29)
[2020-04-09] MEDS: Escitalopram 10 MG Tab PO SCH (09:33)
[2020-04-09] MEDS: Potassium Chloride 20 MEQ Tab.ER PO SCH ×2 (09:33→21:09)
[2020-04-09] MEDS: Lactobacillus Rhamnosus GG (Probiotic) Cap PO SCH ×2 (09:33→21:09)
[2020-04-09] MEDS: Enoxaparin 40 MG/0.4 ML Syringe SUBCUT SCH (09:33)
[2020-04-09] MEDS: Furosemide 40 MG Tab PO SCH (09:33)
[2020-04-09] MEDS: Nystatin Crm 15 GM Tube TOP SCH ×2 (09:34→23:17)
[2020-04-09] MEDS: Gabapentin 300 MG Cap PO SCH ×3 (09:34→21:09)
[2020-04-09] MEDS: Pentoxifylline 400 MG Tab.ER PO SCH ×3 (09:35→21:10)
[2020-04-09] MEDS: Clopidogrel 75 MG Tab PO SCH (09:35)
[2020-04-09] MEDS: Metoprolol Succinate 50 MG Tab.ER PO SCH (09:35)
--- NOTE | 2020-04-09 10:50 | PCM.PN ---
- General Info Date of Service: 04/09/20 Subjective Update: No acute events overnight. Pain continues to improve. Blood sugars have been well controlled. No complaints of shortness of breath. CK level has nearly normalized. Vital signs have been stable. Home care services called and said they did not feel comfortable providing care because they feel that her home is unsafe for her. Her neighbor who has been helping voiced the same opinion. Patient is willing to consider subacute rehab. Functional Status: Reports: Pain Controlled - Review of Systems General: Reports: Weakness Musculoskeletal: Reports: Leg Pain - Patient Data Vitals - Most Recent: Last Vital Signs Temp 36.0 C L 04/09/20 07:00 Pulse 75 04/09/20 09:35 Resp 18 04/09/20 07:00 BP 154/34 H 04/09/20 09:35 Pulse Ox 95 04/09/20 07:00 Weight - Most Recent: 125.645 kg I&O - Last 24 Hours: Intake & Output 04/08/20 04/09/20 04/09/20 22:59 06:59 14:59 Intake Total 1809 1515 380 Output Total 550 450 175 Balance 1259 1065 205 Lab Results Last 24 Hours: Laboratory Results - last 24 hr 04/09/20 04/09/20 Range/Units 05:30 05:30 WBC 13.9 H (4.5-11.0) K/uL RBC 3.57 (3.30-5.50) M/uL Hgb 9.2 L (12.0-15.0) g/dL Hct 31.5 L (36.0-48.0) % MCV 88 (80-98) fL MCH 26 L (27-31) pg MCHC 29 L (32-36) % Plt Count 220 (150-400) K/uL Sodium 140 (140-148) mmol/L Potassium 4.7 (3.6-5.2) mmol/L Chloride 111 H (100-108) mmol/L Carbon Dioxide 22 (21-32) mmol/L Anion Gap 11.7 (5.0-14.0) mmol/L BUN 32 H (7-18) mg/dL Creatinine 1.0 (0.6-1.0) mg/dL Est Cr Clr Drug Dosing 49.45 mL/min Estimated GFR (MDRD) 55 L (>60) Glucose 141 H (74-106) mg/dL Calcium 7.7 L (8.5-10.1) mg/dL Creatine Kinase 375 H (26-192) U/L Dangelo Results Last 24 Hours: Microbiology 04/07/20 12:36 Urine Culture - Final Urine, Catheterized Citrobacter Freundii 04/07/20 12:35 Aerobic Blood Culture - Preliminary Blood - Arm, Left NO GROWTH AFTER 1 DAY Anaerobic Blood Culture - Preliminary NO GROWTH AFTER 1 DAY 04/07/20 12:25 Aerobic Blood Culture - Preliminary Blood - Arm, Left NO GROWTH AFTER 1 DAY Anaerobic Blood Culture - Preliminary NO GROWTH AFTER 1 DAY Med Orders - Current: Current Medications Acetaminophen (Tylenol Extra Strength) 1,000 mg PO TID PRN PRN Reason: Pain Last Admin: 04/07/20 15:57 Dose: 1,000 mg Albuterol (Proventil Neb Soln) 2.5 mg NEB Q4H PRN PRN Reason: Shortness Of Breath/wheezing Atorvastatin Calcium (Lipitor) 40 mg PO BEDTIME [facility] Last Admin: 04/08/20 21:00 Dose: 40 mg Cefdinir (Omnicef) 300 mg PO BID [facility] Clopidogrel Bisulfate (Plavix) 75 mg PO DAILY [facility] Last Admin: 04/09/20 09:35 Dose: 75 mg Enoxaparin Sodium (Lovenox) 40 mg SUBCUT DAILY [facility] Last Admin: 04/09/20 09:33 Dose: 40 mg Escitalopram Oxalate (Lexapro) 10 mg PO DAILY [facility] Last Admin: 04/09/20 09:33 Dose: 10 mg Furosemide (Lasix) 40 mg PO DAILY [facility] Last Admin: 04/09/20 09:33 Dose: 40 mg Gabapentin (Neurontin) 900 mg PO TID [facility] Last Admin: 04/09/20 09:34 Dose: 900 mg Hydromorphone HCl (Dilaudid) 1 mg IVPUSH Q2H PRN PRN Reason: Pain (severe 7-10) Last Admin: 04/09/20 09:29 Dose: 1 mg Insulin Glargine (Lantus Solostar) 10 units SUBCUT BEDTIME [facility] Last Admin: 04/08/20 21:21 Dose: 10 unit Insulin Glargine (Lantus Solostar) 15 units SUBCUT ACBREAKFAST [facility] Last Admin: 04/09/20 07:52 Dose: 15 units Insulin Human Lispro (Humalog) 5 unit SUBCUT TIDMEALS [facility] Last Admin: 04/09/20 07:53 Dose: 5 units Lactobacillus Rhamnosus (Culturelle) 1 cap PO BID [facility] Last Admin: 04/09/20 09:33 Dose: 1 cap Lorazepam (Ativan) 0.5 mg IVPUSH Q4H PRN PRN Reason: Nausea/Vomiting Magnesium Hydroxide (Milk Of Magnesia) 30 ml PO Q12H PRN PRN Reason: Constipation Melatonin (Melatonin) 9 mg PO BEDTIME [facility] Last Admin: 04/08/20 21:20 Dose: 9 mg Metoprolol Succinate (Toprol Xl) 50 mg PO DAILY [facility] Last Admin: 04/09/20 09:35 Dose: 50 mg Nystatin (Nystatin Crm) 0 gm TOP BID [facility] Last Admin: 04/09/20 09:34 Dose: 1 applic Ondansetron HCl (Zofran Odt) 4 mg PO Q6H PRN PRN Reason: Nausea able to take PO Ondansetron HCl (Zofran) 4 mg IV Q6H PRN PRN Reason: Nausea/Vomiting Oxycodone HCl (Oxycodone) 10 mg PO Q4H PRN PRN Reason: Pain (moderate 4-6) Last Admin: 04/09/20 02:43 Dose: 10 mg Pantoprazole Sodium (Protonix) 40 mg PO ACBREAKFAST [facility] Last Admin: 04/09/20 07:52 Dose: 40 mg Pentoxifylline (Trental) 400 mg PO TID [facility] Last Admin: 04/09/20 09:35 Dose: 400 mg Potassium Chloride (Klor-Con M20) 20 meq PO BID [facility] Last Admin: 04/09/20 09:33 Dose: 20 meq Senna/Docusate Sodium (Senna Plus) 1 tab PO BID PRN PRN Reason: Constipation Tizanidine HCl (Zanaflex) 2 mg PO Q8H PRN PRN Reason: muscle spasms Discontinued Medications Hydromorphone HCl (Dilaudid) 0.5 mg IVPUSH ONETIME ONE Stop: 04/07/20 11:15 Last Admin: 04/07/20 11:44 Dose: 0.5 mg Sodium Chloride (Normal Saline) 1,000 mls @ 1,000 mls/hr IV .BOLUS ONE Stop: 04/07/20 12:13 Last Admin: 04/07/20 11:20 Dose: 1,000 mls/hr Levofloxacin/Dextrose 750 mg/ (Premix) 150 mls @ 100 mls/hr IV ONETIME ONE Stop: 04/07/20 13:45 Last Admin: 04/07/20 12:28 Dose: 100 mls/hr Sodium Chloride (Normal Saline) 1,000 mls @ 125 mls/hr IV ASDIRECTED [facility] Last Admin: 04/09/20 05:18 Dose: 125 mls/hr Ceftriaxone Sodium 1 gm/ (Sodium Chloride) 50 mls @ 100 mls/hr IV Q24H [facility] Last Admin: 04/08/20 13:56 Dose: 100 mls/hr Sodium Chloride (Normal Saline) 500 mls @ 500 mls/hr IV .BOLUS ONE Stop: 04/08/20 04:10 Last Admin: 04/08/20 03:27 Dose: 500 mls/hr - Exam Quality Assessment: No: Supplemental Oxygen General: Alert, Oriented, Cooperative, No Acute Distress Lungs: Normal Respiratory Effort Cardiovascular: Regular Rate, Regular Rhythm GI/Abdominal Exam: Soft, No Distention Extremities: No Pedal Edema Skin: Warm, Dry Psy/Mental Status: Alert, Normal Affect Sepsis Event Note - Evaluation Sepsis Screening Result: Sepsis Risk - Focused Exam Vital Signs: Vital Signs Temp Pulse Pulse Resp BP BP Pulse Ox 04/09/20 09:35 75 154/34 H 04/09/20 07:00 36.0 C L 75 18 154/34 H 95 04/09/20 02:00 37.0 C 67 16 136/36 L 94 L Date Exam was Performed: 04/09/20 Time Exam was Performed: 14:56 - Problem List & Annotations (1) Rhabdomyolysis SNOMED Code(s): 684097059 Code(s): M62.82 - RHABDOMYOLYSIS Status: Acute Current Visit: Yes Qualifiers: Rhabdomyolysis type: traumatic Encounter type: initial encounter Qualified Code(s): T79.6XXA - Traumatic ischemia of muscle, initial encounter (2) Acute cystitis without hematuria SNOMED Code(s): 55121722 Code(s): N30.00 - ACUTE CYSTITIS WITHOUT HEMATURIA Status: Acute Current Visit: Yes (3) Type 2 diabetes mellitus SNOMED Code(s): 85951598 Code(s): E11.9 - TYPE 2 DIABETES MELLITUS WITHOUT COMPLICATIONS Status: Chronic Current Visit: No Qualifiers: Diabetes mellitus terminal worker insulin use: with terminal worker use Diabetes mellitus complication status: with other specified complication Qualified Code (s): E11.69 - Type 2 diabetes mellitus with other specified complication; Z79.4 - roasterman (current) use of insulin (4) CHF (congestive heart failure) SNOMED Code(s): 64902775 Code(s): I50.9 - HEART FAILURE, UNSPECIFIED Status: Chronic Current Visit : Yes Qualifiers: Heart failure type: diastolic Heart failure chronicity: chronic Qualified Code(s): I50.32 - Chronic diastolic (congestive) heart failure (5) Below knee amputation SNOMED Code(s): 245667976 Code(s): S88.119A - COMPLETE TRAUM AMP AT LEV BETW KN & ANKL, UNSP LOW LEG, INIT Status: Chronic Current Visit: No - Problem List Review Problem List Initiated/Reviewed/Updated: Yes - My Orders Last 24 Hours: My Active Orders 04/09/20 10:06 Convert IV to Saline Lock [OM.PC] Routine 04/09/20 10:47 DC Barber Catheter [Urinary Catheter Removal] [RC] Per Unit Routine 04/09/20 11:00 Cefdinir [Omnicef] 300 mg PO BID 04/09/20 11:30 GLUCOSE POC LAB TO COLLECT [POC] QIDACANDBED 04/09/20 16:30 GLUCOSE POC LAB TO COLLECT [POC] QIDACANDBED 04/09/20 21:00 GLUCOSE POC LAB TO COLLECT [POC] QIDACANDBED 04/10/20 05:00 BASIC METABOLIC PANEL,BMP [CHEM] Timed CBC W/O DIFF,HEMOGRAM [HEME] Timed (1) 04/10/20 07:30 GLUCOSE POC LAB TO COLLECT [POC] QIDACANDBED 04/10/20 11:30 GLUCOSE POC LAB TO COLLECT [POC] QIDACANDBED 04/10/20 16:30 GLUCOSE POC LAB TO COLLECT [POC] QIDACANDBED 04/10/20 21:00 GLUCOSE POC LAB TO COLLECT [POC] QIDACANDBED 04/11/20 07:30 GLUCOSE POC LAB TO COLLECT [POC] QIDACANDBED 04/11/20 11:30 GLUCOSE POC LAB TO COLLECT [POC] QIDACANDBED 04/11/20 16:30 GLUCOSE POC LAB TO COLLECT [POC] QIDACANDBED 04/11/20 21:00 GLUCOSE POC LAB TO COLLECT [POC] QIDACANDBED 04/12/20 07:30 GLUCOSE POC LAB TO COLLECT [POC] QIDACANDBED 04/12/20 11:30 GLUCOSE POC LAB TO COLLECT [POC] QIDACANDBED 04/12/20 16:30 GLUCOSE POC LAB TO COLLECT [POC] QIDACANDBED 04/12/20 21:00 GLUCOSE POC LAB TO COLLECT [POC] QIDACANDBED - Plan Plan:: ASSESSMENT AND PLAN - Acute rhabdomyolysis-secondary to fall and spending about 24 hours on the ground. CK level has nearly normalized. Kidney function back to baseline. Pain well controlled. -Saline lock IV -Pain control Acute cystitis without hematuria-symptoms of dysuria. No fevers. White blood cell count has improved. Urine culture grew out Citrobacter. -Transition antibiotics to cefdinir Insulin-dependent diabetes mellitus-good blood sugar control so far. -Continue home regimen of long-acting and mealtime insulin Recent right hip fracture-treated nonoperatively and had been making improvements. -Pain control -Physical therapy History of below the knee amputation on the left Maintenance issues - - DVT prophylaxis -enoxaparin - GI prophylaxis -PPI - Nutrition -diabetic - Barber catheter -will be removed today Disposition -I would anticipate discharge to a [facility] facility for subacute rehab. Primary care physician -Dr Humberto Padilla M.D.
[2020-04-09] MEDS: Cefdinir 300 MG Cap PO SCH ×2 (11:11→21:09)
[2020-04-09] MEDS: tiZANidine 2 MG Tab PO PRN (12:43)
[2020-04-09] MEDS: Acetaminophen 500 MG Tab PO PRN (17:22)
[2020-04-09] MEDS: atorvaSTATin 20 MG Tab PO SCH (21:09)
[2020-04-09] MEDS: Melatonin 3 MG Tab PO SCH (21:10)
[2020-04-10] MEDS: oxyCODONE 5 MG Tab PO PRN ×5 (00:17→18:07)
[2020-04-10] MEDS: tiZANidine 2 MG Tab PO PRN ×2 (00:41→11:16)
[2020-04-10] MEDS: HYDROmorphone 1 MG/ML Syringe IVPUSH PRN ×2 (02:08→08:58)
[2020-04-10] MEDS: Metoprolol Succinate 50 MG Tab.ER PO SCH (09:04)
[2020-04-10] MEDS: Lactobacillus Rhamnosus GG (Probiotic) Cap PO SCH ×2 (09:04→22:21)
[2020-04-10] MEDS: Enoxaparin 40 MG/0.4 ML Syringe SUBCUT SCH (09:04)
[2020-04-10] MEDS: Gabapentin 300 MG Cap PO SCH ×3 (09:04→22:20)
[2020-04-10] MEDS: Furosemide 40 MG Tab PO SCH (09:05)
[2020-04-10] MEDS: Clopidogrel 75 MG Tab PO SCH (09:05)
[2020-04-10] MEDS: Pentoxifylline 400 MG Tab.ER PO SCH ×3 (09:05→22:21)
[2020-04-10] MEDS: Escitalopram 10 MG Tab PO SCH (09:05)
[2020-04-10] MEDS: Cefdinir 300 MG Cap PO SCH ×2 (09:05→22:21)
[2020-04-10] MEDS: Pantoprazole 40 MG Tab.CR PO SCH (09:06)
[2020-04-10] MEDS: Potassium Chloride 20 MEQ Tab.ER PO SCH ×2 (09:06→22:21)
[2020-04-10] MEDS: Insulin Lispro 100 Unit/ML 3 ML KwikPen SUBCUT SCH ×3 (09:08→17:06)
[2020-04-10] MEDS: Insulin Glargine,Human Rec. Analog 100 Units/ML 3 ML Pen SUBCUT SCH ×2 (09:10→22:21)
[2020-04-10] MEDS: Nystatin Crm 15 GM Tube TOP SCH ×2 (10:38→22:23)
--- NOTE | 2020-04-10 12:43 | PCM.PN ---
- General Info Date of Service: 04/10/20 Subjective Update: There were no acute events overnight. Patient reports ongoing pain in her right thigh and right foot. These are stable during the hospital stay and have been present for several weeks. She is a little frustrated that they are not improving. She has not had any difficulty with shortness of breath or nausea. She is a little tearful about having to go to the [facility] and wants to be at home but does understand that she is not safe to be there as of right now. COVID19 testing was performed today at the request of the [facility] and this was negative. Functional Status: Reports: Pain Controlled, Tolerating Diet - Review of Systems General: Reports: Weakness - Patient Data Vitals - Most Recent: Last Vital Signs Temp 37.0 C 04/10/20 11:26 Pulse 81 04/10/20 11:26 Resp 18 04/10/20 11:26 BP 183/35 H 04/10/20 11:26 Pulse Ox 95 04/10/20 11:26 Weight - Most Recent: 125.645 kg I&O - Last 24 Hours: Intake & Output 04/09/20 04/10/20 04/10/20 22:59 06:59 14:59 Intake Total 560 800 720 Output Total 100 150 Balance 460 650 720 Lab Results Last 24 Hours: Laboratory Results - last 24 hr 04/10/20 04/10/20 Range/Units 06:07 06:07 WBC 11.4 H (4.5-11.0) K/uL RBC 3.77 (3.30-5.50) M/uL Hgb 9.6 L (12.0-15.0) g/dL Hct 33.0 L (36.0-48.0) % MCV 88 (80-98) fL MCH 26 L (27-31) pg MCHC 29 L (32-36) % Plt Count 232 (150-400) K/uL Sodium 140 (140-148) mmol/L Potassium 5.1 (3.6-5.2) mmol/L Chloride 110 H (100-108) mmol/L Carbon Dioxide 23 (21-32) mmol/L Anion Gap 12.1 (5.0-14.0) mmol/L BUN 31 H (7-18) mg/dL Creatinine 1.1 H (0.6-1.0) mg/dL Est Cr Clr Drug Dosing 44.95 mL/min Estimated GFR (MDRD) 49 L (>60) Glucose 184 H (74-106) mg/dL Calcium 7.9 L (8.5-10.1) mg/dL Dangelo Results Last 24 Hours: Microbiology 04/07/20 12:25 Aerobic Blood Culture - Preliminary Blood - Arm, Left NO GROWTH AFTER 3 DAYS Anaerobic Blood Culture - Preliminary NO GROWTH AFTER 3 DAYS 04/07/20 12:35 Aerobic Blood Culture - Preliminary Blood - Arm, Left NO GROWTH AFTER 3 DAYS Anaerobic Blood Culture - Preliminary NO GROWTH AFTER 3 DAYS Med Orders - Current: Current Medications Acetaminophen (Tylenol Extra Strength) 1,000 mg PO TID PRN PRN Reason: Pain Last Admin: 04/09/20 17:22 Dose: 1,000 mg Albuterol (Proventil Neb Soln) 2.5 mg NEB Q4H PRN PRN Reason: Shortness Of Breath/wheezing Atorvastatin Calcium (Lipitor) 40 mg PO BEDTIME [facility] Last Admin: 04/09/20 21:09 Dose: 40 mg Cefdinir (Omnicef) 300 mg PO BID [facility] Last Admin: 04/10/20 09:05 Dose: 300 mg Clopidogrel Bisulfate (Plavix) 75 mg PO DAILY [facility] Last Admin: 04/10/20 09:05 Dose: 75 mg Enoxaparin Sodium (Lovenox) 40 mg SUBCUT DAILY [facility] Last Admin: 04/10/20 09:04 Dose: 40 mg Escitalopram Oxalate (Lexapro) 10 mg PO DAILY [facility] Last Admin: 04/10/20 09:05 Dose: 10 mg Furosemide (Lasix) 40 mg PO DAILY [facility] Last Admin: 04/10/20 09:05 Dose: 40 mg Gabapentin (Neurontin) 900 mg PO TID [facility] Last Admin: 04/10/20 09:04 Dose: 900 mg Hydromorphone HCl (Dilaudid) 1 mg IVPUSH Q2H PRN PRN Reason: Pain (severe 7-10) Last Admin: 04/10/20 08:58 Dose: 1 mg Insulin Glargine (Lantus Solostar) 10 units SUBCUT BEDTIME [facility] Last Admin: 04/09/20 21:11 Dose: 10 unit Insulin Glargine (Lantus Solostar) 15 units SUBCUT ACBREAKFAST [facility] Last Admin: 04/10/20 09:10 Dose: 15 units Insulin Human Lispro (Humalog) 5 unit SUBCUT TIDMEALS [facility] Last Admin: 04/10/20 12:25 Dose: 5 units Lactobacillus Rhamnosus (Culturelle) 1 cap PO BID [facility] Last Admin: 04/10/20 09:04 Dose: 1 cap Lorazepam (Ativan) 0.5 mg IVPUSH Q4H PRN PRN Reason: Nausea/Vomiting Magnesium Hydroxide (Milk Of Magnesia) 30 ml PO Q12H PRN PRN Reason: Constipation Melatonin (Melatonin) 9 mg PO BEDTIME [facility] Last Admin: 04/09/20 21:10 Dose: Not Given Metoprolol Succinate (Toprol Xl) 50 mg PO DAILY [facility] Last Admin: 04/10/20 09:04 Dose: 50 mg Nystatin (Nystatin Crm) 0 gm TOP BID [facility] Last Admin: 04/10/20 10:38 Dose: Not Given Ondansetron HCl (Zofran Odt) 4 mg PO Q6H PRN PRN Reason: Nausea able to take PO Ondansetron HCl (Zofran) 4 mg IV Q6H PRN PRN Reason: Nausea/Vomiting Oxycodone HCl (Oxycodone) 10 mg PO Q4H PRN PRN Reason: Pain (moderate 4-6) Last Admin: 04/10/20 09:02 Dose: 10 mg Pantoprazole Sodium (Protonix) 40 mg PO ACBREAKFAST [facility] Last Admin: 04/10/20 09:06 Dose: 40 mg Pentoxifylline (Trental) 400 mg PO TID [facility] Last Admin: 04/10/20 09:05 Dose: 400 mg Potassium Chloride (Klor-Con M20) 20 meq PO BID [facility] Last Admin: 04/10/20 09:06 Dose: 20 meq Senna/Docusate Sodium (Senna Plus) 1 tab PO BID PRN PRN Reason: Constipation Tizanidine HCl (Zanaflex) 2 mg PO Q8H PRN PRN Reason: muscle spasms Last Admin: 04/10/20 11:16 Dose: 2 mg Discontinued Medications Hydromorphone HCl (Dilaudid) 0.5 mg IVPUSH ONETIME ONE Stop: 04/07/20 11:15 Last Admin: 04/07/20 11:44 Dose: 0.5 mg Sodium Chloride (Normal Saline) 1,000 mls @ 1,000 mls/hr IV .BOLUS ONE Stop: 04/07/20 12:13 Last Admin: 04/07/20 11:20 Dose: 1,000 mls/hr Levofloxacin/Dextrose 750 mg/ (Premix) 150 mls @ 100 mls/hr IV ONETIME ONE Stop: 04/07/20 13:45 Last Admin: 04/07/20 12:28 Dose: 100 mls/hr Sodium Chloride (Normal Saline) 1,000 mls @ 125 mls/hr IV ASDIRECTED [facility] Last Admin: 04/09/20 05:18 Dose: 125 mls/hr Ceftriaxone Sodium 1 gm/ (Sodium Chloride) 50 mls @ 100 mls/hr IV Q24H [facility] Last Admin: 04/08/20 13:56 Dose: 100 mls/hr Sodium Chloride (Normal Saline) 500 mls @ 500 mls/hr IV .BOLUS ONE Stop: 04/08/20 04:10 Last Admin: 04/08/20 03:27 Dose: 500 mls/hr - Exam Quality Assessment: No: Supplemental Oxygen General: Alert, Oriented, Cooperative, No Acute Distress Lungs: Normal Respiratory Effort Cardiovascular: Regular Rate, Regular Rhythm GI/Abdominal Exam: Soft, No Distention Extremities: No Pedal Edema, Other (left BKA. right ankle looks normal but is very tender with any palpation. no deformity. ). No: Increased Warmth Skin: Warm, Dry Psy/Mental Status: Alert, Normal Affect Sepsis Event Note - Evaluation Sepsis Screening Result: No Definite Risk - Focused Exam Vital Signs: Vital Signs Temp Pulse Pulse Resp BP BP BP 04/10/20 11:26 37.0 C 81 18 183/35 H 04/10/20 09:04 69 182/48 H 04/10/20 07:36 37.0 C 69 16 182/48 H 04/10/20 04:49 36.8 C 71 16 161/51 H 04/10/20 04:30 18 04/10/20 02:00 18 Pulse Ox 04/10/20 11:26 95 04/10/20 09:04 04/10/20 07:36 98 04/10/20 04:49 94 L 04/10/20 04:30 04/10/20 02:00 Date Exam was Performed: 04/10/20 Time Exam was Performed: 16:32 - Problem List & Annotations (1) Rhabdomyolysis SNOMED Code(s): 647885543 Code(s): M62.82 - RHABDOMYOLYSIS Status: Acute Current Visit: Yes Qualifiers: Rhabdomyolysis type: traumatic Encounter type: initial encounter Qualified Code(s): T79.6XXA - Traumatic ischemia of muscle, initial encounter (2) Acute cystitis without hematuria SNOMED Code(s): 32109799 Code(s): N30.00 - ACUTE CYSTITIS WITHOUT HEMATURIA Status: Acute Current Visit: Yes (3) Type 2 diabetes mellitus SNOMED Code(s): 81013275 Code(s): E11.9 - TYPE 2 DIABETES MELLITUS WITHOUT COMPLICATIONS Status: Chronic Current Visit: No Qualifiers: Diabetes mellitus technology sales consultant insulin use: with technology sales consultant use Diabetes mellitus complication status: with other specified complication Qualified Code (s): E11.69 - Type 2 diabetes mellitus with other specified complication; Z79.4 - 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 insulin (4) CHF (congestive heart failure) SNOMED Code(s): 35334324 Code(s): I50.9 - HEART FAILURE, UNSPECIFIED Status: Chronic Current Visit : Yes Qualifiers: Heart failure type: diastolic Heart failure chronicity: chronic Qualified Code(s): I50.32 - Chronic diastolic (congestive) heart failure (5) Below knee amputation SNOMED Code(s): 503950521 Code(s): S88.119A - COMPLETE TRAUM AMP AT LEV BETW KN & ANKL, UNSP LOW LEG, INIT Status: Chronic Current Visit: No - Problem List Review Problem List Initiated/Reviewed/Updated: Yes - My Orders Last 24 Hours: My Active Orders 04/10/20 09:49 [id number] SARS-COV-2 RNA Routine 04/10/20 16:30 GLUCOSE POC LAB TO COLLECT [POC] QIDACANDBED 04/10/20 21:00 GLUCOSE POC LAB TO COLLECT [POC] QIDACANDBED 04/11/20 07:30 GLUCOSE POC LAB TO COLLECT [POC] QIDACANDBED 04/11/20 11:30 GLUCOSE POC LAB TO COLLECT [POC] QIDACANDBED 04/11/20 16:30 GLUCOSE POC LAB TO COLLECT [POC] QIDACANDBED 05/22/20 21:00 GLUCOSE POC LAB TO COLLECT [POC] QIDACANDBED 04/12/20 07:30 GLUCOSE POC LAB TO COLLECT [POC] QIDACANDBED 04/12/20 11:30 GLUCOSE POC LAB TO COLLECT [POC] QIDACANDBED 04/12/20 16:30 GLUCOSE POC LAB TO COLLECT [POC] QIDACANDBED 04/12/20 21:00 GLUCOSE POC LAB TO COLLECT [POC] QIDACANDBED - Plan Plan:: ASSESSMENT AND PLAN - Acute rhabdomyolysis-secondary to fall and spending about 24 hours on the ground. CK level has nearly normalized. Kidney function back to baseline. Pain well controlled. -Saline lock IV -Pain control Acute cystitis without hematuria-symptoms of dysuria. No fevers. White blood cell count has improved. Urine culture grew out Citrobacter. -Continue cefdinir Insulin-dependent diabetes mellitus-good blood sugar control so far. -Continue home regimen of long-acting and mealtime insulin Recent right hip fracture-treated nonoperatively and had been making improvements. -Pain control -Physical therapy History of below the knee amputation on the left Maintenance issues - - DVT prophylaxis -enoxaparin - GI prophylaxis -PPI - Nutrition -diabetic Disposition -I would anticipate [facility] to a [facility] for [facility]acute re[facility], likely tomorrow if stable overnight . Primary care physician -Dr Humberto Padilla M.D.
[2020-04-10] MEDS: Melatonin 3 MG Tab PO SCH ×2 (22:21→22:30)
[2020-04-10] MEDS: atorvaSTATin 20 MG Tab PO SCH (22:21)
[2020-04-11] MEDS: oxyCODONE 5 MG Tab PO PRN ×3 (01:37→11:56)
[2020-04-11 07:57] VITALS: PULSE 74
[2020-04-11 08:12] VITALS: BP 176/37
[2020-04-11] MEDS: Pantoprazole 40 MG Tab.CR PO SCH (08:16)
[2020-04-11] MEDS: Clopidogrel 75 MG Tab PO SCH (08:16)
[2020-04-11] MEDS: Metoprolol Succinate 50 MG Tab.ER PO SCH (08:16)
[2020-04-11] MEDS: Pentoxifylline 400 MG Tab.ER PO SCH (08:16)
[2020-04-11] MEDS: Cefdinir 300 MG Cap PO SCH (08:17)
[2020-04-11] MEDS: Furosemide 40 MG Tab PO SCH (08:17)
[2020-04-11] MEDS: Potassium Chloride 20 MEQ Tab.ER PO SCH (08:17)
[2020-04-11] MEDS: Escitalopram 10 MG Tab PO SCH (08:18)
[2020-04-11] MEDS: Lactobacillus Rhamnosus GG (Probiotic) Cap PO SCH (08:18)
[2020-04-11] MEDS: Gabapentin 300 MG Cap PO SCH (08:18)
[2020-04-11] MEDS: Enoxaparin 40 MG/0.4 ML Syringe SUBCUT SCH (08:19)
[2020-04-11] MEDS: Nystatin Crm 15 GM Tube TOP SCH (08:19)
[2020-04-11] MEDS: Insulin Glargine,Human Rec. Analog 100 Units/ML 3 ML Pen SUBCUT SCH (08:21)
[2020-04-11] MEDS: Insulin Lispro 100 Unit/ML 3 ML KwikPen SUBCUT SCH ×2 (08:23→11:49)
--- NOTE | 2020-04-11 11:04 | PCM.DCSUM1 ---
Discharge Summary - Hospital Course Brief History: 74-year-old female with history of insulin-dependent diabetes mellitus with peripheral vascular disease and neuropathy, previous left below the knee amputation, coronary artery disease, right hip fracture that was treated nonoperatively in August 2019 who presented with weakness after having laid on the floor overnight. She was admitted for management of rhabdomyolysis and a urinary tract infection. Diagnosis: Stroke: No - Discharge Data Discharge Date: 04/11/20 Discharge Disposition: DC/Tfer to SNF 03 Condition: Fair - Referral to Home Health Primary Care Physician: PCP None - Discharge Diagnosis/Problem(s) (1) Rhabdomyolysis SNOMED Code(s): 749678987 ICD Code: M62.82 - RHABDOMYOLYSIS Status: Acute Current Visit: Yes Qualifiers: Rhabdomyolysis type: traumatic Encounter type: initial encounter Qualified Code(s): T79.6XXA - Traumatic ischemia of muscle, initial encounter (2) Acute cystitis without hematuria SNOMED Code(s): 92715563 ICD Code: N30.00 - ACUTE CYSTITIS WITHOUT HEMATURIA Status: Acute Current Visit: Yes (3) Type 2 diabetes mellitus SNOMED Code(s): 01954126 ICD Code: E11.9 - TYPE 2 DIABETES MELLITUS WITHOUT COMPLICATIONS Status: Chronic Current Visit: No Qualifiers: Diabetes mellitus terminal clerk insulin use: with terminal clerk use Diabetes mellitus complication status: with other specified complication Qualified Code (s): E11.69 - Type 2 diabetes mellitus with other specified complication; 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 PT Reason for Consult: Strengthening This query below is only for informational purposes and is not editable. Hospital Course: Morenita presented to the emergency room after spending about 24 hours on the floor. She had been too weak to support her weight and fell down. She was too weak to get up and spent the night on the floor. 911 was called after her home care therapist found her on the floor the next morning. In the emergency room she was found to have evidence for rhabdomyolysis with a CK level of nearly 2000. Urinalysis was suggestive of infection. She was started on IV fluids and antibiotics. A urine culture was sent to the lab and she was admitted for further management. She did have multiple imaging studies and there is no evidence for fracture in either leg or her foot or ankle. Overnight following admission there were no acute issues. Her CK level was trending down. She did not have any fevers and her leukocytosis was improving by the morning after admission. Over the next couple of days we saw further improvement and resolution of her rhabdomyolysis. Her urine culture ended up growing Citrobacter which was sensitive to the third-generation cephalosporins and antibiotic coverage was switched to cefdinir. She has been working with physical therapy but is fairly limited because of her amputation status on the left and some ongoing pain on the right side. She is very weak and requires significant assistance. Her vitals have been stable. Her diabetes has been well controlled. I think she would benefit from subacute rehab and possibly even a long-term intermediate stay with her significant generalized weakness and compromised ambulatory status with her left below the knee amputation. She will be transferred to the intermediate for subacute rehab. She would benefit from physical and Occupational Therapy. Pain has been controlled with scheduled acetaminophen and as needed oxycodone. - Patient Instructions Diet: Diabetic Diet Activity: As Tolerated, Full Weight Bearing Showering/Bathing: May Shower Notify Provider of: Fever, Increased Pain Other/Special Instructions: 1. You were in the hospital for management of rhabdomyolysis that resulted from laying on the floor overnight. Your weakness was caused by urinary tract infection. Your condition has been improving with IV fluids and antibiotic therapy. I do recommend ongoing antibiotic therapy with cefdinir. You should take 300 mg twice daily for 5 more doses. Your first dose outside of the hospital is due tonight. You may increase your activity as tolerated. I suspect that you sprained your ankle. There is no evidence for fracture. You may bear weight as tolerated. 2. Continue your usual home medications as previously prescribed. 3. Accuchecks BIDAC. 4. Code status - FULL CODE. 5. Referral to physical and Occupational Therapy for strengthening. - Discharge Plan *PRESCRIPTION DRUG MONITORING PROGRAM REVIEWED*: Not Applicable *COPY OF PRESCRIPTION DRUG MONITORING REPORT IN PATIENT AXEL: Not Applicable Prescriptions/Med Rec: Cefdinir [Omnicef] 300 mg PO BID #5 cap Lactobacillus Rhamnosus GG [Culturelle] 1 cap PO BID #20 cap Nystatin [Nystatin Crm] 1 gm TOP BID #2 tube oxyCODONE HCl [Oxycodone HCl] 10 mg PO Q4H PRN #60 tablet PRN Reason: Pain Home Medications: Home Meds atorvaSTATin [Lipitor] 40 mg PO BEDTIME 10/01/17 [History] Clopidogrel Bisulfate [Plavix] 75 mg PO DAILY 05/16/18 [History] Potassium Chloride [Klor-Con M20] 20 meq PO BID 05/16/18 [History] Albuterol/Ipratropium [DuoNeb 3.0-0.5 MG/3 ML] 1 dose NEB Q4H PRN 12/12/18 [ History] Gabapentin [Neurontin] 900 mg PO TID 12/12/18 [History] Pentoxifylline [TRENtal] 400 mg PO TID 12/12/18 [History] Escitalopram [Lexapro] 10 mg PO DAILY 08/23/19 [History] Metoprolol Succinate [Toprol Xl] 50 mg PO DAILY 09/13/19 [History] Acetaminophen [Tylenol Extra Strength] 1,000 mg PO TID PRN 04/07/20 [History] Furosemide 40 mg PO DAILY 04/07/20 [History] Insulin Aspart [NovoLOG] 5 unit SQ TIDAC 04/07/20 [History] Insulin Glarg,Human.Rec.Analog [Lantus Solostar] 10 unit SUBCUT BEDTIME [History] Insulin Glarg,Human.Rec.Analog [Lantus Solostar] 15 units SUBCUT ACBREAKFAST [History] tiZANidine 2 mg PO Q8H 04/07/20 [History] Cefdinir [Omnicef] 300 mg PO BID #5 cap 04/11/20 [Rx] Lactobacillus Rhamnosus GG [Culturelle] 1 cap PO BID #20 cap 04/11/20 [Rx] Nystatin [Nystatin Crm] 1 gm TOP BID #2 tube 04/11/20 [Rx] oxyCODONE HCl [Oxycodone HCl] 10 mg PO Q4H PRN #60 tablet 04/11/20 [Rx] Oxygen Therapy Mode: Room Air Patient Handouts: Urinary Tract Infection, Adult Referrals: PCP,None [Primary Care Provider] - (f/u with your primary care as needed after the rehab stay ) - Discharge Summary/Plan Comment DC Time >30 min.: Yes (35-new [facility] discharge ) - Patient Data Vitals - Most Recent: Last Vital Signs Temp 37.6 C 04/11/20 07:55 Pulse 74 04/11/20 08:16 Resp 16 04/11/20 07:55 BP 176/37 H 04/11/20 08:16 Pulse Ox 93 L 04/11/20 07:55 Weight - Most Recent: 125.645 kg Lab Results - Last 24 hrs: Laboratory Results - last 24 hr 04/10/20 Range/Units 09:49 COVID-19 PCR Negative (NEGATIVE) ÁNGEL Results - Last 24 hrs: Microbiology 04/07/20 12:25 Aerobic Blood Culture - Preliminary Blood - Arm, Left NO GROWTH AFTER 3 DAYS Anaerobic Blood Culture - Preliminary NO GROWTH AFTER 3 DAYS 04/07/20 12:35 Aerobic Blood Culture - Preliminary Blood - Arm, Left NO GROWTH AFTER 3 DAYS Anaerobic Blood Culture - Preliminary NO GROWTH AFTER 3 DAYS Med Orders - Current: Current Medications Acetaminophen (Tylenol Extra Strength) 1,000 mg PO TID PRN PRN Reason: Pain Last Admin: 04/09/20 17:22 Dose: 1,000 mg Albuterol (Proventil Neb Soln) 2.5 mg NEB Q4H PRN PRN Reason: Shortness Of Breath/wheezing Atorvastatin Calcium (Lipitor) 40 mg PO BEDTIME [facility] Last Admin: 04/10/20 22:21 Dose: 40 mg Cefdinir (Omnicef) 300 mg PO BID [facility] Last Admin: 04/11/20 08:17 Dose: 300 mg Clopidogrel Bisulfate (Plavix) 75 mg PO DAILY [facility] Last Admin: 04/11/20 08:16 Dose: 75 mg Enoxaparin Sodium (Lovenox) 40 mg SUBCUT DAILY [facility] Last Admin: 04/11/20 08:19 Dose: 40 mg Escitalopram Oxalate (Lexapro) 10 mg PO DAILY [facility] Last Admin: 04/11/20 08:18 Dose: 10 mg Furosemide (Lasix) 40 mg PO DAILY [facility] Last Admin: 04/11/20 08:17 Dose: 40 mg Gabapentin (Neurontin) 900 mg PO TID [facility] Last Admin: 04/11/20 08:18 Dose: 900 mg Hydromorphone HCl (Dilaudid) 1 mg IVPUSH Q2H PRN PRN Reason: Pain (severe 7-10) Last Admin: 04/10/20 02:08 Dose: 1 mg Insulin Glargine (Lantus Solostar) 10 units SUBCUT BEDTIME [facility] Last Admin: 04/10/20 22:21 Dose: 10 unit Insulin Glargine (Lantus Solostar) 15 units SUBCUT ACBREAKFAST [facility] Last Admin: 04/11/20 08:21 Dose: 15 units Insulin Human Lispro (Humalog) 5 unit SUBCUT TIDMEALS [facility] Last Admin: 04/11/20 08:23 Dose: 5 units Lactobacillus Rhamnosus (Culturelle) 1 cap PO BID [facility] Last Admin: 04/11/20 08:18 Dose: 1 cap Lorazepam (Ativan) 0.5 mg IVPUSH Q4H PRN PRN Reason: Nausea/Vomiting Magnesium Hydroxide (Milk Of Magnesia) 30 ml PO Q12H PRN PRN Reason: Constipation Melatonin (Melatonin) 9 mg PO BEDTIME [facility] Last Admin: 04/10/20 22:30 Dose: Not Given Metoprolol Succinate (Toprol Xl) 50 mg PO DAILY [facility] Last Admin: 04/11/20 08:16 Dose: 50 mg Nystatin (Nystatin Crm) 0 gm TOP BID [facility] Last Admin: 04/11/20 08:19 Dose: 1 applic Ondansetron HCl (Zofran Odt) 4 mg PO Q6H PRN PRN Reason: Nausea able to take PO Ondansetron HCl (Zofran) 4 mg IV Q6H PRN PRN Reason: Nausea/Vomiting Oxycodone HCl (Oxycodone) 10 mg PO Q4H PRN PRN Reason: Pain (moderate 4-6) Last Admin: 04/11/20 07:03 Dose: 10 mg Pantoprazole Sodium (Protonix) 40 mg PO ACBREAKFAST [facility] Last Admin: 04/11/20 08:16 Dose: 40 mg Pentoxifylline (Trental) 400 mg PO TID [facility] Last Admin: 04/11/20 08:16 Dose: 400 mg Potassium Chloride (Klor-Con M20) 20 meq PO BID [facility] Last Admin: 04/11/20 08:17 Dose: 20 meq Senna/Docusate Sodium (Senna Plus) 1 tab PO BID PRN PRN Reason: Constipation Tizanidine HCl (Zanaflex) 2 mg PO Q8H PRN PRN Reason: muscle spasms Last Admin: 04/10/20 11:16 Dose: 2 mg Discontinued Medications Hydromorphone HCl (Dilaudid) 0.5 mg IVPUSH ONETIME ONE Stop: 04/07/20 11:15 Last Admin: 04/07/20 11:44 Dose: 0.5 mg Sodium Chloride (Normal Saline) 1,000 mls @ 1,000 mls/hr IV .BOLUS ONE Stop: 04/07/20 12:13 Last Admin: 04/07/20 11:20 Dose: 1,000 mls/hr Levofloxacin/Dextrose 750 mg/ (Premix) 150 mls @ 100 mls/hr IV ONETIME ONE Stop: 04/07/20 13:45 Last Admin: 04/07/20 12:28 Dose: 100 mls/hr Sodium Chloride (Normal Saline) 1,000 mls @ 125 mls/hr IV ASDIRECTED [facility] Last Admin: 04/09/20 05:18 Dose: 125 mls/hr Ceftriaxone Sodium 1 gm/ (Sodium Chloride) 50 mls @ 100 mls/hr IV Q24H [facility] Last Admin: 04/08/20 13:56 Dose: 100 mls/hr Sodium Chloride (Normal Saline) 500 mls @ 500 mls/hr IV .BOLUS ONE Stop: 04/08/20 04:10 Last Admin: 04/08/20 03:27 Dose: 500 mls/hr
[2020-04-11] MEDS: Acetaminophen 500 MG Tab PO PRN (11:55)
== END 2020-04-11 13:30 | DRG 565 ==
LOC: JP.ED 11:00 → JP.MS 13:56
PROVIDERS: ADMIT Internal Medicine; ATTEND Internal Medicine
DX: T79.6XXA Traumatic ischemia of muscle, initial encounter (principal); N30.00 Acute cystitis without hematuria; I50.32 Chronic diastolic (congestive) heart failure; Z68.41 Body mass index [BMI] 40.0-44.9, adult; E11.51 Type 2 diabetes mellitus with diabetic peripheral angiopathy without gangrene; W19.XXXA Unspecified fall, initial encounter; M25.562 Pain in left knee; M25.561 Pain in right knee; M79.671 Pain in right foot; H54.7 Unspecified visual loss; I25.10 Atherosclerotic heart disease of native coronary artery without angina pectoris; I25.2 Old myocardial infarction; Z95.5 Presence of coronary angioplasty implant and graft; Z95.0 Presence of cardiac pacemaker; I50.9 Heart failure, unspecified; S72.001D Fracture of unspecified part of neck of right femur, subsequent encounter for closed fracture with routine healing; I11.0 Hypertensive heart disease with heart failure; Z87.19 Personal history of other diseases of the digestive system; Z89.512 Acquired absence of left leg below knee; F32.9 Major depressive disorder, single episode, unspecified; F41.9 Anxiety disorder, unspecified; E66.9 Obesity, unspecified; E11.9 Type 2 diabetes mellitus without complications; Z98.49 Cataract extraction status, unspecified eye; Z87.440 Personal history of urinary (tract) infections; Z90.49 Acquired absence of other specified parts of digestive tract; Z20.828 Contact with and (suspected) exposure to other viral communicable diseases; Z88.0 Allergy status to penicillin; Z88.2 Allergy status to sulfonamides; Z88.1 Allergy status to other antibiotic agents; Z91.02 Food additives allergy status; Z79.02 Long term (current) use of antithrombotics/antiplatelets; Z79.4 Long term (current) use of insulin; Z79.899 Other long term (current) drug therapy
CPT/HCPCS: 36415; 51702; 72170; 73560 ×2; 73620; 80053; 81001; 82550; 83605; 83880; 84484; 85027; 85610; 87040 ×2; 87086; 87088; 87186; 93005; 93010; 96365; 96375; 99285; J1170; J1956; J7030 ×2; 80048; 82962; 83735; 97110-GP; 97140-GP; 97162-GP; A9270-GY; J0696; J1650; J1815; J1815-GY; J7040; J7050

== ENCOUNTER 2021-09-16 14:47 | Observation (INO) | payer MEDICARE ==
[2021-09-16] MEDS ORDERED: Ketorolac 30 MG/ML SDV IM ONE (16:05)
--- NOTE | 2021-09-16 16:16 | EDM.PDOC ---
ED HPI GENERAL MEDICAL PROBLEM - General Chief Complaint: Back Pain or Injury Stated Complaint: MEDICAL VIA [place] Time Seen by Provider: 09/16/21 15:58 Source of Information: Reports: Patient, RN Notes Reviewed History Limitations: Reports: No Limitations - History of Present Illness INITIAL COMMENTS - FREE TEXT/NARRATIVE: 75-year-old female presents emergency department today following a fall, she lives in assisted living center she has multiple medical problems of which she requires assistance for daily cares. She was in a house left after using the bathroom nursing staff was working with her she had her arms above her head when she lost her strength and could no longer hold herself up on the PALS unit. She had a fall to the ground she does not recall all the event. She is complaining of right ankle pain, left arm pain, low back and pelvic pain Lower Back Pain Score (Numeric/FACES): 9 - Related Data Allergies Allergy/AdvReac Type Severity Reaction Status Date / Time Penicillins Allergy Severe Respiratory Verified 04/07/20 16:00 Depression chocolate flavor Allergy Itching Verified 04/07/20 16:00 sulfamethoxazole Allergy Hives Verified 04/07/20 16:00 [From Bactrim] trimethoprim [From Bactrim] Allergy Hives Verified 04/07/20 16:00 Home Meds: Home Meds atorvaSTATin [Lipitor] 40 mg PO BEDTIME 10/01/17 [History] Potassium Chloride [Klor-Con M20] 20 meq PO BID 05/16/18 [History] Gabapentin [Neurontin] 600 mg PO TID 12/12/18 [History] Metoprolol Succinate [Toprol Xl] 100 mg PO DAILY 09/13/19 [History] Acetaminophen [Tylenol Extra Strength] 1,000 mg PO TID PRN 04/07/20 [History] Insulin Aspart [NovoLOG] 0 unit SQ TIDAC 04/07/20 [History] Insulin Glarg,Human.Rec.Analog [Lantus Solostar] 10 unit SUBCUT BEDTIME 04/07/20 [History] Insulin Glarg,Human.Rec.Analog [Lantus Solostar] 15 units SUBCUT ACBREAKFAST 04/07/20 [History] Nystatin [Nystatin Crm] 1 gm TOP BID #2 tube 04/11/20 [Rx] oxyCODONE HCl [Oxycodone HCl] 10 mg PO Q4H PRN #60 tablet 04/11/20 [Rx] Bumetanide 1 mg PO DAILY 09/16/21 [History] Cholecalciferol (Vitamin D3) [Vitamin D3] 1,000 unit PO DAILY 09/16/21 [History] Clindamycin HCl 300 mg PO TID 09/16/21 [History] Clopidogrel Bisulfate [Clopidogrel] 75 mg PO DAILY 09/16/21 [History] DULoxetine [Cymbalta] 30 mg PO BID 09/16/21 [History] Famotidine 20 mg PO BID 09/16/21 [History] Ferrous Sulfate 325 mg PO DAILY 09/16/21 [History] Pentoxifylline [TRENtal] 400 mg PO TID 09/16/21 [History] Past Medical History HEENT History: Reports: Cataract, Impaired Vision, Other (See Below) Other HEENT History: diabetic retinopahy r ear pain Cardiovascular History: Reports: Afib, CAD, Heart Failure, Hypertension, [place], Pacemaker, PVD, Stents Respiratory History: Reports: Other (See Below) Other Respiratory History: CHF Gastrointestinal History: Reports: Cholelithiasis, GI Bleed Genitourinary History: Reports: UTI, Recurrent Musculoskeletal History: Reports: Amputation, Fracture, Other (See Below) Other Musculoskeletal History: l shoulder fx l leg, BKA left 2017, 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 toes debrided right foot tuesday12/22/2018. 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 wound on right foot - Infectious Disease History Infectious Disease History: Reports: Chicken Pox, Other (See Below) Other Infectious Disease History: polio - Past Surgical History Head Surgeries/Procedures: Reports: None HEENT Surgical History: Reports: Cataract Surgery Cardiovascular Surgical History: Reports: Vascular Surgery Other Cardiovascular Surgeries/Procedures: aortic valve replacement Respiratory Surgical History: Reports: None GI Surgical History: Reports: Appendectomy, Cholecystectomy Female Surgical History: Reports: Salpingo-Oophorectomy Endocrine Surgical History: Reports: None Neurological Surgical History: Reports: None Musculoskeletal Surgical History: Reports: Amputation, Other (See Below) Other Musculoskeletal Surgeries/Procedures:: r knee surgery. Diabetic ne uropathy.t12 compression fx Dermatological Surgical History: Reports: None Social & Family History - Family History Family Medical History: No Pertinent Family History - Tobacco Use Tobacco Use Status *Q: Never Tobacco User - Caffeine Use Caffeine Use: Reports: Soda - Recreational Drug Use Recreational Drug Use: No - Living Situation & Occupation Living situation: Reports: Occupation: Retired ED ROS GENERAL - Review of Systems Review Of Systems: See Below Constitutional: Reports: No Symptoms Respiratory: Reports: No Symptoms Cardiovascular: Reports: No Symptoms Musculoskeletal: Reports: Arm Pain, Back Pain, Joint Pain ED EXAM,LOWER BACK PAIN/INJURY - Physical Exam Exam: See Below Text/Narrative:: Examination of the left shoulder there no abrasion noted no erythema no edema no deformity obvious. There is no tenderness palpation left shoulder or left elbow however she is tender midshaft of the humerus. Examination of the left ankle pedal pulses +1 I do not appreciate any erythema there is no edema noted she does not tolerate any type of exam with flexion extension or rocking of the joint she can move her digits. There is no tenderness at the knee. On the back exam she is tender to palpation lumbar spine area and also complains of tenderness to any movement of the pelvis Exam Limited By: No Limitations General Appearance: Alert, WD/WN, No Apparent Distress Respiratory/Chest: No Respiratory Distress Course - Vital Signs Last Recorded V/S: Last Vital Signs Temp 97.4 F 09/16/21 15:35 Pulse 64 09/16/21 15:35 Resp 17 09/16/21 15:35 BP 202/58 H 09/16/21 15:35 Pulse Ox 94 L 09/16/21 15:35 - Orders/Labs/Meds Orders: Active Orders 24 hr Category Date Time Status Ankle Min 3V Rt [CR] Stat Exams 09/16/21 16:05 Taken Humerus Lt [CR] Stat Exams 09/16/21 16:05 Taken Lumbar Spine 2 or 3V [CR] Stat Exams 09/16/21 16:05 Taken Pelvis 1V or 2V [CR] Stat Exams 09/16/21 16:05 Taken Meds: Medications Discontinued Medications Generic Name Dose Route Start Last Admin Trade Name Freq PRN Reason Stop Dose Admin Hydromorphone HCl 1 mg 09/16/21 17:54 09/16/21 18:04 Hydromorphone 1 Mg/Ml Syringe IM 09/16/21 17:55 1 mg ONETIME ONE Administration Ketorolac Tromethamine 30 mg 09/16/21 16:05 09/16/21 16:29 Ketorolac 30 Mg/Ml Sdv IM 09/16/21 16:06 30 mg ONETIME ONE Administration Departure - Departure Time of Disposition: 19:00 Disposition: DC/Tfer to [facility] [place] [facility] Condition: Fair Clinical Impression: Contusion Qualifiers: Encounter type: initial encounter Contusion area: lower back Qualified Code(s): S30.0XXA - Contusion of lower back and pelvis, initial encounter - Discharge Information Instructions: Contusion, [place]-ot-Tobz Referrals: PCP,Unknown [Primary Care Provider] - Forms: ED Department Discharge Additional Instructions: Continue using ibuprofen as needed for pain control, use the hydrocodone for breakthrough pain please followup with your primary care provider in 3-5 days if not better, please call return to the emergency department with worsening of symptoms., Sepsis Event Note (ED) - Evaluation Sepsis Screening Result: No Definite Risk - Focused Exam Vital Signs: Vital Signs Temp Pulse Resp BP Pulse Ox 09/16/21 15:35 97.4 F 64 17 202/58 H 94 L 09/16/21 15:02 97.4 F 64 17 202/58 H 94 L - My Orders Last 24 Hours: My Active Orders 09/16/21 16:05 Ankle Min 3V Rt [CR] Stat Humerus Lt [CR] Stat Lumbar Spine 2 or 3V [CR] Stat Pelvis 1V or 2V [CR] Stat - Assessment/Plan Last 24 Hours: My Active Orders 09/16/21 16:05 Ankle Min 3V Rt [CR] Stat Humerus Lt [CR] Stat Lumbar Spine 2 or 3V [CR] Stat Pelvis 1V or 2V [CR] Stat Plan: Assessment Acuity = acute Site and laterality = fall the ground Etiology = unknown Manifestations = none Location of injury = Home Lab values = x-ray ankle, humerus revealed no fracture official read up etiology is pending, CT scan of the pelvis and lower spine revealed no acute fracture Plan She had good relief with hydromorphone provided in the emergency department prescription written for hydrocodone 5325 1 tab p.o. 3 times daily as needed total #4 she will be discharged back to assisted living This note was dictated using [employer] voice recognition software please call with any questions on syntax or grammar.
[2021-09-16] MEDS ORDERED: HYDROmorphone 1 MG/ML Syringe IM ONE (17:54)
--- NOTE | 2021-09-16 18:29 | CRLCT ---
For Patients: As a result of the Century Cures Act, medical imaging exams and procedure reports are released immediately into your electronic medical record. You may view this report before your referring provider. If you have questions, please contact your health care provider. Indication: Fall, pain Technique: Nonenhanced axial CT imaging through the lumbar spine. Sagittal and coronal reconstructions are provided. Comparison: CT lumbar spine without contrast 12/29/2013 Findings: There is diffuse osseous demineralization, consistent with osteopenia. There is vertebral compression deformity involving the superior endplate of L4 with moderate to severe height loss. There is no appreciable linear lucency or cortical disruption, consistent with nonacute timing. Chronic appearing vertebral compression deformity with severe height loss is also noted at T12, not significantly changed since 2013. There is no evidence of acute fracture. There is no appreciable prevertebral edema or paraspinal hematoma. Multilevel degenerative changes are present. Spinal stenosis is suggested at L3-4. There is also neural foraminal stenosis bilaterally at L4-5 and L5-S1. Impression: 1. Chronic vertebral compression deformities of T12 and L4. No evidence of acute lumbar spine fracture. 2. Degenerative changes with likely spinal stenosis at L3-4. Please note that all CT scans at this facility use dose modulation, iterative reconstruction, and/or weight-based dosing when appropriate to reduce radiation dose to as low as reasonably achievable. Dictated by Rosanne Winters MD @ 09/16/2021 6:29:27 PM (Electronically Signed)
--- NOTE | 2021-09-16 20:18 | PCM.SN.2 ---
- Free Text/Narrative Note: 2009--notified by [facility] that patient can not return due to safety related/unable to care for self, unable to transfer self even with use of assist-stand device. at this time patient needs to go to facility that is able to provide RTC care assistance. Patient has been under PT care at the [facility] and is being discharged a t this time for failure to improve/progress-having met her maximum potential but still unable to transfer even with assistance of assist stand device as indicated by fall that occurred today. Additionally, she has been sleeping in recliner because of inability to get in/out of bed. will discuss further with patient. at this time will need to cancel discharge from the ER to [facility] and hold until hospital bed available. Social Work/Case Management to be consulted tomorrow for placement assistance. [facility] is going to call patient and notify of their decision regarding inability to accept back to [facility] at this time. There is report that during my discussion of this with [facility] that patient may have hit head & LOC. Will order CT head to evaluate this further --in patient's room to discuss her situation including inability for patient to return to assisted living facility secondary to patient safety and ability to help self any longer bus making independent living not a possible feet. Patient is very angry I allowed her to express her anger she is tearful in nature she does calm down at times but then she does intermittently yell at me again redirected that I understand that she was upset and angry acknowledging feelings but I did discuss with her at great length that she will be unable to return to an assisted living facility at this time. At this time we will make her comfortable providing her with dinner tray she has not had dinner yet as well as place her on a hospital bed. I did discuss with patient that she would remain in the ER tonight because no beds are available in the hospital inpatient side. That tomorrow we would consult with case management/social work/discharge planning to assist patient further with care home placement. Patient did become upset and yell several times that she did not want to go to a care home that she had a perfectly good house to live them but she did also state that she did not have anybody to help her at home to live in that type of setting. Patient then was allowed to express being upset and angry over the progression of her decline in health status that included a heart attack a fall with broken hip and broken ankle. She states that she has been telling them that she cannot use the assist to stand device. I did discuss with her that she has been undergoing physical therapy at the facility she currently has been residing in hopes that she would be able to regain enough strength to stay in that type of living situation but it has been determined that she was unable to progress at this point and with today's fall it became clear that she cannot remain in that setting any longer. Did discuss with patient that secondary to fall and having been told now by assisted-living facility that she hit her head with loss of consciousness we will obtain a CT scan of her head to evaluate further. At time of my exit from room patient was asking for her walker. I did discuss with her that she could not have a walker that she could not attempt to get out of bed by herself in normal we going to attempt to do so. She asked how she was going to the bathroom and I did discuss with her that tonight we would use a bedpan. At that time patient is seem to accept orally she is no longer upset and yelling at this position in the room she is still tearful in nature. I did report to nursing staff my interaction with patient. Patient be taken to CT scan on ER bed and then transferred after CT of head to hospital bed on return to ER room 2111--notified by BREANNA Junior that bed has become available for patient to be admitted tonight pending further placement needs. will have CT head completed and review before patient is admitted to ensure no acute transfer needs. She verbalized understanding/agreement at this time 2230--Head CT completed, preliminary reading by this physician no acute camacho es/intracranial process. chronic volume loss/atrophy. Final radiology reading pending at this time. OK for admission at this time. [employer] aware Time Documentation
[2021-09-16] MEDS ORDERED: Ondansetron 4 MG/2 ML SDV IV PRN (22:55)
[2021-09-16] MEDS ORDERED: Bisacodyl 5 MG Tab PO PRN (22:55)
[2021-09-16] MEDS ORDERED: 50% Dextrose in Water 50 ML Syringe IVPUSH PRN (22:55)
[2021-09-16] MEDS ORDERED: Glucagon,Human Recombinant 1 MG Vial IM PRN (22:55)
[2021-09-16] MEDS ORDERED: Ondansetron 4 MG Tab.DIS PO PRN (22:55)
[2021-09-16] MEDS ORDERED: Albuterol/Ipratropium 3.0-0.5 MG/3 ML Neb Soln NEB PRN (22:55)
[2021-09-16] MEDS ORDERED: diphenhydrAMINE 25 MG Cap PO PRN (22:55)
[2021-09-16] MEDS ORDERED: oxyCODONE 5 MG Tab PO PRN (22:55)
[2021-09-16] MEDS ORDERED: Acetaminophen 500 MG Tab PO PRN (22:55)
[2021-09-16] MEDS ORDERED: Albuterol 0.083% 2.5 MG/3 ML Neb Soln NEB PRN (22:55)
[2021-09-16] MEDS ORDERED: Docusate Sodium 100 MG Cap PO PRN (22:55)
[2021-09-16] MEDS ORDERED: Sodium Chloride 0.9% 1,000 ML IV SCH (22:55)
[2021-09-16] MEDS ORDERED: Morphine 2 MG/ML SYRINGE IVPUSH PRN (22:55)
--- NOTE | 2021-09-16 22:58 | CRLCT ---
For Patients: As a result of the Century Cures Act, medical imaging exams and procedure reports are released immediately into your electronic medical record. You may view this report before your referring provider. If you have questions, please contact your health care provider. INDICATION: Fall. Reported loss of consciousness. TECHNIQUE: Noncontrast CT images acquired through the brain. COMPARISON: CT brain 03/25/2020. FINDINGS: Prominence of the ventricles and sulci compatible with moderate diffuse cerebral volume loss. No mass effect or midline shift. The webber-white differentiation is maintained. No acute intracranial hemorrhage or pathologic extra-axial fluid collection. Patchy hypoattenuation in the supratentorial white matter, suggestive of moderate chronic microvascular ischemic changes. 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 Stable chronic lacunar infarction left cerebellar hemisphere. Advanced intracranial atherosclerotic calcifications. Thinning of the ocular lenses. The calvarium is intact. Minimal ethmoid sinus mucosal thickening. Trace left mastoid fluid. IMPRESSION: 1. No acute intracranial hemorrhage or mass effect. No significant change compared to 03/25/2020. 2. Moderate chronic microvascular ischemic changes. Stable small chronic infarctions in the left superior frontal gyrus and left cerebellar hemisphere. 3. Moderate diffuse cerebral volume loss. Please note that all CT scans at this facility use dose modulation, iterative reconstruction, and/or weight-based dosing when appropriate to reduce radiation dose to as low as reasonably achievable. Dictated by Emmanuel Frost MD @ 09/16/2021 10:57:18 PM (Electronically Signed)
--- NOTE | 2021-09-16 23:23 | PCM.HP.2 ---
H&P History of Present Illness - General Date of Service: 09/16/21 Admit Problem/Dx: Admission Diagnosis/Problem Admission Diagnosis/Problem Weakness Source of Information: Patient, Old Records, Provider History Limitations: Reports: No Limitations - History of Present Illness Initial Comments - Free Text/Narative: chief complaint: weakness Copy from ER noted: 75-year-old female presents emergency department today following a fall, she lives in assisted living center she has multiple medical problems of which she requires assistance for daily cares. She was in a house left after using the bathroom nursing staff was working with her she had her arms above her head when she lost her strength and could no longer hold herself up on the PALS unit. She had a fall to the ground she does not recall all the event. She is complaining of right ankle pain, left arm pain, low back and pelvic pain Lower Back Onset of Symptoms: Reports: Today (fall at assisted living, has been having progressive weakness. ) Symptom Onset Date: 09/16/21 Duration of Symptoms: Reports: Getting Worse Location: Reports: Generalized Quality: Reports: Other (report no pain at time of admission) Improves with: Reports: Rest Worsens with: Reports: Movement Context: Reports: Other (fall while getting up out of chair to stander) Associated Symptoms: Reports: No Other Symptoms Lower Back Pain Score (Numeric/FACES): 9 - Related Data Allergies/Adverse Reactions: Allergies Allergy/AdvReac Type Severity Reaction Status Date / Time Penicillins Allergy Severe Respiratory Verified 04/07/20 16:00 Depression chocolate flavor Allergy Itching Verified 04/07/20 16:00 sulfamethoxazole Allergy Hives Verified 04/07/20 16:00 [From Bactrim] trimethoprim [From Bactrim] Allergy Hives Verified 04/07/20 16:00 Home Medications: Home Meds atorvaSTATin [Lipitor] 40 mg PO BEDTIME 10/01/17 [History] Potassium Chloride [Klor-Con M20] 20 meq PO BID 05/16/18 [History] Gabapentin [Neurontin] 600 mg PO TID 12/12/18 [History] Metoprolol Succinate [Toprol Xl] 100 mg PO DAILY 09/13/19 [History] Acetaminophen [Tylenol Extra Strength] 1,000 mg PO TID PRN 04/07/20 [History] Insulin Aspart [NovoLOG] 0 unit SQ TIDAC 04/07/20 [History] Insulin Glarg,Human.Rec.Analog [Lantus Solostar] 10 unit SUBCUT BEDTIME 04/07/20 [History] Insulin Glarg,Human.Rec.Analog [Lantus Solostar] 15 units SUBCUT ACBREAKFAST 04/07/20 [History] Nystatin [Nystatin Crm] 1 gm TOP BID #2 tube 04/11/20 [Rx] oxyCODONE HCl [Oxycodone HCl] 10 mg PO Q4H PRN #60 tablet 04/11/20 [Rx] Bumetanide 1 mg PO DAILY 09/16/21 [History] Cholecalciferol (Vitamin D3) [Vitamin D3] 1,000 unit PO DAILY 09/16/21 [History] Clindamycin HCl 300 mg PO TID 09/16/21 [History] Clopidogrel Bisulfate [Clopidogrel] 75 mg PO DAILY 09/16/21 [History] DULoxetine [Cymbalta] 30 mg PO BID 09/16/21 [History] Famotidine 20 mg PO BID 09/16/21 [History] Ferrous Sulfate 325 mg PO DAILY 09/16/21 [History] Pentoxifylline [TRENtal] 400 mg PO TID 09/16/21 [History] Past Medical History HEENT History: Reports: Cataract, Impaired Vision, Other (See Below) Other HEENT History: diabetic retinopahy r ear pain Cardiovascular History: Reports: Afib, CAD, Heart Failure, Hypertension, IN, Pacemaker, PVD, Stents Respiratory History: Reports: Other (See Below) Other Respiratory History: CHF Gastrointestinal History: Reports: Cholelithiasis, GI Bleed Genitourinary History: Reports: UTI, 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 toes debrided right foot tuesday12/22/2018. 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 wound on right foot - Infectious Disease History Infectious Disease History: Reports: Chicken Pox, Other (See Below) Other Infectious Disease History: polio - Past Surgical History Head Surgeries/Procedures: Reports: None HEENT Surgical History: Reports: Cataract Surgery Cardiovascular Surgical History: Reports: Vascular Surgery Other Cardiovascular Surgeries/Procedures: aortic valve replacement Respiratory Surgical History: Reports: None GI Surgical History: Reports: Appendectomy, Cholecystectomy Female Surgical History: Reports: Salpingo-Oophorectomy Endocrine Surgical History: Reports: None Neurological Surgical History: Reports: None Musculoskeletal Surgical History: Reports: Amputation, Other (See Below) Other Musculoskeletal Surgeries/Procedures:: r knee surgery. Diabetic neuropathy.t12 compression fx Dermatological Surgical History: Reports: None Social & Family History - Family History Family Medical History: No Pertinent Family History - Tobacco Use Tobacco Use Status *Q: Never Tobacco User - Caffeine Use Caffeine Use: Reports: Soda - Recreational Drug Use Recreational Drug Use: No - Living Situation & Occupation Living situation: Reports: Occupation: Retired (currently at [facility] in [place], [place]. prior to assisted living- had a [place] house [place] [address] [place], in 2004 after 27 years together, no children, has a older Sister age 82 years who lives in [place]. 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), Weakness Hematologic/Lymphatic: Reports: Anemia, Easy Bruising Immunologic: Reports: No Symptoms Exam - Exam Exam: See Below - Vital Signs Vital Signs: Last Vital Signs Temp 97.4 F 09/16/21 15:35 Pulse 72 09/16/21 19:36 Resp 17 09/16/21 15:35 BP 171/59 H 09/16/21 19:36 Pulse Ox 96 09/16/21 19:36 Weight: 265 lb - Exam Quality Assessment: DVT Prophylaxis General: Alert, Oriented, Cooperative HEENT: PERRLA, Hearing Intact, Mucosa Moist & [place], Nares Patent, Normal Nasal Septum, Posterior Pharynx Clear, Conjunctiva Clear, EOMI, EACs Clear, TMs Clear Neck: Supple, Trachea Midline, 2 Lungs: Clear to Auscultation, Normal Respiratory Effort Cardiovascular: Regular Rate, Regular Rhythm, Normal S1, Normal S2 GI/Abdominal Exam: Normal Bowel Sounds, Soft, Tender (right mid abdominal pain with palpation. no rebound) (Female) Exam: Deferred Rectal (Female) Exam: Deferred Extremities: Slow Capillary Refill (right foot), Leg Pain (left BKA with phamtom pains. ), Limited Range of Motion Peripheral Pulses: 2+: Radial (L), Radial (R) Skin: Warm, Dry, Intact Neurological: Strength Equal Bilateral, Normal Speech, Normal Tone Neuro Extensive - Mental Status: Alert, Oriented x3, Normal Mood/Affect, Normal Cognition, Memory Intact Neuro Extensive - Motor, Sensory, Reflexes: Motor/Sensory Deficits Psychiatric: Alert, Normal Affect, Normal Mood Sepsis Event Note - Evaluation Sepsis Screening Result: No Definite Risk - Focused Exam Vital Signs: Vital Signs Temp Pulse Resp BP Pulse Ox 09/16/21 19:36 72 171/59 H 96 09/16/21 15:35 97.4 F 64 17 202/58 H 94 L 09/16/21 15:02 97.4 F 64 17 202/58 H 94 L - Problem List (1) Weakness generalized SNOMED Code(s): 25470831 ICD Code: R53.1 - WEAKNESS Status: Acute Priority: High Current Visit: Yes (2) CHF (congestive heart failure) SNOMED Code(s): 16661169 ICD Code: I50.9 - HEART FAILURE, UNSPECIFIED Status: Chronic Priority: Low Current Visit: Yes Qualifiers: Heart failure type: systolic Heart failure chronicity: chronic Qualified Code(s): I50.22 - Chronic systolic (congestive) heart failure (3) Type 2 diabetes mellitus SNOMED Code(s): 70985203 ICD Code: E11.9 - TYPE 2 DIABETES MELLITUS WITHOUT COMPLICATIONS Status: Chronic Priority: Medium Current Visit: Yes Qualifiers: Diabetes mellitus watermaster insulin use: with group home use Diabetes mellitus complication status: with circulatory complication (4) Pacemaker SNOMED Code(s): 925607139 ICD Code: Z95.0 - PRESENCE OF CARDIAC PACEMAKER Status: Chronic Priority: Low Current Visit: Yes (5) Hx of deep venous thrombosis SNOMED Code(s): 834140402 ICD Code: Z86.718 - PERSONAL HISTORY OF OTHER VENOUS THROMBOSIS AND EMBOLISM Status: Chronic Priority: Low Current Visit: Yes (6) Below knee amputation SNOMED Code(s): 558950340 ICD Code: S88.119A - COMPLETE TRAUM AMP AT LEV BETW KN & ANKL, UNSP LOW LEG, INIT Status: Chronic Priority: Low Current Visit: Yes (7) Coronary artery disease SNOMED Code(s): 71296565 ICD Code: I25.10 - ATHSCL HEART DISEASE OF [place] CORONARY ARTERY W/O ANG PCTRS Status: Chronic Current Visit: No (8) Hx of mitral valve replacement SNOMED Code(s): 5280092750035, 1538242532238 ICD Code: Z95.2 - PRESENCE OF PROSTHETIC HEART VALVE Status: Acute Current Visit: Yes Problem List Initiated/Reviewed/Updated: Yes Orders Last 24hrs: Active Orders 24 hr Category Date Time Status Cardiac Monitoring [RC] CONTINUOUS Care 09/16/21 22:55 Active Diabetes Education [RC] Click to Edit Care 09/16/21 22:55 Active Intake and Output [RC] QSHIFT Care 09/16/21 22:55 Active Notify Provider Vital Signs [RC] ASDIRECTED Care 09/16/21 22:55 Active Notify Provider [RC] PRN Care 09/16/21 22:55 Active Oxygen Therapy [RC] PRN Care 09/16/21 22:55 Active Pulse Oximetry [RC] PRN Care 09/16/21 22:55 Active RT Aerosol Therapy [RC] ASDIRECTED Care 09/16/21 22:55 Active Up With Assistance [RC] ASDIRECTED Care 09/16/21 22:55 Active VTE/DVT Education [RC] Per Unit Routine Care 09/16/21 22:55 Active Vital Signs [RC] Q4H Care 09/16/21 22:55 Active Consult to Case Management/Field Talent Qualification Specialist [CONS] Cons 09/16/21 22:55 Active Routine OT Evaluation and Treatment [CONS] Routine Cons 09/16/21 22:55 Active PT Evaluation and Treatment [CONS] Routine Cons 09/16/21 22:55 Active Consistent Carbohydrate Diet [DIET] Diet 09/16/21 Breakfast Active Ankle Min 3V Rt [CR] Stat Exams 09/16/21 16:05 Taken Humerus Lt [CR] Stat Exams 09/16/21 16:05 Taken Lumbar Spine 2 or 3V [CR] Stat Exams 09/16/21 16:05 Taken Pelvis 1V or 2V [CR] Stat Exams 09/16/21 16:05 Taken CBC WITH AUTO DIFF [HEME] AM Lab 09/17/21 05:11 Ordered COMPREHENSIVE METABOLIC PN,CMP [CHEM] AM Lab 09/17/21 05:11 Ordered CORONAVIRUS COVID-19 RAPID [MOLEC] Stat Lab 09/16/21 23:12 Ordered GLUCOSE POC LAB TO COLLECT JPM [POC] QIDACANDBED Lab 09/17/21 07:30 Ordered UA W/MICROSCOPIC [URIN] Urgent Lab 09/16/21 22:55 Ordered Acetaminophen [TylenoL] Med 09/16/21 22:55 Active 650 mg PO Q4H PRN Acetaminophen [Tylenol Extra Strength] Med 09/16/21 22:55 Active 1,000 mg PO TID PRN Albuterol [Proventil Neb Soln] Med 09/16/21 22:55 Active 2.5 mg NEB Q4H PRN Albuterol/Ipratropium [DuoNeb 3.0-0.5 MG/3 ML] Med 09/16/21 22:55 Active 3 ml NEB QID PRN Bumetanide [Bumex] Med 09/17/21 09:00 Active 1 mg PO DAILY Cholecalciferol (Vitamin D3) [Vitamin D3] Med 09/17/21 09:00 Active 25 mcg PO DAILY Clopidogrel [Plavix] Med 09/17/21 09:00 Active 75 mg PO DAILY DULoxetine [Cymbalta] Med 09/17/21 09:00 Active 30 mg PO BID Dextrose 50% in Water Med 09/16/21 22:55 Active 50 ml IVPUSH ASDIRECTED PRN Docusate Sodium [Colace] Med 09/16/21 22:55 Active 100 mg PO BID PRN Enoxaparin [Lovenox] Med 09/17/21 09:00 Pending 30 mg SUBCUT DAILY Famotidine [Pepcid] Med 09/17/21 09:00 Active 20 mg PO BID Ferrous Sulfate Med 09/17/21 09:00 Active 325 mg PO DAILY Gabapentin [Neurontin] Med 09/17/21 09:00 Active 600 mg PO TID Glucagon,Human Recombinant [GlucaGen] Med 09/16/21 22:55 Active 1 mg IM ASDIRECTED PRN Insulin Glarg,Human.Rec.Analog [LantUS Solostar] Med 09/17/21 21:00 Active 10 units SUBCUT BEDTIME Insulin Glarg,Human.Rec.Analog [LantUS Solostar] Med 09/17/21 07:30 Active 15 units SUBCUT ACBREAKFAST Insulin Lispro [HumaLOG] Med 09/17/21 07:00 Active See Protocol SUBCUT QIDACANDBED Metoprolol Succinate [Toprol XL] Med 09/17/21 09:00 Active 100 mg PO DAILY Morphine Med 09/16/21 22:55 Active 2 mg IVPUSH Q2H PRN Nystatin [Nystatin Crm] Med 09/17/21 09:00 Active 1 gm TOP BID Ondansetron [Zofran ODT] Med 09/16/21 22:55 Active 4 mg PO Q6H PRN Ondansetron [Zofran] Med 09/16/21 22:55 Active 4 mg IV Q4H PRN Pentoxifylline [TRENtal] Med 09/17/21 09:00 Active 400 mg PO TID Potassium Chloride [Klor-Con M20] Med 09/17/21 08:00 Active 20 meq PO BIDMEALS Sodium Chloride 0.9% [Normal Saline] 1,000 ml Med 09/16/21 22:55 Active IV ASDIRECTED atorvaSTATin [Lipitor] Med 09/17/21 21:00 Active 40 mg PO BEDTIME bisacodyL [Dulcolax] Med 09/16/21 22:55 Active 5 mg PO DAILY PRN clindamycin HCL [Cleocin] Med 09/17/21 09:00 Active 300 mg PO TID diphenhydrAMINE [Benadryl] Med 09/16/21 22:55 Active 50 mg PO BEDTIME PRN oxyCODONE Med 09/16/21 22:55 Active 1 - 2 mg PO Q4H PRN Resuscitation Status Routine Resus Stat 09/16/21 21:56 Ordered Medication Orders Acetaminophen (Acetaminophen 325 Mg Tab) 650 mg PO Q4H PRN PRN Reason: Pain (Mild 1-3)/fever Acetaminophen (Acetaminophen 500 Mg Tab) 1,000 mg PO TID PRN PRN Reason: Pain Albuterol (Albuterol 0.083% 2.5 Mg/3 Ml Neb Soln) 2.5 mg NEB Q4H PRN PRN Reason: Shortness Of Breath/wheezing Albuterol/Ipratropium (Albuterol/Ipratropium 3.0-0.5 Mg/3 Ml Neb Soln) 3 ml NEB QID PRN PRN Reason: Shortness Of Breath/wheezing Atorvastatin Calcium (Atorvastatin 20 Mg Tab) 40 mg PO BEDTIME [facility] Bisacodyl (Bisacodyl 5 Mg Tab) 5 mg PO DAILY PRN PRN Reason: Constipation Bumetanide (Bumetanide 1 Mg Tab) 1 mg PO DAILY [facility] Cholecalciferol (Cholecalciferol (Vitamin D3) 25 Mcg Tab) 25 mcg PO DAILY [facility] Clindamycin HCl (Clindamycin Hcl 150 Mg Cap) 300 mg PO TID [facility] Clopidogrel Bisulfate (Clopidogrel 75 Mg Tab) 75 mg PO DAILY [facility] Dextrose/Water (50% Dextrose In Water 50 Ml Syringe) 50 ml IVPUSH ASDIRECTED PRN PRN Reason: Hypoglycemia Diphenhydramine HCl (Diphenhydramine 25 Mg Cap) 50 mg PO BEDTIME PRN PRN Reason: Insomnia Docusate Sodium (Docusate Sodium 100 Mg Cap) 100 mg PO BID PRN PRN Reason: Constipation Duloxetine HCl (Duloxetine 30 Mg Cap) 30 mg PO BID [facility] Enoxaparin Sodium (Enoxaparin 30 Mg/0.3 Ml Syringe) 30 mg SUBCUT DAILY [facility] Famotidine (Famotidine 20 Mg Tab) 20 mg PO BID [facility] Ferrous Sulfate (Ferrous Sulfate 325 Mg Tab) 325 mg PO DAILY [facility] Gabapentin (Gabapentin 300 Mg Cap) 600 mg PO TID [facility] Glucagon (Glucagon,Human Recombinant 1 Mg Vial) 1 mg IM ASDIRECTED PRN PRN Reason: Hypoglycemia Sodium Chloride (Normal Saline) 1,000 mls @ 125 mls/hr IV ASDIRECTED [facility] Insulin Glargine (Insulin Glargine,Human Rec. Analog 100 Units/Ml 3 Ml Pen) 10 units SUBCUT BEDTIME [facility] Insulin Glargine (Insulin Glargine,Human Rec. Analog 100 Units/Ml 3 Ml Pen) 15 units SUBCUT ACBREAKFAST [facility] Insulin Human Lispro (Insulin Lispro 100 Unit/Ml 3 Ml Kwikpen) 0 unit SUBCUT QIDACANDBED [facility]; Protocol Metoprolol Succinate (Metoprolol Succinate 50 Mg Tab.Er) 100 mg PO DAILY [facility] Morphine Sulfate (Morphine 2 Mg/Ml Syringe) 2 mg IVPUSH Q2H PRN PRN Reason: Pain (severe 7-10) Nystatin (Nystatin Crm 15 Gm Tube) 1 gm TOP BID [facility] Ondansetron HCl (Ondansetron 4 Mg Tab.Dis) 4 mg PO Q6H PRN PRN Reason: Nausea able to take PO Ondansetron HCl (Ondansetron 4 Mg/2 Ml Sdv) 4 mg IV Q4H PRN PRN Reason: Nausea/Vomiting Oxycodone HCl (Oxycodone 5 Mg Tab) 1 - 2 mg PO Q4H PRN PRN Reason: Pain (moderate 4-6) Pentoxifylline (Pentoxifylline 400 Mg Tab.Er) 400 mg PO TID [facility] Potassium Chloride (Potassium Chloride 20 Meq Tab.Er) 20 meq PO BIDMEALS [facility] Assessment/Plan Comment:: Assessment/Plan Comment:: ASSESSMENT AND PLAN OF CARE- WEAKNESS, CHF, CAD, DIABETES TYPE 2 WITH PVD, HX LEFT BKA WITH PHANTOMS PAIN, HISTORY OF PULMONARY EMBOLI, HX OF PACEMAKER WEAKNESS- This is a 75 year old female presents to the ER for evaluation of fall at assisted living home. She was in the process of transfer with PAL assistive transfer device and fell unto her back and hit her head. ER Labs and Head CT scan do not show any acute pathology. When she was about to be discharge back to her Assisted Living Apartment- the Director of Facility declined to accept her back into their care. They report she does not have a bed in her room, sleeps in a chair, if she is unable to transfer by herself, they can not have her back due to safety concerns. She has a BKA amputation on the left leg and right leg has history of fracture to ankle and amputation of 4th toe from complications of diabetes. She has been working with PT for strengthening but feels that is not improving much. Weakness - due to acute and chronic disease. 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 -consult to PT -consult to OT -consult to Eap Specialist. -telemetry -vaccinated for Covid 19, one hour Covid 19 virus test in ER is negative, influenza vaccine given 2020 -And a.m. labs: CBC, BMP CHF -continue outpatient medications -monitor I & O CAD, has cardiac pacemaker, has 3 coronary stents from past [place], Mitral valve replaced. -continue outpatient medications History of Pulmonary Emboli- diagnoses March 2021 -Lovenox 30 mg subcut. Diabetes type 2- patient adjust insulin based on meal and how she is feeling. -POC blood glucose testing before meals -Low dose Sliding scale insulin -Levemir insulin 15 units subcut in am Maintenance issues -Orders home meds: chronic medication -Nutrition: consistent carb diet -Barber catheter -not indicated at this time -DVT - Lovenox 30 mg subcut daily -PPI - IV Protonix 40mg daily CODE STATUS: FULL Admission status: Admit to [address] [place] [address]. This patient will be admitted for inpatient services and is medically appropriate meeting medical necessity for inpatient admission as outlined in my documentation. I reasonably expect the patient will require inpatient services that span. Time over 2 midnights. I reasonably expect this patient to be discharged or transferred within 96 hours after admission to the critical access hospital. Disposition: Assisted Living home or extended care facility Primary care provider: Dr. Paul, [facility] Hospitalist: Dr. Leavitt - Mortality Measure Prognosis:: Good - Mortality Measure Prognosis:: Good
[2021-09-17] MEDS: Insulin Lispro 100 Unit/ML 3 ML KwikPen SUBCUT SCH ×5 (00:57→21:00)
[2021-09-17] MEDS: Insulin Glargine,Human Rec. Analog 100 Units/ML 3 ML Pen SUBCUT SCH ×3 (00:58→21:01)
[2021-09-17] MEDS: oxyCODONE 5 MG Tab PO PRN ×2 (04:16→10:44)
[2021-09-17] MEDS ORDERED: Insulin Lispro 100 Unit/ML 3 ML KwikPen SUBCUT SCH (07:00)
[2021-09-17] MEDS: Acetaminophen 325 MG Tab PO PRN (08:58)
[2021-09-17] MEDS ORDERED: Clindamycin HCl 150 MG Cap PO SCH (09:00)
[2021-09-17] MEDS ORDERED: Enoxaparin 30 MG/0.3 ML Syringe SUBCUT SCH (09:00)
--- NOTE | 2021-09-17 09:02 | CR ---
Pelvis 1V or 2V CLINICAL HISTORY: Fall, pain FINDINGS: No fracture or dislocation is identified. Study is limited due to patient's large body habitus. There is moderate osteoarthritis of both hips. IMPRESSION: Osteoarthritis both hips No fracture seen
--- NOTE | 2021-09-17 09:04 | CR ---
Lumbar Spine 2 or 3V CLINICAL HISTORY: Fall, pain FINDINGS: Study is limited. The decubitus view was performed for the lateral lumbar spine. Patient was unable to lay on side. Due to morbid obesity the vertebrae are not identifiable below the mid lumbar spine on the lateral. There is some diffuse spondylosis seen in the PA exam. There is some osteoarthritis. IMPRESSION: Very limited lumbar spine study due to patient body habitus and ability to be positioned. There are degenerative changes. No definite fracture seen
--- NOTE | 2021-09-17 09:07 | CR ---
Humerus Lt CLINICAL HISTORY: Fall FINDINGS: There is no acute fracture within the humerus. There is less than optimal visualization of the glenohumeral joint due to ability to position the patient. IMPRESSION: Limited study No fracture seen
--- NOTE | 2021-09-17 09:07 | CR ---
Ankle Min 3V Rt CLINICAL HISTORY: Injury FINDINGS: The bones are osteopenic. There are diffuse arterial calcifications likely related to diabetes. There is laxity at the tibiotalar joint with lateral subluxation of the talus. There is old healed fracture of the distal fibula with lateral angulation. There is some flattening of the talar dome. There is a central fusion of the subtalar joint. Patient is a calcaneal spur. There is severe osteoarthritic change in the tarsal junctions. There is pes planus IMPRESSION: No acute fractures seen Old healed fracture distal radius Severe osteoarthritic changes
[2021-09-17] MEDS: Gabapentin 300 MG **PTOM PO SCH ×3 (10:50→20:07)
[2021-09-17] MEDS: Ferrous Sulfate 325 MG Tab PO SCH (12:49)
[2021-09-17] MEDS: Potassium Chloride 20 MEQ Tab.ER PO SCH ×2 (12:49→16:55)
[2021-09-17] MEDS: DULoxetine 30 MG Cap PO SCH ×2 (12:49→20:08)
[2021-09-17] MEDS: Bumetanide 1 MG Tab PO SCH (12:49)
[2021-09-17] MEDS: Enoxaparin 40 MG/0.4 ML Syringe SUBCUT SCH (12:50)
[2021-09-17] MEDS: Metoprolol Succinate 50 MG Tab.ER PO SCH (12:51)
[2021-09-17] MEDS: Clopidogrel 75 MG Tab PO SCH (12:51)
[2021-09-17] MEDS: Famotidine 20 MG Tab PO SCH ×2 (12:51→20:14)
[2021-09-17] MEDS: Pentoxifylline 400 MG Tab.ER PO SCH ×3 (12:54→20:09)
[2021-09-17] MEDS: Cholecalciferol (Vitamin D3) 25 MCG Tab PO SCH (12:54)
[2021-09-17] MEDS: CLINDAMYCIN 300 MG PO SCH ×2 (12:55→16:55)
[2021-09-17] MEDS: Nystatin Crm 15 GM Tube TOP SCH ×3 (13:00→20:58)
[2021-09-17] MEDS: Nystatin Topical Powder 15 GM Bottle TOP SCH ×2 (15:20→20:13)
--- NOTE | 2021-09-17 17:43 | PCM.PN ---
- General Info Date of Service: 09/17/21 Subjective Update: Ms. Padilla is a 75-year-old woman who was admitted through the emergency last night to observation status because of weakness and a fall at her assisted living. She was evaluated in the emergency department and noted to have no acute medical issues. The plan had been for discharge back to the assisted living but they refused the transfer back saying that they were no longer able to care for her. Functional Status: Reports: Tolerating Diet, Urinating - Review of Systems General: Reports: Weakness, Fatigue. Denies: Fever, Chills Pulmonary: Reports: No Symptoms Cardiovascular: Reports: No Symptoms Gastrointestinal: Reports: No Symptoms Genitourinary: Reports: No Symptoms - Patient Data Vitals - Most Recent: Last Vital Signs Temp 97.5 F 09/17/21 15:41 Pulse 74 09/17/21 15:41 Resp 18 09/17/21 15:41 BP 153/57 H 09/17/21 15:41 Pulse Ox 95 09/17/21 15:41 Weight - Most Recent: 314 lb I&O - Last 24 Hours: Intake & Output 09/17/21 09/17/21 09/17/21 06:59 14:59 22:59 Intake Total 200 Balance 200 Lab Results Last 24 Hours: Laboratory Results - last 24 hr 09/16/21 09/17/21 09/17/21 Range/Units 23:23 00:45 00:45 WBC (4.5-11.0) K/uL RBC (3.30-5.50) M/uL Hgb (12.0-15.0) g/dL Hct (36.0-48.0) % MCV (80-98) fL MCH (27-31) pg MCHC (32-36) % Plt Count (150-400) K/uL Neut % (Auto) (36-66) % Lymph % (Auto) (24-44) % Kaufman % (Auto) (2-6) % Eos % (Auto) (2-4) % Baso % (Auto) (0-1) % Sodium (140-148) mmol/L Potassium (3.6-5.2) mmol/L Chloride (100-108) mmol/L Carbon Dioxide (21-32) mmol/L Anion Gap (5.0-14.0) mmol/L BUN (7-18) mg/dL Creatinine (0.6-1.0) mg/dL Est Cr Clr Drug Dosing mL/min Estimated GFR (MDRD) (>60) Glucose (74-106) mg/dL POC Glucose 272 H 272 H (74-106) MG/DL Calcium (8.5-10.1) mg/dL Total Bilirubin (0.2-1.0) mg/dL AST (15-37) U/L ALT (12-78) U/L Alkaline Phosphatase (46-116) U/L Total Protein (6.4-8.2) g/dL Albumin (3.4-5.0) g/dL Globulin (2.3-3.5) g/dL Albumin/Globulin Ratio (1.2-2.2) SARS CoV-2 RNA Rapid [facility] Negative 09/17/21 09/17/21 09/17/21 Range/Units 04:58 04:58 07:38 WBC 11.8 H (4.5-11.0) K/uL RBC 4.64 (3.30-5.50) M/uL Hgb 12.1 D (12.0-15.0) g/dL Hct 38.8 (36.0-48.0) % MCV 84 (80-98) fL MCH 26 L (27-31) pg MCHC 31 L (32-36) % Plt Count 225 (150-400) K/uL Neut % (Auto) 72.3 H (36-66) % Lymph % (Auto) 15.5 L (24-44) % Kaufman % (Auto) 8.8 H (2-6) % Eos % (Auto) 3.1 (2-4) % Baso % (Auto) 0.3 (0-1) % Sodium 140 (140-148) mmol/L Potassium 4.4 (3.6-5.2) mmol/L Chloride 104 (100-108) mmol/L Carbon Dioxide 26 (21-32) mmol/L Anion Gap 9.6 (5.0-14.0) mmol/L BUN 29 H (7-18) mg/dL Creatinine 1.0 (0.6-1.0) mg/dL Est Cr Clr Drug Dosing 48.72 mL/min Estimated GFR (MDRD) 54 L (>60) Glucose 205 H (74-106) mg/dL POC Glucose 188 H (74-106) MG/DL Calcium 8.1 L (8.5-10.1) mg/dL Total Bilirubin 0.3 (0.2-1.0) mg/dL AST 11 L D (15-37) U/L ALT 17 (12-78) U/L Alkaline Phosphatase 89 (46-116) U/L Total Protein 5.8 L (6.4-8.2) g/dL Albumin 3.0 L (3.4-5.0) g/dL Globulin 2.8 (2.3-3.5) g/dL Albumin/Globulin Ratio 1.1 L (1.2-2.2) SARS CoV-2 RNA Rapid [facility] 09/17/21 09/17/21 Range/Units 11:29 16:36 WBC (4.5-11.0) K/uL RBC (3.30-5.50) M/uL Hgb (12.0-15.0) g/dL Hct (36.0-48.0) % MCV (80-98) fL MCH (27-31) pg MCHC (32-36) % Plt Count (150-400) K/uL Neut % (Auto) (36-66) % Lymph % (Auto) (24-44) % Kaufman % (Auto) (2-6) % Eos % (Auto) (2-4) % Baso % (Auto) (0-1) % Sodium (140-148) mmol/L Potassium (3.6-5.2) mmol/L Chloride (100-108) mmol/L Carbon Dioxide (21-32) mmol/L Anion Gap (5.0-14.0) mmol/L BUN (7-18) mg/dL Creatinine (0.6-1.0) mg/dL Est Cr Clr Drug Dosing mL/min Estimated GFR (MDRD) (>60) Glucose (74-106) mg/dL POC Glucose 187 H 266 H (74-106) MG/DL Calcium (8.5-10.1) mg/dL Total Bilirubin (0.2-1.0) mg/dL AST (15-37) U/L ALT (12-78) U/L Alkaline Phosphatase (46-116) U/L Total Protein (6.4-8.2) g/dL Albumin (3.4-5.0) g/dL Globulin (2.3-3.5) g/dL Albumin/Globulin Ratio (1.2-2.2) SARS CoV-2 RNA Rapid [facility] Med Orders - Current: Current Medications Acetaminophen (Acetaminophen 325 Mg Tab) 650 mg PO Q4H PRN PRN Reason: Pain (Mild 1-3)/fever Last Admin: 09/17/21 08:58 Dose: 650 mg Documented by: Acetaminophen (Acetaminophen 500 Mg Tab) 1,000 mg PO TID PRN PRN Reason: Pain Albuterol (Albuterol 0.083% 2.5 Mg/3 Ml Neb Soln) 2.5 mg NEB Q4H PRN PRN Reason: Shortness Of Breath/wheezing Albuterol/Ipratropium (Albuterol/Ipratropium 3.0-0.5 Mg/3 Ml Neb Soln) 3 ml NEB QID PRN PRN Reason: Shortness Of Breath/wheezing Atorvastatin Calcium (Atorvastatin 20 Mg Tab) 40 mg PO BEDTIME [facility] Bisacodyl (Bisacodyl 5 Mg Tab) 5 mg PO DAILY PRN PRN Reason: Constipation Bumetanide (Bumetanide 1 Mg Tab) 1 mg PO DAILY [facility] Last Admin: 09/17/21 12:49 Dose: 1 mg Documented by: Cholecalciferol (Cholecalciferol (Vitamin D3) 25 Mcg Tab) 25 mcg PO DAILY [facility] Last Admin: 09/17/21 12:54 Dose: 25 mcg Documented by: Clopidogrel Bisulfate (Clopidogrel 75 Mg Tab) 75 mg PO DAILY [facility] Last Admin: 09/17/21 12:51 Dose: 75 mg Documented by: Dextrose/Water (50% Dextrose In Water 50 Ml Syringe) 50 ml IVPUSH ASDIRECTED PRN PRN Reason: Hypoglycemia Diphenhydramine HCl (Diphenhydramine 25 Mg Cap) 50 mg PO BEDTIME PRN PRN Reason: Insomnia Docusate Sodium (Docusate Sodium 100 Mg Cap) 100 mg PO BID PRN PRN Reason: Constipation Duloxetine HCl (Duloxetine 30 Mg Cap) 30 mg PO BID [facility] Last Admin: 09/17/21 12:49 Dose: 30 mg Documented by: Enoxaparin Sodium (Enoxaparin 40 Mg/0.4 Ml Syringe) 40 mg SUBCUT DAILY [facility] Last Admin: 09/17/21 12:50 Dose: Not Given Documented by: Famotidine (Famotidine 20 Mg Tab) 20 mg PO BID [facility] Last Admin: 09/17/21 12:51 Dose: 20 mg Documented by: Ferrous Sulfate (Ferrous Sulfate 325 Mg Tab) 325 mg PO DAILY [facility] Last Admin: 09/17/21 12:49 Dose: 325 mg Documented by: Gabapentin (Gabapentin 300 Mg Ptom) 600 mg PO TID [facility] Last Admin: 09/17/21 15:19 Dose: 600 mg Documented by: Glucagon (Glucagon,Human Recombinant 1 Mg Vial) 1 mg IM ASDIRECTED PRN PRN Reason: Hypoglycemia Insulin Glargine (Insulin Glargine,Human Rec. Analog 100 Units/Ml 3 Ml Pen) 15 units SUBCUT ACBREAKFAST [facility] Last Admin: 09/17/21 08:10 Dose: 15 units Documented by: Insulin Glargine (Insulin Glargine,Human Rec. Analog 100 Units/Ml 3 Ml Pen) 10 units SUBCUT BEDTIME [facility] Last Admin: 09/17/21 00:58 Dose: 10 units Documented by: Insulin Human Lispro (Insulin Lispro 100 Unit/Ml 3 Ml Kwikpen) 0 unit SUBCUT QIDACANDBED [facility]; Protocol Last Admin: 09/17/21 16:55 Dose: 3 units Documented by: Metoprolol Succinate (Metoprolol Succinate 50 Mg Tab.Er) 100 mg PO DAILY [facility] Last Admin: 09/17/21 12:51 Dose: 100 mg Documented by: Nystatin (Nystatin Crm 15 Gm Tube) 1 gm TOP BID [facility] Last Admin: 09/17/21 13:00 Dose: Not Given Documented by: Nystatin (Nystatin Topical Powder 15 Gm Bottle) 0 gm TOP TID [facility] Last Admin: 09/17/21 15:20 Dose: 1 applic Documented by: Ondansetron HCl (Ondansetron 4 Mg Tab.Dis) 4 mg PO Q6H PRN PRN Reason: Nausea able to take PO Ondansetron HCl (Ondansetron 4 Mg/2 Ml Sdv) 4 mg IV Q4H PRN PRN Reason: Nausea/Vomiting Oxycodone HCl (Oxycodone 5 Mg Tab) 5 - 10 mg PO Q4H PRN PRN Reason: Pain (moderate 4-6) Last Admin: 09/17/21 10:44 Dose: 10 mg Documented by: Clindamycin 300mg (Ptom) 0 each PO TIDMEALS [facility] Last Admin: 09/17/21 16:55 Dose: 1 each Documented by: Pentoxifylline (Pentoxifylline 400 Mg Tab.Er) 400 mg PO TID [facility] Last Admin: 09/17/21 15:19 Dose: 400 mg Documented by: Potassium Chloride (Potassium Chloride 20 Meq Tab.Er) 20 meq PO BIDMEALS [facility] Last Admin: 09/17/21 16:55 Dose: 20 meq Documented by: Discontinued Medications Hydromorphone HCl (Hydromorphone 1 Mg/Ml Syringe) 1 mg IM ONETIME ONE Stop: 09/16/21 17:55 Last Admin: 09/16/21 18:04 Dose: 1 mg Documented by: Sodium Chloride (Normal Saline) 1,000 mls @ 125 mls/hr IV ASDIRECTED [facility] Ketorolac Tromethamine (Ketorolac 30 Mg/Ml Sdv) 30 mg IM ONETIME ONE Stop: 09/16/21 16:06 Last Admin: 09/16/21 16:29 Dose: 30 mg Documented by: Morphine Sulfate (Morphine 2 Mg/Ml Syringe) 2 mg IVPUSH Q2H PRN PRN Reason: Pain (severe 7-10) Oxycodone HCl (Oxycodone 5 Mg Tab) 1 - 2 mg PO Q4H PRN PRN Reason: Pain (moderate 4-6) - Exam Quality Assessment: DVT Prophylaxis General: Alert, Oriented, Cooperative, Mild Distress Lungs: Clear to Auscultation, Normal Respiratory Effort Cardiovascular: Regular Rate, Regular Rhythm, No Murmurs GI/Abdominal Exam: Soft, Non-Tender, No Organomegaly, No Distention Extremities: Non-Tender - Patient Data Lab Results Last 24 hrs: Laboratory Results - last 24 hr 09/16/21 09/17/21 09/17/21 Range/Units 23:23 00:45 00:45 WBC (4.5-11.0) K/uL RBC (3.30-5.50) M/uL Hgb (12.0-15.0) g/dL Hct (36.0-48.0) % MCV (80-98) fL MCH (27-31) pg MCHC (32-36) % Plt Count (150-400) K/uL Neut % (Auto) (36-66) % Lymph % (Auto) (24-44) % Kaufman % (Auto) (2-6) % Eos % (Auto) (2-4) % Baso % (Auto) (0-1) % Sodium (140-148) mmol/L Potassium (3.6-5.2) mmol/L Chloride (100-108) mmol/L Carbon Dioxide (21-32) mmol/L Anion Gap (5.0-14.0) mmol/L BUN (7-18) mg/dL Creatinine (0.6-1.0) mg/dL Est Cr Clr Drug Dosing mL/min Estimated GFR (MDRD) (>60) Glucose (74-106) mg/dL POC Glucose 272 H 272 H (74-106) MG/DL Calcium (8.5-10.1) mg/dL Total Bilirubin (0.2-1.0) mg/dL AST (15-37) U/L ALT (12-78) U/L Alkaline Phosphatase (46-116) U/L Total Protein (6.4-8.2) g/dL Albumin (3.4-5.0) g/dL Globulin (2.3-3.5) g/dL Albumin/Globulin Ratio (1.2-2.2) SARS CoV-2 RNA Rapid [facility] Negative 09/17/21 09/17/21 09/17/21 Range/Units 04:58 04:58 07:38 WBC 11.8 H (4.5-11.0) K/uL RBC 4.64 (3.30-5.50) M/uL Hgb 12.1 D (12.0-15.0) g/dL Hct 38.8 (36.0-48.0) % MCV 84 (80-98) fL MCH 26 L (27-31) pg MCHC 31 L (32-36) % Plt Count 225 (150-400) K/uL Neut % (Auto) 72.3 H (36-66) % Lymph % (Auto) 15.5 L (24-44) % Kaufman % (Auto) 8.8 H (2-6) % Eos % (Auto) 3.1 (2-4) % Baso % (Auto) 0.3 (0-1) % Sodium 140 (140-148) mmol/L Potassium 4.4 (3.6-5.2) mmol/L Chloride 104 (100-108) mmol/L Carbon Dioxide 26 (21-32) mmol/L Anion Gap 9.6 (5.0-14.0) mmol/L BUN 29 H (7-18) mg/dL Creatinine 1.0 (0.6-1.0) mg/dL Est Cr Clr Drug Dosing 48.72 mL/min Estimated GFR (MDRD) 54 L (>60) Glucose 205 H (74-106) mg/dL POC Glucose 188 H (74-106) MG/DL Calcium 8.1 L (8.5-10.1) mg/dL Total Bilirubin 0.3 (0.2-1.0) mg/dL AST 11 L D (15-37) U/L ALT 17 (12-78) U/L Alkaline Phosphatase 89 (46-116) U/L Total Protein 5.8 L (6.4-8.2) g/dL Albumin 3.0 L (3.4-5.0) g/dL Globulin 2.8 (2.3-3.5) g/dL Albumin/Globulin Ratio 1.1 L (1.2-2.2) SARS CoV-2 RNA Rapid [facility] 09/17/21 09/17/21 Range/Units 11:29 16:36 WBC (4.5-11.0) K/uL RBC (3.30-5.50) M/uL Hgb (12.0-15.0) g/dL Hct (36.0-48.0) % MCV (80-98) fL MCH (27-31) pg MCHC (32-36) % Plt Count (150-400) K/uL Neut % (Auto) (36-66) % Lymph % (Auto) (24-44) % Kaufman % (Auto) (2-6) % Eos % (Auto) (2-4) % Baso % (Auto) (0-1) % Sodium (140-148) mmol/L Potassium (3.6-5.2) mmol/L Chloride (100-108) mmol/L Carbon Dioxide (21-32) mmol/L Anion Gap (5.0-14.0) mmol/L BUN (7-18) mg/dL Creatinine (0.6-1.0) mg/dL Est Cr Clr Drug Dosing mL/min Estimated GFR (MDRD) (>60) Glucose (74-106) mg/dL POC Glucose 187 H 266 H (74-106) MG/DL Calcium (8.5-10.1) mg/dL Total Bilirubin (0.2-1.0) mg/dL AST (15-37) U/L ALT (12-78) U/L Alkaline Phosphatase (46-116) U/L Total Protein (6.4-8.2) g/dL Albumin (3.4-5.0) g/dL Globulin (2.3-3.5) g/dL Albumin/Globulin Ratio (1.2-2.2) SARS CoV-2 RNA Rapid [facility] Result Diagrams: 09/17/21 04:58 09/17/21 04:58 Sepsis Event Note - Evaluation Sepsis Screening Result: No Definite Risk - Focused Exam Vital Signs: Vital Signs Temp Pulse Pulse Resp BP BP Pulse Ox 09/17/21 15:41 97.5 F 74 18 153/57 H 95 09/17/21 13:03 94 L 09/17/21 12:51 62 146/45 H 09/17/21 11:00 98.2 F 80 18 133/39 L 92 L 09/17/21 07:53 94 L 09/17/21 07:00 97.4 F 62 16 134/56 L 92 L - Problem List Review Problem List Initiated/Reviewed/Updated: Yes - My Orders Last 24 Hours: My Active Orders 09/16/21 21:55 Admission Status [Patient Status] [ADT] Routine 09/17/21 15:00 Nystatin [Nystop] See Dose Instructions TOP TID - Plan Plan:: ASSESSMENT AND PLAN OF CARE Weakness - due to acute and chronic disease. 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 -consult to PT -consult to OT -Will likely require mcc placement -consult to Assistant Controller. -vaccinated for Covid 19, one hour Covid 19 virus test in ER is negative, influenza vaccine given 2020 CHF -continue outpatient medications -monitor I & O CAD, has cardiac pacemaker, has 3 coronary stents from past [place], Mitral valve replaced. -continue outpatient medications History of Pulmonary Emboli- diagnoses March 2021 -Lovenox 30 mg subcut. Diabetes type 2- patient adjust insulin based on meal and how she is feeling. -POC blood glucose testing before meals -Low dose Sliding scale insulin -Levemir insulin 15 units subcut in am Maintenance issues -Orders home meds: chronic medication -Nutrition: consistent carb diet -Barber catheter -not indicated at this time -DVT - Lovenox 30 mg subcut daily -PPI - IV Protonix 40mg daily CODE STATUS: FULL Admission status: Admit to [address] [place] [address] Admission justification. This patient will be admitted for inpatient services and is medically appropriate meeting medical necessity for inpatient admission as outlined in my documentation. I reasonably expect the patient will require inpatient services that span. Time over 2 midnights. I reasonably expect this patient to be discharged or transferred within 96 hours after admission to the [place] emergency [facility] access hospital. Disposition: Assisted Living home or extended care facility Primary care provider: Dr. Paul, [facility] Hospitalist: Dr. Leavitt
[2021-09-17] MEDS: atorvaSTATin 20 MG Tab PO SCH (20:10)
[2021-09-17] MEDS ORDERED: Insulin Glargine,Human Rec. Analog 100 Units/ML 3 ML Pen SUBCUT SCH (21:00)
[2021-09-18] MEDS: oxyCODONE 5 MG Tab PO PRN ×3 (04:40→19:40)
[2021-09-18] MEDS: Insulin Lispro 100 Unit/ML 3 ML KwikPen SUBCUT SCH ×4 (08:36→20:57)
[2021-09-18] MEDS: Insulin Glargine,Human Rec. Analog 100 Units/ML 3 ML Pen SUBCUT SCH ×2 (08:37→20:59)
[2021-09-18] MEDS: Potassium Chloride 20 MEQ Tab.ER PO SCH ×2 (09:51→17:06)
[2021-09-18] MEDS: CLINDAMYCIN 300 MG PO SCH ×3 (09:53→17:08)
[2021-09-18] MEDS: Bumetanide 1 MG Tab PO SCH (09:54)
[2021-09-18] MEDS: Ferrous Sulfate 325 MG Tab PO SCH (09:54)
[2021-09-18] MEDS: DULoxetine 30 MG Cap PO SCH ×2 (09:54→21:02)
[2021-09-18] MEDS: Gabapentin 300 MG **PTOM PO SCH ×3 (09:55→21:03)
[2021-09-18] MEDS: Metoprolol Succinate 50 MG Tab.ER PO SCH (09:56)
[2021-09-18] MEDS: Clopidogrel 75 MG Tab PO SCH (09:56)
[2021-09-18] MEDS: Famotidine 20 MG Tab PO SCH ×2 (09:56→21:05)
[2021-09-18] MEDS: Pentoxifylline 400 MG Tab.ER PO SCH ×3 (09:57→21:06)
[2021-09-18] MEDS: Cholecalciferol (Vitamin D3) 25 MCG Tab PO SCH (09:58)
[2021-09-18] MEDS: Enoxaparin 40 MG/0.4 ML Syringe SUBCUT SCH (09:59)
[2021-09-18] MEDS: Nystatin Topical Powder 15 GM Bottle TOP SCH ×3 (10:42→21:03)
[2021-09-18] MEDS: Nystatin Crm 15 GM Tube TOP SCH ×2 (10:42→21:05)
--- NOTE | 2021-09-18 13:17 | PCM.PN ---
- General Info Date of Service: 09/18/21 Subjective Update: Ms. Padilla has remained stable since yesterday. Urine culture is growing out gram-negative rods and urinalysis does appear to be consistent with infection. She has not had significant symptoms related to probable infection. Functional Status: Reports: Tolerating Diet, Urinating. Denies: Ambulating - Review of Systems General: Reports: Weakness, Fatigue. Denies: Fever, Chills Pulmonary: Reports: No Symptoms Cardiovascular: Reports: No Symptoms Gastrointestinal: Reports: No Symptoms Genitourinary: Reports: No Symptoms - Patient Data Vitals - Most Recent: Last Vital Signs Temp 97.2 F 09/18/21 12:00 Pulse 60 09/18/21 09:56 Resp 16 09/18/21 12:00 BP 158/77 H 09/18/21 12:00 Pulse Ox 93 L 09/18/21 12:00 Weight - Most Recent: 314 lb I&O - Last 24 Hours: Intake & Output 09/17/21 09/18/21 09/18/21 22:59 06:59 14:59 Intake Total 960 360 360 Output Total 200 Balance 960 360 160 Lab Results Last 24 Hours: Laboratory Results - last 24 hr 09/17/21 09/17/21 09/17/21 Range/Units 16:36 20:56 20:59 POC Glucose 266 H 366 H (74-106) mg/dL Urine Color Yellow (YELLOW) Urine Appearance Slightly cloudy A (CLEAR) Urine pH 5.0 (5.0-8.0) Ur Specific [place] 1.015 (1.008-1.030) Urine Protein 30 H (NEGATIVE) mg/dL Urine Glucose (UA) 250 H (NEGATIVE) mg/dL Urine Ketones Negative (NEGATIVE) mg/dL Urine Occult Blood Small H (NEGATIVE) Urine Nitrite Positive H (NEGATIVE) Urine Bilirubin Negative (NEGATIVE) Urine Urobilinogen 0.2 (0.2-1.0) EU/dL Ur Leukocyte Esterase Small H (NEGATIVE) Urine RBC 5-10 H (0-5) Urine WBC 30-40 H (0-5) Ur Epithelial Cells Few Amorphous Sediment Not seen Urine Bacteria Many Urine Mucus Few 09/18/21 09/18/21 Range/Units 07:34 11:47 POC Glucose 222 H 242 H (74-106) mg/dL Urine Color (YELLOW) Urine Appearance (CLEAR) Urine pH (5.0-8.0) Ur Specific [place] (1.008-1.030) Urine Protein (NEGATIVE) mg/dL Urine Glucose (UA) (NEGATIVE) mg/dL Urine Ketones (NEGATIVE) mg/dL Urine Occult Blood (NEGATIVE) Urine Nitrite (NEGATIVE) Urine Bilirubin (NEGATIVE) Urine Urobilinogen (0.2-1.0) EU/dL Ur Leukocyte Esterase (NEGATIVE) Urine RBC (0-5) Urine WBC (0-5) Ur Epithelial Cells Amorphous Sediment Urine Bacteria Urine Mucus Dangelo Results Last 24 Hours: Microbiology 09/17/21 21:20 Urine Culture - Preliminary Urine, Clean Catch Med Orders - Current: Current Medications Acetaminophen (Acetaminophen 325 Mg Tab) 650 mg PO Q4H PRN PRN Reason: Pain (Mild 1-3)/fever Last Admin: 09/17/21 08:58 Dose: 650 mg Documented by: Acetaminophen (Acetaminophen 500 Mg Tab) 1,000 mg PO TID PRN PRN Reason: Pain Albuterol (Albuterol 0.083% 2.5 Mg/3 Ml Neb Soln) 2.5 mg NEB Q4H PRN PRN Reason: Shortness Of Breath/wheezing Albuterol/Ipratropium (Albuterol/Ipratropium 3.0-0.5 Mg/3 Ml Neb Soln) 3 ml NEB QID PRN PRN Reason: Shortness Of Breath/wheezing Atorvastatin Calcium (Atorvastatin 20 Mg Tab) 40 mg PO BEDTIME [facility] Last Admin: 09/17/21 20:10 Dose: 40 mg Documented by: Bisacodyl (Bisacodyl 5 Mg Tab) 5 mg PO DAILY PRN PRN Reason: Constipation Bumetanide (Bumetanide 1 Mg Tab) 1 mg PO DAILY [facility] Last Admin: 09/18/21 09:54 Dose: 1 mg Documented by: Cephalexin (Cephalexin 250 Mg Cap) 500 mg PO Q8H [facility] Cholecalciferol (Cholecalciferol (Vitamin D3) 25 Mcg Tab) 25 mcg PO DAILY [facility] Last Admin: 09/18/21 09:58 Dose: 25 mcg Documented by: Clopidogrel Bisulfate (Clopidogrel 75 Mg Tab) 75 mg PO DAILY [facility] Last Admin: 09/18/21 09:56 Dose: 75 mg Documented by: Dextrose/Water (50% Dextrose In Water 50 Ml Syringe) 50 ml IVPUSH ASDIRECTED PRN PRN Reason: Hypoglycemia Diphenhydramine HCl (Diphenhydramine 25 Mg Cap) 50 mg PO BEDTIME PRN PRN Reason: Insomnia Docusate Sodium (Docusate Sodium 100 Mg Cap) 100 mg PO BID PRN PRN Reason: Constipation Duloxetine HCl (Duloxetine 30 Mg Cap) 30 mg PO BID [facility] Last Admin: 09/18/21 09:54 Dose: 30 mg Documented by: Enoxaparin Sodium (Enoxaparin 40 Mg/0.4 Ml Syringe) 40 mg SUBCUT DAILY [facility] Last Admin: 09/18/21 09:59 Dose: 40 mg Documented by: Famotidine (Famotidine 20 Mg Tab) 20 mg PO BID [facility] Last Admin: 09/18/21 09:56 Dose: 20 mg Documented by: Ferrous Sulfate (Ferrous Sulfate 325 Mg Tab) 325 mg PO DAILY [facility] Last Admin: 09/18/21 09:54 Dose: 325 mg Documented by: Gabapentin (Gabapentin 300 Mg Ptom) 600 mg PO TID [facility] Last Admin: 09/18/21 09:55 Dose: 600 mg Documented by: Glucagon (Glucagon,Human Recombinant 1 Mg Vial) 1 mg IM ASDIRECTED PRN PRN Reason: Hypoglycemia Insulin Glargine (Insulin Glargine,Human Rec. Analog 100 Units/Ml 3 Ml Pen) 15 units SUBCUT ACBREAKFAST [facility] Last Admin: 09/18/21 08:37 Dose: 15 units Documented by: Insulin Glargine (Insulin Glargine,Human Rec. Analog 100 Units/Ml 3 Ml Pen) 10 units SUBCUT BEDTIME [facility] Last Admin: 09/17/21 21:01 Dose: 10 units Documented by: Insulin Human Lispro (Insulin Lispro 100 Unit/Ml 3 Ml Kwikpen) 0 unit SUBCUT QIDACANDBED [facility]; Protocol Last Admin: 09/18/21 12:07 Dose: 2 units Documented by: Metoprolol Succinate (Metoprolol Succinate 50 Mg Tab.Er) 100 mg PO DAILY [facility] Last Admin: 09/18/21 09:56 Dose: 100 mg Documented by: Nystatin (Nystatin Crm 15 Gm Tube) 1 gm TOP BID [facility] Last Admin: 09/18/21 10:42 Dose: Not Given Documented by: Nystatin (Nystatin Topical Powder 15 Gm Bottle) 0 gm TOP TID [facility] Last Admin: 09/18/21 10:42 Dose: Not Given Documented by: Ondansetron HCl (Ondansetron 4 Mg Tab.Dis) 4 mg PO Q6H PRN PRN Reason: Nausea able to take PO Ondansetron HCl (Ondansetron 4 Mg/2 Ml Sdv) 4 mg IV Q4H PRN PRN Reason: Nausea/Vomiting Oxycodone HCl (Oxycodone 5 Mg Tab) 5 - 10 mg PO Q4H PRN PRN Reason: Pain (moderate 4-6) Last Admin: 09/18/21 04:40 Dose: 10 mg Documented by: Clindamycin 300mg (Ptom) 0 each PO TIDMEALS [facility] Last Admin: 09/18/21 12:52 Dose: 1 each Documented by: Pentoxifylline (Pentoxifylline 400 Mg Tab.Er) 400 mg PO TID [facility] Last Admin: 09/18/21 09:57 Dose: 400 mg Documented by: Potassium Chloride (Potassium Chloride 20 Meq Tab.Er) 20 meq PO BIDMEALS [facility] Last Admin: 09/18/21 09:51 Dose: 20 meq Documented by: Discontinued Medications Hydromorphone HCl (Hydromorphone 1 Mg/Ml Syringe) 1 mg IM ONETIME ONE Stop: 09/16/21 17:55 Last Admin: 09/16/21 18:04 Dose: 1 mg Documented by: Sodium Chloride (Normal Saline) 1,000 mls @ 125 mls/hr IV ASDIRECTED [facility] Ketorolac Tromethamine (Ketorolac 30 Mg/Ml Sdv) 30 mg IM ONETIME ONE Stop: 09/16/21 16:06 Last Admin: 09/16/21 16:29 Dose: 30 mg Documented by: Morphine Sulfate (Morphine 2 Mg/Ml Syringe) 2 mg IVPUSH Q2H PRN PRN Reason: Pain (severe 7-10) Oxycodone HCl (Oxycodone 5 Mg Tab) 1 - 2 mg PO Q4H PRN PRN Reason: Pain (moderate 4-6) - Exam Quality Assessment: DVT Prophylaxis General: Alert, Oriented, Cooperative, Mild Distress Lungs: Clear to Auscultation, Normal Respiratory Effort Cardiovascular: Regular Rate, Regular Rhythm, No Murmurs GI/Abdominal Exam: Soft, Non-Tender, No Organomegaly, No Distention - Patient Data Lab Results Last 24 hrs: Laboratory Results - last 24 hr 09/17/21 09/17/21 09/17/21 Range/Units 16:36 20:56 20:59 POC Glucose 266 H 366 H (74-106) mg/dL Urine Color Yellow (YELLOW) Urine Appearance Slightly cloudy A (CLEAR) Urine pH 5.0 (5.0-8.0) Ur Specific [place] 1.015 (1.008-1.030) Urine Protein 30 H (NEGATIVE) mg/dL Urine Glucose (UA) 250 H (NEGATIVE) mg/dL Urine Ketones Negative (NEGATIVE) mg/dL Urine Occult Blood Small H (NEGATIVE) Urine Nitrite Positive H (NEGATIVE) Urine Bilirubin Negative (NEGATIVE) Urine Urobilinogen 0.2 (0.2-1.0) EU/dL Ur Leukocyte Esterase Small H (NEGATIVE) Urine RBC 5-10 H (0-5) Urine WBC 30-40 H (0-5) Ur Epithelial Cells Few Amorphous Sediment Not seen Urine Bacteria Many Urine Mucus Few 09/18/21 09/18/21 Range/Units 07:34 11:47 POC Glucose 222 H 242 H (74-106) mg/dL Urine Color (YELLOW) Urine Appearance (CLEAR) Urine pH (5.0-8.0) Ur Specific [place] (1.008-1.030) Urine Protein (NEGATIVE) mg/dL Urine Glucose (UA) (NEGATIVE) mg/dL Urine Ketones (NEGATIVE) mg/dL Urine Occult Blood (NEGATIVE) Urine Nitrite (NEGATIVE) Urine Bilirubin (NEGATIVE) Urine Urobilinogen (0.2-1.0) EU/dL Ur Leukocyte Esterase (NEGATIVE) Urine RBC (0-5) Urine WBC (0-5) Ur Epithelial Cells Amorphous Sediment Urine Bacteria Urine Mucus Result Diagrams: 09/17/21 04:58 09/17/21 04:58 Dangelo Results Last 24 hrs: Microbiology 09/17/21 21:20 Urine Culture - Preliminary Urine, Clean Catch Sepsis Event Note - Evaluation Sepsis Screening Result: No Definite Risk - Focused Exam Vital Signs: Vital Signs Temp Pulse Pulse Resp BP BP Pulse Ox 09/18/21 12:00 97.2 F 16 158/77 H 93 L 09/18/21 09:56 60 152/39 H 09/18/21 07:14 97.2 F 60 17 152/39 H 87 L 09/18/21 03:00 98.0 F 60 16 134/40 L 91 L - Problem List Review Problem List Initiated/Reviewed/Updated: Yes - My Orders Last 24 Hours: My Active Orders 09/17/21 15:00 Nystatin [Nystop] See Dose Instructions TOP TID 09/17/21 21:20 CULTURE URINE [RM] Routine 09/18/21 13:15 cephALEXin [Keflex] 500 mg PO Q8H - Plan Plan:: ASSESSMENT AND PLAN OF CARE Weakness - due to acute and chronic disease. 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 -consult to PT -consult to OT -consult to Moving [employer]. -vaccinated for Covid 19, one hour Covid 19 virus test in ER is negative, influenza vaccine given 2020 Urinary tract infection -Urine culture pending -Cephalexin 500 mg p.o. every 8 hours pending culture results CHF -continue outpatient medications -monitor I & O CAD, has cardiac pacemaker, has 3 coronary stents from past [place], Mitral valve replaced. -continue outpatient medications History of Pulmonary Emboli- diagnoses March 2021 -Lovenox 30 mg subcut. Diabetes type 2- patient adjust insulin based on meal and how she is feeling. -POC blood glucose testing before meals -Low dose Sliding scale insulin -Levemir insulin 15 units subcut in am Maintenance issues -Orders home meds: chronic medication -Nutrition: consistent carb diet -Barber catheter -not indicated at this time -DVT - Lovenox 30 mg subcut daily -PPI - IV Protonix 40mg daily CODE STATUS: FULL Admission status: Admit to [address] [place] [address] justification. This patient will be admitted for inpatient services and is medically appropriate meeting medical necessity for inpatient admission as outlined in my documentation. I reasonably expect the patient will require inpatient services that span. Time over 2 midnights. I reasonably expect this patient to be discharged or transferred within 96 hours after admission to the critical access hospital. Disposition: Assisted Living home or extended care facility Primary care provider: Dr. Paul, [facility] Hospitalist: Dr. Leavitt
[2021-09-18] MEDS: Cephalexin 250 MG Cap PO SCH ×2 (13:44→21:06)
[2021-09-18] MEDS: Acetaminophen 325 MG Tab PO PRN (19:41)
[2021-09-18] MEDS: atorvaSTATin 20 MG Tab PO SCH (21:02)
[2021-09-19] MEDS: Cephalexin 250 MG Cap PO SCH (06:19)
[2021-09-19] MEDS: oxyCODONE 5 MG Tab PO PRN ×3 (06:22→19:54)
[2021-09-19] MEDS: Insulin Glargine,Human Rec. Analog 100 Units/ML 3 ML Pen SUBCUT SCH ×2 (07:52→21:38)
[2021-09-19] MEDS: Insulin Lispro 100 Unit/ML 3 ML KwikPen SUBCUT SCH ×4 (08:37→21:37)
[2021-09-19] MEDS: Enoxaparin 40 MG/0.4 ML Syringe SUBCUT SCH (08:39)
[2021-09-19] MEDS: CLINDAMYCIN 300 MG PO SCH ×3 (08:39→17:53)
[2021-09-19] MEDS: Gabapentin 300 MG **PTOM PO SCH ×3 (08:40→19:59)
[2021-09-19] MEDS: Famotidine 20 MG Tab PO SCH ×2 (08:40→19:59)
[2021-09-19] MEDS: Metoprolol Succinate 50 MG Tab.ER PO SCH (08:41)
[2021-09-19] MEDS: Potassium Chloride 20 MEQ Tab.ER PO SCH ×2 (08:42→17:53)
[2021-09-19] MEDS: Bumetanide 1 MG Tab PO SCH (08:43)
[2021-09-19] MEDS: DULoxetine 30 MG Cap PO SCH ×2 (08:43→20:00)
[2021-09-19] MEDS: Clopidogrel 75 MG Tab PO SCH (08:47)
[2021-09-19] MEDS: Ferrous Sulfate 325 MG Tab PO SCH (08:47)
[2021-09-19] MEDS: Cholecalciferol (Vitamin D3) 25 MCG Tab PO SCH (08:48)
[2021-09-19] MEDS: Pentoxifylline 400 MG Tab.ER PO SCH ×3 (08:48→20:00)
[2021-09-19] MEDS: Ciprofloxacin 500 MG Tab PO SCH ×2 (09:20→15:31)
[2021-09-19] MEDS: Nystatin Crm 15 GM Tube TOP SCH ×2 (09:24→20:00)
[2021-09-19] MEDS: Nystatin Topical Powder 15 GM Bottle TOP SCH ×3 (09:25→20:00)
--- NOTE | 2021-09-19 17:06 | PCM.PN ---
- General Info Date of Service: 09/19/21 Subjective Update: Ms. Padilla over the last 24 hours. She was found to have evidence of urinary tract infection and did grow out Citrobacter, sensitive to ciprofloxacin. Functional Status: Reports: Tolerating Diet, Urinating. Denies: Ambulating - Review of Systems General: Reports: Weakness, Fatigue. Denies: Fever, Chills Pulmonary: Reports: No Symptoms Cardiovascular: Reports: No Symptoms Gastrointestinal: Reports: No Symptoms Genitourinary: Reports: No Symptoms - Patient Data Vitals - Most Recent: Last Vital Signs Temp 97.2 F 09/19/21 15:54 Pulse 60 09/19/21 15:54 Resp 16 09/19/21 15:54 BP 157/60 H 09/19/21 15:54 Pulse Ox 94 L 09/19/21 15:54 Weight - Most Recent: 314 lb I&O - Last 24 Hours: Intake & Output 09/19/21 09/19/21 09/19/21 06:59 14:59 22:59 Intake Total 480 600 Balance 480 600 Lab Results Last 24 Hours: Laboratory Results - last 24 hr 09/18/21 09/19/21 09/19/21 Range/Units 20:52 07:27 11:26 POC Glucose 297 H 204 H 243 H (74-106) mg/dL Dangelo Results Last 24 Hours: Microbiology 09/17/21 21:20 Urine Culture - Final Urine, Clean Catch Citrobacter Freundii Med Orders - Current: Current Medications Acetaminophen (Acetaminophen 325 Mg Tab) 650 mg PO Q4H PRN PRN Reason: Pain (Mild 1-3)/fever Last Admin: 09/18/21 19:41 Dose: 650 mg Documented by: Acetaminophen (Acetaminophen 500 Mg Tab) 1,000 mg PO TID PRN PRN Reason: Pain Albuterol (Albuterol 0.083% 2.5 Mg/3 Ml Neb Soln) 2.5 mg NEB Q4H PRN PRN Reason: Shortness Of Breath/wheezing Albuterol/Ipratropium (Albuterol/Ipratropium 3.0-0.5 Mg/3 Ml Neb Soln) 3 ml NEB QID PRN PRN Reason: Shortness Of Breath/wheezing Atorvastatin Calcium (Atorvastatin 20 Mg Tab) 40 mg PO BEDTIME [facility] Last Admin: 09/18/21 21:02 Dose: 40 mg Documented by: Bisacodyl (Bisacodyl 5 Mg Tab) 5 mg PO DAILY PRN PRN Reason: Constipation Bumetanide (Bumetanide 1 Mg Tab) 1 mg PO DAILY [facility] Last Admin: 09/19/21 08:43 Dose: 1 mg Documented by: Cholecalciferol (Cholecalciferol (Vitamin D3) 25 Mcg Tab) 25 mcg PO DAILY [facility] Last Admin: 09/19/21 08:48 Dose: 25 mcg Documented by: Ciprofloxacin (Ciprofloxacin 500 Mg Tab) 500 mg PO BIDAC [facility] Last Admin: 09/19/21 15:31 Dose: 500 mg Documented by: Clopidogrel Bisulfate (Clopidogrel 75 Mg Tab) 75 mg PO DAILY [facility] Last Admin: 09/19/21 08:47 Dose: 75 mg Documented by: Dextrose/Water (50% Dextrose In Water 50 Ml Syringe) 50 ml IVPUSH ASDIRECTED PRN PRN Reason: Hypoglycemia Diphenhydramine HCl (Diphenhydramine 25 Mg Cap) 50 mg PO BEDTIME PRN PRN Reason: Insomnia Docusate Sodium (Docusate Sodium 100 Mg Cap) 100 mg PO BID PRN PRN Reason: Constipation Duloxetine HCl (Duloxetine 30 Mg Cap) 30 mg PO BID [facility] Last Admin: 09/19/21 08:43 Dose: 30 mg Documented by: Enoxaparin Sodium (Enoxaparin 40 Mg/0.4 Ml Syringe) 40 mg SUBCUT DAILY [facility] Last Admin: 09/19/21 08:39 Dose: 40 mg Documented by: Famotidine (Famotidine 20 Mg Tab) 20 mg PO BID [facility] Last Admin: 09/19/21 08:40 Dose: 20 mg Documented by: Ferrous Sulfate (Ferrous Sulfate 325 Mg Tab) 325 mg PO DAILY [facility] Last Admin: 09/19/21 08:47 Dose: 325 mg Documented by: Gabapentin (Gabapentin 300 Mg Ptom) 600 mg PO TID [facility] Last Admin: 09/19/21 15:21 Dose: 600 mg Documented by: Glucagon (Glucagon,Human Recombinant 1 Mg Vial) 1 mg IM ASDIRECTED PRN PRN Reason: Hypoglycemia Insulin Glargine (Insulin Glargine,Human Rec. Analog 100 Units/Ml 3 Ml Pen) 15 units SUBCUT ACBREAKFAST [facility] Last Admin: 09/19/21 07:52 Dose: 15 units Documented by: Insulin Glargine (Insulin Glargine,Human Rec. Analog 100 Units/Ml 3 Ml Pen) 10 units SUBCUT BEDTIME [facility] Last Admin: 09/18/21 20:59 Dose: 10 units Documented by: Insulin Human Lispro (Insulin Lispro 100 Unit/Ml 3 Ml Kwikpen) 0 unit SUBCUT QIDACANDBED [facility]; Protocol Last Admin: 09/19/21 11:44 Dose: 2 units Documented by: Metoprolol Succinate (Metoprolol Succinate 50 Mg Tab.Er) 100 mg PO DAILY [facility] Last Admin: 09/19/21 08:41 Dose: 100 mg Documented by: Nystatin (Nystatin Crm 15 Gm Tube) 1 gm TOP BID [facility] Last Admin: 09/19/21 09:24 Dose: Not Given Documented by: Nystatin (Nystatin Topical Powder 15 Gm Bottle) 0 gm TOP TID [facility] Last Admin: 09/19/21 15:18 Dose: 1 applic Documented by: Ondansetron HCl (Ondansetron 4 Mg Tab.Dis) 4 mg PO Q6H PRN PRN Reason: Nausea able to take PO Oxycodone HCl (Oxycodone 5 Mg Tab) 5 - 10 mg PO Q4H PRN PRN Reason: Pain (moderate 4-6) Last Admin: 09/19/21 15:30 Dose: 10 mg Documented by: Clindamycin 300mg (Ptom) 0 each PO TIDMEALS [facility] Last Admin: 09/19/21 11:45 Dose: 1 each Documented by: Pentoxifylline (Pentoxifylline 400 Mg Tab.Er) 400 mg PO TID [facility] Last Admin: 09/19/21 15:18 Dose: 400 mg Documented by: Potassium Chloride (Potassium Chloride 20 Meq Tab.Er) 20 meq PO BIDMEALS [facility] Last Admin: 09/19/21 08:42 Dose: 20 meq Documented by: Discontinued Medications Cephalexin (Cephalexin 250 Mg Cap) 500 mg PO Q8H [facility] Last Admin: 09/19/21 06:19 Dose: 500 mg Documented by: Hydromorphone HCl (Hydromorphone 1 Mg/Ml Syringe) 1 mg IM ONETIME ONE Stop: 09/16/21 17:55 Last Admin: 09/16/21 18:04 Dose: 1 mg Documented by: Sodium Chloride (Normal Saline) 1,000 mls @ 125 mls/hr IV ASDIRECTED [facility] Ketorolac Tromethamine (Ketorolac 30 Mg/Ml Sdv) 30 mg IM ONETIME ONE Stop: 09/16/21 16:06 Last Admin: 09/16/21 16:29 Dose: 30 mg Documented by: Morphine Sulfate (Morphine 2 Mg/Ml Syringe) 2 mg IVPUSH Q2H PRN PRN Reason: Pain (severe 7-10) Ondansetron HCl (Ondansetron 4 Mg/2 Ml Sdv) 4 mg IV Q4H PRN PRN Reason: Nausea/Vomiting Oxycodone HCl (Oxycodone 5 Mg Tab) 1 - 2 mg PO Q4H PRN PRN Reason: Pain (moderate 4-6) - Exam Quality Assessment: DVT Prophylaxis General: Alert, Oriented, Cooperative, No Acute Distress Lungs: Clear to Auscultation, Normal Respiratory Effort Cardiovascular: Regular Rate, Regular Rhythm, No Murmurs GI/Abdominal Exam: Soft, Non-Tender, No Organomegaly, No Distention Extremities: Non-Tender, No Pedal Edema - Patient Data Lab Results Last 24 hrs: Laboratory Results - last 24 hr 09/18/21 09/19/21 09/19/21 Range/Units 20:52 07:27 11:26 POC Glucose 297 H 204 H 243 H (74-106) mg/dL Result Diagrams: 09/17/21 04:58 09/17/21 04:58 Dangelo Results Last 24 hrs: Microbiology 09/17/21 21:20 Urine Culture - Final Urine, Clean Catch Citrobacter Freundii Sepsis Event Note - Evaluation Sepsis Screening Result: No Definite Risk - Focused Exam Vital Signs: Vital Signs Temp Pulse Pulse Resp BP BP Pulse Ox 09/19/21 15:54 97.2 F 60 16 157/60 H 94 L 09/19/21 15:24 64 16 139/45 L 93 L 09/19/21 11:00 97.0 F 60 16 139/42 L 93 L 09/19/21 08:41 60 154/39 H 09/19/21 07:00 98.2 F 60 16 154/39 H 90 L - Problem List Review Problem List Initiated/Reviewed/Updated: Yes - My Orders Last 24 Hours: My Active Orders 09/19/21 09:00 Ciprofloxacin [Ciprofloxacin HCl] 500 mg PO BIDAC - Plan Plan:: ASSESSMENT AND PLAN OF CARE Weakness - due to acute and chronic disease. 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 -vaccinated for Covid 19, one hour Covid 19 virus test in ER is negative, influenza vaccine given 2020 Urinary tract infection-culture has grown out Citrobacter -Ciprofloxacin 500 mg p.o. twice daily CHF -continue outpatient medications -monitor I & O CAD, has cardiac pacemaker, has 3 coronary stents from past [place], Mitral valve replaced. -continue outpatient medications History of Pulmonary Emboli- diagnoses March 2021 -Lovenox 30 mg subcut. Diabetes type 2- patient adjust insulin based on meal and how she is feeling. -POC blood glucose testing before meals -Low dose Sliding scale insulin -Levemir insulin 15 units subcut in am Maintenance issues -Orders home meds: chronic medication -Nutrition: consistent carb diet -Barber catheter -not indicated at this time -DVT - Lovenox 30 mg subcut daily -PPI - IV Protonix 40mg daily CODE STATUS: FULL Admission status: Admit to [address] [place] [address] justification. This patient will be admitted for inpatient services and is medically appropriate meeting medical necessity for inpatient admission as outlined in my documentation. I reasonably expect the patient will require inpatient services that span. Time over 2 midnights. I reasonably expect this patient to be discharged or transferred within 96 hours after admission to the critical access hospital. Disposition: Assisted Living home or extended care facility Primary care provider: Dr. Paul, [facility] Hospitalist: Dr. Leavitt
[2021-09-19] MEDS: atorvaSTATin 20 MG Tab PO SCH (19:59)
[2021-09-20] MEDS: Insulin Lispro 100 Unit/ML 3 ML KwikPen SUBCUT SCH ×4 (08:12→21:58)
[2021-09-20] MEDS: Insulin Glargine,Human Rec. Analog 100 Units/ML 3 ML Pen SUBCUT SCH ×2 (08:14→21:59)
[2021-09-20] MEDS: Enoxaparin 40 MG/0.4 ML Syringe SUBCUT SCH (08:16)
[2021-09-20] MEDS: Ciprofloxacin 500 MG Tab PO SCH ×2 (08:18→16:50)
[2021-09-20] MEDS: Potassium Chloride 20 MEQ Tab.ER PO SCH ×2 (08:18→16:51)
[2021-09-20] MEDS: CLINDAMYCIN 300 MG PO SCH ×3 (08:19→16:49)
[2021-09-20] MEDS: Bumetanide 1 MG Tab PO SCH (08:19)
[2021-09-20] MEDS: DULoxetine 30 MG Cap PO SCH ×2 (08:19→21:56)
[2021-09-20] MEDS: Nystatin Topical Powder 15 GM Bottle TOP SCH ×3 (08:20→21:55)
[2021-09-20] MEDS: Ferrous Sulfate 325 MG Tab PO SCH (08:20)
[2021-09-20] MEDS: Metoprolol Succinate 50 MG Tab.ER PO SCH (08:21)
[2021-09-20] MEDS: Clopidogrel 75 MG Tab PO SCH (08:21)
[2021-09-20] MEDS: Famotidine 20 MG Tab PO SCH ×2 (08:21→21:55)
[2021-09-20] MEDS: Cholecalciferol (Vitamin D3) 25 MCG Tab PO SCH (08:22)
[2021-09-20] MEDS: Pentoxifylline 400 MG Tab.ER PO SCH ×3 (08:22→22:22)
[2021-09-20] MEDS: Gabapentin 300 MG Cap PO SCH ×3 (08:47→21:54)
[2021-09-20] MEDS: Nystatin Crm 15 GM Tube TOP SCH ×2 (12:16→21:56)
--- NOTE | 2021-09-20 15:12 | PCM.PN ---
- General Info Date of Service: 09/20/21 Subjective Update: Ms. Padilla has remained stable since yesterday. She is feeling well and has no specific complaints other than some soreness on her back related to use of the lift. Current plan is for discharged home tomorrow. Functional Status: Reports: Tolerating Diet, Urinating - Review of Systems General: Reports: No Symptoms Pulmonary: Reports: No Symptoms Cardiovascular: Reports: No Symptoms Gastrointestinal: Reports: No Symptoms Genitourinary: Reports: No Symptoms - Patient Data Vitals - Most Recent: Last Vital Signs Temp 98.4 F 09/20/21 11:01 Pulse 61 09/20/21 11:01 Resp 16 09/20/21 11:01 BP 149/34 H 09/20/21 11:01 Pulse Ox 92 L 09/20/21 11:01 Weight - Most Recent: 314 lb I&O - Last 24 Hours: Intake & Output 09/20/21 09/20/21 09/20/21 06:59 14:59 22:59 Output Total 650 Balance -650 Lab Results Last 24 Hours: Laboratory Results - last 24 hr 09/19/21 09/19/21 09/19/21 Range/Units 11:26 16:44 21:01 POC Glucose 243 H 206 H 268 H (74-106) mg/dL 09/20/21 09/20/21 Range/Units 07:24 11:31 POC Glucose 283 H 324 H (74-106) mg/dL Med Orders - Current: Current Medications Acetaminophen (Acetaminophen 325 Mg Tab) 650 mg PO Q4H PRN PRN Reason: Pain (Mild 1-3)/fever Last Admin: 09/18/21 19:41 Dose: 650 mg Documented by: Acetaminophen (Acetaminophen 500 Mg Tab) 1,000 mg PO TID PRN PRN Reason: Pain Albuterol (Albuterol 0.083% 2.5 Mg/3 Ml Neb Soln) 2.5 mg NEB Q4H PRN PRN Reason: Shortness Of Breath/wheezing Albuterol/Ipratropium (Albuterol/Ipratropium 3.0-0.5 Mg/3 Ml Neb Soln) 3 ml NEB QID PRN PRN Reason: Shortness Of Breath/wheezing Atorvastatin Calcium (Atorvastatin 20 Mg Tab) 40 mg PO BEDTIME [facility] Last Admin: 09/19/21 19:59 Dose: 40 mg Documented by: Bisacodyl (Bisacodyl 5 Mg Tab) 5 mg PO DAILY PRN PRN Reason: Constipation Bumetanide (Bumetanide 1 Mg Tab) 1 mg PO DAILY [facility] Last Admin: 09/20/21 08:19 Dose: 1 mg Documented by: Cholecalciferol (Cholecalciferol (Vitamin D3) 25 Mcg Tab) 25 mcg PO DAILY [facility] Last Admin: 09/20/21 08:22 Dose: 25 mcg Documented by: Ciprofloxacin (Ciprofloxacin 500 Mg Tab) 500 mg PO BIDAC [facility] Last Admin: 09/20/21 08:18 Dose: 500 mg Documented by: Clopidogrel Bisulfate (Clopidogrel 75 Mg Tab) 75 mg PO DAILY [facility] Last Admin: 09/20/21 08:21 Dose: 75 mg Documented by: Dextrose/Water (50% Dextrose In Water 50 Ml Syringe) 50 ml IVPUSH ASDIRECTED PRN PRN Reason: Hypoglycemia Diphenhydramine HCl (Diphenhydramine 25 Mg Cap) 50 mg PO BEDTIME PRN PRN Reason: Insomnia Docusate Sodium (Docusate Sodium 100 Mg Cap) 100 mg PO BID PRN PRN Reason: Constipation Duloxetine HCl (Duloxetine 30 Mg Cap) 30 mg PO BID [facility] Last Admin: 09/20/21 08:19 Dose: 30 mg Documented by: Enoxaparin Sodium (Enoxaparin 40 Mg/0.4 Ml Syringe) 40 mg SUBCUT DAILY [facility] Last Admin: 09/20/21 08:16 Dose: 40 mg Documented by: Famotidine (Famotidine 20 Mg Tab) 20 mg PO BID [facility] Last Admin: 09/20/21 08:21 Dose: 20 mg Documented by: Ferrous Sulfate (Ferrous Sulfate 325 Mg Tab) 325 mg PO DAILY [facility] Last Admin: 09/20/21 08:20 Dose: 325 mg Documented by: Gabapentin (Gabapentin 300 Mg Cap) 600 mg PO TID [facility] Last Admin: 09/20/21 14:34 Dose: 600 mg Documented by: Glucagon (Glucagon,Human Recombinant 1 Mg Vial) 1 mg IM ASDIRECTED PRN PRN Reason: Hypoglycemia Insulin Glargine (Insulin Glargine,Human Rec. Analog 100 Units/Ml 3 Ml Pen) 15 units SUBCUT ACBREAKFAST [facility] Last Admin: 09/20/21 08:14 Dose: 15 units Documented by: Insulin Glargine (Insulin Glargine,Human Rec. Analog 100 Units/Ml 3 Ml Pen) 10 units SUBCUT BEDTIME [facility] Last Admin: 09/19/21 21:38 Dose: 10 units Documented by: Insulin Human Lispro (Insulin Lispro 100 Unit/Ml 3 Ml Kwikpen) 0 unit SUBCUT QIDACANDBED [facility]; Protocol Last Admin: 09/20/21 12:12 Dose: 4 units Documented by: Metoprolol Succinate (Metoprolol Succinate 50 Mg Tab.Er) 100 mg PO DAILY [facility] Last Admin: 09/20/21 08:21 Dose: 100 mg Documented by: Nystatin (Nystatin Crm 15 Gm Tube) 1 gm TOP BID [facility] Last Admin: 09/20/21 12:16 Dose: Not Given Documented by: Nystatin (Nystatin Topical Powder 15 Gm Bottle) 0 gm TOP TID [facility] Last Admin: 09/20/21 14:34 Dose: 1 applic Documented by: Ondansetron HCl (Ondansetron 4 Mg Tab.Dis) 4 mg PO Q6H PRN PRN Reason: Nausea able to take PO Oxycodone HCl (Oxycodone 5 Mg Tab) 5 - 10 mg PO Q4H PRN PRN Reason: Pain (moderate 4-6) Last Admin: 09/19/21 19:54 Dose: 5 mg Documented by: Clindamycin 300mg (Ptom) 0 each PO TIDMEALS [facility] Last Admin: 09/20/21 12:13 Dose: 1 each Documented by: Pentoxifylline (Pentoxifylline 400 Mg Tab.Er) 400 mg PO TID [facility] Last Admin: 09/20/21 14:35 Dose: 400 mg Documented by: Potassium Chloride (Potassium Chloride 20 Meq Tab.Er) 20 meq PO BIDMEALS [facility] Last Admin: 09/20/21 08:18 Dose: 20 meq Documented by: Discontinued Medications Cephalexin (Cephalexin 250 Mg Cap) 500 mg PO Q8H [facility] Last Admin: 09/19/21 06:19 Dose: 500 mg Documented by: Gabapentin (Gabapentin 300 Mg Ptom) 600 mg PO TID [facility] Last Admin: 09/19/21 19:59 Dose: 600 mg Documented by: Hydromorphone HCl (Hydromorphone 1 Mg/Ml Syringe) 1 mg IM ONETIME ONE Stop: 09/16/21 17:55 Last Admin: 09/16/21 18:04 Dose: 1 mg Documented by: Sodium Chloride (Normal Saline) 1,000 mls @ 125 mls/hr IV ASDIRECTED [facility] Ketorolac Tromethamine (Ketorolac 30 Mg/Ml Sdv) 30 mg IM ONETIME ONE Stop: 09/16/21 16:06 Last Admin: 09/16/21 16:29 Dose: 30 mg Documented by: Morphine Sulfate (Morphine 2 Mg/Ml Syringe) 2 mg IVPUSH Q2H PRN PRN Reason: Pain (severe 7-10) Ondansetron HCl (Ondansetron 4 Mg/2 Ml Sdv) 4 mg IV Q4H PRN PRN Reason: Nausea/Vomiting Oxycodone HCl (Oxycodone 5 Mg Tab) 1 - 2 mg PO Q4H PRN PRN Reason: Pain (moderate 4-6) - Exam Quality Assessment: DVT Prophylaxis General: Alert, Oriented, Cooperative, No Acute Distress Lungs: Clear to Auscultation, Normal Respiratory Effort Cardiovascular: Regular Rate, Regular Rhythm, No Murmurs GI/Abdominal Exam: Soft, Non-Tender, No Organomegaly, No Distention - Patient Data Lab Results Last 24 hrs: Laboratory Results - last 24 hr 09/19/21 09/19/21 09/19/21 Range/Units 11:26 16:44 21:01 POC Glucose 243 H 206 H 268 H (74-106) mg/dL 09/20/21 09/20/21 Range/Units 07:24 11:31 POC Glucose 283 H 324 H (74-106) mg/dL Result Diagrams: 09/17/21 04:58 09/17/21 04:58 Sepsis Event Note - Evaluation Sepsis Screening Result: No Definite Risk - Focused Exam Vital Signs: Vital Signs Temp Pulse Pulse Resp BP BP Pulse Ox 09/20/21 11:01 98.4 F 61 16 149/34 H 92 L 09/20/21 08:21 75 119/42 L 09/20/21 07:22 99.4 F 75 16 119/42 L 90 L - Problem List Review Problem List Initiated/Reviewed/Updated: Yes - Plan Plan:: ASSESSMENT AND PLAN OF CARE Weakness - due to acute and chronic disease. 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 -consult to PT -consult to OT -consult to Nurse Practitioner. -vaccinated for Covid 19, one hour Covid 19 virus test in ER is negative, i nfluenza vaccine given 2020 Urinary tract infection-culture has grown out Citrobacter -Ciprofloxacin 500 mg p.o. twice daily CHF -continue outpatient medications -monitor I & O CAD, has cardiac pacemaker, has 3 coronary stents from past [place], Mitral valve replaced. -continue outpatient medications History of Pulmonary Emboli- diagnoses March 2021 -Lovenox 30 mg subcut. Diabetes type 2- patient adjust insulin based on meal and how she is feeling. -POC blood glucose testing before meals -Low dose Sliding scale insulin -Levemir insulin 15 units subcut in am Maintenance issues -Orders home meds: chronic medication -Nutrition: consistent carb diet -Barber catheter -not indicated at this time -DVT - Lovenox 30 mg subcut daily -PPI - IV Protonix 40mg daily CODE STATUS: FULL Admission status: Admit to [address] [place] [address]. This patient will be admitted for inpatient services and is medically appropriate meeting medical necessity for inpatient admission as outlined in my documentation. I reasonably expect the patient will require inpatient services that span. Time over 2 midnights. I reasonably expect this patient to be discharged or transferred within 96 hours after admission to the critical access hospital. Disposition: Anticipate discharge to assisted living facility in a.m. Primary care provider: Dr. Paul, [facility] Hospitalist: Dr. Leavitt
--- NOTE | 2021-09-20 15:23 | PCM.DCSUM1 ---
Discharge Summary - Hospital Course Brief History: Ms. Padilla is a 75-year-old woman who was admitted to observation status after she fell at her assisted living facility. - Discharge Data Discharge Date: 09/21/21 Discharge Disposition: Home, W Home Health Agency 06 Condition: Stable - Referral to Home Health Date of Face to Face Encounter: 09/20/21 Reason for Homebound Status: Generalized weakness, status post below the knee amputation Primary Care Physician: PCP Unknown Skilled Need: Nursing care, home health aide, PT/OT - Patient Summary/Data Consults: Consultations 09/16/21 22:55 Consult to Case Management/Electronics Technology Department Chair [CONS] Routine Comment: Physician Instructions: discharge planning Service(s) to be Consulted: Case Management Reason for Consult: discharge planning Special Instructions: wants to go home OT Evaluation and Treatment [CONS] Routine Please Evaluate and Treat. OT Reason for Consult: Discharge Planning This query below is only for informational purposes and is not editable. PT Evaluation and Treatment [CONS] Routine Please Evaluate and Treat. PT Reason for Consult: Strengthening This query below is only for informational purposes and is not editable. Hospital Course: Ms. Padilla is a 75-year-old female presents emergency department following a fall, she lives in assisted living center she has multiple medical problems of which she requires assistance for daily cares. She was in a lift after using the bathroom and nursing staff was working with her she had her arms above her head when she lost her strength and could no longer hold herself up. She had a fall to the ground she does not recall all the event. She is complaining of right ankle pain, left arm pain, low back and pelvic pain. On evaluation in the emergency department there was no evidence of acute fracture or other s ignificant medical abnormality. The plan had been to send her back to the assisted living filled facility but staff there refused to return, as they felt they were unable to provide ongoing care for her. She was admitted to observation status. After admission urinalysis was obtained that did appear to be consistent with urinary tract infection. She was started on oral antibiotic therapy pending urine culture results. Urine culture grew out Citrobacter and she was placed on ciprofloxacin 500 mg twice daily for a total course of 5 days. She was otherwise fairly stable throughout the rest of her hospital stay with no evidence of other acute illness. She will be discharged back to the assisted living facility and will receive home care services including physical therapy and Occupational Therapy. Physical therapy will reassess the use of the left and determine if the patient requires a different left for transfers. Activity will otherwise be as tolerated and she will resume her usual diabetic diet. - Patient Instructions Diet: Diabetic Diet Activity: As Tolerated Other/Special Instructions: Discharge to assisted living facility with home care services including home physical therapy and Occupational Therapy. - Discharge Plan *PRESCRIPTION DRUG MONITORING PROGRAM REVIEWED*: Not Applicable *COPY OF PRESCRIPTION DRUG MONITORING REPORT IN PATIENT AXEL: Not Applicable Prescriptions/Med Rec: Ciprofloxacin [Ciprofloxacin HCl] 500 mg PO BIDAC #6 tablet Home Medications: Home Meds atorvaSTATin [Lipitor] 40 mg PO BEDTIME 10/01/17 [History] Potassium Chloride [Klor-Con M20] 20 meq PO BID 05/16/18 [History] Gabapentin [Neurontin] 600 mg PO TID 12/12/18 [History] Metoprolol Succinate [Toprol Xl] 100 mg PO DAILY 09/13/19 [History] Acetaminophen [Tylenol Extra Strength] 1,000 mg PO TID PRN 04/07/20 [History] Insulin Aspart [NovoLOG] 0 unit SQ TIDAC 04/07/20 [History] Insulin Glarg,Human.Rec.Analog [Lantus Solostar] 10 unit SUBCUT BEDTIME 04/07/20 [History] Insulin Glarg,Human.Rec.Analog [Lantus Solostar] 15 units SUBCUT ACBREAKFAST 04/07/20 [History] Nystatin [Nystatin Crm] 1 gm TOP BID #2 tube 04/11/20 [Rx] oxyCODONE HCl [Oxycodone HCl] 10 mg PO Q4H PRN #60 tablet 04/11/20 [Rx] Bumetanide 1 mg PO DAILY 09/16/21 [History] Cholecalciferol (Vitamin D3) [Vitamin D3] 1,000 unit PO DAILY 09/16/21 [History] Clindamycin HCl 300 mg PO TID 09/16/21 [History] Clopidogrel Bisulfate [Clopidogrel] 75 mg PO DAILY 09/16/21 [History] DULoxetine [Cymbalta] 30 mg PO BID 09/16/21 [History] Famotidine 20 mg PO BID 09/16/21 [History] Ferrous Sulfate 325 mg PO DAILY 09/16/21 [History] Pentoxifylline [TRENtal] 400 mg PO TID 09/16/21 [History] Ciprofloxacin [Ciprofloxacin HCl] 500 mg PO BIDAC #6 tablet 09/20/21 [Rx] Patient Handouts: Fall Prevention in the Home, Adult, [id number], Contusion, [id number] Referrals: Kiran Paul MD [Physician] - 09/25/21 1:40 pm - Discharge Summary/Plan Comment DC Time >30 min.: No Total # of Minutes for Discharge Time: 25 - Patient Data Vitals - Most Recent: Last Vital Signs Temp 98.4 F 09/20/21 11:01 Pulse 61 09/20/21 11:01 Resp 16 09/20/21 11:01 BP 149/34 H 09/20/21 11:01 Pulse Ox 92 L 09/20/21 11:01 Weight - Most Recent: 314 lb I&O - Last 24 hours: Intake & Output 09/20/21 09/20/21 09/20/21 06:59 14:59 22:59 Output Total 650 Balance -650 Lab Results - Last 24 hrs: Laboratory Results - last 24 hr 09/19/21 09/19/21 09/19/21 Range/Units 11:26 16:44 21:01 POC Glucose 243 H 206 H 268 H (74-106) mg/dL 09/20/21 09/20/21 Range/Units 07:24 11:31 POC Glucose 283 H 324 H (74-106) mg/dL Med Orders - Current: Current Medications Acetaminophen (Acetaminophen 325 Mg Tab) 650 mg PO Q4H PRN PRN Reason: Pain (Mild 1-3)/fever Last Admin: 09/18/21 19:41 Dose: 650 mg Documented by: Acetaminophen (Acetaminophen 500 Mg Tab) 1,000 mg PO TID PRN PRN Reason: Pain Albuterol (Albuterol 0.083% 2.5 Mg/3 Ml Neb Soln) 2.5 mg NEB Q4H PRN PRN Reason: Shortness Of Breath/wheezing Albuterol/Ipratropium (Albuterol/Ipratropium 3.0-0.5 Mg/3 Ml Neb Soln) 3 ml NEB QID PRN PRN Reason: Shortness Of Breath/wheezing Atorvastatin Calcium (Atorvastatin 20 Mg Tab) 40 mg PO BEDTIME [facility] Last Admin: 09/19/21 19:59 Dose: 40 mg Documented by: Bisacodyl (Bisacodyl 5 Mg Tab) 5 mg PO DAILY PRN PRN Reason: Constipation Bumetanide (Bumetanide 1 Mg Tab) 1 mg PO DAILY [facility] Last Admin: 09/20/21 08:19 Dose: 1 mg Documented by: Cholecalciferol (Cholecalciferol (Vitamin D3) 25 Mcg Tab) 25 mcg PO DAILY [facility] Last Admin: 09/20/21 08:22 Dose: 25 mcg Documented by: Ciprofloxacin (Ciprofloxacin 500 Mg Tab) 500 mg PO BIDAC [facility] Last Admin: 09/20/21 08:18 Dose: 500 mg Documented by: Clopidogrel Bisulfate (Clopidogrel 75 Mg Tab) 75 mg PO DAILY [facility] Last Admin: 09/20/21 08:21 Dose: 75 mg Documented by: Dextrose/Water (50% Dextrose In Water 50 Ml Syringe) 50 ml IVPUSH ASDIRECTED PRN PRN Reason: Hypoglycemia Diphenhydramine HCl (Diphenhydramine 25 Mg Cap) 50 mg PO BEDTIME PRN PRN Reason: Insomnia Docusate Sodium (Docusate Sodium 100 Mg Cap) 100 mg PO BID PRN PRN Reason: Constipation Duloxetine HCl (Duloxetine 30 Mg Cap) 30 mg PO BID [facility] Last Admin: 09/20/21 08:19 Dose: 30 mg Documented by: Enoxaparin Sodium (Enoxaparin 40 Mg/0.4 Ml Syringe) 40 mg SUBCUT DAILY [facility] Last Admin: 09/20/21 08:16 Dose: 40 mg Documented by: Famotidine (Famotidine 20 Mg Tab) 20 mg PO BID [facility] Last Admin: 09/20/21 08:21 Dose: 20 mg Documented by: Ferrous Sulfate (Ferrous Sulfate 325 Mg Tab) 325 mg PO DAILY [facility] Last Admin: 09/20/21 08:20 Dose: 325 mg Documented by: Gabapentin (Gabapentin 300 Mg Cap) 600 mg PO TID [facility] Last Admin: 09/20/21 14:34 Dose: 600 mg Documented by: Glucagon (Glucagon,Human Recombinant 1 Mg Vial) 1 mg IM ASDIRECTED PRN PRN Reason: Hypoglycemia Insulin Glargine (Insulin Glargine,Human Rec. Analog 100 Units/Ml 3 Ml Pen) 15 units SUBCUT ACBREAKFAST [facility] Last Admin: 09/20/21 08:14 Dose: 15 units Documented by: Insulin Glargine (Insulin Glargine,Human Rec. Analog 100 Units/Ml 3 Ml Pen) 10 units SUBCUT BEDTIME [facility] Last Admin: 09/19/21 21:38 Dose: 10 units Documented by: Insulin Human Lispro (Insulin Lispro 100 Unit/Ml 3 Ml Kwikpen) 0 unit SUBCUT QIDACANDBED [facility]; Protocol Last Admin: 09/20/21 12:12 Dose: 4 units Documented by: Metoprolol Succinate (Metoprolol Succinate 50 Mg Tab.Er) 100 mg PO DAILY [facility] Last Admin: 09/20/21 08:21 Dose: 100 mg Documented by: Nystatin (Nystatin Crm 15 Gm Tube) 1 gm TOP BID [facility] Last Admin: 09/20/21 12:16 Dose: Not Given Documented by: Nystatin (Nystatin Topical Powder 15 Gm Bottle) 0 gm TOP TID [facility] Last Admin: 09/20/21 14:34 Dose: 1 applic Documented by: Ondansetron HCl (Ondansetron 4 Mg Tab.Dis) 4 mg PO Q6H PRN PRN Reason: Nausea able to take PO Oxycodone HCl (Oxycodone 5 Mg Tab) 5 - 10 mg PO Q4H PRN PRN Reason: Pain (moderate 4-6) Last Admin: 09/19/21 19:54 Dose: 5 mg Documented by: Clindamycin 300mg (Ptom) 0 each PO TIDMEALS [facility] Last Admin: 09/20/21 12:13 Dose: 1 each Documented by: Pentoxifylline (Pentoxifylline 400 Mg Tab.Er) 400 mg PO TID [facility] Last Admin: 09/20/21 14:35 Dose: 400 mg Documented by: Potassium Chloride (Potassium Chloride 20 Meq Tab.Er) 20 meq PO BIDMEALS [facility] Last Admin: 09/20/21 08:18 Dose: 20 meq Documented by: Discontinued Medications Cephalexin (Cephalexin 250 Mg Cap) 500 mg PO Q8H [facility] Last Admin: 09/19/21 06:19 Dose: 500 mg Documented by: Gabapentin (Gabapentin 300 Mg Ptom) 600 mg PO TID [facility] Last Admin: 09/19/21 19:59 Dose: 600 mg Documented by: Hydromorphone HCl (Hydromorphone 1 Mg/Ml Syringe) 1 mg IM ONETIME ONE Stop: 09/16/21 17:55 Last Admin: 09/16/21 18:04 Dose: 1 mg Documented by: Sodium Chloride (Normal Saline) 1,000 mls @ 125 mls/hr IV ASDIRECTED [facility] Ketorolac Tromethamine (Ketorolac 30 Mg/Ml Sdv) 30 mg IM ONETIME ONE Stop: 09/16/21 16:06 Last Admin: 09/16/21 16:29 Dose: 30 mg Documented by: Morphine Sulfate (Morphine 2 Mg/Ml Syringe) 2 mg IVPUSH Q2H PRN PRN Reason: Pain (severe 7-10) Ondansetron HCl (Ondansetron 4 Mg/2 Ml Sdv) 4 mg IV Q4H PRN PRN Reason: Nausea/Vomiting Oxycodone HCl (Oxycodone 5 Mg Tab) 1 - 2 mg PO Q4H PRN PRN Reason: Pain (moderate 4-6) - Exam General: Reports: Alert, Oriented, Cooperative, No Acute Distress Lungs: Reports: Clear to Auscultation, Normal Respiratory Effort Cardiovascular: Reports: Regular Rate, Regular Rhythm, No Murmurs GI/Abdominal Exam: Soft, Non-Tender, No Organomegaly, No Distention Extremities: Non-Tender, No Pedal Edema
[2021-09-20] MEDS: oxyCODONE 5 MG Tab PO PRN (21:45)
[2021-09-20] MEDS: atorvaSTATin 20 MG Tab PO SCH (21:56)
[2021-09-21] MEDS: CLINDAMYCIN 300 MG PO SCH (08:06)
[2021-09-21] MEDS: Ciprofloxacin 500 MG Tab PO SCH (08:06)
[2021-09-21] MEDS: Insulin Glargine,Human Rec. Analog 100 Units/ML 3 ML Pen SUBCUT SCH (08:06)
[2021-09-21] MEDS: Gabapentin 300 MG Cap PO SCH (08:07)
[2021-09-21] MEDS: Bumetanide 1 MG Tab PO SCH (08:07)
[2021-09-21] MEDS: DULoxetine 30 MG Cap PO SCH (08:07)
[2021-09-21] MEDS: Enoxaparin 40 MG/0.4 ML Syringe SUBCUT SCH (08:07)
[2021-09-21] MEDS: Ferrous Sulfate 325 MG Tab PO SCH (08:07)
[2021-09-21] MEDS: Nystatin Topical Powder 15 GM Bottle TOP SCH (08:08)
[2021-09-21] MEDS: Nystatin Crm 15 GM Tube TOP SCH (08:08)
[2021-09-21] MEDS: Famotidine 20 MG Tab PO SCH (08:09)
[2021-09-21] MEDS: Metoprolol Succinate 50 MG Tab.ER PO SCH (08:09)
[2021-09-21] MEDS: Clopidogrel 75 MG Tab PO SCH (08:09)
[2021-09-21] MEDS: Cholecalciferol (Vitamin D3) 25 MCG Tab PO SCH (08:12)
[2021-09-21] MEDS: Pentoxifylline 400 MG Tab.ER PO SCH (08:12)
[2021-09-21] MEDS: Insulin Lispro 100 Unit/ML 3 ML KwikPen SUBCUT SCH (08:15)
[2021-09-21 08:20] VITALS: BP 139/41; PULSE 65
[2021-09-21] MEDS: Potassium Chloride 20 MEQ Tab.ER PO SCH (09:30)
== END 2021-09-21 10:37 | disposition home health service (06) ==
LOC: JP.ED 14:47 → INTOOBSV 21:55 → JP.MS 21:55
PROVIDERS: ADMIT Hospitalist; ATTEND Hospitalist
DX: R53.1 Weakness (principal); R29.6 Repeated falls; I11.0 Hypertensive heart disease with heart failure; I50.9 Heart failure, unspecified; E11.9 Type 2 diabetes mellitus without complications; I48.91 Unspecified atrial fibrillation; I25.10 Atherosclerotic heart disease of native coronary artery without angina pectoris; I25.2 Old myocardial infarction; Z95.0 Presence of cardiac pacemaker; E66.9 Obesity, unspecified; Z20.822 Contact with and (suspected) exposure to COVID-19; Z98.890 Other specified postprocedural states; Z86.718 Personal history of other venous thrombosis and embolism; Z95.2 Presence of prosthetic heart valve; Z88.0 Allergy status to penicillin; Z91.018 Allergy to other foods; Z88.8 Allergy status to other drugs, medicaments and biological substances; Z79.899 Other long term (current) drug therapy; Z79.4 Long term (current) use of insulin
CPT/HCPCS: 36415; 70450; 72100; 72100-26; 72131; 72170; 72170-26; 73060-26-LT; 73060-LT; 73610-26-RT; 73610-RT; 80053; 81001; 82947; 85025; 87086; 87088; 87186; 96372; 97110-GP; 97162-GP; 97535-GP; 99285-25; A9270-GY; G0378; J1170; J1650; J1815; J1815-GY; J1885; U0002

== ENCOUNTER 2021-10-25 11:13 | Emergency (ER) | payer MEDICARE ==
[2021-10-25 11:54] VITALS: BP 174/59; PULSE 68
--- NOTE | 2021-10-25 12:38 | EDM.PDOC ---
ED HPI GENERAL MEDICAL PROBLEM - General Chief Complaint: General Stated Complaint: UTI Time Seen by Provider: 10/25/21 12:15 Source of Information: Reports: Patient, Old Records, RN History Limitations: Reports: No Limitations - History of Present Illness INITIAL COMMENTS - FREE TEXT/NARRATIVE: 76 yo female presents with a complaint of inability to close her L eye today. She also wants to be checked for a UTI. Had a NOBLE to the back of her head in the night last night. Onset: Today, Gradual Duration: Hour(s):, Constant Location: Reports: Head, Face Quality: Reports: Ache (now better) Severity: Moderate Improves with: Reports: Other (? time) Worsens with: Reports: Other (unsure) Context: Reports: Other (See HPI) Associated Symptoms: Reports: Headaches, Other (L facial palsy). 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 (see below) (none) - Related Data Allergies Allergy/AdvReac Type Severity Reaction Status Date / Time Penicillins Allergy Severe Respiratory Verified 09/19/21 11:26 Depression chocolate flavor Allergy Itching Verified 04/07/20 16:00 sulfamethoxazole Allergy Hives Verified 04/07/20 16:00 [From Bactrim] trimethoprim [From Bactrim] Allergy Hives Verified 04/07/20 16:00 Home Meds: Home Meds atorvaSTATin [Lipitor] 40 mg PO BEDTIME 10/01/17 [History] Potassium Chloride [Klor-Con M20] 20 meq PO BID 05/16/18 [History] Gabapentin [Neurontin] 600 mg PO TID 12/12/18 [History] Metoprolol Succinate [Toprol Xl] 100 mg PO DAILY 09/13/19 [History] Acetaminophen [Tylenol Extra Strength] 1,000 mg PO TID PRN 04/07/20 [History] Insulin Aspart [NovoLOG] 0 unit SQ TIDAC 04/07/20 [History] Insulin Glarg,Human.Rec.Analog [Lantus Solostar] 10 unit SUBCUT BEDTIME 04/07/20 [History] Insulin Glarg,Human.Rec.Analog [Lantus Solostar] 15 units SUBCUT ACBREAKFAST 04/07/20 [History] Nystatin [Nystatin Crm] 1 gm TOP BID #2 tube 04/11/20 [Rx] oxyCODONE HCl [Oxycodone HCl] 10 mg PO Q4H PRN #60 tablet 04/11/20 [Rx] Bumetanide 1 mg PO DAILY 09/16/21 [History] Cholecalciferol (Vitamin D3) [Vitamin D3] 1,000 unit PO DAILY 09/16/21 [History] Clindamycin HCl 300 mg PO TID 09/16/21 [History] Clopidogrel Bisulfate [Clopidogrel] 75 mg PO DAILY 09/16/21 [History] DULoxetine [Cymbalta] 30 mg PO BID 09/16/21 [History] Famotidine 20 mg PO BID 09/16/21 [History] Ferrous Sulfate 325 mg PO DAILY 09/16/21 [History] Pentoxifylline [TRENtal] 400 mg PO TID 09/16/21 [History] Past Medical History HEENT History: Reports: Cataract, Impaired Vision, Other (See Below) Other HEENT History: Diabetic retinopahy, R ear pain Cardiovascular History: Reports: Afib, CAD, Heart Failure, Hypertension, [place], Pacemaker, PVD, Stents Respiratory History: Reports: PE, Other (See Below) Other Respiratory History: CHF, h/o PE 03/2021 Gastrointestinal History: Reports: Cholelithiasis, GI Bleed Genitourinary History: Reports: UTI, Recurrent 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 History: Reports: None Musculoskeletal History: Reports: Amputation, Fracture, Other (See Below) Other Musculoskeletal History: L shoulder fx (child), L tib/fib fx (child), L distal fibular fx, R greater trochanteric fx 08/23/19 (non-operative) Neurological History: Reports: Concussion, Neuropathy, Diabetic Psychiatric History: Reports: Anxiety, Depression Endocrine/Metabolic History: Reports: Diabetes, Type II, Obesity/BMI 30+ Hematologic History: Reports: Anemia, Blood Transfusion(s), Other (See Below) 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 Dermatologic History: Reports: Other (See Below) Other Dermatologic History: Skin rash, wound on right foot - Infectious Disease History Infectious Disease History: Reports: Chicken Pox, Other (See Below) Other Infectious Disease History: polio - Past Surgical History Head Surgeries/Procedures: Reports: None HEENT Surgical History: Reports: Cataract Surgery Cardiovascular Surgical History: Reports: Vascular Surgery Other Cardiovascular Surgeries/Procedures: Aortic valve replacement Respiratory Surgical History: Reports: Thoracentesis GI Surgical History: Reports: Appendectomy, Cholecystectomy Female Surgical History: Reports: Salpingo-Oophorectomy Endocrine Surgical History: Reports: None Neurological Surgical History: Reports: None Musculoskeletal Surgical History: Reports: Amputation, Other (See Below) Other Musculoskeletal Surgeries/Procedures:: R knee surgery, T12 & L4 (chronic) compression fxs, 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 prior to assisted living- had a [place] [address], in 2004 after 27 years together, no children, has a older Sister age 82 years who lives in [place]. 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 Denies: Fever, Chills HEENT: Reports: No Symptoms Respiratory: Reports: No Symptoms Cardiovascular: Reports: No Symptoms GI/Abdominal: Reports: No Symptoms : Reports: No Symptoms Musculoskeletal: Reports: No Symptoms Skin: Reports: No Symptoms Neurological: Reports: Headache (much improved), Other (can't close L eye) Psychiatric: Reports: No Symptoms ED EXAM, GENERAL - Physical Exam Exam: See Below Exam Limited By: No Limitations General Appearance: Alert, WD/WN, No Apparent Distress, Obese Eye Exam: Bilateral Eye: Normal Inspection Ears: Hearing Loss, Other (hearing aids bilaterally) Ear Exam: Bilateral Ear: Auricle Normal, Canal Normal Nose: Normal Inspection, No Blood Throat/Mouth: Normal Inspection, Normal Lips, Normal Oropharynx, Normal Voice, No Airway Compromise Head: Atraumatic, Normocephalic Neck: Normal Inspection Respiratory/Chest: No Respiratory Distress, Lungs Clear, Normal Breath Sounds, No Accessory Muscle Use Cardiovascular: Regular Rate, Rhythm, No Edema Extremities: Normal Inspection Neurological: Alert, Oriented, Normal Cognition, Other (unable to smile on L or close L eye) Psychiatric: Normal Affect, Normal Mood Skin Exam: Warm, Dry, Intact, Normal Color, No Rash Course - Vital Signs Last Recorded V/S: Last Vital Signs Temp 36.6 C 10/25/21 11:59 Pulse 68 10/25/21 11:59 Resp 18 10/25/21 11:59 BP 174/59 H 10/25/21 11:59 Pulse Ox 94 L 10/25/21 11:59 - Orders/Labs/Meds Labs: Laboratory Tests 10/25/21 Range/Units 11:22 Urine Color Yellow (YELLOW) Urine Appearance Slightly cloudy A (CLEAR) Urine pH 6.0 (5.0-8.0) Ur Specific [place] 1.015 (1.008-1.030) Urine Protein 100 H (NEGATIVE) mg/dL Urine Glucose (UA) Negative (NEGATIVE) mg/dL Urine Ketones Negative (NEGATIVE) mg/dL Urine Occult Blood Trace-lysed H (NEGATIVE) Urine Nitrite Negative (NEGATIVE) Urine Bilirubin Negative (NEGATIVE) Urine Urobilinogen 0.2 (0.2-1.0) EU/dL Ur Leukocyte Esterase Negative (NEGATIVE) Urine RBC 0-5 (0-5) Urine WBC Not seen (0-5) Ur Epithelial Cells Few Amorphous Sediment Moderate Urine Bacteria Rare Urine Mucus Few Departure - Departure Time of Disposition: 12:50 Disposition: Home, Self-Care 01 Condition: Fair Clinical Impression: Left-sided Candelaria's palsy - Discharge Information *PRESCRIPTION DRUG MONITORING PROGRAM REVIEWED*: Not Applicable *COPY OF PRESCRIPTION DRUG MONITORING REPORT IN PATIENT AXEL: Not Applicable Instructions: Candelaria Palsy, Adult Referrals: Kiran Paul MD [Primary Care Provider] - Additional Instructions: Take prednisone 60 mg daily for 6 days. Apply Visine or other eye drops to the left eye every hour while awake. Apply eye patch to the left eye at bedtime until you can close that eye again. Recheck with your doctor by the end of the week, call for an appt. Sepsis Event Note (ED) - Evaluation Sepsis Screening Result: No Definite Risk - Focused Exam Vital Signs: Vital Signs Temp Pulse Resp BP Pulse Ox 10/25/21 11:59 36.6 C 68 18 174/59 H 94 L 10/25/21 11:53 36.6 C 68 18 174/59 H 94 L
== END 2021-10-25 13:20 | disposition home or self-care (01) ==
LOC: JP.ED 11:13
DX: G51.0 Bell's palsy (principal); I11.0 Hypertensive heart disease with heart failure; I50.9 Heart failure, unspecified; I25.2 Old myocardial infarction; E11.40 Type 2 diabetes mellitus with diabetic neuropathy, unspecified; E66.9 Obesity, unspecified; Z68.41 Body mass index [BMI] 40.0-44.9, adult; Z95.0 Presence of cardiac pacemaker; Z88.0 Allergy status to penicillin; Z91.018 Allergy to other foods; Z88.1 Allergy status to other antibiotic agents; Z79.899 Other long term (current) drug therapy; Z79.02 Long term (current) use of antithrombotics/antiplatelets; Z79.4 Long term (current) use of insulin
CPT/HCPCS: 81001; 99284

== ENCOUNTER 2022-02-14 10:48 | Emergency (ER) | payer MEDICARE ==
[2022-02-14 11:00] VITALS: BP 163/79; PULSE 60
[2022-02-14 12:09] LABS: CORONAVIRUS COVID-19 NAA NEGATIVE (NEGATIVE)
== END 2022-02-14 20:08 | disposition home or self-care (01) ==
LOC: JP.ED 10:48
DX: I11.0 Hypertensive heart disease with heart failure (principal); I50.22 Chronic systolic (congestive) heart failure; I25.10 Atherosclerotic heart disease of native coronary artery without angina pectoris; E11.65 Type 2 diabetes mellitus with hyperglycemia; E11.40 Type 2 diabetes mellitus with diabetic neuropathy, unspecified; E11.319 Type 2 diabetes mellitus with unspecified diabetic retinopathy without macular edema; R07.89 Other chest pain; R13.10 Dysphagia, unspecified; M25.512 Pain in left shoulder; E66.9 Obesity, unspecified; Z20.822 Contact with and (suspected) exposure to COVID-19; Z88.0 Allergy status to penicillin; Z91.02 Food additives allergy status; Z88.1 Allergy status to other antibiotic agents; Z79.4 Long term (current) use of insulin; Z79.84 Long term (current) use of oral hypoglycemic drugs; Z79.899 Other long term (current) drug therapy; Z95.0 Presence of cardiac pacemaker; Z95.2 Presence of prosthetic heart valve
CPT/HCPCS: 0241U; 36415; 80048; 80076; 83880; 84484; 85025; 93005; 93010; 99285; 99285-25

== ENCOUNTER 2022-03-23 15:42 | Emergency (ER) | payer MEDICARE ==
[2022-03-23 16:23] VITALS: PULSE 60
[2022-03-23 17:36] VITALS: BP 151/35
== END 2022-03-23 18:15 | disposition home or self-care (01) ==
LOC: JP.ED 15:42
DX: H53.2 Diplopia (principal); H53.34 Suppression of binocular vision; I11.0 Hypertensive heart disease with heart failure; I50.9 Heart failure, unspecified; I25.2 Old myocardial infarction; E11.9 Type 2 diabetes mellitus without complications; E66.9 Obesity, unspecified; Z68.35 Body mass index [BMI] 35.0-35.9, adult; Z79.4 Long term (current) use of insulin; Z79.899 Other long term (current) drug therapy; Z88.0 Allergy status to penicillin; Z88.8 Allergy status to other drugs, medicaments and biological substances; Z88.2 Allergy status to sulfonamides
CPT/HCPCS: 36415; 85025; 85651; 86140; 99281; 99284